=== PATIENT | male | born 1950 | race Caucasian/White ===

== ENCOUNTER → 2024-01-09 13:04 | Outpatient (REF) | payer MEDICARE, SELFPAY | LOC: RAD 13:04 | PROVIDERS: ATTENDING PHYSICIAN Surgery Vascular Surgery; FAMILY PHYSICIAN General Practice | DX: I77.9 Disorder of arteries and arterioles, unspecified (principal) | CPT/HCPCS: 93922; 93925 ==

== ENCOUNTER 2024-01-18 10:38 | Inpatient (IN) | payer MEDICARE, SELFPAY ==
[2024-01-18] VITALS (11 sets, daily range): BP systolic 125–170; BP diastolic 58–89; BMI 26.6
[2024-01-18 07:59] LABS: INR 1.05; PT 13.5 Sec (11.4-14.6)
[2024-01-18 08:00] LABS: Blood Urea Nitrogen 25 mg/dl (9-20); Calcium 8.9 mg/dl (8.4-10.2); Carbon Dioxide 26 mmol/L (22-30); Chloride 109 mmol/L (98-107); Glucose 91 mg/dl (70-99); Potassium 4.4 mmol/L (3.5-5.1); Sodium 140 mmol/L (135-145); eGFR > 60.00
[2024-01-18 08:04] LABS: Hematocrit 39.6 % (39.0-52.0); Mean Corp Hgb Conc. 32.8 g/dL (33.0-37.0); Mean Corpuscular Hgb 32.6 pg (27.0-31.0); Mean Corpuscular Volume 99.2 fL (80.0-94.0); Mean Platelet Volume 10.1 fL (7.4-10.4); Platelet Count 217 10^3/uL (130-400); Red Blood Cell Count 3.99 10^6/uL (4.70-6.10); Red Cell Dist. Width 12.8 % (11.5-14.5); White Blood Cell Count 6.3 10^3/uL (4.8-10.8)
--- NOTE | 2024-01-18 08:21 | W.SUR.PREOP ---
Pre-Operative Surgical Note
-
I have examined this patient prior to the performance of the scheduled procedure.
The patient's condition is unchanged from the time of the current History and
Physical and the patient is able to undergo the scheduled procedure.
--- NOTE | 2024-01-18 10:31 | W.IMMPOSTOP ---
Surgical Immed Post Op Note
-
Primary Surgeon: Asa Warner III, MD
Assisting Surgeon: Kuldip Osei MD
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
Post-op Diagnosis: BL peripheral artery occlusive disease w non-healing heel ulcers
Procedure Performed: Diagnostic bilateral LE angiogram
Anesthesia Type: General
Specimen / Cultures: NA
Estimated Blood Loss: 2 cc
Complications: NA
Operative Findings:
Access obtained via Left Common Femoral Artery. RLE demonstrated completely occluded L SFA with minimal reconstitution of below-knee popliteal artery. Completely occluded posterior tibial artery. Prior stent with complete restenosis. Similar
findings noted on agram of LLE. Will proceed to bypass if veins are harvestable and appropriate caliber.
[2024-01-18] MEDS: SUBLIMAZE 25 MCG IV ×2 (10:59→11:09)
--- NOTE | 2024-01-18 11:12 | W.PN.UPDATE ---
Update Note
Progress Note Update
Arteriogram shows extensive calcified SFA/pop occlusive disease bilaterally with distal reconstitution identified bilaterally
Bilateral SFA/pop stent occlusions bilaterally
Patient with critical limb ischemia bilaterally, left greater than right
Discussed with patient's son.
Will plan for bilateral lower extremity/upper extremity vein mapping
Plan for open revascularization of left lower extremity first, next week
Heparin drip
Cardiac risk stratification
Asa Warner III, MD
[facility]
[phone] (bmhh)
[2024-01-18] MEDS: NSS 1000 IV (11:29)
[2024-01-18 12:38] LABS: Hematocrit 35.4 % (39.0-52.0); Hemoglobin 11.5 g/dL (13.0-18.0); Mean Corp Hgb Conc. 32.5 g/dL (33.0-37.0); Mean Corpuscular Hgb 32.6 pg (27.0-31.0); Mean Corpuscular Volume 100.3 fL (80.0-94.0); Mean Platelet Volume 9.7 fL (7.4-10.4); Platelet Count 170 10^3/uL (130-400); Red Blood Cell Count 3.53 10^6/uL (4.70-6.10); Red Cell Dist. Width 12.7 % (11.5-14.5); White Blood Cell Count 6.3 10^3/uL (4.8-10.8)
[2024-01-18 13:19] LABS: APTT 32.8 Sec (23.4-35.0)
--- NOTE | 2024-01-18 13:20 | CON.CAR ---
Addendum entered and electronically signed by Newton Leyva MD 01/18/24 16:10:
I saw and examined the patient.
The GOLD BURNISHER's note was reviewed and I agree with the note.
Comment: 73 yo male with CAD s/p CABG x 3 09/2019, ICM 30-35%, PAD (multiple LE stents followed by Dr. Warner), [employer] ICD, PE on Eliquis, HTN, and HLD, who presents for LE arteriogram by Dr. Warner. Dr. Warner plans on open
revascularization of left lower extremity next week.� We are consulted for pre-op risk assessment.� He denies any cardiac complaints and reports being able to walk up a flight of stairs without chest pain or SOB.
- Preop CV risk assessment: He has no significant symptoms of ischemia, heart failure, or arrhythmia. According to the NSQIP risk calculator he is at approximately 1% risk of cardiac complication and approximately 10 to 15% risk of any
complication. He is able to do greater than 4 METS without any significant symptoms of ischemia. He is at elevated risk, however, given he has no significant symptoms he needs no further testing prior to surgery.
Original Note:
Consultation
Consultation Request
Date/Time Consultation Requested: 01/18/24 12:15p
Date/Time Consultation Performed: 01/18/24 12:30p
Requesting Provider: HERBERTH Pathak
Performing Provider: HERBERTH Braun for Dr. Leyva
Reason for Consultation: pre-op risk assessment
Medical History
-
Chief Complaint: pad
History of Present Illness:
Mr. Rossi is a 73 yo male with CAD s/p CABG x 3 09/2019, ICM 30-35%, PAD (multiple LE stents followed by Dr. Warner), [employer] ICD, PE on Eliquis, HTN, and HLD, who presents for LE arteriogram by Dr. Warner. Arteriogram with extensive
calcified SFA/popliteal occlusive disease bilaterally with distal reconstitution identified bilaterally, b/l SFA/popliteal stent occlusions bilaterally. He has critical limb ischemia bilaterally, left greater than right. Dr. Warner plans on open
revascularization of left lower extremity next week. We are consulted for pre-op risk assessment. He denies any cardiac complaints and reports being able to walk up a flight of stairs without chest pain or SOB. His last stress test was 01/24/2022
that showed EF 37%, negative for ischemia and large scar. Echo 07/20/23 with EF 30-35%, global hypokinesis of inferoseptal, inferolateral and inferior alvarez, mild-mod MR. Currently he is lying flat, post arteriogram, without any symptoms.
Past Medical History
Past Medical History: Other (as above)
Past Surgical History: Cardiac (CABG and ICD)
Social History
Tobacco: Former Smoker
Alcohol: None
Living: With Family
Family History
Family History: CAD (father CT 60s)
Allergies / Home Medications
Allergy/AdvReac Type Severity Reaction Status Date / Time
atorvastatin [From Lipitor] Allergy myalgia Verified 01/15/24 08:46
simvastatin [From Zocor] Allergy myalgia Verified 01/15/24 08:46
Medication Instructions Recorded Confirmed Type
aspirin 81 mg tablet,delayed 81 mg PO DAILY Blood Clot 01/21/19 01/18/24 History
release Prevention/Tx
acetaminophen 325 mg tablet 650 mg PO Q4HPRN PRN mild 09/28/19 01/18/24 Rx
pain,headache,temp >101F
rosuvastatin 5 mg tablet 5 mg PO DAILY High Cholesterol 10/19/19 01/18/24 History
carvedilol 12.5 mg tablet 12.5 mg PO BID Heart 03/18/21 01/18/24 History
Disease/Condition/blood pressure
docusate sodium 100 mg capsule 100 mg PO BID Constipation 09/28/23 01/18/24 History
levothyroxine 75 mcg tablet 75 mcg PO DAILY Thyroid 09/28/23 01/18/24 History
pantoprazole 40 mg tablet,delayed 40 mg PO DAILY Gastrointestinal 09/28/23 01/18/24 History
release Issue
sacubitril 49 mg-valsartan 51 mg 1 tab PO BID Heart failure 09/28/23 01/18/24 History
tablet (Entresto)
timolol maleate 0.5 % eye drops 1 drp BOTH EYES DAILY glaucoma 09/28/23 01/18/24 History
trazodone 50 mg tablet 50 mg PO HS PRN sleep 09/28/23 01/18/24 History
apixaban 5 mg tablet (Eliquis) 5 mg PO BID 01/15/24 01/15/24 History
Review of Systems
-
History Source: Patient
All other systems: Negative unless noted
Physical Exam
Vital Signs
Temp Pulse Resp BP Pulse Ox
97.8 F 68 19 141/75 97
01/18/24 13:19 01/18/24 13:19 01/18/24 13:19 01/18/24 13:19 01/18/24 13:19
Lab Results
01/18/24 12:31
01/18/24 07:41
Physical Exam
General: Well Developed, Well Nourished and No Apparent Distress
HEENT: Normocephalic, Anicteric and Moist Mucous Membranes
Respiratory: Clear and Non Labored Respirations
Cardiac: S1/S2, Regular Rhythm and Peripheral Edema (mild)
Breast: Deferred by me
GI: Soft, Non Tender and Normal Bowel Sounds
Rectal: Deferred by Provider
Musculoskeletal: No Clubbing
Skin: Warm, Dry and Other (right heel wound, vascular changes to b/l LE)
Neuro: AO x 3
Psych: Calm
Impression / Plan
-
Pre-op risk assessment - critical limb ischemia LLE, plan for open bypass of LLE next week.
- no active cardiac symptoms, states able to perform > 4 METS w/o symptoms.
- he is at moderate risk.
- continue his outpatient medical therapy and monitor on tele.
PAD - severe b/l LE.
- Arteriogram with extensive calcified SFA/popliteal occlusive disease bilaterally with distal reconstitution identified bilaterally, b/l SFA/popliteal stent occlusions bilaterally.
- He has critical limb ischemia bilaterally, left greater than right. Dr. Warner plans on open revascularization of left lower extremity next week.
- managed by Dr. Warner.
CAD - s/p CABG.
- stable w/o anginal symptoms.
- continue medical therapy.
ICM - EF 30-35%.
- well compensated on exam.
- denies any heart failure symptoms.
ICD - [employer] device.
- stable with normal function.
stress test was 01/24/2022 that showed EF 37%, negative for ischemia and large scar.
Echo 07/20/23 with EF 30-35%, global hypokinesis of inferoseptal, inferolateral and inferior alvarez, mild-mod MR.
Data Reviewed
-
EKG: Other (ordered)
Medical Tests (Nuc Med, Echo etc): Report Reviewed by me (Echo 07/20/23 with EF 30-35%, global hypokinesis of inferoseptal, inferolateral and inferior alvarez, mild-mod MR.) and Other (stress test 01/24/2022 showed EF 37%, negative for ischemia and large
scar.)
Labs: Labs Reviewed by me
Old Records: Reviewed
[2024-01-18] MEDS: DILAUDID 0.5 MG IV (13:53)
--- NOTE | 2024-01-18 15:17 | PTCARENOTE ---
pt arrived from PACU 1200, to lay flat another hour. Diagnostic bilateral LE angiogram could not place stent, bypass [place], Heparin to start 3/2, bilat foot ulcers, heel wound. 22g RW 80ml NSS until 1630. 22g in RFA placed for Heparin to start 3/2
0800. bed low and flat, pain is 0. call vanessa in reach.
[2024-01-18] MEDS: ROXICODONE 5 MG PO ×2 (16:34→20:34)
--- NOTE | 2024-01-18 17:27 | OR.RPT ---
Operative Report
Operative Report
Date of Operation: 01/18/2024
Pre Op Diagnosis: Critical limb threatening ischemia, bilateral lower extremities
Post Op Diagnosis: Critical limb threatening ischemia, bilateral lower extremities
Procedure:
1.) Selective catheterization of third order lower extremity artery
2.) Diagnostic aortobiiliac arteriogram
3.) Diagnostic BILATERAL lower extremity arteriogram
4.) Ultrasound-guided percutaneous access to the right common femoral artery
Surgeon: Asa Warner III, MD
Hot Blast Worker: Kuldip Osei MD PGY-1
Anesthesia: Sedation with local
Fluoroscopy:
15 min
183 mGy
53.1 Gy.cm2
Complications: None
Estimated Blood Loss: Less than 10 cc
History and Indications for Procedure: 73-year-old male with critical limb threatening ischemia involving both lower extremities. The left was worse than the right. He has a left nonhealing foot wound. He has rest pain bilaterally.
Procedure in Detail: Mundo Rossi was correctly identified and placed supine on the operating table. After adequate induction of anesthesia the bilateral groins were prepped and draped in the usual sterile fashion. A timeout was performed with the
nursing and anesthesia staff confirming the patient's identity as well as the nature and laterality of the procedure.
The right common femoral artery was identified under ultrasound guidance. The artery was patent. The superior and inferior aspects of the femoral head were identified with radiographic guidance and marked at the skin level. The proposed puncture
site was infiltrated with local anesthesia. We saved a copy of the ultrasound image to the medical record. Under ultrasound guidance we accessed the right common femoral artery with a micropuncture needle and upsized to a 5 Fr sheath over a VCVson
wire. The wire and a ShepherFlatStack hook flush catheter were advanced into the distal abdominal aorta and a diagnostic aorto-biiliac arteriogram was performed:
AORTO-ILIAC ARTERIOGRAM:
Aorta: Peripherally calcified diffusely. Patent. No significant stenosis identified.
Right common iliac artery: Peripherally calcified. Patent. No significant stenosis identified.
Right external iliac artery: Patent with no significant stenosis identified
Left common iliac artery: Peripherally calcified. Patent with no significant stenosis identified.
Left external iliac artery: Patent with no significant stenosis identified
Under roadmap guidance using a Glidewire and the SheSandataerFlatStack hook catheter we selected the left common iliac artery and then the external iliac artery. A catheter was tracked up and over the aortic bifurcation and placed in the distal external iliac
artery. A diagnostic left lower extremity arteriogram was then performed which demonstrated the following:
LEFT LOWER EXTREMITY:
Common femoral artery: Patent with no significant stenosis identified
Profunda femoral artery: Patent with no significant stenosis identified
Superficial femoral artery: Patent proximal and mid segment. Focal moderate calcified stenosis present in the proximal SFA. Diffuse peripheral calcification. Moderate stenoses seen distally just proximal to the stent. Distal SFA stent occluded
Popliteal artery: Above-knee popliteal artery occluded within the stent. Occluded stents behind the knee. Heavily calcified. Faint reconstitution of a small diameter heavily diseased below-knee popliteal artery.
Anterior tibial artery: Reconstituted through collaterals. Proximal anterior tibial artery stent identified. Appears to be patent. Distal anterior tibial artery is patent and continues across the ankle into the foot. Dorsalis pedis artery is
patent and flow to the midfoot and forefoot is identified in this distribution
Tibioperoneal trunk: Patent. Heavily calcified.
Peroneal artery: Patent. No stenosis identified.
Posterior tibial artery: Occluded. No distal reconstitution identified
ENDOVASCULAR INTERVENTION: Systemic heparin was administered. Exchanged out for a 6 Fr 45 cm sheath over a Watchwith wire. Selected the superficial femoral artery artery under roadmap guidance with Quickcross catheter and glidewire. Attempted to cross
the occluded SFA/pop stents but could not advance catheter or wire through the popliteal artery behind the knee. I therefore abandoned additional attempts to cross the occlusive disease.
The catheter was removed from the sheath. The sheath was pulled back into the right external iliac artery. The wire was removed. A runoff arteriogram of the right lower extremity was performed which demonstrated the following:
RIGHT LOWER EXTREMITY:
Common femoral artery: Patent with no significant stenosis identified.
Profunda femoral artery: Patent with no significant stenosis identified.
Superficial femoral artery: Patent proximal and mid segment. Bulky calcified plaque identified creating high-grade stenoses. Distal SFA stents are occluded.
Popliteal artery: Occluded [id number] stents. Occluded behind the knee. Small diameter popliteal artery reconstitutes below the knee. Appears to be calcified.
Anterior tibial artery: Patent. Continues across the ankle into the foot to form the dorsalis pedis artery. This artery supplies the forefoot.
Tibioperoneal trunk: Patent.
Peroneal artery: Patent.
Posterior tibial artery: Occluded. No distal reconstitution identified.
Satisfied with this result we concluded the procedure. The sheath was secured in place with the plan to pull it in the recovery room.
The patient tolerated the procedure well and was taken to the recovery area in stable condition.
Attestation: I was present and responsible for the entire procedure.
Signed:
Asa Warner III, MD
[facility]
[phone] (qlal)
[2024-01-18] MEDS: ENTRESTO 49 MG/51 MG 1 TAB PO (20:18)
[2024-01-18] MEDS: COREG 12.5 MG PO (20:18)
[2024-01-18] MEDS: COLACE 100 MG PO (20:18)
[2024-01-19] MEDS: ROXICODONE 5 MG PO ×4 (00:36→20:58)
--- NOTE | 2024-01-19 01:12 | PTCARENOTE ---
patient attempted to void by sitting on side of bed with urinal. no output. bladder scan reading = 550. This RN explained to patient that per MD order we would straight cath to remove urine that he is unable to void on his own. pt would prefer to
wait a little longer and attempt to void on his own one more time before being strait cathed, in hopes that his pain medicine helps him relax more. will cont to monitor.
[2024-01-19 03:48] VITALS: BP 160/83
[2024-01-19 06:00] VITALS: BMI 27.5
[2024-01-19] MEDS: SYNTHROID 75 MCG PO (06:01)
--- NOTE | 2024-01-19 07:14 | W.PN.VS ---
Today's Communication / Plan
-
as above
Assessment/Plan
-
-Discussed arteriogram results with patient
-appreciate cardiology input
-plan for bypass Sunday
Subjective Data
-
Date of Service: January 19, 2024
No acute events. Continues to have same pain in legs.
Objective Data
-
Vital Signs
Temp Pulse Resp BP Pulse Ox
97.3 F 82 18 160/83 95
01/19/24 03:48 01/19/24 03:48 01/19/24 03:48 01/19/24 03:48 01/19/24 03:48
Intake and Output
01/18/24 01/19/24 01/20/24
06:59 06:59 06:59
Intake Total 1080 / 1080
Output Total 350 / 350
Balance 730 / 730
Intake:
Oral fluids 740 / 740
IV fluids (Total) 340 / 340
NS 100 / 100
IV piggybacks 0 / 0
Output:
Urine, Voided 350 / 350
Other:
Number of approximated MODERATE 1
amounts of urine
Calcium 8.9 mg/dl (8.4-10.2) 01/18/24 07:41
Physical Exam
-
NAD
Feet hanging over side of bed
Groin access site c/d/i
[2024-01-19 07:40] VITALS: BP 163/87
[2024-01-19 07:41] LABS: PT 14.1 Sec (11.4-14.6)
[2024-01-19 07:42] LABS: APTT 28.8 Sec (23.4-35.0); Hematocrit 36.1 % (39.0-52.0); Hemoglobin 11.8 g/dL (13.0-18.0); Mean Corp Hgb Conc. 32.7 g/dL (33.0-37.0); Mean Corpuscular Hgb 32.5 pg (27.0-31.0); Mean Corpuscular Volume 99.4 fL (80.0-94.0); Platelet Count 201 10^3/uL (130-400); Red Blood Cell Count 3.63 10^6/uL (4.70-6.10); Red Cell Dist. Width 12.8 % (11.5-14.5); White Blood Cell Count 7.5 10^3/uL (4.8-10.8)
[2024-01-19 07:51] LABS: Blood Urea Nitrogen 24 mg/dl (9-20); Calcium 8.4 mg/dl (8.4-10.2); Carbon Dioxide 23 mmol/L (22-30); Chloride 107 mmol/L (98-107); Estimated Creatinine Clearance 64 ml/min; Glucose 93 mg/dl (70-99); Potassium 4.3 mmol/L (3.5-5.1); Sodium 136 mmol/L (135-145); eGFR > 60.00
[2024-01-19] MEDS: COREG 12.5 MG PO ×2 (09:31→21:00)
[2024-01-19] MEDS: COLACE 100 MG PO ×2 (09:32→20:59)
[2024-01-19] MEDS: PROTONIX 40 MG PO (09:32)
[2024-01-19] MEDS: ENTRESTO 49 MG/51 MG 1 TAB PO ×2 (09:33→20:59)
[2024-01-19] MEDS: CRESTOR 5 MG PO (09:33)
[2024-01-19] MEDS: ASPIR LOW (ENTERIC COATED) 81 MG PO (09:34)
[2024-01-19] MEDS: TIMOPTIC 0.5% OPHTHALMIC SOLUTION 1 DROP BOTH EYES (09:35)
[2024-01-19] MEDS: HEPARIN 25000 UNITS/250 ML IV (09:36)
[2024-01-19 11:30] VITALS: BP 113/93
--- NOTE | 2024-01-19 15:36 | CM ---
CM met with pt bedside
Pt resides alone in a rancher with ramp entrance
Pt notes independence with ambulation with use of WW
No longer drives and will only bath with family supervision
Pt has hx at [facility] for respite and [facility]
Pt is in financial assistance program for [email or web address]
PCP- Chinyere Beltran
Rx- [facility]
Pt planned for bypass on
Will benefit from post PT/OT orders
Pt notes he receives wound care at home
VM left with Arlin Beal in inquire which agency she works with ([phone])
Discharge Disposition- home watc [facility], watch for higher needs
[2024-01-19 15:45] VITALS: BP 122/69
--- NOTE | 2024-01-19 15:48 | PTCARENOTE ---
pt is very confused. he states it is baseline for him. he is writing everything down, repeating questions he asked earlier becoming anxious, overly concerned regarding wound care. Heparin 12u/kg/hr started 1000, PO oxycodone. Stood pt at bedside for
3mins. buttocks are blanchable red, applied cream.
[2024-01-19 16:26] LABS: APTT 102.9 Sec (23.4-35.0)
--- NOTE | 2024-01-19 18:30 | PTCARENOTE ---
reached out to vascular doctor regarding pt having difficulty urinating. He goes smaller amounts, then feels the urge to still go. He is more anxious and increasing his baseline confusion.
[2024-01-19 19:12] VITALS: BP 146/82
[2024-01-19] MEDS: MELATONIN 5 MG PO (20:59)
[2024-01-19 22:56] LABS: APTT 159.6 Sec (23.4-35.0)
[2024-01-19 22:58] LABS: Urine Albumin Negative (Neg - Trace); Urine Bilirubin Negative (Negative); Urine Character Clear (Clear); Urine Color Yellow; Urine Glucose Negative (Negative); Urine Ketone Negative (Negative); Urine Leukocyte Negative (Negative); Urine Nitrite Negative (Negative); Urine Occult Blood Negative (Negative); Urine Specific Gravity 1.015 (<1.030); Urine Urobilinogen Negative (Neg - 1+)
--- NOTE | 2024-01-19 23:00 | PTCARENOTE ---
contacted house [employer] concerning patient's frequent urination of 100-200 mls a time, while c/o still feeling full of urine. UA ordered and obtained. post void residual of 650 after 100 ml void. patient then straight cathed for 825 ml of dark yellow
urine, tolerated procedure well.
[2024-01-19 23:16] VITALS: BP 136/69
[2024-01-20] MEDS: TYLENOL 650 MG PO (00:38)
[2024-01-20 03:26] VITALS: BP 133/64
[2024-01-20 06:00] VITALS: BMI 27.4
[2024-01-20] MEDS: SYNTHROID 75 MCG PO (06:08)
[2024-01-20 07:13] LABS: Hematocrit 33.5 % (39.0-52.0); Mean Corp Hgb Conc. 32.8 g/dL (33.0-37.0); Mean Corpuscular Hgb 32.4 pg (27.0-31.0); Mean Corpuscular Volume 98.5 fL (80.0-94.0); Mean Platelet Volume 9.8 fL (7.4-10.4); Platelet Count 175 10^3/uL (130-400); White Blood Cell Count 6.2 10^3/uL (4.8-10.8)
[2024-01-20 07:26] LABS: APTT 105.5 Sec (23.4-35.0)
[2024-01-20 07:40] VITALS: BP 119/50
--- NOTE | 2024-01-20 07:48 | W.PN.VS ---
Today's Communication / Plan
-
as above
Assessment/Plan
-
-Discussed arteriogram results with patient
-appreciate cardiology input
-flomax started
Subjective Data
-
Date of Service: January 20, 2024
Patient with urinary retention overnight. Otherwise no complaints
Objective Data
-
Vital Signs
Temp Pulse Resp BP Pulse Ox
98.0 F 72 18 133/64 94
01/20/24 03:26 01/20/24 03:26 01/20/24 03:26 01/20/24 03:26 01/20/24 03:26
Intake and Output
01/19/24 01/20/24 01/21/24
06:59 06:59 06:59
Intake Total 1080 / 1080 1040 / 1040
Output Total 350 / 350 1650 / 1650
Balance 730 / 730 -610 / -610
Intake:
Oral fluids 740 / 740 1040 / 1040
IV fluids (Total) 340 / 340
NS 100 / 100
IV piggybacks 0 / 0
Output:
Urine, Voided 350 / 350 825 / 825
Straight cath output 825 / 825
Other:
Number of approximated MODERATE 1
amounts of urine
Lab Results
01/20/24 06:56
01/19/24 07:20
Calcium 8.4 mg/dl (8.4-10.2) 01/19/24 07:20
Physical Exam
-
NAD
feet hanging over the bed for symptomatic relief
groin access site c/d/i
[2024-01-20] MEDS: COREG 12.5 MG PO ×2 (09:15→21:05)
[2024-01-20] MEDS: FLOMAX 0.400000000000000022 MG PO (09:16)
[2024-01-20] MEDS: ENTRESTO 49 MG/51 MG 1 TAB PO ×2 (09:16→21:07)
[2024-01-20] MEDS: ASPIR LOW (ENTERIC COATED) 81 MG PO (09:17)
[2024-01-20] MEDS: CRESTOR 5 MG PO (09:17)
[2024-01-20] MEDS: ROXICODONE 5 MG PO ×4 (09:17→23:05)
[2024-01-20] MEDS: COLACE 100 MG PO ×2 (09:18→21:05)
[2024-01-20] MEDS: TIMOPTIC 0.5% OPHTHALMIC SOLUTION 1 DROP BOTH EYES (09:18)
[2024-01-20] MEDS: PROTONIX 40 MG PO (09:18)
[2024-01-20] MEDS: HEPARIN 25000 UNITS/250 ML IV (09:19)
[2024-01-20 13:27] LABS: APTT 121.5 Sec (23.4-35.0)
--- NOTE | 2024-01-20 15:04 | PTCARENOTE ---
pt required straight cath/bladder scanning d/t bladder retention. He is frustrated with his confusion and does not remember things. BPH is undiagnosed and needs to be addressed. Nurse placed in ingrid care b/c he is wiggly to end of bed to use urinal
and needs to get OOB. Skin on buttocks is becoming reddened/blanchable needs to stand and get OOB but pt states feet hurt too much. Heavy 2 pp assist with RW. pt fell asleep in gericare after oxycodone, but stated felt relief in chair.
[2024-01-20 15:43] VITALS: BP 109/53
[2024-01-20 19:26] LABS: APTT 102.1 Sec (23.4-35.0)
[2024-01-20 23:10] VITALS: BP 132/63
[2024-01-21] VITALS (13 sets, daily range): BP systolic 115–158; BP diastolic 63–87; BMI 27.4
--- NOTE | 2024-01-21 01:40 | W.PN.UPDATE ---
Update Note
Progress Note Update
Patient continuos to retain urine, voided 100ml, per nursing bladder scan 460ml, Straight Cath 600ml. patient uncomfortable at present with the straight cath as it is the third time, Flomax order in place, Will place Warner cath this time.
[2024-01-21] MEDS: DILAUDID 0.5 MG IV ×3 (02:00→12:08)
[2024-01-21 05:58] LABS: APTT 88.1 Sec (23.4-35.0)
[2024-01-21] MEDS: ROXICODONE 5 MG PO (06:46)
[2024-01-21] MEDS: SYNTHROID 75 MCG PO (06:51)
[2024-01-21] MEDS: COLACE 100 MG PO ×2 (08:13→20:20)
[2024-01-21] MEDS: PROTONIX 40 MG PO (08:13)
[2024-01-21] MEDS: CRESTOR 5 MG PO (08:13)
[2024-01-21] MEDS: FLOMAX 0.400000000000000022 MG PO (08:13)
[2024-01-21] MEDS: COREG 12.5 MG PO ×2 (08:13→20:20)
[2024-01-21] MEDS: TIMOPTIC 0.5% OPHTHALMIC SOLUTION 1 DROP BOTH EYES (08:13)
[2024-01-21] MEDS: ASPIR LOW (ENTERIC COATED) 81 MG PO (08:13)
[2024-01-21] MEDS: HEPARIN 25000 UNITS/250 ML IV (08:13)
[2024-01-21] MEDS: ENTRESTO 49 MG/51 MG 1 TAB PO ×2 (08:13→20:20)
--- NOTE | 2024-01-21 10:07 | CM ---
Reviewed the chart notes and spoke with the patient and his son at the bedside. Received call from patient's PCP office to confirm [facility] is seeing patient in his home for his wounds. Patient anticipating on having bypass to lower
extremity tomorrow. CM continues to be available to patient/family and is monitoring medical plan for needs at discharge.
Plan: Discharge plans will depend on the patient's progress.
--- NOTE | 2024-01-21 10:40 | WOUNDNOTE ---
L MEDIAL GREAT TOE
--- NOTE | 2024-01-21 10:42 | WOUNDNOTE ---
L LATERAL HEEL AND ACHILLES
--- NOTE | 2024-01-21 10:45 | WOUNDNOTE ---
WON RN note: Patient admitted with PAD to legs.
See H&P for complete history. Lives by self, sons assist as needed.
PMH: CAD, PAD, PVD with multiple stents to legs, CABG triple bypass 2018, defibrillator 2019, ex smoker, DJD-herniated discs,(epidural steroid injections) R foot drop, Hep C and arthritis.
Wound Location and type/assessment: Patient admitted with: R heel unstageable PI mixed with arterial insufficiency, small eschar with serosanguineous drainage. L medial great toe with arterial wound, benson slough at base, moderate ss drainage.
Patient and son's at bedside state it was a bunion that a foot DrShayne attempted to remove and then wound opened. Has a first apt. at [facility] for this , son will reschedule. L heel boggy red, stage 1 PI, scattered dry scab
abrasions to Achilles. Was using a surgical shoe when ambulating. Otherwise son's say he uses open back slippers when walking in house. R foot drop, patient does not recall why he got it, does not use any special brace. Plantar feet are intact. With
assist from nurse Miah, turned patient onto sides, buttocks are intact. Patient assists with turning, very sleepy at moment, previously medicated for pain. Non palpable pulses both feet, + audible pulses with Doppler, L dampened. skin warm, red tinge
to skin. Reviewed Dr. Warner's note, for leg bypass Sunday.
Appetite: Adequate.
Pressure redistribution devices in place: On Accumax, encouraged to turn, repositioned onto R semi side lying position.
Plan: To L great toe and R heel applied silver alginate, ABD pad and kerlix. L heel applied silicone foam and kerlix. Will order mineral oil for dry skin on both legs and feet. Called SPD for TruVue lite offloading heel boot and applied to both
feet. Teaching done regarding wound care and offloading. Sons and patient aware can take boots home upon discharge, to be used in bed only. Pillow placed under calves. Current with [facility] per CM at bedside. Wounds may eventually need topical
Santyl to help clean wound beds along with continued offloading to heels and offloading shoes. Confirmed the above orders with ARABELLA Correa. Updated nurse Sharmila, care plan and will follow as needed.
Note to case management of equipment requested for discharge:
Recommend follow up at wound care center upon discharge.
--- NOTE | 2024-01-21 12:12 | PN.CDI ---
CDI
- -
CDI:
Physician Documentation Request
Admit Date: 01/18/24 10:38
Dear Vascular,
Please review the following and provide your response in the progress notes.
Clinical Indicators:
- 01/09 Vascular note 'awake and alert, NAD'
- 01/17 Cardiology indicates pt AOx3
- 01/18 RN notes 'pt is very confused. he states it is baseline for him...repeating questions he asked earlier becoming anxious'
- 'He is more anxious and increasing his baseline confusion'
- 'He is frustrated with his confusion and does not remember things'
- 01/17-01/20 5mg Oxycodone x 11
Based on the above, please clarify in the Progress Notes which, if any of the following, is the most likely etiology of the confusion/altered mental status.
Encephalopathy - indicate type, such as metabolic, toxic, septic, alcoholic, anoxic, hypertensive etc. due to a specific condition such as UTI, CVA, hyponatremia etc. .
Acute Delirium - indicate known or suspected etiology such as postoperative, due to opioids or other drugs etc. Can also indicate unknown or mixed etiologies.
Baseline Dementia - indicate type, such as Alzheimer's, senile, vascular, Lewy body etc., and any associated behavioral disturbances (aggressive, combative or violent behavior) if present
Acute or subacute confusional state due to (specify known or suspected etiology)
Other
Use of terms such as suspected, likely, concern for, or probable (associated with a specific diagnosis that is being evaluated, monitored, or treated as if it exists) are acceptable and can be coded in the inpatient setting, when documented at the
time of discharge.
Thank you,
Levi Najera RN
CDI Specialist
Please use your independent medical judgment in providing your response.
[2024-01-21] MEDS: DULCOLAX 10 MG RECTAL (12:22)
[2024-01-21] MEDS: D5/0.45%NACL 1000 IV (13:20)
[2024-01-21] MEDS: DILAUDID PCA 30 IV (13:21)
--- NOTE | 2024-01-21 15:11 | W.PN.UPDATE ---
Update Note
Progress Note Update
Pt seen at bedside this afternoon with Dr Roblero. Pt had been having foot pain not well controlled with PO/intermittent IV pain medication. I switched him to BLEACHER PULP which he states is working better for him. Pt comfortable at this time. We briefly spoke
about plans for tomorrows procedure. Pt currently has no questions. Groin site stable.
Plan: NPO after midnight for OR tomorrow
[2024-01-22] VITALS (34 sets, daily range): BP systolic 0–185; BP diastolic 58–135; BMI 27.5
[2024-01-22 04:55] LABS: Hematocrit 31.9 % (39.0-52.0); Hemoglobin 10.7 g/dL (13.0-18.0); Mean Corp Hgb Conc. 33.5 g/dL (33.0-37.0); Mean Corpuscular Hgb 32.5 pg (27.0-31.0); Mean Platelet Volume 10.3 fL (7.4-10.4); Platelet Count 189 10^3/uL (130-400); Red Blood Cell Count 3.29 10^6/uL (4.70-6.10); Red Cell Dist. Width 12.6 % (11.5-14.5); White Blood Cell Count 6.8 10^3/uL (4.8-10.8)
[2024-01-22 05:02] LABS: APTT 85.6 Sec (23.4-35.0)
[2024-01-22 05:20] LABS: Blood Urea Nitrogen 18 mg/dl (9-20); Calcium 8.3 mg/dl (8.4-10.2); Carbon Dioxide 23 mmol/L (22-30); Chloride 106 mmol/L (98-107); Estimated Creatinine Clearance 58 ml/min; Glucose 97 mg/dl (70-99); Potassium 4.5 mmol/L (3.5-5.1); Sodium 132 mmol/L (135-145); eGFR > 60.00
[2024-01-22] MEDS: BACTROBAN 2% OINTMENT 1 APPLIC NASAL (07:19)
[2024-01-22] MEDS: PERIDEX 0.12% ORAL RINSE 15 ML PO (07:19)
--- NOTE | 2024-01-22 10:07 | PN.CDI ---
CDI
- -
CDI:
Physician Documentation Request
Admit Date: 01/18/24 10:38
Dear Vascular,
Please review the following and provide your response in the progress notes.
Clinical Indicators:
- 3/4 Wound note indicates:
- R heel unstageable pressure injury mixed with arterial insufficiency, POA
- Stage 1 left heel pressure injury, POA
Physician documentation of the type and location of wounds is required for compliant documentation. Based on the above clinical findings and your assessment, please provide the following in your progress note:
1. Location of the ulcer/wound, including laterality.
2. Type (etiology) of ulcer/wound:
- Diabetic ulcer
- Arterial (ischemic) ulcer
- Traumatic wound
- Venous stasis ulcer
- Pressure (decubitus) ulcer
- Non-healing surgical wound
- Other
- Unable to determine
Use of terms such as suspected, likely, concern for, or probable (associated with a specific diagnosis that is being evaluated, monitored, or treated as if it exists) are acceptable and can be coded in the inpatient setting, when documented at the
time of discharge.
Thank you,
Levi Najera RN
CDI Specialist
Please use your independent medical judgment in providing your response.
*Source: National Pressure Ulcer Advisory Panel (NPUAP)
[2024-01-22 10:10] LABS: ACT-LR - POC 290 Seconds (116-155)
[2024-01-22 10:16] LABS: Glucose - Point of Care 97 mg/dl (70-99)
[2024-01-22 11:10] LABS: ACT-LR - POC 258 Seconds (116-155)
[2024-01-22 11:53] LABS: ACT-LR - POC 252 Seconds (116-155)
[2024-01-22] MEDS: SUBLIMAZE 50 MCG IV ×3 (13:12→13:49)
[2024-01-22 13:38] LABS: Hematocrit 33.5 % (39.0-52.0); Hemoglobin 11.1 g/dL (13.0-18.0); Mean Corp Hgb Conc. 33.1 g/dL (33.0-37.0); Mean Corpuscular Hgb 32.3 pg (27.0-31.0); Mean Corpuscular Volume 97.4 fL (80.0-94.0); Mean Platelet Volume 10.1 fL (7.4-10.4); Platelet Count 179 10^3/uL (130-400); Red Blood Cell Count 3.44 10^6/uL (4.70-6.10); Red Cell Dist. Width 12.6 % (11.5-14.5); White Blood Cell Count 7.8 10^3/uL (4.8-10.8)
[2024-01-22 13:43] LABS: APTT 33.9 Sec (23.4-35.0); INR 1.09
[2024-01-22] MEDS: NSS 1000 IV (13:44)
--- NOTE | 2024-01-22 13:48 | W.IMMPOSTOP ---
Surgical Immed Post Op Note
-
Primary Surgeon: Asa Warner III, MD
Assisting Surgeon: Kuldip Sanchez MD
Pre-op Diagnosis: Critical Limb Ischemia
Post-op Diagnosis: Critical Limb Ischemia
Procedure Performed: (1) Left Femoral Endarterectomy with patch angioplasty (2) Left Superficial Femoral Artery to Distal Anterior Tibial Artery Bypass (Saphenous Vein)
Anesthesia Type: General
Specimen / Cultures: NA
Estimated Blood Loss: 50cc
Complications: None
Operative Findings:
The patient's vessels of interest (Femoral arteries, saphenous vein grafts, anterior tibial artery) were located on ultrasound and marked preoperatively. The patient's entire left lower extremity was prepped and draped. A 7cm vertical incision was
made in the groin to expose the femoral artery. A similar incision was made in the anterior sanchez to expose the anterior tibial artery. Electrocautery, sharp, and blunt dissection were carried down to the groin and the patient's femoral vessels were
exposed. Control was obtained of the common, superficial, and deep femoral arteries with vessel loops. The femoral-saphenous vein junction was also identified. The saphenous vein was tracked down to the lower leg and dissected via an open harvest.
Vessel branches were ligated and clipped. A tunnel along the lateral leg was made in subcutaneous tissue to connect the anterior tibial artery and open femoral region. The attention was then turned to the common femoral artery. 9000U of heparin was
administered. An arteriotomy was performed and atherosclerotic debris were removed from the vessel. A 1cm bovine pericardial patch was sewn to the arteriotomy. Attention was returned to the saphenous vein. A vessel clamp was placed on the proximal
greater saphenous vein and the distal end was ligated. A valvulotome device was inserted to remove valves from the vein graft. The proximal and distal ends of the vein graft were sewn to the superficial femoral artery and distal anterior tibial
artery in an end-to-side fashion using 7-0 prolene suture. Repair sutures were used to cover any remaining defects in the bypass anastamoses and patch angioplasty. The femoral incision site was closed with 2-0 vicryl, 3-0 vicryl, and alternating 2-0
nylon and elle. The remainder of the incision was closed with multiple running 3-0 vicryl sutures and elle. 2 CARLOS negative pressure wound therapy devices were placed along the closed incision site. The left dorsalis pedis pulse was palpable
following the procedure and marked accordingly. Patient transferred to PACU in stable condition. MAP goals 70-90.
[2024-01-22 13:51] LABS: Blood Urea Nitrogen 17 mg/dl (9-20); Calcium 7.9 mg/dl (8.4-10.2); Carbon Dioxide 21 mmol/L (22-30); Chloride 105 mmol/L (98-107); Estimated Creatinine Clearance 64 ml/min; Glucose 122 mg/dl (70-99); Potassium 4.6 mmol/L (3.5-5.1); Sodium 132 mmol/L (135-145); eGFR > 60.00
[2024-01-22] MEDS: SUBLIMAZE 25 MCG IV ×2 (14:12→14:18)
[2024-01-22] MEDS: DILAUDID PCA 30 IV (14:20)
--- NOTE | 2024-01-22 14:22 | CON.INTV ---
Consultation
Consultation Request
Date/Time Consultation Requested: 3:20pm
Date/Time Consultation Performed: 3:30pm
Medical History
-
History of Present Illness:
73 yr old male with history of PAD + stents, CAD s/p CABG x 3 09/2019, HTN, HLP, ICD, PE on Eliquis, who presents to the ICU following a planned left femoral endarterectomy and SFA to distal SHANIQUA bypass.
Past Medical History
Past Medical History: CAD, CHF, HTN, Hypercholesterolemia and Other (Peripheral Artery Disease)
Past Surgical History: Appendectomy, Cardiac (Coronary artery bypass graft (2018), ICD (2019), ), Tonsilectomy and Other (Vascular: Multiple stents)
Social History
Tobacco: Former Smoker (Quit smoking 1969)
Alcohol: Occasional
Drug: None
Personal:
Living: Alone
Employment: Retired
Family History
Family History: CAD and Cancer (stomach)
Allergies / Home Medications
Allergies
Allergy/AdvReac Type Severity Reaction Status Date / Time
atorvastatin [From Lipitor] Allergy myalgia Verified 01/15/24 08:46
simvastatin [From Zocor] Allergy myalgia Verified 01/15/24 08:46
Home Medications
Medication Instructions Recorded Confirmed Last Taken Type
aspirin 81 mg tablet,delayed 81 mg PO DAILY Blood Clot 01/21/19 01/18/24 01/18/24 02:00 History
release Prevention/Tx
acetaminophen 325 mg tablet 650 mg PO Q4HPRN PRN mild 09/28/19 01/18/24 01/17/24 19:00 Rx
pain,headache,temp >101F
rosuvastatin 5 mg tablet 5 mg PO DAILY High Cholesterol 10/19/19 01/18/24 01/17/24 22:00 History
carvedilol 12.5 mg tablet 12.5 mg PO BID Heart 03/18/21 01/18/24 01/18/24 02:00 History
Disease/Condition/blood pressure
docusate sodium 100 mg capsule 100 mg PO BID Constipation 09/28/23 01/18/24 01/17/24 History
levothyroxine 75 mcg tablet 75 mcg PO DAILY Thyroid 09/28/23 01/18/24 01/18/24 02:00 History
pantoprazole 40 mg tablet,delayed 40 mg PO DAILY Gastrointestinal 09/28/23 01/18/24 01/17/24 12:00 History
release Issue
sacubitril 49 mg-valsartan 51 mg 1 tab PO BID Heart failure 09/28/23 01/18/24 01/18/24 02:00 History
tablet (Entresto)
timolol maleate 0.5 % eye drops 1 drp BOTH EYES DAILY glaucoma 09/28/23 01/18/24 01/18/24 02:00 History
trazodone 50 mg tablet 50 mg PO HS PRN sleep 09/28/23 01/18/24 01/17/24 22:00 History
apixaban 5 mg tablet (Eliquis) 5 mg PO BID Blood Clot 01/15/24 01/15/24 Unknown History
Prevention/Tx
Review of Systems
-
History Source: Patient and Transfer Record
Constitutional: Fever (negative)
Respiratory: Cough (negative) and Trouble Breathing (negative)
Cardiac: Chest Pain (negative) and Palpitations (negative)
Abdomen/GI: Abdominal Pain (n), Nausea (n) and Vomiting (n)
Musculoskeletal: Other (LLE pain)
Neuro: Headache (N) and Other (Confusion)
Vitals / Labs / Diagnostic Testing
Vital Signs
Temp Pulse Resp BP Pulse Ox
98.3 F 72 11 162/79 99
01/22/24 14:15 01/22/24 14:15 01/22/24 14:15 01/22/24 14:00 01/22/24 14:15
Lab Data
01/22/24 13:18
01/22/24 13:18
Laboratory Results
01/22/24 01/22/24
04:38 13:18
PT 14.0
INR 1.09
APTT 85.6 H 33.9
Diagnostic Testing:
Physical Exam
-
HEENT: Normocephalic, Anicteric and Moist Mucous Membranes (dry)
Cardiovascular: S1/S2, Regular Rhythm and Murmur (n)
Respiratory: Clear (Clear to auscultation bilaterally)
GI: Soft, Non Distended and Non Tender
Neurology: Awake, Alert and Oriented (Oriented to person and situation)
Skin: Warm and Dry
General: Respiratory Distress (n), Comfortable and Fever (n)
Assessment
-
Assessment:
73 yr old male with history of PAD + stents, CAD s/p CABG x 3 09/2019, HTN, HLP, ICD, PE on Eliquis, who presents to the ICU following a left femoral endarterectomy and SFA to distal SHANIQUA bypass.
Critical Limb ischemia
Status Post left femoral endarterectomy and left SFA to distal SHANIQUA bypass
Hypertension
Hyponatremia
Conditions prior to arrival:
Peripheral artery disease
Hypertension
Hyperlipidemia
History of PE 09/2023 on Eliquis
PLAN:
Confusion. Likely secondary to procedure, medication.
Monitor for worsening of mental status
Q1hr neuro checks for acute change in neuro status
Critical Limb ischemia
Status Post left femoral endarterectomy and left SFA to distal SHANIQUA bypass
Blood pressure control, MAP goal per vascular surgery
Continue Aspirin 81mg,
Continue Carvedilol, Entresto at home dose for HTN
Rosuvastatin 5mg
94% on 5L NC
Wean as tolerated
Hx of PE 09/2023, on home Eliquis
Continue home Pantoprazole
Advance diet as tolerated: Cholesterol lowering
HandH stable post op
No symptoms suggestive of infection. WBC normal. Afebrile
Warner catheter present
On Tamsulosin for urinary retention
Monitor urine output
Continue Levothyroxine for hypothyroidism
Code Status: Full code
[2024-01-22 15:35] LABS: Magnesium 2.1 mg/dl (1.6-2.3)
[2024-01-22] MEDS: ASPIR LOW (ENTERIC COATED) PO (16:34)
[2024-01-22] MEDS: PROTONIX 40 MG PO (16:34)
[2024-01-22] MEDS: FLOMAX 0.400000000000000022 MG PO (16:34)
[2024-01-22] MEDS: COLACE PO (16:35)
[2024-01-22] MEDS: SYNTHROID 75 MCG PO (16:35)
[2024-01-22] MEDS: CRESTOR 5 MG PO (16:35)
[2024-01-22] MEDS: COREG 12.5 MG PO (16:35)
[2024-01-22] MEDS: TIMOPTIC 0.5% OPHTHALMIC SOLUTION 1 DROP BOTH EYES (16:37)
[2024-01-22] MEDS: ENTRESTO 49 MG/51 MG PO (16:37)
[2024-01-22] MEDS: TYLENOL 650 MG PO (16:39)
--- NOTE | 2024-01-22 16:58 | OR.RPT ---
Operative Report
Operative Report
Date of Operation: 01/22/2024
Pre Op Diagnosis: Critical limb threatening ischemia
Post Op Diagnosis: Critical limb threatening ischemia
Procedure:
1.) Left common femoral endarterectomy and proximal superficial femoral endarterectomy with patch angioplasty using bovine pericardium
2.) Left superficial femoral artery to anterior tibial artery bypass using ipsilateral nonreversed great saphenous vein
Surgeon: Asa Warner III, MD
Resident Medical Officer: Kuldip Osei MD PGY-1
Anesthesia: General
Complications: None
Estimated Blood Loss: 250 cc
History and Indications for Procedure: 73-year-old male with bilateral critical limb threatening ischemia. The left leg was worse than the right with nonhealing foot wounds. I made the recommendation that he undergo open revascularization based on
preoperative arteriogram.
Procedure in Detail: Mundo Rossi was correctly identified and placed supine on the operating table. After adequate induction of anesthesia the left greater saphenous vein was imaged with ultrasound and marked. The abdomen, pelvis, left groin, left
lower extremity and left foot were then positioned, prepped and draped in the usual sterile fashion. Preoperative antibiotics were administered. A timeout procedure was performed with the nursing and anesthesia staff confirming the patient�s
identity as well as the nature and laterality of the procedure.
An incision was made from the left groin to the mid calf over the left greater saphenous vein handy. The vein was harvested along this entire course. All branches were ligated and divided between silk ties and clips. The vein appeared to be of
adequate caliber and quality to be used as a bypass conduit. The left common femoral, superficial femoral and profunda femoral arteries were sharply exposed through the groin incision. Each of these was encircled with a vessel loop.
The anterior tibial artery was chosen as the distal target and was sharply exposed through mid osei incision. Proximal and distal control was obtained with vessel loops on a soft spot along the artery.
A tunnel was then created between the anterior tibial artery exposure and the femoral vessels. The tunneler was left in place while we performed the endarterectomy and proximal anastomosis.
The patient was systemically heparinized. The distal end of the vein in the mid calf was clipped and transected. The vein was distended with heparinized saline solution. The vein distended nicely and all branch points were inspected. The
saphenofemoral junction was clamped. The vein was marked along its entire length. The vein was transected at the saphenofemoral junction, placed in a heparinized saline bath and passed off to the back table.
The proximal and distal vessel loops on the femoral vessels were secured. A c-clamp was placed on the distal external iliac artery under the inguinal ligament. An arteriotomy was made in the common femoral artery and extended proximally and distally
with Beatty scissors. The arteriotomy was extended to the proximal common femoral artery. Distally the arteriotomy was extended onto the proximal superficial femoral artery. An endarterectomy was performed in the standard fashion with a [place]
elevator. The distal end of the plaque in the proximal superficial femoral artery feathered nicely with no distal intimal flap. The plaque feathered nicely at the origin of the profunda femoral artery. No intimal flap was identified at the
profunda femoral artery orifice. Proximally the plaque was pulled free from the clamp. Additional pieces of plaque and tissue were carefully removed with forceps. The endarterectomy plane was irrigated with heparinized saline solution and any loose
fronds of tissue were removed. A precut piece of bovine pericardium was brought onto the field and sewn in place as a patch angioplasty using a running 6-0 Prolene suture. Prior to the completion of the anastomosis the arteries were allowed to
forward bleed and backbleed. The anastomosis was completed and the proximal clamp as well as the distal vessel loops were released. The suture line was closely inspected for hemostasis which was achieved. There were strong pulses in the common
femoral, proximal superficial femoral and profunda femoral arteries.
Proximal and distal control was then obtained with vessel loops further distally on the superficial femoral artery. The artery was soft and free of plaque. This correlated with the preoperative arteriogram. The proximal and distal vessel loops on
the SFA were secured. An arteriotomy was made with an 11 blade and extended proximally and distally with Beatty scissors. The distal SFA was flushed with heparinized saline. The vein was brought back to the field and oriented in a non-reversed
fashion. The proximal end of the vein was spatulated and an end-to-side anastomosis was created to the proximal SFA with a running 6-0 Prolene suture. The anastomosis was completed and the vessel loops were released. The proximal suture line was
inspected for hemostasis and was achieved. The LeMaitre self-expanding valvulotome was carefully advanced through the distal end of the vein and positioned appropriately in the proximal vein just distal to the proximal anastomosis. The valvulotome
was deployed and carefully pulled back through the vein. Multiple passes were made. Following this there was excellent pulsatile bleeding from the distal end of the vein conduit. While the vein was pressurized it was carefully brought through the
tunnel with the tunneler taking great care to keep proper orientation. Once tunneled a vascular clamp was gently placed on the proximal end of the vein just off of the anastomosis.
The anterior tibial artery proximal and distal vessel loops were secured. The vein was temporarily pressurized and shortened appropriately. An arteriotomy was made in the anterior tibial artery with an ophthalmic blade and extended proximally and
distally with Beatty scissors. The proximal and distal artery were flushed with heparinized saline. The end of the vein conduit was spatulated and an end-to-side anastomosis created with a running 7-0 Prolene suture. Prior to the completion of the
anastomosis the proximal clamp was temporarily released and the vein flushed. The area under the anastomosis was irrigated with heparinized saline and the anastomosis completed. The proximal clamp and then the vessel loops on the anterior tibial
artery were released. Immediately there was a pulse in the vein conduit and the distal anterior tibial artery beyond the distal anastomsis. A robust Doppler signal in the distal anterior tibial artery and at the dorsalis pedis location in the foot
were confirmed. The suture lines were both inspected and hemostasis achieved.
Protamine was administered. Hemostasis was achieved in the wound beds. A SALIMA drain was left in the thigh saphenectomy site. The wounds were irrigated with warm saline solution. The wounds were closed in layers. Sterile dressings were applied.
The patient tolerated the procedure well and was taken to the PACU in stable condition. The patient had a palpable graft pulse in the distal thigh that was marked. The patient had a palpable DP pulse in the foot that was marked.
Attestation: I was present and responsible for the entire procedure
Signed:
Asa Warner III, MD
[facility] Vascular Surgery
[phone] (cell)
--- NOTE | 2024-01-22 17:09 | PTCARENOTE ---
received pt from PACU 1430 , pt alert to vocal commands , oriented, pt NSR on monitor , BP 168/65, pt co pain L leg , he was just started on a DETAIL SERGEANT pump , L radial line , R DP palpable , R leg graft site palpable , R PT weak but palpable , leg is
pink and warm , pt given Tylenol for mild breakthrough pain at 1700 , pt tolerating liquids , ordered diet
[2024-01-22] MEDS: ENTRESTO 49 MG/51 MG 1 TAB PO (19:49)
[2024-01-22] MEDS: COLACE 100 MG PO (19:49)
[2024-01-22] MEDS: COREG PO (19:51)
--- NOTE | 2024-01-22 20:00 | PTCARENOTE ---
Resumed care of pt laying in bed AAOx3, pt forgetful with needing frequent reminders ( how to use call vanessa, ALUM PLANT OPERATOR pain button, ect). HR in the 70's in NSR on the monitor. AICD in place. POX 95% on 4 LO2 NC. Lungs dec. Hypo bowel, round obese abd.
Warner cath in place for acute retention draining koko colored urine. Trace B/L LE edema. B/L red warm. Left leg dressings intact, with 2 ramez dressings, and SALIMA drain present. Left anterior thigh graft palpable. Q1 neurovascular checks as
documented. Left radial A line in place. Right AC int infusing NSS@80ml/hr, [employer]UM [employer] OPERATOR Dilaudid per MD order. No issues to report at this time. Bed alarm in place per pt safety. Will continue to monitor.
[2024-01-23] VITALS (25 sets, daily range): BP systolic 104–167; BP diastolic 59–106; BMI 27.9
[2024-01-23] MEDS: NSS 1000 IV (00:52)
--- NOTE | 2024-01-23 04:00 | PTCARENOTE ---
Pt awake all night long. Pt confused with frequent reminders. Pt singing at times. Complete bed bath provided this am. Pt POX 93% on RA. Pt reports pain at tolerable level. Neurovascular checks as documented. No issues to report. Will continue to
monitor.
[2024-01-23 04:40] LABS: INR 1.11; PT 14.1 Sec (11.4-14.6)
[2024-01-23 04:41] LABS: APTT 32.1 Sec (23.4-35.0)
[2024-01-23 04:42] LABS: Hematocrit 32.7 % (39.0-52.0); Hemoglobin 10.9 g/dL (13.0-18.0); Mean Corp Hgb Conc. 33.3 g/dL (33.0-37.0); Mean Corpuscular Hgb 32.7 pg (27.0-31.0); Mean Corpuscular Volume 98.2 fL (80.0-94.0); Mean Platelet Volume 10.4 fL (7.4-10.4); Platelet Count 187 10^3/uL (130-400); Red Blood Cell Count 3.33 10^6/uL (4.70-6.10); Red Cell Dist. Width 12.4 % (11.5-14.5); White Blood Cell Count 9.6 10^3/uL (4.8-10.8)
[2024-01-23 05:07] LABS: Blood Urea Nitrogen 22 mg/dl (9-20); Calcium 7.8 mg/dl (8.4-10.2); Carbon Dioxide 21 mmol/L (22-30); Chloride 108 mmol/L (98-107); Estimated Creatinine Clearance 64 ml/min; Glucose 134 mg/dl (70-99); Potassium 4.4 mmol/L (3.5-5.1); Sodium 134 mmol/L (135-145); eGFR > 60.00
[2024-01-23] MEDS: SYNTHROID 75 MCG PO (05:53)
--- NOTE | 2024-01-23 07:11 | W.PN.INTV ---
Today's Communication / Plan
Recommendations
Stable overnight, weaned to RA
Continue further postop care per team
Resume home meds
Increase ambulation as directed
Can transfer to tele per team, we will sign off upon transfer
Assessment
-
73 yr old male with history of PAD + stents, CAD s/p CABG x 3 09/2019, HTN, HLP, ICD, PE on Eliquis, who presents to the ICU following a left femoral endarterectomy and SFA to distal SHANIQUA bypass.
Critical Limb ischemia
Status Post left femoral endarterectomy and left SFA to distal SHANIQUA bypass 01/22/24
Hyponatremia, mild
Hypocalcemia
Conditions prior to arrival:
Peripheral artery disease s/p Fem A stent 05/2016, R iliac stent 2010
Hypertension
Hyperlipidemia
History of PE 09/2023 on Eliquis
Mitral/aortic insufficiency
Chronic CHF/systolic
Hep C
DJD
CAD s/p CABG x 2018
ICD placement 2019
PLAN:
Confusion. Likely secondary to procedure, medication.
There is baseline confusion history as well
Monitor for worsening of mental status
Q1hr neuro checks for acute change in neuro status
Critical Limb ischemia
Status Post left femoral endarterectomy and left SFA to distal SHANIQUA bypass
Blood pressure control, MAP goal per vascular surgery
Continue Aspirin 81mg,
Continue Carvedilol, Entresto at home dose for HTN
Rosuvastatin 5mg
ECHO reviewed with baseline reduced EF, resume home meds as tolerated
94% on 5L NC now improved and 96% on RA
Wean as tolerated
Hx of PE 09/2023, on home Eliquis
This was presumed provoked in the setting of decreased ambulation and sedentary lifestyle
Seen by heme with plan for 6 mos OAC and transition to DAPT after completion on last admission
PFT in past reviewed and normal
Continue home Pantoprazole
Advance diet as tolerated: Cholesterol lowering
HandH stable post op
Transfuse as needed for Hb <7, plt <10
No symptoms suggestive of infection. WBC normal. Afebrile
Warner catheter present
On Tamsulosin for urinary retention
Monitor urine output
Continue Levothyroxine for hypothyroidism
Code Status: Full code
Transfer to floors as medical indicated per team
Diagnostic Data
CXR 01/22/24- No acute cardiopulmonary process.
CT Chest 09/28/23- Examination is positive for pulmonary embolism involving the right lower lobe pulmonary artery. There is patchy parenchymal opacity within the posterior and inferior aspect of the right lower lobe, suspicious for a component of
pulmonary infarction. There could also be a component of atelectasis. Not mention above, there is parenchymal opacity to a lesser degree within the posterior and inferior left lower lobe, which is likely atelectasis. No evidence for significant
right heart strain. Not mentioned above, there is streak artifact from defibrillator electrodes within the right atrium and the right ventricle. Minimal right pleural effusion. Fatty infiltration of the liver.�
ECHO 07/20/23- Moderately reduced left ventricular systolic function. LVEF is 30-35% by Dominguez's method of discs.�Asymmetric septal hypetrophy.�Global hypokinesis with severe hypokinesis of the inferoseptal, inferolateral�and inferior alvarez.�Stage I
diastolic dysfunction suggestive of abnormal relaxation.�Mild/moderate mitral regurgitation.�Aortic sclerosis without stenosis.�Mildly dilated aortic root measures 4.1 cm at SOV.�Compared to 12/21/21: LVEF is similar (prior 35%). Aortic root remains
mildly�enlarged (prior SOV 4.2cm).
�
Spirometry 09/23/19- FVC is 3.78L or 90% of predicted; FEV1 is 3.01L or 98% of predicted; FEV1/FVC ratio is 80; [id number] is 3.13L or 135% of predicted--normal
-----
Critical Care time 32 mins -- The patient is admitted for acute critical illness for the treatment of vital organ failure and/or prevention of further life-threatening conditions. Total care includes time spent in review of history, physical exam,
medications, hemodynamic/ventilator parameters, laboratory data, imaging and discussion with house staff, pharmacy, respiratory therapy, chemical lab technician, and nursing.
Subjective Dataa
Subjective Data
Date of Service:
Date of Service: January 23, 2024
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
Subjective:
Doing well today, no events ON
Confusion is at baseline
Objective Data
Data Reviewed
Vital Signs / I&O / Oxygen:
Vital Signs
Temp Pulse Resp BP Pulse Ox
98.1 F 77 13 147/77 93
01/23/24 04:00 01/23/24 05:30 01/23/24 05:58 01/23/24 05:00 01/23/24 05:58
Intake and Output
01/22/24 01/23/24 01/24/24
06:59 06:59 06:59
Intake Total 1856 / 1856 1372.4 / 1372.4
Output Total 400 / 400 1840 / 1840
Balance 1456 / 1456 -467.6 / -467.6
SaO2 93
Nasal Cannula flow liters per 2
minute
Physical Exam
General: Comfortable and Other (NAD)
HEENT: Normocephalic, Anicteric and Moist Mucous Membranes
Cardiovascular: S1-S2 and Regular Rhythm
Respiratory: Clear and Non-Labored Respirations
GI: Soft, Non Distended and Non Tender
Neurology: Awake, Alert, Oriented, AO x 3 and No Motor Deficits
Skin: Warm and Dry
Labs/Micro/Reports
Lab Data
01/23/24 04:15
01/23/24 04:15
Laboratory Results
01/22/24 01/23/24
13:18 04:15
PT 14.0 14.1
INR 1.09 1.11
APTT 33.9 32.1
--- NOTE | 2024-01-23 07:42 | W.PN.VS ---
Addendum entered and electronically signed by Venkat Roblero MD 01/23/24 12:49:
Seen and examined with ARABELLA Correa. Agree with findings as noted below. Patient without significant new complaints this morning (slight soreness at incision sites, some continued pain in foot but appears improved, he does note some right sided foot
pain continued). On exam left lower extremity dressings are clean dry and intact, no hematoma in the thigh or calf, both are soft. Easily palpable graft pulse and 2+ palpable DP pulse on the foot. Plan/as discussed and noted below.
Original Note:
Today's Communication / Plan
-
Seen and assessed with Dr. Roblero
Assessment/Plan
-
POD 1 left lower extremity arterial bypass with vein graft
Plan:
-DC A-line
-DC IV fluids
-Out of bed to chair
-DC Warner, void trial
-Diet
-Prevalon boots to protect heels
-Local wound care
Subjective Data
-
Date of Service: January 23, 2024
Patient seen at bedside this a.m. with Dr. Roblero. No events overnight. Patient complains of mild discomfort to the left foot which is not new. BOARDING MOTHER infusing.
Objective Data
-
Vital Signs
Temp Pulse Resp BP Pulse Ox
98.5 F 77 13 147/77 93
01/23/24 07:31 01/23/24 05:30 01/23/24 05:58 01/23/24 05:00 01/23/24 05:58
Intake and Output
01/22/24 01/23/24 01/24/24
06:59 06:59 06:59
Intake Total 1856 / 1856 1372.4 / 1372.4
Output Total 400 / 400 1840 / 1840
Balance 1456 / 1456 -467.6 / -467.6
Intake:
Oral fluids 960 / 960 250 / 250
IV fluids (Total) 680 / 680 112 / 1120
Nss 1,000 ml @ 80 mls/hr IV . 1119
[id number] ZAIDA Rx#:[id number]
IV piggybacks 216 / 216 2.4 / 2.4
Output:
Drain Output (Total) /
Middle Leg Jose-Aguilar
Urine, Warner 400 / 400 1750 / 1750
Lab Results
01/23/24 04:15
01/23/24 04:15
Calcium 7.8 mg/dl (8.4-10.2) L 01/23/24 04:15
Magnesium 2.1 mg/dl (1.6-2.3) 01/22/24 13:18
Physical Exam
-
Awake and alert
No tachypnea, on room air
No tachycardia
Abdomen soft
Leg sites all dressed, clean dry and intact. No drainage noted.
All soft
SALIMA intact minimal output
Foot warm
Graft with palpable pulse, easily palpable DP
--- NOTE | 2024-01-23 07:42 | W.PN.VS ---
Today's Communication / Plan
-
- Monitor for continued signs of delirium, minimize narcotic meds and other possible contributors to delirium as able
- Continue CV medication regimen, MAP goals 70-90
- Advance diet as tolerated
- Frequent assessment of operative side pulses (as marked on patient).
Assessment/Plan
-
- Monitor for continued signs of delirium, decrease narcotic meds as able
- MAP goals 70-90
- Advance diet as tolerated
- Frequent assessment of operative side pulses (as marked on patient).
Subjective Data
-
Date of Service: January 23, 2024
Notes mild pain in legs on operative site.
Objective Data
-
Vital Signs
Temp Pulse Resp BP Pulse Ox
98.5 F 77 13 147/77 93
01/23/24 07:31 01/23/24 05:30 01/23/24 05:58 01/23/24 05:00 01/23/24 05:58
Intake and Output
01/22/24 01/23/24 01/24/24
06:59 06:59 06:59
Intake Total 1856 / 1856 1372.4 / 1372.4
Output Total 400 / 400 1840 / 1840
Balance 1456 / 1456 -467.6 / -467.6
Intake:
Oral fluids 960 / 960 250 / 250
IV fluids (Total) 680 / 680 1120 / 1120
Nss 1,000 ml @ 80 mls/hr IV . 112 / 1120
[id number] ZAIDA Rx#:[id number]
IV piggybacks 216 / 216 2.4 / 2.4
Output:
Drain Output (Total) 90 / 90
Middle Leg Jose-Aguilar 90 / 90
Urine, Warner 400 / 400 1750 / 1750
Lab Results
01/23/24 04:15
01/23/24 04:15
Calcium 7.8 mg/dl (8.4-10.2) L 01/23/24 04:15
Magnesium 2.1 mg/dl (1.6-2.3) 01/22/24 13:18
Physical Exam
-
Neuro: A&Ox3
CV: RRR
Pulm: CTAB
Abdomen: Soft,non-distended, non-tender
Incision Sites: clean, dry, intact.
Extremities: BL LE warm well-perfused. Left DP palpable. Bypass graft pulsatile and palpable.
Drains: SALIMA draining SS
[2024-01-23] MEDS: PROTONIX 40 MG PO (07:47)
[2024-01-23] MEDS: ASPIR LOW (ENTERIC COATED) 81 MG PO (07:47)
[2024-01-23] MEDS: ENTRESTO 49 MG/51 MG 1 TAB PO ×2 (07:47→20:19)
[2024-01-23] MEDS: CRESTOR 5 MG PO (07:47)
[2024-01-23] MEDS: COLACE 100 MG PO ×2 (07:48→20:19)
[2024-01-23] MEDS: TYLENOL 650 MG PO ×2 (07:48→17:14)
[2024-01-23] MEDS: COREG 12.5 MG PO ×2 (07:48→20:20)
[2024-01-23] MEDS: FLOMAX 0.400000000000000022 MG PO (07:48)
[2024-01-23] MEDS: TIMOPTIC 0.5% OPHTHALMIC SOLUTION 1 DROP BOTH EYES (07:51)
[2024-01-23] MEDS: HYDROPHOR 1 APPLIC TOPICAL (07:52)
--- NOTE | 2024-01-23 10:36 | WOUNDNOTE ---
ANUSHA RN NOTE: Reviewed vascular note, no change in wound care and patient already using offloading heel boots. Will follow towards end of week if able.
--- NOTE | 2024-01-23 11:27 | PTCARENOTE ---
pt awake and alert, confused conversation , confusion re his surgery and current events, not sure if its baseline for him , will ask family when they visit , pt had christopher DC at this am and Warner cath removed as ordered, pt is currently oob in chair
with max assist and walker , COILED TUBING OPERATOR continues for pain control , pt has confusion with using the COILED TUBING OPERATOR button and how to push it when he has pain , frequent instructions given , L leg with palpable pulses , SALIMA drain continues to drain serosanguineous ,
tolerating diet , NSR on monitor, BP adequate , on room air with sats of 94%
--- NOTE | 2024-01-23 13:20 | PTCARENOTE ---
continues with oob in chair , pulses continue to be palpable , no changes
--- NOTE | 2024-01-23 13:52 | W.PN.UPDATE ---
Update Note
Progress Note Update
CDI:
Physician Documentation Request
Admit Date: 01/18/24 10:38
Please review the following and�provide your response in the progress notes.
Clinical Indicators:�
�- 01/09 Vascular note 'awake and alert, NAD'
�- 01/17 Cardiology indicates pt AOx3
�- 01/18 RN notes 'pt is�very confused. he states it is baseline for him...repeating questions�he asked earlier becoming anxious'
�- 'He is more�anxious� and increasing his baseline�confusion'
�- 'He is frustrated with his�confusion�and does not remember things'
�- 01/17-01/20 5mg Oxycodone x 11
Based on the above, please clarify in the Progress Notes which, if any of the following, is the most likely etiology of the confusion/altered mental status.
Acute Delirium�- suspected due to opioids/PUBLIC ADDRESS ANNOUNCER use for acute pain
CDI:
Physician Documentation Request
Admit Date: 01/18/24 10:38
Clinical Indicators:
�- 01/20 Wound note indicates:
�- R heel unstageable pressure injury mixed with arterial insufficiency, POA
�- Stage 1 left heel pressure injury, POA
Physician documentation of the�type and location�of wounds is required for compliant documentation. Based on the above clinical findings and your assessment, please provide the following in your progress note:�
1.�Location of the ulcer/wound, including laterality.
2.�Type (etiology) of ulcer/wound:
- Unable to determine- Pt presented with injury, pt unaware of trauma to the area
[2024-01-23] MEDS: D5/0.45%NACL 1000 IV (15:15)
[2024-01-23] MEDS: HEPARIN 5000 UNITS SC ×2 (17:15→23:58)
--- NOTE | 2024-01-23 17:32 | PTCARENOTE ---
FUNNEL COATER DC , pt not using FUNNEL COATER often , pt oob in chair for 9 hours tolerating well , pt son Dandre is visiting and states patient is oriented at home but can be agitated at times , he also stated that his father has gotten confused on previous
hospitalizations , pt has not slept since yesterday , pt is now on q 4 hour neurovascular checks
--- NOTE | 2024-01-23 20:00 | PTCARENOTE ---
Pt received from previous shift in bed. AAOx3, forgetful, confused conversation at times. Telemetry = SR. Full physical assessment documented (refer to worklist). Neurovascular checks unchanged from previous. L graft site and L DP palpable, R
DP present w/doppler. CARLOS drains/dressing maintained, old drainage noted to both. L leg SALIMA drain with serous fluid. Fiber filled boots placed. Turned and positioned for comfort. PIVs #20 LFA, #20 RAC, #22 RFA patent. Pt due to void, PO intake
encouraged, urinal at bedside. Bed alarm active for safety. Call vanessa within reach, pt does call out at times. Monitoring continues.
[2024-01-23] MEDS: DILAUDID 0.25 MG IV (21:13)
[2024-01-23] MEDS: ROXICODONE 5 MG PO (22:21)
[2024-01-24] VITALS (19 sets, daily range): BP systolic 105–161; BP diastolic 50–120; PULSE 66; BMI 28.4
--- NOTE | 2024-01-24 00:08 | PTCARENOTE ---
Pt with no void since wilson d/c'd. Bladder scanned for 387 mL. Encouraged use of urinal, pt declines stating 'I don't feel as if I have to go'. Medicated for pain per MD orders. Neurovascular checks unchanged from previous. Repositioned. Call
vanessa within reach, bed alarm active for safety. Monitoring continues.
--- NOTE | 2024-01-24 01:28 | PTCARENOTE ---
Pt assisted to side of bed to try to void. Unable to stand 2/2 pain and unable to void. Straight cathed via sterile technique for 600 mL koko urine. Monitoring continues.
[2024-01-24] MEDS: DILAUDID 0.25 MG IV ×3 (01:32→22:40)
--- NOTE | 2024-01-24 02:28 | PTCARENOTE ---
SpO2 89% on room air. Pt finally appears to be dozing at intervals. 2L O2 applied via NC, SpO2 95%
[2024-01-24 04:15] LABS: Hemoglobin 11.2 g/dL (13.0-18.0); Mean Corp Hgb Conc. 33.9 g/dL (33.0-37.0); Mean Corpuscular Hgb 33.5 pg (27.0-31.0); Mean Corpuscular Volume 98.8 fL (80.0-94.0); Mean Platelet Volume 10.2 fL (7.4-10.4); Platelet Count 224 10^3/uL (130-400); Red Blood Cell Count 3.34 10^6/uL (4.70-6.10); Red Cell Dist. Width 12.5 % (11.5-14.5); White Blood Cell Count 8.6 10^3/uL (4.8-10.8)
--- NOTE | 2024-01-24 04:15 | PTCARENOTE ---
Pt observed sleeping very little this shift. Witnessed attempting to remove L groin dressing. Confused conversation, keeps asking about 'shipments made to [place] from this business'. Reoriented to situation. Neurovascular checks unchanged.
Morning labs drawn. Assisted with repositioning. Bed alarm remains active. Call vanessa within reach, pt does not utilize all the time (calls out). Monitoring continues.
[2024-01-24 04:42] LABS: Blood Urea Nitrogen 29 mg/dl (9-20); Carbon Dioxide 21 mmol/L (22-30); Chloride 106 mmol/L (98-107); Estimated Creatinine Clearance 71 ml/min; Glucose 89 mg/dl (70-99); Potassium 4.1 mmol/L (3.5-5.1); Sodium 137 mmol/L (135-145); eGFR > 60.00
[2024-01-24] MEDS: SYNTHROID 75 MCG PO (06:10)
--- NOTE | 2024-01-24 07:14 | W.PN.INTV ---
Today's Communication / Plan
Recommendations
Pain control
PT/OT, ambulate if cleared
Continue further postop care per team
Resume home meds
Can transfer to floors, we will sign off upon transfer
Assessment
-
73 yr old male with history of PAD + stents, CAD s/p CABG x 3 09/2019, HTN, HLP, ICD, PE on Eliquis, who presents to the ICU following a left femoral endarterectomy and SFA to distal SHANIQUA bypass.
Critical Limb ischemia
Status Post left femoral endarterectomy and left SFA to distal SHANIQUA bypass 01/22/24
Hyponatremia, mild
Hypocalcemia
Conditions prior to arrival:
Peripheral artery disease s/p Fem A stent 05/2016, R iliac stent 2010
Hypertension
Hyperlipidemia
History of PE 09/2023 on Eliquis
Mitral/aortic insufficiency
Chronic CHF/systolic
Hep C
DJD
CAD s/p CABG x 2018
ICD placement 2019
PLAN:
Confusion. Likely secondary to procedure, medication.
There is baseline confusion history as well
Monitor for worsening of mental status
Q1hr neuro checks for acute change in neuro status
Critical Limb ischemia
Status Post left femoral endarterectomy and left SFA to distal SHANIQUA bypass
Blood pressure control, MAP goal per vascular surgery
Continue Aspirin 81mg,
Continue Carvedilol, Entresto at home dose for HTN
Rosuvastatin 5mg
ECHO reviewed with baseline reduced EF, resume home meds as tolerated
94% on 5L NC now improved and 96% on RA
Wean as tolerated
Hx of PE 09/2023, on home Eliquis
This was presumed provoked in the setting of decreased ambulation and sedentary lifestyle
Seen by heme with plan for 6 mos OAC and transition to DAPT after completion on last admission
PFT in past reviewed and normal
Continue home Pantoprazole
Advance diet as tolerated: Cholesterol lowering
HandH stable post op
Transfuse as needed for Hb <7, plt <10
No symptoms suggestive of infection. WBC normal. Afebrile
Warner catheter present
On Tamsulosin for urinary retention
Monitor urine output
Continue Levothyroxine for hypothyroidism
Code Status: Full code
Transfer to floors as medical indicated per team
Diagnostic Data
CXR 01/22/24- No acute cardiopulmonary process.
CT Chest 09/28/23- Examination is positive for pulmonary embolism involving the right lower lobe pulmonary artery. There is patchy parenchymal opacity within the posterior and inferior aspect of the right lower lobe, suspicious for a component of
pulmonary infarction. There could also be a component of atelectasis. Not mention above, there is parenchymal opacity to a lesser degree within the posterior and inferior left lower lobe, which is likely atelectasis. No evidence for significant
right heart strain. Not mentioned above, there is streak artifact from defibrillator electrodes within the right atrium and the right ventricle. Minimal right pleural effusion. Fatty infiltration of the liver.�
ECHO 07/20/23- Moderately reduced left ventricular systolic function. LVEF is 30-35% by Dominguez's method of discs.�Asymmetric septal hypetrophy.�Global hypokinesis with severe hypokinesis of the inferoseptal, inferolateral�and inferior alvarez.�Stage I
diastolic dysfunction suggestive of abnormal relaxation.�Mild/moderate mitral regurgitation.�Aortic sclerosis without stenosis.�Mildly dilated aortic root measures 4.1 cm at SOV.�Compared to 12/21/21: LVEF is similar (prior 35%). Aortic root remains
mildly�enlarged (prior SOV 4.2cm).
�
Spirometry 09/23/19- FVC is 3.78L or 90% of predicted; FEV1 is 3.01L or 98% of predicted; FEV1/FVC ratio is 80; [id number] is 3.13L or 135% of predicted--normal
-----
Critical Care time 32 mins -- The patient is admitted for acute critical illness for the treatment of vital organ failure and/or prevention of further life-threatening conditions. Total care includes time spent in review of history, physical exam,
medications, hemodynamic/ventilator parameters, laboratory data, imaging and discussion with house staff, pharmacy, respiratory therapy, green chain marker, and nursing.
Subjective Dataa
Subjective Data
Date of Service:
Date of Service: January 24, 2024
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
Subjective:
Doing well, stable
Remains somewhat confused
LE pain ongoing
Objective Data
Data Reviewed
Vital Signs / I&O / Oxygen:
Vital Signs
Temp Pulse Resp BP Pulse Ox
97.6 F 79 22 147/64 94
01/24/24 00:14 01/24/24 06:30 01/24/24 06:30 01/24/24 04:00 01/24/24 06:30
Intake and Output
01/23/24 01/24/24 01/25/24
06:59 06:59 06:59
Intake Total 1372.4 / 1452.4 1310 / 1310
Output Total 1840 / 1840 980 / 980
Balance -467.6 / -387.6 330 / 330
SaO2 94
Nasal Cannula flow liters per 2
minute
Physical Exam
General: Comfortable and Other (NAD)
HEENT: Normocephalic, Anicteric and Moist Mucous Membranes
Cardiovascular: S1-S2 and Regular Rhythm
Respiratory: Clear and Non-Labored Respirations
GI: Soft, Non Distended and Non Tender
Neurology: Awake, Alert, Oriented, AO x 3 and No Motor Deficits
Skin: Warm and Dry
Labs/Micro/Reports
Lab Data
01/24/24 03:50
01/24/24 03:50
[2024-01-24] MEDS: TYLENOL 650 MG PO ×4 (07:28→21:25)
[2024-01-24] MEDS: ASPIR LOW (ENTERIC COATED) 81 MG PO (07:29)
[2024-01-24] MEDS: COLACE 100 MG PO ×2 (07:29→20:32)
[2024-01-24] MEDS: COREG 12.5 MG PO ×2 (07:29→20:31)
[2024-01-24] MEDS: CRESTOR 5 MG PO (07:29)
[2024-01-24] MEDS: HYDROPHOR 1 APPLIC TOPICAL (07:30)
[2024-01-24] MEDS: DULCOLAX 10 MG RECTAL (07:30)
[2024-01-24] MEDS: HEPARIN 5000 UNITS SC (07:30)
[2024-01-24] MEDS: ENTRESTO 49 MG/51 MG 1 TAB PO ×2 (07:30→20:31)
[2024-01-24] MEDS: FLOMAX 0.400000000000000022 MG PO (07:30)
[2024-01-24] MEDS: TIMOPTIC 0.5% OPHTHALMIC SOLUTION 1 DROP BOTH EYES (07:31)
[2024-01-24] MEDS: PROTONIX 40 MG PO (07:31)
--- NOTE | 2024-01-24 07:43 | W.PN.VS ---
Addendum entered and electronically signed by Venkat Roblero MD 01/24/24 13:19:
Seen and examined with ARABELLA Correa earlier this a.m. This is a late entry. Agree with findings as noted below. Left lower extremity medial dressings all clean dry and intact. Thigh and calf soft. No hematoma. Lateral dressing some slight blood
staining but dry. Easily palpable graft pulse. Easily palpable DP pulse. Plan/as discussed and noted below. Change left calf dressing.
Original Note:
Today's Communication / Plan
-
Seen and assessed with Dr Roblero
Assessment/Plan
-
POD 2 left lower extremity arterial bypass with vein graft
Plan:
-Out of bed, ambulate as tolerated
-PT/OT
-Prevalon boots to protect heels
-Local wound care
-Restart eliquis
-transfer to [address] [place] [address]
Subjective Data
-
Date of Service: January 24, 2024
Pt seen at bedside this am with Dr Roblero. Pt offers no complaints at this time. RN notes patient has not slept well.
Objective Data
-
Vital Signs
Temp Pulse Resp BP Pulse Ox
99.5 F 79 22 147/64 94
01/24/24 07:28 01/24/24 06:30 01/24/24 06:30 01/24/24 04:00 01/24/24 06:30
Intake and Output
01/23/24 01/24/24 01/25/24
06:59 06:59 06:59
Intake Total 1372.4 / 1452.4 1310 / 1310
Output Total 1840 / 1840 980 / 980
Balance -467.6 / -387.6 330 / 330
Intake:
Oral fluids 250 / 250 670 / 670
IV fluids (Total) 1120 / 1200 640 / 640
D5/0.45%NaCl 1,000 ml @ 40 mls/ 80 / 80
hr IV .Q24H PRN Rx#:[id number]
Nss 1,000 ml @ 80 mls/hr IV . 1120 / 1200 560 / 560
[id number] ZAIDA Rx#:[id number]
IV piggybacks 2.4 / 2.4
Output:
Drain Output (Total) / 130 / 130
Middle Leg Jose-Aguilar 130 / 130
Urine, Warner 1750 / 1750 250 / 250
Straight cath output 600 / 600
Lab Results
01/24/24 03:50
01/24/24 03:50
Calcium 8.0 mg/dl (8.4-10.2) L 01/24/24 03:50
Magnesium 2.1 mg/dl (1.6-2.3) 01/22/24 13:18
Physical Exam
-
Awake and alert
No tachypnea, on room air
No tachycardia
Abdomen soft
Leg sites all dressed, clean dry and intact. No drainage noted.
All soft
SALIMA intact 130 output
Foot warm
Graft with palpable pulse, easily palpable DP
[2024-01-24 08:36] LABS: Magnesium 2.1 mg/dl (1.6-2.3); Phosphorus 2.5 mg/dl (2.5-4.5)
[2024-01-24] MEDS: ROXICODONE 5 MG PO ×2 (08:39→20:34)
--- NOTE | 2024-01-24 09:15 | PTCARENOTE ---
Pt confused, but pleasant. Williamson, follows commands. medicated for pain as charted. Pt had short burst of vtach this am after morning meds, asymptomatic. Electrolytes wnl. Otherwise please refer to assessment.
--- NOTE | 2024-01-24 10:19 | PTCARENOTE ---
Pt required heavy assist of 2 with walker to get oob. C/o pain to legs, especially l groin with movement. Medicated with oxycodone prior to oob.
--- NOTE | 2024-01-24 11:48 | PTCARENOTE ---
Pt up in chair, without void this shift. Bladder scan for under 400, pt denies need to void at present. Remains confused, still c/o pain but looks comfortable at rest.
[2024-01-24] MEDS: ELIQUIS 5 MG PO ×2 (12:50→22:40)
--- NOTE | 2024-01-24 14:33 | CM ---
CM following re: discharge planning.
Discussed in Rounds, reviewed pt's chart, met with pt and spoke to pt's son Dandre to update on discharge plan progress.
Pt is not a great historian, expressed little effort to participate in conversation. Per son Dandre, pt has been living alone in a rancher style house, has 3 supportive sons. per Dandre, pt's another son temporarily from his and he has been
staying with the pt for couple of months. Per son Dandre, pt has not been interested to accept any services at home nor getting to live in an [place].
Pt's son is awre that SNF level of care is recommended, he expressed his agreement and following SNFs preferred:
- [facility]
- [facility]
- [facility]
- [facility]
- [facility]
- [facility]
A referral to above SNFs made. Awaiting for determinations
Per assistant director of admissions Christie at [facility] they will have a bed available as early as Sunday next week.
D/C plan: Preferred SNF.
CM will follow with discharge plan updates as hospitalization progresses
[2024-01-24] MEDS: NEURONTIN 100 MG PO ×2 (15:16→21:25)
--- NOTE | 2024-01-24 15:40 | WOUNDNOTE ---
[facility] RN NOTE: Visited patient to follow up on left medial toe and right heel wound. Reviewed plan of care with RN Darlene who had already completed wound care today. Left toe wound with adherent alginate and drainage. Continue current wound care to left
medial toe. Patient was reporting pain in right leg and was due for medication. Patient preferred not have bandages unwrapped for assessment of right heel. Fiber filled boots and air mattress maintained. Will continue to follow as needed.
--- NOTE | 2024-01-24 18:27 | PTCARENOTE ---
Addendum entered by Rosario Valero RN 01/24/24 18:56:
pt with no void since previous st cath. bladder scan for under 200ml as charted.
Original Note:
pt c/o discomfort and was assisted oob to genevieve. ate dinner in chair then reported feeling a bm. went on bedside commode and was unsuccessful. otherwise no changes.
--- NOTE | 2024-01-24 20:00 | PTCARENOTE ---
Received pt. at 1900. Pt. currently awake, alert, and oriented. Following commands. Heart rhythm currently sinus. Blood pressure normotensive. Neurovascular checks are normal. Pt. currently on room air. Lungs sound diminished. Low cholesterol diet
ordered. Poor intake. Pt. constipated. Bowel regimen started. Pt. due to void. Has required straight cath multiple times past 24 hours. Skin as documented. Discussed plan of care with patient. Vital signs stable at this time.
[2024-01-24] MEDS: SENOKOT 17.1999999999999993 MG PO (20:32)
[2024-01-24] MEDS: DESYREL 50 MG PO (21:27)
[2024-01-25] VITALS (10 sets, daily range): BP systolic 107–148; BP diastolic 48–67; BMI 28.9
[2024-01-25] MEDS: ROXICODONE 5 MG PO (04:41)
[2024-01-25 04:48] LABS: Hematocrit 33.9 % (39.0-52.0); Hemoglobin 11.3 g/dL (13.0-18.0); Mean Corp Hgb Conc. 33.3 g/dL (33.0-37.0); Mean Corpuscular Hgb 32.8 pg (27.0-31.0); Mean Corpuscular Volume 98.5 fL (80.0-94.0); Mean Platelet Volume 9.8 fL (7.4-10.4); Platelet Count 226 10^3/uL (130-400); Red Blood Cell Count 3.44 10^6/uL (4.70-6.10); Red Cell Dist. Width 12.5 % (11.5-14.5)
[2024-01-25 05:15] LABS: Blood Urea Nitrogen 27 mg/dl (9-20); Calcium 8.4 mg/dl (8.4-10.2); Carbon Dioxide 24 mmol/L (22-30); Chloride 106 mmol/L (98-107); Estimated Creatinine Clearance 64 ml/min; Glucose 94 mg/dl (70-99); Potassium 4.3 mmol/L (3.5-5.1); Sodium 137 mmol/L (135-145); eGFR > 60.00
[2024-01-25] MEDS: SYNTHROID 75 MCG PO (05:50)
[2024-01-25] MEDS: DILAUDID 0.25 MG IV (05:50)
--- NOTE | 2024-01-25 08:09 | W.PN.VS ---
Addendum entered and electronically signed by Asa Warner III, MD 01/25/24 10:51:
This patient was seen and examined with HERBERTH Amin. I agree with the history and physical exam as well as the assessment and plan.
Signed:
Asa Warner III, MD
[facility]
[phone] (aofo)
Original Note:
Today's Communication / Plan
-
Patient seen and examined at bedside with Dr. Asa Warner III, below plan reviewed with attending
Assessment/Plan
-
POD 3 left lower extremity arterial bypass with vein graft
Plan:
-Will obtain left foot x-ray to rule out osteomyelitis given chronicity of dorsal wound
-Podiatry consultation to aid in management of bilateral foot wounds
-20 mg of Lasix
-Out of bed, ambulate as tolerated
-PT/OT
-Prevalon boots to protect heels
-Local wound care
Subjective Data
-
Date of Service: January 25, 2024
Patient seen and examined at bedside, reports improved sleep and offers no complaints. Reports that her p.o.. Denies nausea, vomiting, fever, and chills.
Objective Data
-
Vital Signs
Temp Pulse Resp BP Pulse Ox
98.3 F 72 15 147/62 96
01/25/24 04:00 01/25/24 06:01 01/25/24 06:01 01/25/24 06:01 01/25/24 04:00
Intake and Output
01/24/24 01/25/24 01/26/24
06:59 06:59 06:59
Intake Total 1310 / 1310 820 / 820
Output Total 980 / 980 1400 / 1400
Balance 330 / 330 -580 / -580
Intake:
Oral fluids 670 / 670 820 / 820
IV fluids (Total) 640 / 640
D5/0.45%NaCl 1,000 ml @ 40 mls/ 80 / 80
hr IV .Q24H PRN Rx#:[id number]
Nss 1,000 ml @ 80 mls/hr IV . 560 / 560
[id number] ZAIDA Rx#:[id number]
Output:
Drain Output (Total) 130 / 130 100 / 100
Middle Leg Jose-Aguilar 130 / 130 100 / 100
Urine, Warner 250 / 250
Straight cath output 600 / 600 1300 / 1300
Lab Results
01/25/24 04:32
01/25/24 04:32
Calcium 8.4 mg/dl (8.4-10.2) 01/25/24 04:32
Phosphorus 2.5 mg/dl (2.5-4.5) 01/24/24 03:50
Magnesium 2.1 mg/dl (1.6-2.3) 01/24/24 03:50
Physical Exam
-
Awake and alert
No tachypnea, on room air
No tachycardia
Abdomen soft
Leg sites all dressed, clean dry and intact. No drainage noted. Left lateral calf dressing changed by vascular SANDWICH ARTIST.
All soft
SALIMA intact 100 output
Foot warm
Graft with palpable pulse, easily palpable DP
[2024-01-25] MEDS: ASPIR LOW (ENTERIC COATED) 81 MG PO (09:29)
[2024-01-25] MEDS: CRESTOR 5 MG PO (09:29)
[2024-01-25] MEDS: ENTRESTO 49 MG/51 MG 1 TAB PO ×2 (09:29→19:45)
[2024-01-25] MEDS: COREG 12.5 MG PO ×2 (09:29→19:45)
[2024-01-25] MEDS: FLOMAX 0.400000000000000022 MG PO (09:29)
[2024-01-25] MEDS: SENOKOT 17.1999999999999993 MG PO ×2 (09:30→19:44)
[2024-01-25] MEDS: COLACE 100 MG PO ×2 (09:30→19:44)
[2024-01-25] MEDS: PROTONIX 40 MG PO (09:30)
[2024-01-25] MEDS: TYLENOL 650 MG PO ×4 (09:30→21:36)
[2024-01-25] MEDS: NEURONTIN 100 MG PO ×2 (09:30→21:36)
[2024-01-25] MEDS: HYDROPHOR 1 APPLIC TOPICAL (09:31)
[2024-01-25] MEDS: ELIQUIS 5 MG PO ×2 (09:31→19:44)
[2024-01-25] MEDS: TIMOPTIC 0.5% OPHTHALMIC SOLUTION 1 DROP BOTH EYES (09:32)
--- NOTE | 2024-01-25 13:39 | CM ---
CM following re: discharge planning.
Reviewed pt's chart, met with pt and spoke to pt's son Ender [phone]. Pt's son Ender is requested to call him first to coordinate pt's discharge plan. pt's son stated that number one choice is [facility]
CM spoke to [facility] museum director Christie and she stated that they will have a bed available as early as Sunday.
D/C plan: [facility].
CM will follow to assist pt with discharge to [facility].
[2024-01-25] MEDS: LASIX 20 MG IV (13:41)
--- NOTE | 2024-01-25 17:11 | CON.MD ---
Consultation - Medical
-
Consultation
Consultation Request
Date/Time Consultation Requested: 01/25/24 9:19a
Date/Time Consultation Performed: 01/25/24 4:20p
Requesting Provider: HERBERTH Pathak
Performing Provider: Sunita Garza DPM
Reason for Consultation: Wounds left foot
Medical History
-
Chief Complaint: Pain both heels and left foot, PAD S/P LLE bypass
History of Present Illness:
Mr. Rossi is a 73 yo male with CAD s/p CABG x 3 09/2019, PAD (multiple LE stents followed by Dr. Warner), [employer] ICD, PE on Eliquis, HTN, and HLD, b/l SFA/popliteal stent occlusions bilaterally.� He has critical limb ischemia
bilaterally, left greater than right S/P revascularization of left lower extremity. I am consulted for wound care eval left foot wounds
Past Medical History
Past Medical History: Other (as above)
Past Surgical History: Cardiac (CABG and ICD)
Social History
Tobacco: Former Smoker
Alcohol: None
Living: With Family
Family History
Family History: CAD (father [place] 60s)
Allergies :Simvastatin and Lipitor
�Medication �Instructions �Recorded �Confirmed �Type
aspirin 81 mg tablet,delayed 81 mg PO DAILY Blood Clot 01/21/19 01/18/24 History
release Prevention/Tx � � �
acetaminophen 325 mg tablet 650 mg PO Q4HPRN PRN mild 09/28/19 01/18/24 Rx
� pain,headache,temp >101F � � �
rosuvastatin 5 mg tablet 5 mg PO DAILY High Cholesterol 10/19/19 01/18/24 History
carvedilol 12.5 mg tablet 12.5 mg PO BID Heart 03/18/21 01/18/24 History
� Disease/Condition/blood pressure � � �
docusate sodium 100 mg capsule 100 mg PO BID Constipation 09/28/23 01/18/24 History
levothyroxine 75 mcg tablet 75 mcg PO DAILY Thyroid 09/28/23 01/18/24 History
pantoprazole 40 mg tablet,delayed 40 mg PO DAILY Gastrointestinal 09/28/23 01/18/24 History
release Issue � � �
sacubitril 49 mg-valsartan 51 mg 1 tab PO BID Heart failure 09/28/23 01/18/24 History
tablet (Entresto) � � � �
timolol maleate 0.5 % eye drops 1 drp BOTH EYES DAILY glaucoma 09/28/23 01/18/24 History
trazodone 50 mg tablet 50 mg PO HS PRN sleep 09/28/23 01/18/24 History
apixaban 5 mg tablet (Eliquis) 5 mg PO BID 01/15/24 01/15/24 History
Review of Systems
-
History Source: Patient
All other systems: Negative unless noted
Physical Exam:
General Appearance: Alert and awake, NAD, convesant.
LE FOCUSED EXAM: Feeble DP Right, non palp AUTOMOTIVE PARTS COUNTERPERSON right, DPA and AUTOMOTIVE PARTS COUNTERPERSON palpable left foot. Left foot warm and dry. ++Green pseudomonas drainage to dressings left heel and forefoot w/malodor c/w pseudomonas (sweet/fruity). Left forefoot bunion wound is
necrotic and tender to touch. Left Posterior heel with several lacerations with one larger area that is necrotic and again with pseudomonas-like drainage and malodor. Right medial posterior heel with necrotic fissure that appears uninfected clean
and dry.
Assessment/Plan:
1-Critical limb ischemia LLE > RLE --> S/P Left SFA to SHANIQUA bypass w/vein graft
2-Necrotic heel and left forefoot wounds as result of PAD with pseudomonas colonization/infection
--->Xrays do not demonstrate osteo of the heel or of the medial left 1st met at this time, will follow clinically
-->Wound care aimed at reducing pseudomonas for now w/vashe compress and cleanse as well as SSD cream BID to the left heel/forefoot, will follow over the next 24-48hrs and debride sharply at bedside or in OR as needed.
3-Uninfected right heel necrotic wound--> Offload B/L heels at all times, cleanse w/vashe to prevent infection, protect w/ tegaderm. Will allow for autolysis of eschar and as peripheral flow improves will re evaluate treatment and need for sharp
debridement
-->offload heels at all times w/ pillows under calves/heels off of bed or Prevalon boots
Will follow with you
[2024-01-25] MEDS: DILAUDID 4 MG PO (18:39)
--- NOTE | 2024-01-25 19:15 | PTCARENOTE ---
Arrived to flow 1715, Alert pleasant. bed low call vanessa in reach. Periods of confusion with new room with paperwork, sons, etc. No c/o pain. Warner draining yellow urine. Dp weak on palpation, dressings intact 2 PICOS, 1 SALIMA ~60mls SS.
[2024-01-25] MEDS: NEURONTIN PO (19:44)
--- NOTE | 2024-01-25 20:00 | PTCARENOTE ---
resumed care of pt siting up in bed AAOx3. Pt conversant and pleasant, forgetful and confused at times. Pt verbalizes feeling upset that he has not heard from his 3 sons, emotional support provided. LLE with 2 picco dressings intact with old
drainage noted. Left leg SALIMA drain in place. Neurovascular checks as documented. Prevalon boots to B/L LE. Weak palpable pulses present. Pt reports pain at tolerable level at this time. Warner in place draining clear yellow urine. Pt positioned per
comfort. Will continue to monitor.
[2024-01-25] MEDS: DESYREL 50 MG PO (21:36)
[2024-01-26] VITALS (7 sets, daily range): BP systolic 113–149; BP diastolic 57–76; PULSE 69; O2SAT 96
[2024-01-26] MEDS: SYNTHROID 75 MCG PO (05:16)
[2024-01-26] MEDS: DILAUDID 4 MG PO ×2 (05:16→12:56)
[2024-01-26 07:11] LABS: Hematocrit 36.1 % (39.0-52.0); Hemoglobin 11.9 g/dL (13.0-18.0); Mean Corpuscular Hgb 32.4 pg (27.0-31.0); Mean Corpuscular Volume 98.4 fL (80.0-94.0); Mean Platelet Volume 10.3 fL (7.4-10.4); Platelet Count 212 10^3/uL (130-400); Red Blood Cell Count 3.67 10^6/uL (4.70-6.10); Red Cell Dist. Width 12.5 % (11.5-14.5); White Blood Cell Count 6.6 10^3/uL (4.8-10.8)
[2024-01-26 07:36] LABS: Blood Urea Nitrogen 25 mg/dl (9-20); Calcium 8.3 mg/dl (8.4-10.2); Carbon Dioxide 24 mmol/L (22-30); Chloride 106 mmol/L (98-107); Estimated Creatinine Clearance 71 ml/min; Glucose 85 mg/dl (70-99); Potassium 4.2 mmol/L (3.5-5.1); Sodium 137 mmol/L (135-145); eGFR > 60.00
--- NOTE | 2024-01-26 08:01 | W.PN.VS ---
Today's Communication / Plan
-
as above
Assessment/Plan
-
POD 4 left lower extremity arterial bypass with vein graft for CLTI
Plan:
-PT/OT
-Prevalon boots to protect heels
-Local wound care
-Nutrition
-Keep SALIMA for now
-Gentle diuresis as tolerated
Subjective Data
-
Date of Service: January 26, 2024
Warner catheter replaced
No complaints
Eating bengali toast
Pain controlled
Objective Data
-
Vital Signs
Temp Pulse Resp BP Pulse Ox
98.2 F 68 16 146/69 96
01/26/24 07:49 01/26/24 07:49 01/26/24 07:49 01/26/24 07:49 01/26/24 07:49
Intake and Output
01/25/24 01/26/24 01/27/24
06:59 06:59 07:59
Intake Total 820 / 820 480 / 480
Output Total 1400 / 1400 505 / 505
Balance -580 / -580 -25 / -25
Intake:
Oral fluids 820 / 820 480 / 480
Output:
Drain Output (Total) 100 / 100 55 / 55
Middle Leg Jose-Aguilar 100 / 100 55 / 55
Urine, Warner 450 / 450
Straight cath output 1300 / 1300
Lab Results
01/26/24 05:43
Calcium 8.3 mg/dl (8.4-10.2) L 01/26/24 05:43
Phosphorus 2.5 mg/dl (2.5-4.5) 01/24/24 03:50
Magnesium 2.1 mg/dl (1.6-2.3) 01/24/24 03:50
Physical Exam
-
NAD
Non labored breathing
Alert/oriented
Left graft pulse and DP palpable
Foot warm
AT exposure incision clean/dry
PICOs intact medial leg/groin
[2024-01-26] MEDS: COREG 12.5 MG PO ×2 (08:28→21:47)
[2024-01-26] MEDS: ELIQUIS 5 MG PO ×2 (08:28→21:47)
[2024-01-26] MEDS: NEURONTIN 100 MG PO ×3 (08:29→21:47)
[2024-01-26] MEDS: ENTRESTO 49 MG/51 MG 1 TAB PO ×2 (08:29→21:48)
[2024-01-26] MEDS: SENOKOT 17.1999999999999993 MG PO ×2 (08:30→21:48)
[2024-01-26] MEDS: FLOMAX 0.400000000000000022 MG PO (08:30)
[2024-01-26] MEDS: TYLENOL 650 MG PO ×4 (08:30→21:47)
[2024-01-26] MEDS: PROTONIX 40 MG PO (08:31)
[2024-01-26] MEDS: CRESTOR 5 MG PO (08:31)
[2024-01-26] MEDS: COLACE 100 MG PO ×2 (08:31→21:47)
[2024-01-26] MEDS: ASPIR LOW (ENTERIC COATED) 81 MG PO (08:31)
[2024-01-26] MEDS: HYDROPHOR 1 APPLIC TOPICAL (09:49)
[2024-01-26] MEDS: TIMOPTIC 0.5% OPHTHALMIC SOLUTION 1 DROP BOTH EYES (09:54)
--- NOTE | 2024-01-26 14:05 | W.PN.POD ---
Today's Communication
Today's Communication
Additionally, While evaluating patient IV team noted erythema and slough to IV site right antecubital- will begin wound care w/ mupirocin dressing, medicine and nursing to follow
Continue Vashe to wounds and SSD cream BID for now, once psuedomonas appears to no longer colonize wound will decrease to daily.
Continue offloading to heels
Assessment / Plan
-
1-PAD S/P LLE bypass graft
2-ischemic wounds to heels - stable
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
Subjective
Chief Complaint
PVD/foot wounds
Subjective
patient seen up in chair-less pain to the legs today
Objective
Temp Pulse Resp BP Pulse Ox
98.5 F 69 15 134/64 96
01/26/24 11:18 01/26/24 11:18 01/26/24 11:18 01/26/24 11:18 01/26/24 11:18
01/26/24 05:43
01/26/24 05:43
Vital Signs and Lab results were reviewed.
Review of Systems
Review of Systems
Review of Systems: No Fever, No Chills, No Headache and No Nausea
Physical Exam
Physical Exam
General: No Apparent Distress and Conversant
Musculoskeletal: Edema, Right Lower Extrem and Edema, Left Lower Extrem
Skin: Non Pressure Ulcer (left heel necrosis - stable, painful but with decreased odor and drainage), Ischemic Ulcer (left medial forefoot/1st met with creamy white chalky material c/w gouty tophi, +erythema and edema, necrosis lifted partially) and
Other (right heel necrosis stable. )
Neuro: AO x 3, Protective Sensation Diminished and Drop Foot, Left
Vascular: Capillary Refill Delayed, Pedal Hair Absent and Skin Temperature Warm to Warm
Dorsalis Pedis: Diminished
Posterior Tibialis: Diminished
[2024-01-26] MEDS: DULCOLAX RECTAL (17:50)
--- NOTE | 2024-01-26 18:21 | PTCARENOTE ---
scanned Bisacodyl then pt had xlg formed slight bloody bm after 4 days no BM. returned med
[2024-01-26] MEDS: DESYREL 50 MG PO (21:47)
[2024-01-27 03:00] VITALS: BP 134/87
[2024-01-27] MEDS: DILAUDID 2 MG PO ×2 (03:34→13:13)
[2024-01-27] MEDS: SYNTHROID 75 MCG PO (06:14)
[2024-01-27 06:31] LABS: Hematocrit 32.6 % (39.0-52.0); Hemoglobin 10.6 g/dL (13.0-18.0); Mean Corp Hgb Conc. 32.5 g/dL (33.0-37.0); Mean Corpuscular Hgb 32.5 pg (27.0-31.0); Mean Platelet Volume 10.1 fL (7.4-10.4); Platelet Count 227 10^3/uL (130-400); Red Blood Cell Count 3.26 10^6/uL (4.70-6.10); Red Cell Dist. Width 12.5 % (11.5-14.5); White Blood Cell Count 6.6 10^3/uL (4.8-10.8)
[2024-01-27] MEDS: DILAUDID 4 MG PO (06:39)
[2024-01-27 06:53] LABS: Blood Urea Nitrogen 24 mg/dl (9-20); Carbon Dioxide 25 mmol/L (22-30); Chloride 108 mmol/L (98-107); Estimated Creatinine Clearance 64 ml/min; Glucose 90 mg/dl (70-99); Potassium 4.5 mmol/L (3.5-5.1); Sodium 135 mmol/L (135-145); eGFR > 60.00
--- NOTE | 2024-01-27 07:36 | W.PN.VS ---
Today's Communication / Plan
-
as above
Assessment/Plan
-
POD 4 left lower extremity arterial bypass with vein graft for CLTI
Plan:
-Antiplatelet
-PT/OT
-Prevalon boots to protect heels while in bed
-Local wound care
-Nutrition
-Keep SALIMA
Subjective Data
-
Date of Service: January 27, 2024
Resting comfortably
No events overnight
No complaints this AM
Objective Data
-
Vital Signs
Temp Pulse Resp BP Pulse Ox
98.0 F 73 14 134/87 97
01/27/24 03:00 01/27/24 03:00 01/27/24 03:00 01/27/24 03:00 01/27/24 03:00
Intake and Output
01/26/24 01/27/24 01/28/24
05:59 06:59 06:59
Intake Total
Output Total
Balance
Intake:
Oral fluids
Output:
Drain Output (Total)
Middle Leg Jose-Aguilar
Urine, Warner
Urine, Voided
Lab Results
01/27/24 05:40
01/27/24 05:40
Calcium 8.0 mg/dl (8.4-10.2) L 01/27/24 05:40
Phosphorus 2.5 mg/dl (2.5-4.5) 01/24/24 03:50
Magnesium 2.1 mg/dl (1.6-2.3) 01/24/24 03:50
Physical Exam
-
NAD
Non labored breathing
Alert/oriented
Left leg PICOs removed. Incision clean/dry
SALIMA serous
Palp graft pulse. Palp DP
Left foot pink/warm
[2024-01-27 07:43] VITALS: BP 149/65
[2024-01-27] MEDS: SENOKOT 17.1999999999999993 MG PO ×2 (10:30→20:56)
[2024-01-27] MEDS: CRESTOR 5 MG PO (10:30)
[2024-01-27] MEDS: TYLENOL 650 MG PO ×4 (10:30→21:00)
[2024-01-27] MEDS: ENTRESTO 49 MG/51 MG 1 TAB PO ×2 (10:30→20:56)
[2024-01-27] MEDS: FLOMAX 0.400000000000000022 MG PO (10:31)
[2024-01-27] MEDS: PROTONIX 40 MG PO (10:31)
[2024-01-27] MEDS: ASPIR LOW (ENTERIC COATED) 81 MG PO (10:31)
[2024-01-27] MEDS: NEURONTIN 100 MG PO ×3 (10:32→21:00)
[2024-01-27] MEDS: ELIQUIS 5 MG PO ×2 (10:32→20:56)
[2024-01-27] MEDS: COREG 12.5 MG PO ×2 (10:32→20:57)
[2024-01-27] MEDS: TIMOPTIC 0.5% OPHTHALMIC SOLUTION 1 DROP BOTH EYES (10:33)
[2024-01-27] MEDS: HYDROPHOR 1 APPLIC TOPICAL (10:33)
[2024-01-27] MEDS: COLACE 100 MG PO ×2 (10:33→20:55)
[2024-01-27 11:35] VITALS: BP 132/64
--- NOTE | 2024-01-27 14:19 | W.PN.POD ---
Today's Communication
Today's Communication
Wounds cleansed with VASHE wound wash which appears to have treated the pseudomonas colonization,therefore will reduce wound care to daily.
Drainage from the wound now unclear if this is all tophi/gout or infectious.
Wound was cleansed, some necrotic tissue again sharply excisionally debrided from wound bed of subq tissue and fascia from the wound bed over the 1st MTP and deep culture swab obtained from compressing the joint and sent to micro. xray thus far was
negative for OM and an MRI may not help much since gout & osteo will cause bone enhancement. Will follow clinically for now and will need serial xrays and wound care upon DC.
Heel wounds stable B/L, continue present treatment and meticulous offloading
Assessment / Plan
-
1-PAD S/P LLE bypass graft
2-ischemic wounds to heels - stable
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
Subjective
Chief Complaint
PAD and ischemic wounds B/L heels and left forefoot, Tophaceous gout left 1st MTP
Subjective
Patient resting in mild discomfort at present
Objective
Temp Pulse Resp BP Pulse Ox
98.9 F 65 16 132/64 96
01/27/24 11:35 01/27/24 11:35 01/27/24 11:35 01/27/24 11:35 01/27/24 11:35
01/27/24 05:40
01/27/24 05:40
Vital Signs and Lab results were reviewed.
XRAYS -No OM demonstrated on plain film
Inspection: Cellulitis (improved left foot and leg) and Ulcer
Review of Systems
Review of Systems
Review of Systems: No Fever, No Chills, No Headache, No Nausea and No Diarrhea
Physical Exam
Physical Exam
General: No Apparent Distress, Pain (mild to moderate B/L LE's Left more than right) and Conversant
Musculoskeletal: No Clubbing, No Cyanosis and Edema, Left Lower Extrem (improved)
Skin: Warm, Dry, Necrotic (right heel fissure) and Ischemic Ulcer (left heel and forefoot. + tophi expressed from the 1st MTP wound + drainage- no malodor or green discoloration to dressings. Wound beds are fibronecrotic left medial 1st MTP and left
posterior heel)
Neuro: Awake, Alert, Protective Sensation Diminished and Drop Foot, Left
Vascular: Capillary Refill Intact, Pedal Hair Absent and Skin Temperature Warm to Warm
Dorsalis Pedis: Diminished
Posterior Tibialis: Diminished
[2024-01-27 15:44] VITALS: BP 119/66
[2024-01-27 20:14] VITALS: BP 112/76
[2024-01-27] MEDS: DESYREL 50 MG PO (21:00)
[2024-01-27 23:39] VITALS: BP 146/69
[2024-01-28] VITALS (7 sets, daily range): BP systolic 114–164; BP diastolic 58–79; PULSE 67; O2SAT 98; BMI 28.3
[2024-01-28] MEDS: SYNTHROID 75 MCG PO (04:20)
[2024-01-28] MEDS: DILAUDID 2 MG PO ×2 (04:20→19:26)
[2024-01-28 05:04] LABS: Hematocrit 31.7 % (39.0-52.0); Hemoglobin 10.5 g/dL (13.0-18.0); Mean Corp Hgb Conc. 33.1 g/dL (33.0-37.0); Mean Corpuscular Hgb 32.9 pg (27.0-31.0); Mean Corpuscular Volume 99.4 fL (80.0-94.0); Mean Platelet Volume 9.6 fL (7.4-10.4); Platelet Count 241 10^3/uL (130-400); Red Blood Cell Count 3.19 10^6/uL (4.70-6.10); Red Cell Dist. Width 12.4 % (11.5-14.5)
[2024-01-28 05:27] LABS: Blood Urea Nitrogen 26 mg/dl (9-20); Calcium 8.2 mg/dl (8.4-10.2); Carbon Dioxide 26 mmol/L (22-30); Chloride 107 mmol/L (98-107); Estimated Creatinine Clearance 64 ml/min; Glucose 92 mg/dl (70-99); Potassium 4.6 mmol/L (3.5-5.1); Sodium 134 mmol/L (135-145); eGFR > 60.00
--- NOTE | 2024-01-28 05:54 | PTCARENOTE ---
Pt awake intermittently t/o the night, singing on and off. No issues to report. PRN pain medication administered as ordered. Pt HR in the 60's in NSR with occasional A pacing. Pacemaker/ AICD in place. Will monitor.
--- NOTE | 2024-01-28 09:42 | W.PN.VS ---
Addendum entered and electronically signed by Asa Wilson III, MD 01/28/24 09:57:
This patient was seen and examined with HERBERTH Lim. I agree with the history and physical exam as well as the assessment and plan.
Signed:
Asa Wilson III, MD
[facility] Vascular Surgery
[phone] ([id number])
Original Note:
Today's Communication / Plan
-
Seen and assessed with Dr. Wilson
Assessment/Plan
-
POD 6 left lower extremity arterial bypass with vein graft for CLTI
Plan:
-DC wilson for void trial
-IV lasix 20 after wilson is removed
-PT/OT
-Prevalon boots to protect heels while in bed
-Local wound care
-Keep SALIMA for now
-Possible SNF bed tomorrow
Subjective Data
-
Date of Service: January 28, 2024
Pt seen at bedside this am with Dr Wilson. No events overnight.
Objective Data
-
Vital Signs
Temp Pulse Resp BP Pulse Ox
97.9 F 66 16 164/79 96
01/28/24 07:00 01/28/24 07:00 01/28/24 07:00 01/28/24 07:00 01/28/24 07:00
Intake and Output
01/27/24 01/28/24 01/29/24
06:59 06:59 06:59
Intake Total 960 / 960
Output Total 1215 / 1215
Balance -255 / -255
Intake:
Oral fluids 960 / 960
Output:
Drain Output (Total) 75 / 75
Middle Leg Jose-Aguilar 75 / 75
Urine, Wilson 900 / 900
Urine, Voided 240 / 240
Lab Results
01/28/24 04:48
01/28/24 04:48
Calcium 8.2 mg/dl (8.4-10.2) L 01/28/24 04:48
Phosphorus 2.5 mg/dl (2.5-4.5) 01/24/24 03:50
Magnesium 2.1 mg/dl (1.6-2.3) 01/24/24 03:50
Physical Exam
-
AAox3
Non labored breathing
Left leg incisions clean/dry/well approximated
SALIMA serous
Palp graft pulse. Palp DP
Left foot pink/warm
[2024-01-28] MEDS: PROTONIX 40 MG PO (10:23)
[2024-01-28] MEDS: SENOKOT 17.1999999999999993 MG PO ×2 (10:23→19:26)
[2024-01-28] MEDS: COREG 12.5 MG PO ×2 (10:24→19:27)
[2024-01-28] MEDS: ENTRESTO 49 MG/51 MG 1 TAB PO ×2 (10:24→19:26)
[2024-01-28] MEDS: COLACE 100 MG PO ×2 (10:24→19:27)
[2024-01-28] MEDS: TYLENOL 650 MG PO ×4 (10:24→21:39)
[2024-01-28] MEDS: ELIQUIS 5 MG PO ×2 (10:24→19:27)
[2024-01-28] MEDS: CRESTOR 5 MG PO (10:24)
[2024-01-28] MEDS: NEURONTIN 100 MG PO ×3 (10:24→21:39)
[2024-01-28] MEDS: TIMOPTIC 0.5% OPHTHALMIC SOLUTION 1 DROP BOTH EYES (10:25)
[2024-01-28] MEDS: ASPIR LOW (ENTERIC COATED) 81 MG PO (10:25)
[2024-01-28] MEDS: FLOMAX 0.400000000000000022 MG PO (10:25)
[2024-01-28] MEDS: LASIX 20 MG IV (10:38)
[2024-01-28] MEDS: HYDROPHOR 1 APPLIC TOPICAL (14:39)
--- NOTE | 2024-01-28 15:18 | PN.CDI ---
CDI
- -
CDI:
Physician Documentation Request
Admit Date: 01/18/24 10:38
Dear Vascular,
Please review the following and provide your response in the progress notes.
Clinical Indicators:
- 01/12 H&P indicates chronic systolic CHF
- Weight on 01/17 admission 180 lbs - 01/27 weight 191 lbs
- 01/24 Vascular note '20 mg of Lasix'
- 01/27 Vascular note 'IV lasix 20 after wilson is removed'
Please clarify the diagnosis with the above findings including the use of IV Lasix:
Acute on chronic HFrEF
Chronic HFrEF
Other
Use of terms such as suspected, likely, concern for, or probable (associated with a specific diagnosis that is being evaluated, monitored, or treated as if it exists) are acceptable and can be coded in the inpatient setting, when documented at the
time of discharge.
Thank you,
Levi Najera RN
CDI Specialist
Please use your independent medical judgment in providing your response.
--- NOTE | 2024-01-28 15:29 | W.PN.UPDATE ---
Update Note
Progress Note Update
CDI:
Physician Documentation Request
Admit Date: 01/18/24 10:38
Please review the following and�provide your response in the progress notes.
Clinical Indicators:
�- 01/12 H&P indicates�chronic systolic CHF
�- Weight on 01/17 admission 180 lbs - 01/27 weight 191 lbs
�- 01/24 Vascular note '20 mg of Lasix'
�- 01/27 Vascular note 'IV lasix 20 after wilson is removed'
Please clarify the diagnosis with the above findings including the use of IV Lasix:
Chronic HFrEF
--- NOTE | 2024-01-28 15:29 | PTCARENOTE ---
Pt's wilson cath removed @ 10:15 this morning. Pt voided 550mls w/o difficulty.
--- NOTE | 2024-01-28 20:49 | W.PN.POD ---
Today's Communication
Today's Communication
Wound cx prelim +GNR - Rec po abt x 2 weeks pending final cx
Wounds cleansed and redressed.
Continue offloading and daily wound care. WBAT
Assessment / Plan
-
1-PAD S/P LLE bypass graft
2-ischemic wounds to heels - stable
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
Subjective
Chief Complaint
PAD S/P LLE bypass, Wounds B/L heels and left foot
Subjective
Patient sitting up in chair- states he is unable to walk without pain to the heels right more than left
Objective
Temp Pulse Resp BP Pulse Ox
97.7 F 64 20 141/70 99
01/28/24 19:25 01/28/24 19:27 01/28/24 19:25 01/28/24 19:27 01/28/24 19:25
01/28/24 04:48
01/28/24 04:48
Vital Signs and Lab results were reviewed.
MICRO- +mod GNR
Inspection: Ulcer
Review of Systems
Review of Systems
Review of Systems: No Fever, No Chills, No Nausea and No Diarrhea
Physical Exam
Physical Exam
General: No Apparent Distress and Conversant
Musculoskeletal: No Clubbing and No Cyanosis
Skin: Warm, Dry and Ischemic Ulcer (b/l heels and left forefoot- necrosis to right heel fissure- stable, left heel now with granulation at periphery and central area of fibrosis, left medial 1st met with tophi to wound and surrounding skin,
increases granulation at periphery, no malodor )
Neuro: AO x 3, Protective Sensation Diminished and Drop Foot, Left
Vascular: Capillary Refill Intact, Pedal Hair Absent and Skin Temperature Warm to Warm
Dorsalis Pedis: Intact
Posterior Tibialis: Diminished
[2024-01-28] MEDS: DESYREL 50 MG PO (21:39)
[2024-01-29] VITALS (8 sets, daily range): BP systolic 107–144; BP diastolic 56–78; PULSE 67–68; O2SAT 97; BMI 28.1
[2024-01-29] MEDS: DILAUDID 4 MG PO ×2 (00:44→21:16)
[2024-01-29] MEDS: SYNTHROID 75 MCG PO (04:59)
--- NOTE | 2024-01-29 07:56 | W.PN.VS ---
Addendum entered and electronically signed by Asa Warner III, MD 01/29/24 11:01:
This patient was seen and examined with HERBERTH Lim. I agree with the history and physical exam as well as the assessment and plan. I have the following additions:
Signed:
Asa Warner III, MD
[facility] Vascular Surgery
[phone] (tckz)
Original Note:
Today's Communication / Plan
-
Seen and assessed with Dr. Warner
Assessment/Plan
-
POD 7 left lower extremity arterial bypass with vein graft for CLTI
Plan:
-PT/OT
-Prevalon boots to protect heels while in bed
-Local wound care
-Keep SALIMA for now
-Possible SNF bed today?
-Antibiotic plan
Subjective Data
-
Date of Service: January 29, 2024
Patient seen at bedside this a.m. with Dr. Warner. Offers no complaints at this time. No events overnight. SALIMA with SS output 75cc
Objective Data
-
Vital Signs
Temp Pulse Resp BP Pulse Ox
97.7 F 61 18 141/78 94
01/29/24 03:34 01/29/24 03:34 01/29/24 03:34 01/29/24 03:34 01/29/24 03:34
Intake and Output
01/28/24 01/29/24 01/30/24
06:59 06:59 06:59
Intake Total 960 / 960 480 / 480
Output Total 1215 / 1215 1625 / 1625
Balance -255 / -255 -1145 / -1145
Intake:
Oral fluids 960 / 960 480 / 480
Output:
Drain Output (Total) 75 / 75 75 / 75
Middle Leg Jose-Aguilar 75 / 75 75 / 75
Urine, Warner 900 / 900 350 / 350
Urine, Voided 240 / 240 1200 / 1200
Lab Results
01/28/24 04:48
01/28/24 04:48
Calcium 8.2 mg/dl (8.4-10.2) L 01/28/24 04:48
Phosphorus 2.5 mg/dl (2.5-4.5) 01/24/24 03:50
Magnesium 2.1 mg/dl (1.6-2.3) 01/24/24 03:50
Physical Exam
-
AAOx3
Non labored breathing
Left leg incisions clean/dry/well approximated
SALIMA SS 75cc
Palp graft pulse. Palp DP
Left foot pink/warm
[2024-01-29] MEDS: NEURONTIN 100 MG PO ×3 (10:31→21:16)
[2024-01-29] MEDS: CRESTOR 5 MG PO (10:31)
[2024-01-29] MEDS: ENTRESTO 49 MG/51 MG 1 TAB PO ×2 (10:31→21:16)
[2024-01-29] MEDS: ASPIR LOW (ENTERIC COATED) 81 MG PO (10:31)
[2024-01-29] MEDS: SENOKOT 17.1999999999999993 MG PO (10:31)
[2024-01-29] MEDS: PROTONIX 40 MG PO (10:31)
[2024-01-29] MEDS: ELIQUIS 5 MG PO ×2 (10:31→21:17)
[2024-01-29] MEDS: FLOMAX 0.400000000000000022 MG PO (10:32)
[2024-01-29] MEDS: COREG 12.5 MG PO ×2 (10:32→21:18)
[2024-01-29] MEDS: HYDROPHOR 1 APPLIC TOPICAL (10:32)
[2024-01-29] MEDS: TIMOPTIC 0.5% OPHTHALMIC SOLUTION 1 DROP BOTH EYES (10:32)
[2024-01-29] MEDS: COLACE 100 MG PO (10:32)
[2024-01-29] MEDS: TYLENOL 650 MG PO ×4 (10:33→21:17)
--- NOTE | 2024-01-29 11:13 | WOUNDNOTE ---
L MEDIAL GREAT TOE
[2024-01-29] MEDS: DILAUDID 2 MG PO ×2 (11:15→15:26)
--- NOTE | 2024-01-29 11:16 | WOUNDNOTE ---
L HEEL MEDIAL VIEW
--- NOTE | 2024-01-29 11:17 | WOUNDNOTE ---
WON RN NOTE: Followed up today regarding heel wounds and L medial great toe, + tophaceous gout. Dressings changed per podiatry order. R heel is stable and L heel and toe white work cleaner. Using offloading heel boots when in bed. Applied offloading shoes
provided by paid search marketing strategist, patient needing to stand to urinate. Sacral silicone foam in use, no reports of sacral ulcer. Spoke with Dr. Garza after dressing changed, to continue same wound care.
--- NOTE | 2024-01-29 11:24 | CM ---
Addendum entered by Vee Carroll RN 01/29/24 15:18:
Patient now started on IV abx.
Addendum entered by Vee Carroll RN 01/29/24 14:55:
Calls placed to [facility], [facility], [facility], [facility] - no beds. [facility] a bed. Spoke with the patient and left voice message for son Justin. Awaiting call back from son to discuss discharge plans.
Addendum entered by Vee Carroll RN 01/29/24 11:48:
CM spoke with Christie Phlebotomist Lab Assistant for [facility]. Per Christie, she informed prior CM that they would not have a bed for the patient. They are a [facility] and take from their own community. Call placed to [facility] and [facility] to see
if bed available. Awaiting call back.
Original Note:
IMM signed and placed on chart.
--- NOTE | 2024-01-29 11:26 | W.PN.UPDATE ---
Update Note
Progress Note Update
Patient in room with CUSTOMER ADVISOR and standing - he is in moderate discomfort to legs and feet.
Dressing changed 5 min earlier by RN, photos reveal ongoing gouty tophi to the left 1st MTP
wound cx +Pseudomonas.
Recommend Levaquin 500mg daily x 10 days, or consult with ID
Also consider usp tx of tophaceous gout w/Allopurinol and consider medrol dose pack for gouty pain.
Re evaluate xray in 2 weeks for signs of OM, continue wound care as presently ordered upon DC
Follow up as out patient in wound center or in my office for continued wound care
Will sign off, please consult if needed
[2024-01-29] MEDS: MAALOX 30 ML PO (12:06)
--- NOTE | 2024-01-29 12:44 | CON.ID ---
Consultation
-
Date/Time Consultation Requested: 01/29/2024, 1127
Date/Time Consultation Performed: 01/29/2024, 1245
Requesting Provider: Tonya KEVIN
Performing Provider: Dr. Sindy Yanes
Reason for Consultation: Pseudomonas from foot wound
Chief Complaint / Past History
Chief Complaint
Leg pains and wounds
History of Present Illness
73 year old male with CAD, HTN, ICM/ICD, PAD hx LE stents with LLE>RLE nonhealing wounds. On 01/18/2024 he underwent diagnostic angiogram which showed extensive disease without endovascular option. On 01/22/24 s/p left femoral endarterectomy with
patch angioplasty, left SFA to ant tibial artery bypass. Left heel wound and left first MTP wound noted to have green drainage on gauze. Podiatry is following. MTP wound debrided at bedside. There is suspicion for tophaceous gout. On 01/26 culture
obtained from MTP wound which is growing Pseudomonas. Pt reports no known h/o of gout in the past. The left toe wound developed 3 months ago and continued to progress. He continues to have BLE pain.
Past History
Additional Past Medical History:
HTN
dyslipidemia
CAD s/p CABG x 3
Ischemic cardiomyopathy s/p ICD
PE
PAD s/p BLE stents
Allergy History:
atorvastatin [From Lipitor] Allergy (Verified 01/15/24 08:46)
myalgia
simvastatin [From Zocor] Allergy (Verified 01/15/24 08:46)
myalgia
Medications Reviewed: Yes
Current Antibiotics:
none
Social History
Tobacco: Former Smoker
Alcohol: None
Drug: None
Living: Alone
Family History
Family History: Not Pertinent
Review of Systems
Review of Systems
General: Negative Fever, Chills or Change in Appetite
HEENT: Negative Headache
Respiratory: Negative Dyspnea or Cough
Gasteroenterology: Other (no diarrhea); Negative Nausea or Vomiting
Genital / Urological: Negative Dysuria or Flank Pain
Endocrine: Negative Weakness
Neurological: Negative Headache or Dizziness
Vital Signs
Temp Pulse Resp BP Pulse Ox
98.2 F 69 17 141/59 98
01/29/24 12:00 01/29/24 12:00 01/29/24 12:00 01/29/24 12:00 01/29/24 12:00
Physical Exam
Physical Exam
Constitutional: No Acute Distress and Comfortable
Cardiovascular: Regular Rate and S1/S2
Pulmonary: Clear
Gastrointestinal: Soft, Non Tender and Non Distended
Genito-Urinary: Negative CVA Tenderness
Extremities: Negative Edema
Wound: Other (LLE 2 long incisions intact without erythema, SALIMA drain with serosang fluid. Left first MTP 2.5 x 2 cm wound with subcutaneous tissue, white substance, 15% necrotic tissue, mild surrounding erythema)
Neurological: AO x 3
Lab / Diagnostic Study Results
01/28/24 04:48
01/28/24 04:48
PT 14.1 Sec (11.4-14.6) 01/23/24 04:15
INR 1.11 01/23/24 04:15
Microbiology Results
Micro:
01/27/24 14:16 Wound Culture - Preliminary
Foot - Left Pseudomonas aeruginosa
Gram Stain - Preliminary
01/25/24 Left Foot XRay: Mild first MTP joint osteoarthritis. Findings suggesting a healing fracture of the second metatarsal bone.
01/22/24 CXR: negative
Assessment / Plan
# Left first MTP wound with Pseudomonas
# PAD s/p LLE bypass
- Start IV cefepime pending final cx data.
-Continue with wound care.
# Additional Medical History
HTN
dyslipidemia
CAD s/p CABG x 3
Ischemic cardiomyopathy s/p ICD
PE
PAD s/p BLE stents
[2024-01-29] MEDS: MAXIPIME 2000 MG IV ×2 (15:22→21:17)
[2024-01-29] MEDS: STERILE WATER FOR INJECTION 10 ML IV ×2 (15:23→21:17)
[2024-01-29] MEDS: DULCOLAX 10 MG RECTAL (20:36)
[2024-01-29] MEDS: DESYREL 50 MG PO (21:16)
[2024-01-29] MEDS: COLACE PO (21:32)
[2024-01-29] MEDS: SENOKOT PO (21:33)
[2024-01-30 03:44] VITALS: BP 135/63
[2024-01-30] MEDS: DILAUDID 4 MG PO ×2 (05:17→18:40)
[2024-01-30] MEDS: MAXIPIME 2000 MG IV ×3 (05:43→22:17)
[2024-01-30] MEDS: STERILE WATER FOR INJECTION 10 ML IV ×3 (05:44→22:09)
[2024-01-30] MEDS: SYNTHROID 75 MCG PO (05:44)
[2024-01-30 07:56] VITALS: BP 157/78
--- NOTE | 2024-01-30 08:02 | W.PN.VS ---
Addendum entered and electronically signed by Venkat Roblero MD 01/30/24 13:39:
Seen and examined with ARABELLA Garrido. Agree with findings as noted below. Good bypass graft function. Incisions all clean dry and intact. SALIMA serous. Palpable graft pulse with easily palpable 2+ DP pulse on the foot. Plan/as discussed and noted below.
Original Note:
Today's Communication / Plan
-
Patient seen and examined with Dr. Venkat Roblero, below plan reviewed with attending
Assessment/Plan
-
POD 8 left lower extremity arterial bypass with vein graft for CLTI
Plan:
-PT/OT
-Prevalon boots to protect heels while in bed
-Local wound care
-Keep SALIMA
-Antibiotic plan pending finalized cultures, ID following appreciate recommendations
-MRI of left foot pending to rule out osteomyelitis
-Dispo planning
Subjective Data
-
Date of Service: January 30, 2024
Patient seen and examined at bedside, offers no complaints. Reports adequate postoperative pain management. Denies nausea, vomiting, fever, and chills.
Objective Data
-
Vital Signs
Temp Pulse Resp BP Pulse Ox
97.8 F 67 19 157/78 96
01/30/24 07:56 01/30/24 07:56 01/30/24 07:56 01/30/24 07:56 01/30/24 07:56
Intake and Output
01/29/24 01/30/24 01/31/24
06:59 06:59 06:59
Intake Total 480 / 480 900 / 900
Output Total 1625 / 1625 1445 / 1445
Balance -1145 / -1145 -545 / -545
Intake:
Oral fluids 480 / 480 900 / 900
IV fluids (Total) 0 / 0
IV piggybacks 0 / 0
Output:
Drain Output (Total) 75 / 75 70 / 70
Middle Leg Jose-Aguilar 70 / 70
Urine, Warner 350 / 350
Urine, Voided 1200 / 1200 1375 / 1375
Lab Results
01/28/24 04:48
01/28/24 04:48
Calcium 8.2 mg/dl (8.4-10.2) L 01/28/24 04:48
Phosphorus 2.5 mg/dl (2.5-4.5) 01/24/24 03:50
Magnesium 2.1 mg/dl (1.6-2.3) 01/24/24 03:50
Physical Exam
-
AAOx3
Non labored breathing
Left leg incisions clean/dry/well approximated
SALIMA SS 70cc
Palp graft pulse. Palp DP
Left foot pink/warm
[2024-01-30] MEDS: SENOKOT 17.1999999999999993 MG PO ×2 (09:15→22:08)
[2024-01-30] MEDS: ASPIR LOW (ENTERIC COATED) 81 MG PO (09:15)
[2024-01-30] MEDS: COLACE 100 MG PO ×2 (09:16→22:07)
[2024-01-30] MEDS: ENTRESTO 49 MG/51 MG 1 TAB PO ×2 (09:16→22:08)
[2024-01-30] MEDS: NEURONTIN 100 MG PO ×3 (09:16→22:17)
[2024-01-30] MEDS: TYLENOL 650 MG PO ×4 (09:16→22:09)
[2024-01-30] MEDS: FLOMAX 0.400000000000000022 MG PO (09:16)
[2024-01-30] MEDS: COREG 12.5 MG PO ×2 (09:16→22:08)
[2024-01-30] MEDS: ELIQUIS 5 MG PO ×2 (09:16→22:08)
[2024-01-30] MEDS: PROTONIX 40 MG PO (09:17)
[2024-01-30] MEDS: CRESTOR 5 MG PO (09:17)
[2024-01-30] MEDS: HYDROPHOR 1 APPLIC TOPICAL (09:17)
[2024-01-30] MEDS: TIMOPTIC 0.5% OPHTHALMIC SOLUTION 1 DROP BOTH EYES (09:18)
--- NOTE | 2024-01-30 09:58 | CM ---
Reviewed the chart notes and spoke with Ender the patient's son. It is listed in the system as Justin. The patient's son updated on the facilities that were unable to accept the patient. Patient's son and do not understand why [facility] is
unable to accept, due to they are thinking of placing the patient their someday. Explained that per director of critical care Christie, they are only taking from their community at this time and have no additional beds open. Patient's son and are
calling the facility to see if they can get him in. Additional facilities names were provided [facility], [facility] and [facility]. Last two are [facility]. Referral sent to [facility]. Patient is accepted at [facility], but the son claims the
patient had a 'bad' experience there. CM continues to be available to patient/family and is monitoring medical plan for needs at discharge.
Plan: Discharge to SNF/rehab once family agrees on a facility that has a bed.
[2024-01-30 11:25] VITALS: BP 159/58
[2024-01-30] MEDS: DILAUDID 0.25 MG IV (13:18)
--- NOTE | 2024-01-30 13:30 | W.PN.ID1 ---
Date of Service
Date of Service: January 30, 2024
Today's Communication
See below.
Assessment / Plan
# Left first MTP wound with Pseudomonas
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
# PAD s/p LLE bypass 01/22/24.
- Unable to complete MRI due to bilateral foot pain.
Low suspicion for osteo.
- Check serum uric acid
- Continue IV cefepime (d2).
At time of discharge, transition to cipro 750mg po bid to complete 2 weeks.
-Continue local wound care.
# Additional Medical History
HTN
dyslipidemia
CAD s/p CABG x 3
Ischemic cardiomyopathy s/p ICD
PE
PAD s/p BLE stents
Chief Complaint
-: Other (Foot wound)
Subjective / Review of Systems
Just came back from MRI. Unable to lay still for imaging due to bilateral foot pain.
Vital Signs / Physical Exam
Vital Signs
Vital Signs
Temp Pulse Resp BP Pulse Ox
97.9 F 69 19 159/58 97
01/30/24 11:25 01/30/24 11:25 01/30/24 11:25 01/30/24 11:25 01/30/24 11:25
Physical Exam
Constitutional: No Acute Distress and Comfortable
Eyes: Sclera Anicteric
Pulmonary: Clear
Gastrointestinal: Soft, Non Tender and Non Distended
Extremities: Other (Bilateral sanchez with mild petechia erythema); Negative Edema
Neurological: AO x 3
Objective Data
Lab Data
Lab Results
01/28/24 04:48
01/28/24 04:48
PT 14.1 Sec (11.4-14.6) 01/23/24 04:15
INR 1.11 01/23/24 04:15
APTT 32.1 Sec (23.4-35.0) 01/23/24 04:15
Estimated Creat Clear 64 ml/min 01/28/24 04:48
Most recent labs reviewed.
Micro Results:
01/27/24 14:16 Wound Culture - Final
Foot - Left Pseudomonas aeruginosa
Gram Stain - Final
01/25/24 Left Foot XRay: Mild first MTP joint osteoarthritis. Findings suggesting a healing fracture of the second metatarsal bone.
01/22/24 CXR: negative
[2024-01-30 15:14] VITALS: BP 150/60
[2024-01-30 15:21] LABS: Uric Acid 5.5 mg/dl (3.5-8.5)
[2024-01-30 19:35] VITALS: BP 157/62
[2024-01-30] MEDS: DESYREL 50 MG PO (22:08)
[2024-01-30 23:41] VITALS: BP 172/92
[2024-01-31] VITALS (7 sets, daily range): BP systolic 105–170; BP diastolic 57–75; PULSE 74; O2SAT 96
[2024-01-31] MEDS: DILAUDID 4 MG PO ×2 (02:48→15:42)
[2024-01-31] MEDS: STERILE WATER FOR INJECTION 10 ML IV ×3 (06:22→22:59)
[2024-01-31] MEDS: SYNTHROID 75 MCG PO (06:22)
[2024-01-31] MEDS: MAXIPIME 2000 MG IV ×3 (06:22→22:58)
--- NOTE | 2024-01-31 07:54 | W.PN.VS ---
Addendum entered and electronically signed by Venkat Roblero MD 01/31/24 12:34:
Seen and examined with ARABELLA Correa. Agree with findings as noted below. Left lower extremity dressings/incisions all clean dry and intact. Easily palpable graft pulse 2+. Easily palpable 2+ DP pulse on the foot. SALIMA serous. Plan/as discussed and
noted below.
Original Note:
Today's Communication / Plan
-
Seen and assessed with Dr. Roblero
Assessment/Plan
-
POD 9 left lower extremity arterial bypass with vein graft for CLTI
Plan:
-PT/OT
-Prevalon boots to protect heels while in bed
-Local wound care
-Keep SALIMA
-PO Antibiotic plan finalized, appreciate ID recommendations
-Dispo planning, awaiting family decision on SNF location
Subjective Data
-
Date of Service: January 31, 2024
Patient seen at bedside this a.m. with Dr. Roblero. Patient states he slept well. No events overnight
Objective Data
-
Vital Signs
Temp Pulse Resp BP Pulse Ox
98.8 F 72 18 152/69 93
01/31/24 07:45 01/31/24 07:45 01/31/24 07:45 01/31/24 07:45 01/31/24 07:45
Intake and Output
01/30/24 01/31/24 02/01/24
06:59 06:59 06:59
Intake Total 900 / 900 1080 / 1080
Output Total 1445 / 1445 1750 / 1750
Balance -545 / -545 -670 / -670
Intake:
Oral fluids 900 / 900 1080 / 1080
IV fluids (Total) 0 / 0
IV piggybacks 0 / 0
Output:
Drain Output (Total) 70 / 70 75 / 75
Middle Leg Jose-Aguilar 70 / 70 75 / 75
Urine, Voided 1375 / 1375 1675 / 1675
Lab Results
01/28/24 04:48
01/28/24 04:48
Calcium 8.2 mg/dl (8.4-10.2) L 01/28/24 04:48
Phosphorus 2.5 mg/dl (2.5-4.5) 01/24/24 03:50
Magnesium 2.1 mg/dl (1.6-2.3) 01/24/24 03:50
Physical Exam
-
AAOx3
Non labored breathing
Left leg incisions clean/dry/well approximated, new dressing to right groin applied
SALIMA SS 70cc
Palp graft pulse. Palp DP
Left foot pink/warm
--- NOTE | 2024-01-31 09:37 | CM ---
Addendum entered by Vee Carroll RN 01/31/24 16:09:
Per Tawny ([phone]), admissions at [facility] they can accept patient on day of discharge. No precert required. Patient's son Ender ([phone]) updated.
Addendum entered by Vee Carroll RN 01/31/24 15:37:
IMM signed and placed on the chart.
Original Note:
Reviewed the chart notes and left voice message with admissions department at [facility] regarding possible bed availability. CM continues to be available to patient/family and is monitoring medical plan for needs at discharge.
Plan: Discharge to SNF once bed found. No precert required.
[2024-01-31] MEDS: TYLENOL 650 MG PO ×4 (10:18→22:57)
[2024-01-31] MEDS: SENOKOT 17.1999999999999993 MG PO ×2 (10:18→20:09)
[2024-01-31] MEDS: COREG 12.5 MG PO ×2 (10:19→20:08)
[2024-01-31] MEDS: FLOMAX 0.400000000000000022 MG PO (10:19)
[2024-01-31] MEDS: ENTRESTO 49 MG/51 MG 1 TAB PO ×2 (10:19→20:07)
[2024-01-31] MEDS: CRESTOR 5 MG PO (10:19)
[2024-01-31] MEDS: ASPIR LOW (ENTERIC COATED) 81 MG PO (10:20)
[2024-01-31] MEDS: NEURONTIN 100 MG PO ×3 (10:20→22:58)
[2024-01-31] MEDS: ELIQUIS 5 MG PO ×2 (10:20→20:09)
[2024-01-31] MEDS: PROTONIX 40 MG PO (10:20)
[2024-01-31] MEDS: COLACE 100 MG PO ×2 (10:20→20:07)
[2024-01-31] MEDS: HYDROPHOR 1 APPLIC TOPICAL (10:22)
[2024-01-31] MEDS: TIMOPTIC 0.5% OPHTHALMIC SOLUTION 1 DROP BOTH EYES (10:22)
--- NOTE | 2024-01-31 11:15 | W.PN.ID1 ---
Date of Service
Date of Service: January 31, 2024
Today's Communication
- Continue IV cefepime (d3).
-At time of discharge, transition to cipro 750mg po bid through 02/11/24.
Assessment / Plan
# Left first MTP wound with Pseudomonas
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
# PAD s/p LLE bypass 01/22/24.
- Unable to complete MRI due to bilateral foot pain.
Low suspicion for osteo.
- Continue IV cefepime (d3).
At time of discharge, transition to cipro 750mg po bid through 02/11/24.
-Continue local wound care.
# Additional Medical History
HTN
dyslipidemia
CAD s/p CABG x 3
Ischemic cardiomyopathy s/p ICD
PE
PAD s/p BLE stents
Chief Complaint
-: Other (Foot wound)
Subjective / Review of Systems
Bilateral foot pain stable.
Vital Signs / Physical Exam
Vital Signs
Vital Signs
Temp Pulse Resp BP Pulse Ox
98.8 F 72 18 152/69 93
01/31/24 07:45 01/31/24 07:45 01/31/24 07:45 01/31/24 07:45 01/31/24 07:45
Physical Exam
Constitutional: No Acute Distress
Pulmonary: Clear
Gastrointestinal: Soft, Non Tender and Non Distended
Objective Data
Lab Data
Lab Results
01/28/24 04:48
01/28/24 04:48
PT 14.1 Sec (11.4-14.6) 01/23/24 04:15
INR 1.11 01/23/24 04:15
APTT 32.1 Sec (23.4-35.0) 01/23/24 04:15
Estimated Creat Clear 64 ml/min 01/28/24 04:48
Most recent labs reviewed.
Micro Results:
01/27/24 14:16 Wound Culture - Final
Foot - Left Pseudomonas aeruginosa
Gram Stain - Final
01/25/24 Left Foot XRay: Mild first MTP joint osteoarthritis. Findings suggesting a healing fracture of the second metatarsal bone.
01/22/24 CXR: negative
[2024-01-31] MEDS: DILAUDID 0.25 MG IV (20:35)
[2024-01-31] MEDS: DESYREL 50 MG PO (22:57)
[2024-02-01] MEDS: DILAUDID 4 MG PO ×2 (00:26→09:07)
[2024-02-01] MEDS: DILAUDID 0.25 MG IV (03:16)
[2024-02-01 03:45] VITALS: BP 141/60
[2024-02-01] MEDS: MAXIPIME 2000 MG IV (06:07)
[2024-02-01] MEDS: STERILE WATER FOR INJECTION 10 ML IV (06:08)
[2024-02-01] MEDS: SYNTHROID 75 MCG PO (06:26)
--- NOTE | 2024-02-01 06:33 | PTCARENOTE ---
Patient's pain poorly managed at start of shift, vascular MD contacted, IV dilaudid given x1, patient continued to moan and call out in pain as night progressed, vascular MD contacted, another IV dilaudid dose given x1 and order for dilaudid 4mg po
changed to q4hrs PRN. Patient comfortable but noted to be intermittently confused during conversation but remains Oriented x3. This was noted after both doses of IV dilaudid. Patient's pain well managed at this time
[2024-02-01 07:00] VITALS: BP 146/71
[2024-02-01] MEDS: COLACE 100 MG PO (08:34)
[2024-02-01] MEDS: PROTONIX 40 MG PO (08:34)
[2024-02-01] MEDS: ENTRESTO 49 MG/51 MG 1 TAB PO (08:34)
[2024-02-01] MEDS: CRESTOR 5 MG PO (08:34)
[2024-02-01] MEDS: ASPIR LOW (ENTERIC COATED) 81 MG PO (08:34)
[2024-02-01] MEDS: TYLENOL 650 MG PO (08:34)
[2024-02-01] MEDS: COREG 12.5 MG PO (08:35)
[2024-02-01] MEDS: FLOMAX 0.400000000000000022 MG PO (08:35)
[2024-02-01] MEDS: ELIQUIS 5 MG PO (08:35)
[2024-02-01] MEDS: NEURONTIN 100 MG PO (08:35)
[2024-02-01] MEDS: SENOKOT 17.1999999999999993 MG PO (08:35)
[2024-02-01] MEDS: HYDROPHOR 1 APPLIC TOPICAL (08:37)
[2024-02-01] MEDS: TIMOPTIC 0.5% OPHTHALMIC SOLUTION 1 DROP BOTH EYES (08:40)
--- NOTE | 2024-02-01 09:11 | W.PN.VS ---
Today's Communication / Plan
-
Patient seen and examined at bedside with Dr. Asa Warner III, below plan reviewed with attending.
Assessment/Plan
-
POD 10 left lower extremity arterial bypass with vein graft for CLTI
Plan:
-Increased frequency of p.o. Dilaudid to every 4 hours as needed and will also increase gabapentin to aid in management of pain; suspect pain is not from peripheral artery disease/lack of blood flow if continues following revascularization likely
etiology orthopedic/spine
-PT/OT
-Prevalon boots to protect heels while in bed
-Local wound care
-Keep SALIMA
-PO Antibiotic plan finalized, appreciate ID recommendations
-Discharge today to [facility]
Subjective Data
-
Date of Service: February 01, 2024
Patient seen and examined at bedside, reports difficulty managing bilateral foot pain overnight; patient endorses that bilateral foot pain particularly in the left leg/foot has not improved following revascularization procedure. Denies nausea,
vomiting, fever, and chills.
Objective Data
-
Vital Signs
Temp Pulse Resp BP Pulse Ox
98.3 F 69 16 146/71 95
02/01/24 07:00 02/01/24 08:34 02/01/24 07:00 02/01/24 08:34 02/01/24 07:00
Intake and Output
01/31/24 02/01/24 02/02/24
06:59 06:59 06:59
Intake Total 1080 / 1080 1800 / 1800
Output Total 1750 / 1750 1630 / 1630
Balance -670 / -670 170 / 170
Intake:
Oral fluids 1080 / 1080 1800 / 1800
Output:
Drain Output (Total) 75 / 75 60 / 60
Middle Leg Jose-Aguilar 75 / 75 60 / 60
Urine, Voided 1675 / 1675 1570 / 1570
Lab Results
01/28/24 04:48
01/28/24 04:48
Calcium 8.2 mg/dl (8.4-10.2) L 01/28/24 04:48
Phosphorus 2.5 mg/dl (2.5-4.5) 01/24/24 03:50
Magnesium 2.1 mg/dl (1.6-2.3) 01/24/24 03:50
Physical Exam
-
AAOx3
Non labored breathing
Left leg incisions clean/dry/well approximated, new dressing to right groin applied
SALIMA SS 60cc
Palp graft pulse. Palp DP
Left foot pink/warm
[2024-02-01 11:48] VITALS: BP 144/79
--- NOTE | 2024-02-01 13:34 | CM ---
Patient who is s/p left lower extremity arterial bypass. PT & OT recommend skilled rehab. Per nurse assessment; confused. LLE dressing. Prevalon boots while in bed.
Spoke with Tawny Barcenas, s [facility] (ph [phone]); they are able to accept the patient today. The ph for report [phone], fax [phone].
Spoke with patient's son Ender (ph [phone]); he agrees with the patient going to [facility] today by ambulance. IMM charted as completed yesterday.
Plan [facility] today by ambulance.
--- NOTE | 2024-02-05 14:54 | W.DCSUMMARY ---
Discharge Summary
Discharge Data
Date of Admission: 01/18/24
Date of Discharge: 02/05/24
-
Pending Results: No
Hospital Course
Attending: Timmy
Consultants: Pulmonary medicine, podiatry, infectious disease, cardiology
Allergies: Lipitor, simvastatin
Procedure with date: Selective catheterization of third order lower extremity artery, diagnostic aortobiiliac arteriogram, diagnostic BILATERAL lower extremity arteriogram, ultrasound-guided percutaneous access to the right common femoral artery on
01/18/[address] Asa Wilson III
Left common femoral endarterectomy and proximal superficial femoral endarterectomy with patch angioplasty using bovine pericardium. Left superficial femoral artery to anterior tibial artery bypass using ipsilateral nonreversed great saphenous vein
on 01/22/[address] Asa Wilson III
History of present illness: The patient is an 73 -year-old male with multiple medical conditions including: claudication, CAD, PAD, NV, heart failure, hyperlipidemia, hypertension, hepatitis C, and degenerative disc disease. Patient presented on
01/18/2024 for scheduled procedure with Dr. Asa Wilson III. Patient presented at baseline health with no reports of recent illness or trauma.
Hospital Course: Briefly, the patient underwent scheduled bilateral lower extremity arteriogram, post operatively determined patient would benefit from expedited left lower extremity bypass for left foot tissue loss and peripheral arterial disease.
Patient admitted for cardiology work up and initiation of heparin infusion prior to surgery. Patient cleared by cardiology to proceed with lower extremity bypass procedure without additional cardiac testing. Patient underwent left common femoral
endarterectomy and bypass on 01/22/2024 without complications, and recovered in PACU. Following recovery phase one and two patient was transferred to intensive care unit per protocol for continued hemodynamic monitoring. Subject Scientific Research consulted to aid
in medical management from a critical care perspective. POD#1 (01/23/2024) Patient with stable vital signs, arterial line, IV fluids, and wilson discontinued. Encouraged to get out of bed to chair. Local wound care continues and prevalon boots for heel
protection utilized. Nursing staff does note intermittent delirium following administration of intravenous narcotics, requires reorientation at times. Tolerating PO intake. POD#2 (01/24/2024) Patient deemed stable for transfer to medical/surgical
floor. Restarted on home by mouth anticoagulation. Continues to work with physical therapy. POD#3 (01/25/2024) Podiatry consultation placed to aid in management of left foot wound. Left foot x-ray negative for osteomyelitis. POD#4 (01/26/2024) Continues
to work with physical therapy, continuing with surgical SALIMA drain at left lower extremity. As needed pain medication provided. Required re insertion of wilson catheter for urinary retention. POD#6 (01/28/2024) Wilson removed. Case management following
for detention facility placement. Continues with surgical SALIMA drain and as needed pain medication. Intermittent delirium resolved. POD#7 (01/29/2024) Antibiotics initiated for positive left foot wound cultures, infectious disease consult placed.
Continue with disposition planning. Patient remains with stable vitals signs. POD #8 (01/30/2024) Patient continues with intravenous antibiotics until wound culture is finalized. Attempted left lower extremity MRI to rule out osteomyelitis
indefinitely. However, patient unable to tolerate MRI, due to inability to stay still, study canceled. POD# 9 (01/31/2024) Wound culture finalized as pseudomonas aeruginosa, by mouth antibiotic plan finalized, will remain with intravenous until
discharge per infectious disease recommendations. Patient stable for transfer once bed becomes available at detention home facility. POD#10 (02/01/2024) Patient discharged to long-term facility.
Prescriptions and follow up appointment are included in the DC summary stave and bolt equalizer note. All instructions were given to the patient in both written and verbal form and the patient expressed understanding.
Discharge Plan
-
Patient Disposition: Custodial/SNF
Discharge Diagnosis/Procedures: Left lower extremity arterial bypass with vein graft for chronic wound and peripheral arterial disease
Condition: Fair
Diet: As tolerated and Low Cholesterol
Activity: As tolerated and No strenuous activity
Driving Restrictions: Not until seen by your Dr
Bathing Restrictions: OK to Shower
Activity Restrictions/Additional Instructions:
Wound Care Instructions
Left leg: Gently wash daily with soap and water, do not aggressively rub areas of incision but pat gently dry, can leave calf and lower thigh surgical elle open to air, would cover groin incisions/upper thigh surgical elle with dry gauze and
secure with minimal paper tape; change daily or as needed if soiled
R heel: Clean with Vashe, skin prep periwound,adhesive foam change q 2-3 days and prn soilage
L medial great toe and heel: clean with Vashe, skin prep to periwound, Silvadene and dry dressing Change daily and prn drainage.
MINERAL OIL(Aquaphor) to legs and feet after bathing daily
TruVue lite offloading heel boots both heels when in bed only *Can take home upon discharge.
Follow up with [facility].
Stand Alone Forms: DC Instr - Vascular OR
Referrals:
Dayanna Oden PA-C [Specified Professional Personl] - 02/13/24 1:30 pm
NORY CARREON MD [Family Provider] -
Prescriptions:
New
bisacodyl 10 mg Suppository
10 mg MI DAILYPRN PRN (Reason: constipation) Qty: 5 0RF
tamsulosin 0.4 mg Capsule
0.4 mg PO DAILY Qty: 30 0RF
white petrolatum [Hydrophor] 42 % Ointment
1 applic topical DAILY Qty: 1 0RF
silver sulfadiazine 1 % Cream
1 applic topical BIDPRN PRN (Reason: if dressing soiled or removed) Qty: 1 0RF
ciprofloxacin HCl 750 mg tablet
750 mg PO BID 11 Days Qty: 22 0RF
hydromorphone 2 mg Tablet
2 mg PO Q4HPRN PRN (Reason: moderate pain) Qty: 10 0RF
hydromorphone 4 mg Tablet
4 mg PO Q4HPRN PRN (Reason: severe pain) Qty: 10 0RF
gabapentin 100 mg Capsule
200 mg PO TID Qty: 90 0RF
Continued
aspirin 81 MG tablet,delayed release (DR/EC)
81 mg PO DAILY
acetaminophen 325 MG tablet
650 mg PO Q4HPRN PRN (Reason: mild pain,headache,temp >101F ) 0RF
rosuvastatin 5 MG tablet
5 mg PO DAILY
carvedilol 12.5 MG tablet
12.5 mg PO BID
trazodone 50 mg tablet
50 mg PO HS PRN (Reason: sleep )
levothyroxine 75 mcg tablet
75 mcg PO DAILY
pantoprazole 40 mg tablet,delayed release (DR/EC)
40 mg PO DAILY
timolol maleate 0.5 % drops
1 drp BOTH EYES DAILY
docusate sodium 100 MG capsule
100 mg PO BID
Entresto 49-51 mg tablet
1 tab PO BID
Eliquis 5 mg tablet
5 mg PO BID
Discharge Orders:
Discharge Patient (As Directed); Ordered 02/01/24
Ordered By: Sindy Garrido
Discharge Date and Time
Discharge Date/Time: 02/01/24 12:10
--- NOTE | 2024-02-05 14:54 | W.DS.TRANS ---
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
-
Discharge Instructions:
Discharge Diagnosis/Procedures Left lower extremity arterial bypass with vein
graft for chronic wound and peripheral arterial
disease
Diet As tolerated,Low Cholesterol
Activity As tolerated,No strenuous activity
Driving Restrictions Not until seen by your Dr
Bathing Restrictions OK to Shower
Instructions:
Stand-Alone Forms: DC Instr - Vascular OR
Changes to Home Medications: Yes
Discharge Medications:
DC Medications w/original date entered in Certain
aspirin 81 mg tablet,delayed release 81 mg PO DAILY Blood Clot Prevention/Tx 01/21/19
acetaminophen 325 mg tablet 650 mg PO Q4HPRN PRN mild pain,headache,temp >101F 09/28/19
rosuvastatin 5 mg tablet 5 mg PO DAILY High Cholesterol 10/19/19
carvedilol 12.5 mg tablet 12.5 mg PO BID Heart Disease/Condition/blood pressure 03/18/21
docusate sodium 100 mg capsule 100 mg PO BID Constipation 09/28/23
levothyroxine 75 mcg tablet 75 mcg PO DAILY Thyroid 09/28/23
pantoprazole 40 mg tablet,delayed release 40 mg PO DAILY Gastrointestinal Issue 09/28/23
sacubitril 49 mg-valsartan 51 mg tablet (Entresto) 1 tab PO BID Heart failure 09/28/23
timolol maleate 0.5 % eye drops 1 drp BOTH EYES DAILY glaucoma 09/28/23
trazodone 50 mg tablet 50 mg PO HS PRN sleep 09/28/23
apixaban 5 mg tablet (Eliquis) 5 mg PO BID Blood Clot Prevention/Tx 01/15/24
bisacodyl 10 mg rectal suppository 10 mg LA DAILYPRN PRN constipation #5 ea 01/31/24
ciprofloxacin HCl 750 mg tablet 750 mg PO BID 11 days #22 tabs 01/31/24
silver sulfadiazine 1 % topical cream 1 applic topical BIDPRN PRN if dressing soiled or removed #1 tube 01/31/24
tamsulosin 0.4 mg capsule 0.4 mg PO DAILY #30 caps 01/31/24
white petrolatum 42 % topical ointment (Hydrophor) 1 applic topical DAILY #1 tube 01/31/24
gabapentin 100 mg capsule 200 mg PO TID #90 caps 02/01/24
hydromorphone 2 mg tablet 2 mg PO Q4HPRN PRN moderate pain #10 tabs 02/01/24
hydromorphone 4 mg tablet 4 mg PO Q4HPRN PRN severe pain #10 tabs 02/01/24
Home Medication Changes
Added:
apixaban 5 mg tablet (Eliquis) 5 mg PO BID Blood Clot Prevention/Tx 01/15/24
bisacodyl 10 mg rectal suppository 10 mg LA DAILYPRN PRN constipation #5 ea 01/31/24
ciprofloxacin HCl 750 mg tablet 750 mg PO BID 11 days #22 tabs 01/31/24
silver sulfadiazine 1 % topical cream 1 applic topical BIDPRN PRN if dressing soiled or removed #1 tube 01/31/24
tamsulosin 0.4 mg capsule 0.4 m
Pending Results: No
== END 2024-02-01 12:10 | DRG 253 ==
LOC: 2 SOUTH 10:38
PROVIDERS: Nurse Practitioner; Nurse Practitioner Acute Care; Nurse Practitioner Gerontology; ADMITTING PHYSICIAN Surgery Vascular Surgery; CONSULT PHYSICIAN Internal Medicine; CONSULT PHYSICIAN Internal Medicine Cardiovascular Disease; CONSULT PHYSICIAN Internal Medicine Infectious Disease; CONSULT PHYSICIAN Podiatrist Foot & Ankle Surgery; FAMILY PHYSICIAN General Practice
PROC: B41D1ZZ Fluoroscopy of Aorta and Bilateral Lower Extremity Arteries using Low Osmolar Contrast (ICD-10-PCS; 2024-01-18)
PROC: B41C1ZZ Fluoroscopy of Pelvic Arteries using Low Osmolar Contrast (ICD-10-PCS; 2024-01-18)
PROC: 041L09Q Bypass Left Femoral Artery to Lower Extremity Artery with Autologous Venous Tissue, Open Approach (ICD-10-PCS; 2024-01-22)
PROC: 04CL0ZZ Extirpation of Matter from Left Femoral Artery, Open Approach (ICD-10-PCS; 2024-01-22)
PROC: 06BQ0ZZ Excision of Left Saphenous Vein, Open Approach (ICD-10-PCS; 2024-01-22)
PROC: 041L0KQ Bypass Left Femoral Artery to Lower Extremity Artery with Nonautologous Tissue Substitute, Open Approach (ICD-10-PCS; 2024-01-22)
PROC: 0JBR0ZZ Excision of Left Foot Subcutaneous Tissue and Fascia, Open Approach (ICD-10-PCS; 2024-01-27)
DX: I70.262 Atherosclerosis of native arteries of extremities with gangrene, left leg (principal); E87.1 Hypo-osmolality and hyponatremia; T82.856A Stenosis of peripheral vascular stent, initial encounter; L97.429 Non-pressure chronic ulcer of left heel and midfoot with unspecified severity; I50.22 Chronic systolic (congestive) heart failure; I70.222 Atherosclerosis of native arteries of extremities with rest pain, left leg; I11.0 Hypertensive heart disease with heart failure; I25.10 Atherosclerotic heart disease of native coronary artery without angina pectoris; E78.00 Pure hypercholesterolemia, unspecified; R33.9 Retention of urine, unspecified; E03.9 Hypothyroidism, unspecified; Y92.9 Unspecified place or not applicable; Y83.8 Other surgical procedures as the cause of abnormal reaction of the patient, or of later complication, without mention of misadventure at the time of the procedure; R41.0 Disorientation, unspecified; T40.2X5A Adverse effect of other opioids, initial encounter; Y92.239 Unspecified place in hospital as the place of occurrence of the external cause; E83.51 Hypocalcemia; M1A.9XX1 Chronic gout, unspecified, with tophus (tophi); I25.5 Ischemic cardiomyopathy; I08.0 Rheumatic disorders of both mitral and aortic valves; B96.5 Pseudomonas (aeruginosa) (mallei) (pseudomallei) as the cause of diseases classified elsewhere; Z95.1 Presence of aortocoronary bypass graft; Z95.810 Presence of automatic (implantable) cardiac defibrillator; Z87.891 Personal history of nicotine dependence; Z82.49 Family history of ischemic heart disease and other diseases of the circulatory system; Z79.82 Long term (current) use of aspirin; Z79.890 Hormone replacement therapy; Z79.01 Long term (current) use of anticoagulants; Z86.711 Personal history of pulmonary embolism; Z88.8 Allergy status to other drugs, medicaments and biological substances
CPT/HCPCS: 88304; 88311; 35566; 36246; 71045; 73620; 75625; 75716; 80048; 81003; 82962; 83735; 84100; 84550; 85027; 85610; 85730; 86850; 86900; 86901; 87070; 87077; 87186; 87205; 93005; 93970; 97110; 97116; 97163; 97167; 97530; 97535; C1769; C1894; Q9967

== ENCOUNTER 2024-02-12 07:46 | Inpatient (IN) | payer MEDICARE, SELFPAY ==
[2024-02-12 08:05] VITALS: BP 98/50
[2024-02-12 08:18] VITALS: BMI 28.0
--- NOTE | 2024-02-12 10:14 | HPS.HSE ---
Family Physician
-
Family Physician: NOT KNOW UNKNOWN - PT DOES
Chief Complaint
-
pain and swelling
History of Present Illness
73-year-old male with past medical history of PE on Eliquis, mitral/aortic insufficiency, CHF, hep C, arthritis, CAD status post CABG, ICD placement, peripheral artery disease with recent bypass, hypertension, hyperlipidemia came to the hospital as
a transfer from [facility] with worsening left lower extremity swelling and pain along with acute kidney injury. Patient came without any labs or transfer paperwork. Attempted to call [facility] ER however no one available. Majority of
the history was taken from chart checking and son over the phone. Patient was send overnight from rehab to [facility] for worsening lower extremity pain and swelling. Patient at this time denies any fever/chills. Patient also had significant
creatinine elevation in the ER. Patient denies any abdominal pain. I discussed case with vascular surgery Dr. Warner who came and assessed the patient.
Medical History
Past Medical History
Past Medical History: Reports Other (Peripheral artery disease s/p Fem A stent 05/2016, R iliac stent 2010 Hypertension Hyperlipidemia History of PE 09/2023 on Eliquis Mitral/aortic insufficiency Chronic CHF/systolic Hep C DJD CAD s/p CABG x 2018
ICD placement 2019)
Past Surgical History: Reports Other
Additional Past Surgical History:
Coronary Artery Bypass Graft
Bilateral Lower Extremity Stents
ICD Placement
Tonsillectomy
Social History
Tobacco: Former Smoker
Alcohol: None
Family History
Family History: Not pertinent
Allergies / Home Medications
Allergies reflects when Allergies were last updated in [employer].
Home Medications with original date entered in [employer]
Allergy/Medication List:
Allergies
Allergy/AdvReac Type Severity Reaction Status Date / Time
atorvastatin [From Lipitor] Allergy myalgia Verified 01/15/24 08:46
simvastatin [From Zocor] Allergy myalgia Verified 01/15/24 08:46
Home Medications
aspirin 81 mg tablet,delayed release 81 mg PO DAILY Blood Clot Prevention/Tx 01/21/19
acetaminophen 325 mg tablet 650 mg PO Q4HPRN PRN mild pain,headache,temp >101F 09/28/19
rosuvastatin 5 mg tablet 5 mg PO DAILY High Cholesterol 10/19/19
carvedilol 12.5 mg tablet 12.5 mg PO BID Heart Disease/Condition/blood pressure 03/18/21
docusate sodium 100 mg capsule 100 mg PO BID Constipation 09/28/23
levothyroxine 75 mcg tablet 75 mcg PO DAILY Thyroid 09/28/23
pantoprazole 40 mg tablet,delayed release 40 mg PO DAILY Gastrointestinal Issue 09/28/23
sacubitril 49 mg-valsartan 51 mg tablet (Entresto) 1 tab PO BID Heart failure 09/28/23
timolol maleate 0.5 % eye drops 1 drp BOTH EYES DAILY glaucoma 09/28/23
trazodone 50 mg tablet 50 mg PO HS PRN sleep 09/28/23
apixaban 5 mg tablet (Eliquis) 5 mg PO BID Blood Clot Prevention/Tx 01/15/24
bisacodyl 10 mg rectal suppository 10 mg AK DAILYPRN PRN constipation #5 ea 01/31/24
silver sulfadiazine 1 % topical cream 1 applic topical BIDPRN PRN if dressing soiled or removed #1 tube 01/31/24
tamsulosin 0.4 mg capsule 0.4 mg PO DAILY #30 caps 01/31/24
white petrolatum 42 % topical ointment (Hydrophor) 1 applic topical DAILY #1 tube 01/31/24
gabapentin 100 mg capsule 200 mg PO TID #90 caps 02/01/24
hydromorphone 2 mg tablet 2 mg PO Q4HPRN PRN moderate pain #10 tabs 02/01/24
hydromorphone 4 mg tablet 4 mg PO Q4HPRN PRN severe pain #10 tabs 02/01/24
Review of Systems
-
History Source: Patient
A 12 point ROS was completed and negative except as noted: Yes
Musculoskeletal: Reports Joint Pain and Joint Swelling
Physical Exam
Vital Signs
Vital Signs
Temp Pulse Resp BP Pulse Ox
98.6 F 62 14 98/50 95
02/12/24 08:05 02/12/24 08:05 02/12/24 08:05 02/12/24 08:05 02/12/24 08:05
Physical Exam
General: No Apparent Distress and Comfortable
HEENT: Anicteric and Moist mucous membranes
Respiratory: Clear and Non Labored Respirations; No Wheezes
Cardiac: S1/S2 and Regular Rhythm
Breast: Deferred by me
GI: Soft, Non Tender, Non Distended and Normal Bowel Sounds
Genito-urinary: No Warner
Musculoskeletal: Edema, Left Lower Extremity
Neuro: Awake, Alert, Oriented and AO x 3
Psych: Calm and Intact Judgment/Insight
Laboratory Results
-
WBC 8.2
Hemoglobin 9.3
Hematocrit 29
Platelet 245
Sodium 130
Potassium 5.4
Chloride 105
Bicarb 18
BUN 66
Creatinine 3.5
Calcium 7.9
AST 67
ALT 36
Albumin 2.9
Data Reviewed
-
Diagnostic Radiology: Report Reviewed by me
Lab Data: Labs Reviewed by me and Discussed with Family
Impression/Plan
-
Left lower extremity swelling and pain suspect secondary to cellulitis
TME likely secondary to above
Start empiric antibiotics
ID consult
Wound care
Patient was seen by vascular surgery and does not appear this related to his bypass
Does have left first MTP wound which could likely be the source. Consult podiatry.
X-ray noted, cannot rule out osteo-
PAD status post left lower extremity bypass 01/22/2024
On last admission there was a concern of patient having gout.
Acute kidney injury
Check UA, urine lites and urine eos
Continue with fluids
Consult nephrology
Hold nephrotoxic agents
History of pulmonary embolism
Hold Eliquis for now, restart when okay with podiatry
CAD status post CABG
Continue aspirin
Ischemic cardiomyopathy
EF 30 to 35%
Follows up with Dr. Graves outpatient
Hold Entresto given EMERSON
History of DC
PAD status post stent earlier and now recent left lower extremity arterial bypass with vein graft for chronic wound and PAD
Follows up with Dr. Warner outpatient
Vascular following
Still has left lower extremity drain, monitor
Suspect cognitive impairment
This was discussed on previous admission and son was instructed to follow-up outpatient
CT 10/11 was consistent with diffuse cortical atrophy
Anemia, suspect anemia of chronic disease
Monitor
Hyponatremia
Monitor
Hyperkalemia
Monitor
History of hypertension
Hyperlipidemia
Hypothyroidism
History of hep C, treated
History of GERD
History of insomnia
Hold trazodone
DVTppx
eliquis when ok with podiatry
CODE STATUS
Full code
I spent a total of 83 minutes with the patient or on the floor. More than 50% of this time involved counseling and coordination of care.
Discussed in detail with patient's son over the phone
[2024-02-12 10:54] LABS: % Basophils 0.6 % (0-2); % Eosinophils 2.9 % (0-6); % Immature Granulocytes 0.6 % (0-0.5); % Lymphocytes 7.4 % (20.5-51.1); % Monocytes 12.2 % (1.7-9.3); % Neutrophils 76.3 % (42.2-75.2); Absolute Basophils 0.1 10^3/uL (0-0.2); Absolute Eosinophils 0.2 10^3/uL (0-0.7); Absolute Immature Granulocytes 0.1 10^3/uL (0-0.05); Absolute Lymphocytes 0.6 10^3/uL (1.2-3.4); Absolute Neutrophils 6.3 10^3/uL (1.4-6.5); Hemoglobin 9.3 g/dL (13.0-18.0); Mean Corp Hgb Conc. 32.1 g/dL (33.0-37.0); Mean Corpuscular Hgb 31.1 pg (27.0-31.0); Mean Platelet Volume 9.2 fL (7.4-10.4); Nucleated Red Blood Cells % 0 % (-); Platelet Count 245 10^3/uL (130-400); Red Blood Cell Count 2.99 10^6/uL (4.70-6.10); Red Cell Dist. Width 12.8 % (11.5-14.5); White Blood Cell Count 8.2 10^3/uL (4.8-10.8)
[2024-02-12 11:11] LABS: ALT (SGPT) 36 U/L (0-50); AST (SGOT) 67 U/L (17-59); Albumin 2.9 g/dl (3.5-5.0); Alkaline Phosphatase 78 U/L (38-126); Blood Urea Nitrogen 66 mg/dl (9-20); Calcium 7.9 mg/dl (8.4-10.2); Carbon Dioxide 18 mmol/L (22-30); Chloride 105 mmol/L (98-107); Estimated Creatinine Clearance 18 ml/min; Glucose 96 mg/dl (70-99); Potassium 5.4 mmol/L (3.5-5.1); Sodium 130 mmol/L (135-145); Total Bilirubin 0.8 mg/dl (0.2-1.3); Total Protein 5.7 g/dl (6.3-8.2); eGFR 17.46
[2024-02-12] MEDS: NSS 1000 IV (11:17)
[2024-02-12] MEDS: ZOSYN 100 IV (11:21)
[2024-02-12] MEDS: VANCOCIN 540 MG IV (11:22)
--- NOTE | 2024-02-12 11:24 | CON.VAS ---
Addendum entered and electronically signed by Asa Warner III, MD 02/12/24 14:44:
This patient was seen and examined with HERBERTH Lim. I agree with the history and physical exam as well as the assessment and plan. I have the following additions:
Well-known to me
Recent left lower extremity common femoral endarterectomy with femoral to anterior tibial artery bypass for critical limb threatening ischemia-nonhealing left foot wound with associated infection
Recently discharged to outside facility
Readmitted with mental status changes and acute kidney injury
Reports not drinking at the outside facility, perhaps dehydration
Left foot erythematous and edematous
SALIMA left thigh serous
Left lower extremity edema
Easily palpable graft pulse, easily palpable DP pulse left foot
Groin, thigh, sanchez incision all clean dry and intact. Floyd and sutures remain
Antibiotics for left foot wound
Podiatry consult
X-ray left foot
Attempted MRI during last admission but given AICD this was not possible.
Monitor SALIMA output over next 24 hrs - hope to remove
Will follow peripherally
Signed:
Asa Warner III, MD
[facility] Vascular Surgery
[phone] (lcrr)
Original Note:
Consultation
Consultation Request
Performing Provider: Timmy
Reason for Consultation: Cellulitis
Medical History
-
Chief Complaint: Cellulitis
History of Present Illness:
Transferred here from [facility] this am
73-year-old male with past medical history of PE on Eliquis, CHF, CAD status post CABG, ICD placement, hypertension, hyperlipidemia, peripheral artery disease with recent bypass came to the hospital as a transfer from [facility] with
worsening left lower extremity swelling and pain along with EMERSON.� Patient came without any labs or transfer paperwork. Majority of the history was taken from chart checking, our prior office notes. Patient was send overnight from rehab to [facility]
for worsening lower extremity pain and swelling.�Vascular consult for cellulitis on left foot around existing wound.
Vascular History:
Right iliac stent 2010�
Stent to left leg (2012)�
Right superficial femoral artery occlusion / DULCE stent May 2016
Stent to prox. L ant. tibial arterial stenosis 01/2019����
04/15/23- Shockwave left popliteal artery and left superficial femoral artery, Drug coated balloon angioplasty left behind the knee popliteal artery, Balloon angioplasty and stenting left above-knee popliteal artery, Balloon angioplasty and stenting
left superficial femoral artery
01/22/24-Left common femoral endarterectomy and proximal superficial femoral endarterectomy with patch angioplasty using bovine pericardium, left superficial femoral artery to anterior tibial artery bypass using ipsilateral nonreversed great saphenous
vein
Past Medical History
Past Medical History: Other (Claudication, CAD, PAD-right SFA stent, Mitral/aortic insufficiency, IA old, Heart Failure, chronic , systolic, Hyperlipidemia, Hypertension, Hepatitis C, DJD with herniated disk, Schamberg's disease)
Past Surgical History: Appendectomy, Cardiac (coronary artery bypass grafting x 3 using MCGEE to LAD and SV as sequential to OM2 then to PLB (JSA - 09/24/19) 09/2019, defibrillator 2019) and Tonsilectomy
Social History
Tobacco: Former Smoker (1970)
Alcohol: Occasional
Personal:
Living: Alone
Employment: Retired
Family History
Family History: CAD and Cancer
Allergies / Home Medications
Allergy/AdvReac Type Severity Reaction Status Date / Time
atorvastatin [From Lipitor] Allergy myalgia Verified 01/15/24 08:46
simvastatin [From Zocor] Allergy myalgia Verified 01/15/24 08:46
Medication Instructions Recorded Confirmed Type
aspirin 81 mg tablet,delayed 81 mg PO DAILY Blood Clot 01/21/19 01/18/24 History
release Prevention/Tx
acetaminophen 325 mg tablet 650 mg PO Q4HPRN PRN mild 09/28/19 01/18/24 Rx
pain,headache,temp >101F
rosuvastatin 5 mg tablet 5 mg PO DAILY High Cholesterol 10/19/19 01/18/24 History
carvedilol 12.5 mg tablet 12.5 mg PO BID Heart 03/18/21 01/18/24 History
Disease/Condition/blood pressure
docusate sodium 100 mg capsule 100 mg PO BID Constipation 09/28/23 01/18/24 History
levothyroxine 75 mcg tablet 75 mcg PO DAILY Thyroid 09/28/23 01/18/24 History
pantoprazole 40 mg tablet,delayed 40 mg PO DAILY Gastrointestinal 09/28/23 01/18/24 History
release Issue
sacubitril 49 mg-valsartan 51 mg 1 tab PO BID Heart failure 09/28/23 01/18/24 History
tablet (Entresto)
timolol maleate 0.5 % eye drops 1 drp BOTH EYES DAILY glaucoma 09/28/23 01/18/24 History
trazodone 50 mg tablet 50 mg PO HS PRN sleep 09/28/23 01/18/24 History
apixaban 5 mg tablet (Eliquis) 5 mg PO BID Blood Clot 01/15/24 01/15/24 History
Prevention/Tx
bisacodyl 10 mg rectal suppository 10 mg CO DAILYPRN PRN constipation 01/31/24 Rx
#5 ea
silver sulfadiazine 1 % topical 1 applic topical BIDPRN PRN if 01/31/24 Rx
cream dressing soiled or removed #1 tube
tamsulosin 0.4 mg capsule 0.4 mg PO DAILY #30 caps 01/31/24 Rx
white petrolatum 42 % topical 1 applic topical DAILY #1 tube 01/31/24 Rx
ointment (Hydrophor)
gabapentin 100 mg capsule 200 mg PO TID #90 caps 02/01/24 Rx
hydromorphone 2 mg tablet 2 mg PO Q4HPRN PRN moderate pain 02/01/24 Rx
#10 tabs
hydromorphone 4 mg tablet 4 mg PO Q4HPRN PRN severe pain #10 02/01/24 Rx
tabs
Review of Systems
-
History Source: Patient
All other systems: Negative unless noted
Constitutional: Reports No Symptoms
EENT: Reports No Symptoms
Respiratory: Reports No Symptoms
Cardiac: Reports No Symptoms
Vascular: Denies Leg Pain / Claudication
Abdomen/GI: Reports No Symptoms
: Reports No Symptoms
Musculoskeletal: Reports Edema
Skin: Reports Other (Redness to left foot)
Neurological: Reports No Symptoms
Endocrine: Reports No Symptoms
Physical Exam
Vital Signs
Temp Pulse Resp BP Pulse Ox
98.6 F 62 14 98/50 95
02/12/24 08:05 02/12/24 08:05 02/12/24 08:05 02/12/24 08:05 02/12/24 08:05
Lab Results
02/12/24 10:24
02/12/24 10:24
Physical Exam
General: No Apparent Distress
HEENT: Normocephalic and Atraumatic
Respiratory: Non Labored Respirations
Cardiac: Negative JVD
GI: Soft and Non Tender
Musculoskeletal: No Clubbing, No Cyanosis and Edema (left foot)
Skin: Warm and Other (Redness at left foot wound site, SALIMA drain putting out straw colored/clear)
Neuro: Awake, Alert and Oriented
Psych: Calm
Assessment / Plan
-
73-year-old male status post lower extremity bypass on 01/22/2024 now here with cellulitis
Palpable graft pulse
Plan:
-Antibiotics
-Podiatry consult
-Continue drain for now, may DC tomorrow if low output
Data Reviewed
-
Labs: Labs Reviewed by me
--- NOTE | 2024-02-12 12:34 | CM ---
Reviewed the chart notes and spoke with the patient's son Ender via telephone. The patient was recently discharged from on 02/01/24 to [facility] [place]. The patient prior to hospitalizations resided alone in a one story home with a
ramp to enter. The patient was using a rolling walker with ambulation. CM continues to be available to patient/family and is monitoring medical plan for needs at discharge.
Plan: Discharge plans will depend on the patient's progress. Might need to return to short term rehab prior to transitioning back to home.
[2024-02-12 12:38] VITALS: BP 124/53
[2024-02-12] MEDS: DILAUDID 0.5 MG IV (13:17)
[2024-02-12] MEDS: FLUSH (NSS) 2 FLUSH IV (13:18)
--- NOTE | 2024-02-12 13:31 | PTCARENOTE ---
pt direct admit form [facility] ER department this morning at around 0800, attempted report for the pt form ER at [facility] but pt was released from there in tentering machine off bearer and night custodian nurse had left the unit at that time, so unable to get report.
This nurse assessed pt, vitals taken and charted, oriented to his room, vascular, podiatry, wound nurse and ID consulted by hospitalist. pt very tired and sleepy, when awake screaming form leg pain unable to rate, IV Dilaudid given as ordered. care
ongoing.
--- NOTE | 2024-02-12 14:05 | WOUNDNOTE ---
L GREAT TOE MEDIAL
--- NOTE | 2024-02-12 14:07 | WOUNDNOTE ---
WON RN note: Patient admitted with foot wound infection.
See H&P for complete history. Lives by self, sons assist as needed.
PMH: CAD, PAD, PVD with multiple stents to legs, CABG triple bypass 2018, defibrillator 2019, ex smoker, DJD-herniated discs,(epidural steroid injections) R foot drop, Hep C,arthritis, L leg arterial bypass, L toe gout and PI to heels.
Wound Location and type/assessment: Patient known to service from recent admission. Patient has same R heel unstageable PI mixed with arterial insufficiency, brown eschar under open blister. L heel with healing wounds from arterial insufficiency
last admission and L medial great toe with tophaceous gout. Last admission patient had L leg bypass by vascular. Dr. Garza debrided heel and L great toe last admission. Heel with dry eschar and 2x2 area of suspected evolving stage 2 distal to
eschar. + audible pulses with Doppler. Redness pain and swelling to L foot, milder to R foot. Patient medicated for pain by nurse prior to my assessment. Student nurses at bedside and assisting. Turned patient to sides, mild MASD to buttocks/sacrum
otherwise intact. R arm with tiny skin tear, silicone foam applied earlier by nurse. L leg bypass graft sites intact, vascular on consult.
Appetite: Adequate.
Pressure redistribution devices in place: On Versa care air, air cushion on pillow under calves. Offload heels.
Plan: To L great toe applied adaptic and foam, silicone foams to heels for easy access pending Podiatry consult. Will call [facility] for offloading(Prevalon) heel boots and asked nurse Anjelica to apply when received. Will confirm orders from hospitalist
and await further orders from Podiatry.
Note to case management of equipment requested for discharge:
Recommend follow up with Podiatry and vascular.
[2024-02-12 14:19] LABS: Urine Albumin Negative (Neg - Trace); Urine Bilirubin Negative (Negative); Urine Character Clear (Clear); Urine Color Yellow; Urine Glucose Negative (Negative); Urine Ketone Negative (Negative); Urine Leukocyte Negative (Negative); Urine Nitrite Negative (Negative); Urine Occult Blood Negative (Negative); Urine Specific Gravity 1.015 (<1.030); Urine Urobilinogen Negative (Neg - 1+)
--- NOTE | 2024-02-12 14:34 | PHA.VAN.IN ---
Assessment
- Assessment
Renal Function: Appears elevated from baseline (SCR 3.5 vs ~1)
Concomitant Antimicrobials: piperacillin/tazobactam
Plan
- Plan
Initial / Loading Dose: 2000mg - 02/11 11:22
Maintenance Regimen: dosing by level
Monitoring: random 02/12 0600
Pharmacokinetics Vancomycin I
- -
Patient Age: 73
Patient Sex: Male
Vancomycin Day #: 1
Indication: Skin And Soft Tissue
Requesting Provider: Dr. Monterroso
Pertinent Antimicrobial Allergies:
no pertinent antibiotic allergies
Height / Weight:
Height 5 ft 9 in
Actual Weight 85.956 kg
- Vital Signs / Lab Results
Temp Pulse Resp BP Pulse Ox
98.0 F 65 16 124/53 97
02/12/24 12:38 02/12/24 12:38 02/12/24 12:38 02/12/24 12:38 02/12/24 12:38
Lab Results - Hematology
02/12/24
10:24
WBC 8.2
Lab Results - Chemistry
02/12/24
10:24
BUN 66 H
Creatinine 3.5 H
Estimated Creat Clear 18
Albumin 2.9 L
Lab Results - Urine
02/12/24
14:06
Urine Nitrite (Reflex) Negative
Leukocyte Esterase Rfl Negative
[2024-02-12 14:43] LABS: Urine Sodium 18 mmol/L (30-90)
[2024-02-12 14:55] LABS: Body Fluid for Eosinophils No Eosinophils seen
[2024-02-12] MEDS: HYDROPHOR 1 APPLIC TOPICAL (15:06)
[2024-02-12 15:07] VITALS: BP 98/51
--- NOTE | 2024-02-12 15:16 | CON.ID ---
Consultation
-
Date/Time Consultation Requested: 02/12/24, 1018
Date/Time Consultation Performed: 02/12/24, 1515
Requesting Provider: Dr. Alex Monterroso
Performing Provider: Dr. Sindy Yanes
Reason for Consultation: Left foot swelling and redness
Chief Complaint / Past History
Chief Complaint
Painful feet
History of Present Illness
73 year old male with CAD, HTN, ICM/ICD, PAD hx LE stents with LLE>RLE nonhealing wounds recently hospitalized with 01/17 to 02/04 and underwent LLE vascular bypass. Pt noted to have bilateral heel wounds and left MTP wound +Pseudomonas. Podiatry
suspected tophaceous gout also. Pt unable to tolerate MRI due to bilateral heel pain. He was on IV cefepime than transitioned to cipro which he completed 02/10. He was sent to [facility]'s ER for LLE edema and edema, then transferred here. Pt also
noted to have EMERSON. Pt denies fevers/chills. Continues to have chronic bilateral foot pain.
Past History
Additional Past Medical History:
HTN
dyslipidemia
CAD s/p CABG x 3
Ischemic cardiomyopathy s/p ICD (2019)
PE
PAD s/p hx BLE stents; s/p left femoral endarterectomy with patch angioplasty, left SFA to ant tibial artery bypass (01/22/24)
Allergy History:
atorvastatin [From Lipitor] Allergy (Verified 01/15/24 08:46)
myalgia
simvastatin [From Zocor] Allergy (Verified 01/15/24 08:46)
myalgia
Medications Reviewed: Yes
Current Antibiotics:
Vancomycin
Zosyn
Social History
Tobacco: Non-Smoker
Alcohol: None
Drug: None
Family History
Family History: Not Pertinent
Review of Systems
Review of Systems
General: Negative Fever or Chills
HEENT: Negative Sinus Problems, Headache or Pharyngitis
Cardiovascular: Negative Chest Pain
Respiratory: Negative Dyspnea or Cough
Gasteroenterology: Negative Nausea or Vomiting
Genital / Urological: Negative Dysuria
Neurological: Negative Headache or Dizziness
All systems: All other systems were reviewed and were negative
Vital Signs
Temp Pulse Resp BP Pulse Ox
97.9 F 61 16 98/51 96
02/12/24 15:07 02/12/24 15:07 02/12/24 15:07 02/12/24 15:07 02/12/24 15:07
Physical Exam
Physical Exam
Constitutional: Non-toxic
Eyes: No Conjunctival Hemorrhage and Sclera Anicteric
Cardiovascular: Regular Rate and S1/S2
Pulmonary: Clear
Gastrointestinal: Soft, Non Tender and Non Distended
Extremities: Edema (LLE 2+) and Erythema (left foot up to sanchez)
Wound: Other (left first MTP wound no deep probe, + white substance laterally)
Neurological: Other (lethargic)
Lab / Diagnostic Study Results
02/12/24 10:24
02/12/24 10:24
Abs Immat Gran (auto) 0.1 10^3/uL (0-0.05) H 02/12/24 10:24
Absolute Neuts (auto) 6.3 10^3/uL (1.4-6.5) 02/12/24 10:24
Absolute Lymphs (auto) 0.6 10^3/uL (1.2-3.4) L 02/12/24 10:24
Absolute Monos (auto) 1.0 10^3/uL (0.1-0.6) H 02/12/24 10:24
Absolute Basos (auto) 0.1 10^3/uL (0-0.2) 02/12/24 10:24
Immature Gran % 0.6 % (0-0.5) H 02/12/24 10:24
Neutrophils % 76.3 % (42.2-75.2) H 02/12/24 10:24
Lymphocytes % 7.4 % (20.5-51.1) L 02/12/24 10:24
Monocytes % 12.2 % (1.7-9.3) H 02/12/24 10:24
Eosinophils % 2.9 % (0-6) 02/12/24 10:24
Basophils % 0.6 % (0-2) 02/12/24 10:24
Microbiology Results
Micro:
02/12/24 12:40 MRSA Screen - Pending
Nose
02/12/24 11:20 Blood Culture - Pending
Blood/Venous
02/12/24 10:24 Blood Culture - Pending
Blood/Venous
02/12/24 Foot XRAY: Healing versus old healed fracture of the left second metatarsal again seen, stable in comparison to recent prior study. Cannot exclude some mild lucency of the medial aspect of the head of the left first metatarsal as noted on
single view, cannot exclude infectious process such as osteomyelitis.
Assessment / Plan
# Acute left foot swelling/edema: cellulitis vs gout
- Recent Left first MTP wound with Pseudomonas s/p 14 d abx completed 02/10
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
Plan: treat gout with prednisone and monitor for improvement.
DC vancomycin
Replace Zosyn with cefepime.
# EMERSON
- Renally dose abx.
--- NOTE | 2024-02-12 15:25 | W.CON.NEPH ---
Consultation
-
Date/Time Consultation Requested: February 12, 2024 12 noon
Date/Time Consultation Performed: February 12, 2024 3:26 PM
Requesting Provider: Dr. Monterroso
Performing Provider: Dr. Rivas
Reason for Consultation: Acute kidney injury
Medical History
-
Chief Complaint: Acute kidney injury
History of Present Illness:
This is a 73-year-old gentleman who was recently at outside hospital earlier this month and was discharged to [facility] rehab [facility]. This was on January 31. He returns overnight from rehab with mental status change, lower extremity edema
erythema and swelling on the left leg. In his last hospitalization he had undergone left common femoral endarterectomy with femoral to anterior tibial artery bypass. That hospitalization was also complicated by urinary retention requiring Warner
catheter though this was discontinued at discharge. At the time of admission he was lethargic. He was also noted to have acute kidney injury with a creatinine of 3.5 up from his baseline of 1.0. There was associated hyperkalemia, metabolic
acidosis, hypokalemia. He was also hypotensive. We are asked to assist with management of his multiple renal issues.
Past Medical History
Chronic heart failure on Entresto therapy, compensated
Left common femoral endarterectomy with [place] anterior tibial bypass
Coronary artery bypass graft
Bilateral lower extremity stents
ICD
Tonsillectomy
Hepatitis C
Osteoarthritis
Pulmonary embolism on Eliquis
Aortic insufficiency, mitral insufficiency
Hypertension
Social History
Tobacco: Former Smoker
Alcohol: None
Family History
No noted CKD
Allergies / Home Medications
Allergy/AdvReac Type Severity Reaction Status Date / Time
atorvastatin [From Lipitor] Allergy myalgia Verified 01/15/24 08:46
simvastatin [From Zocor] Allergy myalgia Verified 01/15/24 08:46
Medication Instructions Recorded Confirmed Type
aspirin 81 mg tablet,delayed 81 mg PO DAILY Blood Clot 01/21/19 02/12/24 History
release Prevention/Tx
acetaminophen 325 mg tablet 650 mg PO Q4HPRN PRN mild 09/28/19 02/12/24 Rx
pain,headache,temp >101F
rosuvastatin 5 mg tablet 5 mg PO DAILY High Cholesterol 10/19/19 02/12/24 History
carvedilol 12.5 mg tablet 12.5 mg PO BID Heart 03/18/21 02/12/24 History
Disease/Condition/blood pressure
docusate sodium 100 mg capsule 100 mg PO BID Constipation 09/28/23 02/12/24 History
levothyroxine 75 mcg tablet 75 mcg PO DAILY Thyroid 09/28/23 02/12/24 History
pantoprazole 40 mg tablet,delayed 40 mg PO DAILY Gastrointestinal 09/28/23 02/12/24 History
release Issue
sacubitril 49 mg-valsartan 51 mg 1 tab PO BID Heart failure 09/28/23 02/12/24 History
tablet (Entresto)
timolol maleate 0.5 % eye drops 1 drp BOTH EYES DAILY glaucoma 09/28/23 02/12/24 History
trazodone 50 mg tablet 50 mg PO HS PRN sleep 09/28/23 02/12/24 History
apixaban 5 mg tablet (Eliquis) 5 mg PO BID Blood Clot 01/15/24 02/12/24 History
Prevention/Tx
bisacodyl 10 mg rectal suppository 10 mg [place] DAILYPRN PRN constipation 01/31/24 02/12/24 Rx
#5 ea
silver sulfadiazine 1 % topical 1 applic topical BIDPRN PRN if 01/31/24 02/12/24 Rx
cream dressing soiled or removed #1 tube
tamsulosin 0.4 mg capsule 0.4 mg PO DAILY #30 caps 01/31/24 02/12/24 Rx
white petrolatum 42 % topical 1 applic topical DAILY #1 tube 01/31/24 02/12/24 Rx
ointment (Hydrophor)
gabapentin 100 mg capsule 200 mg PO TID #90 caps 02/01/24 02/12/24 Rx
hydromorphone 2 mg tablet 2 mg PO Q4HPRN PRN moderate pain 02/01/24 02/12/24 Rx
#10 tabs
hydromorphone 4 mg tablet 4 mg PO Q4HPRN PRN severe pain #10 02/01/24 02/12/24 Rx
tabs
Review of Systems
-
Patient was unable to carry a full conversation. He denied chest pain or shortness of breath. He cannot recall whether or not he had issues with urination. The remainder of the complete review of systems was negative
Physical Exam
Vital Signs
Vital Signs
Temp Pulse Resp BP Pulse Ox
97.9 F 61 16 98/51 96
02/12/24 15:07 02/12/24 15:07 02/12/24 15:07 02/12/24 15:07 02/12/24 15:07
Lab Results
WBC 8.2 10^3/uL (4.8-10.8) 02/12/24 10:24
RBC 2.99 10^6/uL (4.70-6.10) L 02/12/24 10:24
Hgb 9.3 g/dL (13.0-18.0) L 02/12/24 10:24
Hct 29.0 % (39.0-52.0) L 02/12/24 10:24
Plt Count 245 10^3/uL (130-400) 02/12/24 10:24
Sodium 130 mmol/L (135-145) L 02/12/24 10:24
Potassium 5.4 mmol/L (3.5-5.1) H 02/12/24 10:24
Chloride 105 mmol/L (98-107) 02/12/24 10:24
Carbon Dioxide 18 mmol/L (22-30) L 02/12/24 10:24
BUN 66 mg/dl (9-20) H 02/12/24 10:24
Creatinine 3.5 mg/dL (0.7-1.3) H 02/12/24 10:24
eGFR 17.46 02/12/24 10:24
Glucose 96 mg/dl (70-99) 02/12/24 10:24
Calcium 7.9 mg/dl (8.4-10.2) L 02/12/24 10:24
Albumin 2.9 g/dl (3.5-5.0) L 02/12/24 10:24
Physical Exam
General: Awake and Alert
HEENT: PERRL, EOMI, Ear/Nose Intact, Oropharynx Clear/Moist (Dry not moist), Neck Supple, Trachea Midline and No Thyromegaly
Respiratory: Clear and Normal Excursion
Cardiac: Regular Rate/Rhythm and Edema
Abdomen: Soft, Nontender, Nondistended, Normal Bowel Sounds and No Hepatosplenomegaly
Skin: Other (Erythema of the left lower leg)
Psych: Mood/afflect pleasant and Insight/judgement good
Assessment/Plan
-
Assessment:
Left lower extremity swelling and pain secondary to cellulitis
Mental status change
acute kidney injury
Hyponatremia
Metabolic acidosis
Hypotension
Coronary artery disease with bypass
Heart failure reduced ejection fraction
Left lower extremity bypass and endarterectomy
History of hep C, treated
History of PE
Plan:
IV fluids with saline
Follow postvoid residual, he may require Warner catheter once more given recent postvoid was over 600 cc
Follow BMP. Treat potassium medically if needed.
I suspect most of the acute kidney injury is related to both retention and relative hypotension/prerenal.
Data Reviewed
-
Medical Tests (Nuc Med, Echo etc): Image Personally Visualized and interpreted (X-ray of the foot on 02/12/2024 by my reading shows left second metatarsal fracture old, EKG on 01/18/2020 for memory shows normal sinus rhythm anterior inferior Q waves,
lateral T wave abnormalities)
Labs: Labs Reviewed by me
Old Records: Reviewed (January 28, 2024 creatinine 1, potassium 4.6, bicarb 28, sodium 134)
[2024-02-12] MEDS: DELTASONE 40 MG PO (17:04)
[2024-02-12] MEDS: NEURONTIN 300 MG PO (17:04)
--- NOTE | 2024-02-12 17:58 | W.PN.POD ---
Today's Communication
Today's Communication
ulceration left foot 1st met head---stable, probes to bone, rec 1st met head resection or bone bx and iv abx
D/w patient and his son. They want to think about everything and think about tx
will follow
full consult dictated
Subjective
Chief Complaint
ulceration,possible osteo left foot 1stmet head
full consult dictated
Objective
Temp Pulse Resp BP Pulse Ox
97.9 F 61 16 98/51 96
02/12/24 15:07 02/12/24 15:07 02/12/24 15:07 02/12/24 15:07 02/12/24 15:07
02/12/24 10:24
02/12/24 10:24
Vital Signs and Lab results were reviewed.
[2024-02-12 19:33] VITALS: BP 127/61
[2024-02-12] MEDS: COREG 12.5 MG PO (21:21)
[2024-02-12] MEDS: COLACE 100 MG PO (21:21)
[2024-02-12] MEDS: MAXIPIME 1000 MG IV (21:22)
[2024-02-12] MEDS: STERILE WATER FOR INJECTION 10 ML IV (21:22)
[2024-02-12 23:14] VITALS: BP 133/59
[2024-02-13 03:31] VITALS: BP 120/59
[2024-02-13] MEDS: NSS 1000 IV ×2 (03:43→15:46)
--- NOTE | 2024-02-13 03:48 | DOWNTIME ---
There was a [facility] [employer] Operator Downtime on 02/13/2024 from 0100 to 02/13/2024 at 0322. Downtime documentation of patient's care, including medication administrations, has been reconciled in the electronic record per guidelines. Refer to the
patient's paper chart under the miscellaneous tab to see printed paper medication records and downtime forms.
[2024-02-13 04:54] LABS: % Basophils 0.1 % (0-2); % Immature Granulocytes 0.4 % (0-0.5); % Lymphocytes 5.3 % (20.5-51.1); % Monocytes 2.1 % (1.7-9.3); % Neutrophils 92.1 % (42.2-75.2); Absolute Lymphocytes 0.4 10^3/uL (1.2-3.4); Absolute Monocytes 0.2 10^3/uL (0.1-0.6); Absolute Neutrophils 6.5 10^3/uL (1.4-6.5); Hematocrit 30.3 % (39.0-52.0); Hemoglobin 9.6 g/dL (13.0-18.0); Mean Corp Hgb Conc. 31.7 g/dL (33.0-37.0); Mean Corpuscular Hgb 30.8 pg (27.0-31.0); Mean Corpuscular Volume 97.1 fL (80.0-94.0); Mean Platelet Volume 9.4 fL (7.4-10.4); Nucleated Red Blood Cells % 0 % (-); Platelet Count 255 10^3/uL (130-400); Red Blood Cell Count 3.12 10^6/uL (4.70-6.10); Red Cell Dist. Width 12.8 % (11.5-14.5)
[2024-02-13 05:29] VITALS: BMI 27.8
[2024-02-13 05:33] LABS: ALT (SGPT) 33 U/L (0-50); AST (SGOT) 51 U/L (17-59); Albumin 2.8 g/dl (3.5-5.0); Alkaline Phosphatase 73 U/L (38-126); Blood Urea Nitrogen 71 mg/dl (9-20); Carbon Dioxide 18 mmol/L (22-30); Chloride 101 mmol/L (98-107); Estimated Creatinine Clearance 16 ml/min; Glucose 133 mg/dl (70-99); Potassium 5.8 mmol/L (3.5-5.1); Sodium 130 mmol/L (135-145); Total Bilirubin 0.9 mg/dl (0.2-1.3); Total Protein 5.8 g/dl (6.3-8.2); eGFR 14.44
[2024-02-13] MEDS: DUONEB 3 ML INH ×2 (05:51→10:18)
[2024-02-13 06:00] VITALS: BMI 27.8
[2024-02-13] MEDS: SYNTHROID 75 MCG PO (06:06)
[2024-02-13 08:27] VITALS: BP 116/68
[2024-02-13 08:30] VITALS: BMI 27.8
--- NOTE | 2024-02-13 08:33 | W.PN.UPDATE ---
Update Note
Progress Note Update
SALIMA drain DC'd at bedside. Pt tolerated well.
[2024-02-13] MEDS: DELTASONE 40 MG PO (08:46)
[2024-02-13] MEDS: COREG 12.5 MG PO ×2 (08:46→20:33)
[2024-02-13] MEDS: MAXIPIME 1000 MG IV ×2 (08:46→20:36)
[2024-02-13] MEDS: CRESTOR 5 MG PO (08:46)
[2024-02-13] MEDS: STERILE WATER FOR INJECTION 10 ML IV ×2 (08:46→20:36)
[2024-02-13] MEDS: PROTONIX 40 MG PO (08:46)
[2024-02-13] MEDS: TIMOPTIC 0.5% OPHTHALMIC SOLUTION 1 DROP BOTH EYES (08:46)
[2024-02-13] MEDS: ASPIR LOW (ENTERIC COATED) 81 MG PO (08:47)
[2024-02-13] MEDS: HYDROPHOR 1 APPLIC TOPICAL (08:47)
[2024-02-13] MEDS: FLOMAX 0.400000000000000022 MG PO (08:47)
[2024-02-13] MEDS: COLACE 100 MG PO ×2 (08:47→20:34)
[2024-02-13] MEDS: DILAUDID 0.5 MG IV ×2 (09:22→20:34)
--- NOTE | 2024-02-13 10:45 | W.PN.NEPH.PH ---
Today's Communication / Plan
-
Lokelma provided
Normal saline provided
Warner placed
Assessment/Plan
-
Assessment:
Left lower extremity swelling and pain secondary to cellulitis
Mental status change
acute kidney injury
Hyponatremia
Metabolic acidosis
Hypotension
Coronary artery disease with bypass
Heart failure reduced ejection fraction
Left lower extremity bypass and endarterectomy
History of hep C, treated
History of PE
Plan:
IV fluids with saline to continue for bp support
Placed Warner this morning given recurrent urinary retention and acute kidney injury
Lokelma provided for hyperkalemia
We suspect most of the acute kidney injury is related to both retention and relative hypotension/prerenal.
Patient remains nonoliguric
No indication for dialysis today
On steroid therapy for presumed gout attack
Patient at high clinical risk with evolving hyperkalemia and worsening renal failure requiring medical treatment for hyperkalemia and IV fluid support
-
-
Date of Service: February 13, 2024
CC / HPI / ROS
-
Chief Complaint:
Acute kidney injury
History of Present Illness:
Acute kidney injury worsening
Hyperkalemia exacerbate
Metabolic acidosis persist
Hemodynamically more stable off antihypertensives and Entresto
Review of Systems:
Nonoliguric
Warner placed a.m. 02/13/2024
No reported chest pain or shortness of breath
No fevers
Labs
-
Labs:
WBC 7.0 10^3/uL (4.8-10.8) 02/13/24 04:24
RBC 3.12 10^6/uL (4.70-6.10) L 02/13/24 04:24
Hgb 9.6 g/dL (13.0-18.0) L 02/13/24 04:24
Hct 30.3 % (39.0-52.0) L 02/13/24 04:24
Plt Count 255 10^3/uL (130-400) 02/13/24 04:24
Sodium 130 mmol/L (135-145) L 02/13/24 04:24
Potassium 5.8 mmol/L (3.5-5.1) H 02/13/24 04:24
Chloride 101 mmol/L (98-107) 02/13/24 04:24
Carbon Dioxide 18 mmol/L (22-30) L 02/13/24 04:24
BUN 71 mg/dl (9-20) H 02/13/24 04:24
Creatinine 4.1 mg/dL (0.7-1.3) H* 02/13/24 04:24
eGFR 14.44 02/13/24 04:24
Glucose 133 mg/dl (70-99) H 02/13/24 04:24
Calcium 8.0 mg/dl (8.4-10.2) L 02/13/24 04:24
Albumin 2.8 g/dl (3.5-5.0) L 02/13/24 04:24
Physical Exam
-
Vital Signs:
Vital Signs
Temp Pulse Resp BP Pulse Ox
97.2 F 82 18 116/68 95
02/13/24 08:27 02/13/24 10:20 02/13/24 10:20 02/13/24 08:46 02/13/24 10:20
Cardiovascular:: Regular rate and rhythm
Respiratory:: Bilateral: CTA
Lung Excursion:: Normal
Abdomen:: Nontender and Soft
Bowel Sounds:: Normal
Extremity Edema:: None: Bilateral:
Warner Catheter: Yes
--- NOTE | 2024-02-13 10:56 | W.PN.HOSP.TC ---
Today's Communication/Plan
-
Monitor vital signs and see plan
Continue Lokelma
Gentle hydration
Monitor renal function
Warner catheter
Nephrology following
Continue with antibiotics
CXR
Assessment / Plan
Assessment / Plan
General: No Apparent Distress and Comfortable
HEENT: Anicteric and Moist mucous membranes
Respiratory: Clear and Non Labored Respirations; No Wheezes
Cardiac: S1/S2 and Regular Rhythm
Breast: Deferred by me
GI: Soft, Non Tender, Non Distended and Normal Bowel Sounds
Genito-urinary: No Warner
Musculoskeletal: Edema, Left Lower Extremity, erythema
Neuro: Awake, Alert, Oriented and AO x 3
Psych: Calm and Intact Judgment/Insight
Left lower extremity swelling and pain suspect secondary to cellulitis
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
TME likely secondary to above
cw abx
ID following
Wound care
Patient was seen by vascular surgery and does not appear this related to his bypass; SALIMA drain dc'ed 02/12
Does have left first MTP wound which could likely be the source. podiatry following, ulceration left foot first monitor tarsal head, podiatry discussed with patient and son regarding possible resection or bone biopsy. patient and son yet to decide
X-ray noted, cannot rule out osteo-
PAD status post left lower extremity bypass 01/22/2024
Acute kidney injury with hyperkalemia
Creatinine now 4.1
Check UA neg, urine eos neg
suspect 2/2 retention and hypotension/hypovolemia
Now with Warner catheter, Warner management per nephrology
Continue with fluids
Nephrology following
Hold nephrotoxic agents
Hyponatremia
monitor
History of pulmonary embolism
Hold Eliquis for now, restart when okay with podiatry
CAD status post CABG
Continue aspirin
Ischemic cardiomyopathy
EF 30 to 35%
Follows up with Dr. Graves outpatient
Hold Entresto given EMERSON
History of [place]
mild wheezing
check CXR
start duonebs
PAD status post stent earlier and now recent left lower extremity arterial bypass with vein graft for chronic wound and PAD
Follows up with Dr. Warner outpatient
Vascular following
SALIMA drain dc'ed 02/12
Suspect cognitive impairment
This was discussed on previous admission and son was instructed to follow-up outpatient
CT 10/11 was consistent with diffuse cortical atrophy
Anemia, suspect anemia of chronic disease
Monitor
Hyponatremia
Monitor
Hyperkalemia
Monitor
History of hypertension
Hyperlipidemia
Hypothyroidism
History of hep C, treated
History of GERD
History of insomnia
Hold trazodone
DVTppx
eliquis when ok with podiatry
CODE STATUS
Full code
I spent a total of 54 minutes with the patient or on the floor. More than 50% of this time involved counseling and coordination of care.
Anticipated Discharge: > 48 hours
Subjective/Interval History
-
Date of Service: February 13, 2024
pain is little better today
Objective Data
-
Labs:
Laboratory Results
02/13/24
04:24
WBC 7.0
Hgb 9.6 L
Hct 30.3 L
Plt Count 255
Sodium 130 L
Potassium 5.8 H
Chloride 101
Carbon Dioxide 18 L
BUN 71 H
Creatinine 4.1 H*
Glucose 133 H
Calcium 8.0 L
Total Bilirubin 0.9
AST 51
ALT 33
Alkaline Phosphatase 73
Vital Signs:
Vital Signs
Temp Pulse Resp BP Pulse Ox
97.2 F 82 18 116/68 95
02/13/24 08:27 02/13/24 10:20 02/13/24 10:20 02/13/24 08:46 02/13/24 10:20
I&O
02/12/24 02/13/24 02/14/24
06:59 06:59 06:59
Intake Total 520 / 520
Output Total 1275 / 1275
Balance -755 / -755
--- NOTE | 2024-02-13 11:22 | W.PN.ID1 ---
Date of Service
Date of Service: February 13, 2024
Today's Communication
See below.
Assessment / Plan
# Acute left foot cellulitis
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
- Recent cx Pseudomonas s/p 14 d abx completed 02/10
- Podiatry offered resection vs bx.
-Continue day 2 cefepime 1g IV q12 (renally dosed) (day 16 abx)
-Continue empiric prednisone 40mg po qd x 5d for gout
# EMERSON worse today.
- Renally dose abx.
# PAD s/p left femoral endarterectomy with patch angioplasty, left SFA to ant tibial artery bypass (01/22/24)
#Additional Past Medical History:
HTN
dyslipidemia
CAD s/p CABG x 3
Ischemic cardiomyopathy s/p ICD (2019)
PE
PAD s/p hx BLE stents; s/p left femoral endarterectomy with patch angioplasty, left SFA to ant tibial artery bypass (01/22/24)
Chief Complaint
-: Cellulitis
Subjective / Review of Systems
More alert today.
Wounds pain stable.
Vital Signs / Physical Exam
Vital Signs
Vital Signs
Temp Pulse Resp BP Pulse Ox
97.2 F 82 18 116/68 95
02/13/24 08:27 02/13/24 10:20 02/13/24 10:20 02/13/24 08:46 02/13/24 10:20
Physical Exam
Constitutional: No Acute Distress
Cardiovascular: Regular Rate and S1/S2
Pulmonary: Clear
Gastrointestinal: Soft, Non Tender and Non Distended
Extremities: Edema (LLE 2+ edema ) and Erythema (foot to posterior leg)
Neurological: AO x 3
Objective Data
Lab Data
Lab Results
02/13/24 04:24
02/13/24 04:24
Estimated Creat Clear 16 ml/min 02/13/24 04:24
Total Bilirubin 0.9 mg/dl (0.2-1.3) 02/13/24 04:24
AST 51 U/L (17-59) 02/13/24 04:24
ALT 33 U/L (0-50) 02/13/24 04:24
Alkaline Phosphatase 73 U/L (38-126) 02/13/24 04:24
Most recent labs reviewed.
Micro Results:
02/12/24 10:24 Blood Culture - Preliminary
Blood/Venous No Growth in 24 hours- Final report to follow
02/12/24 12:40 MRSA Screen - Pending
Nose
02/12/24 11:20 Blood Culture - Pending
Blood/Venous
02/12/24 Foot XRAY: Healing versus old healed fracture of the left second metatarsal again seen, stable in comparison to recent prior study. Cannot exclude some mild lucency of the medial aspect of the head of the left first metatarsal as noted on
single view, cannot exclude infectious process such as osteomyelitis.
[2024-02-13 12:07] VITALS: BP 127/59
--- NOTE | 2024-02-13 12:48 | W.PN.POD ---
Today's Communication
Today's Communication
ulceration left/probable osteo 1st met head---will try for mri, but has pacemaker, d/w familyh about bone bx /abx vs met head resection.. Explained 1st met head resection would more aggressive then bx, but would rid more osteo if present. No
gaurantees given as to outcome. Pt withn increased BF, palpable DP. Dr Warner agrees.
Will plan for mri if he can get and will plan for met resction tomorrow.
consent signed
Personally d/w son Dandre
Subjective
Chief Complaint
pt seen for wound left foot 1st mpj
It is chronic and non healing
Subjective
ulceration medial 1st met head, probes to bone, non healing, granular with tophus/gout some fibrosis
Objective
Temp Pulse Resp BP Pulse Ox
97.0 F 60 16 127/59 94
02/13/24 12:07 02/13/24 12:07 02/13/24 12:07 02/13/24 12:07 02/13/24 12:07
02/13/24 04:24
02/13/24 04:24
Vital Signs and Lab results were reviewed.
[2024-02-13] MEDS: LOKELMA 10 GRAM PO ×2 (14:33→18:20)
[2024-02-13 15:32] VITALS: BP 119/60
[2024-02-13] MEDS: NEURONTIN 300 MG PO (17:16)
[2024-02-13 19:21] VITALS: BP 142/67
[2024-02-13 22:51] VITALS: BP 98/60
[2024-02-14] VITALS (11 sets, daily range): BP systolic 9–151; BP diastolic 51–97; BMI 29.2
[2024-02-14] MEDS: SYNTHROID 75 MCG PO (05:21)
[2024-02-14] MEDS: NSS 1000 IV (05:24)
[2024-02-14] MEDS: LOKELMA 10 GRAM PO ×3 (05:24→18:06)
[2024-02-14 06:11] LABS: % Immature Granulocytes 0.6 % (0-0.5); % Lymphocytes 4.3 % (20.5-51.1); % Neutrophils 88.1 % (42.2-75.2); Absolute Immature Granulocytes 0.1 10^3/uL (0-0.05); Absolute Lymphocytes 0.4 10^3/uL (1.2-3.4); Absolute Monocytes 0.7 10^3/uL (0.1-0.6); Absolute Neutrophils 8.5 10^3/uL (1.4-6.5); Hematocrit 26.9 % (39.0-52.0); Hemoglobin 9.1 g/dL (13.0-18.0); Mean Corp Hgb Conc. 33.8 g/dL (33.0-37.0); Mean Corpuscular Hgb 31.9 pg (27.0-31.0); Mean Corpuscular Volume 94.4 fL (80.0-94.0); Mean Platelet Volume 9.6 fL (7.4-10.4); Nucleated Red Blood Cells % 0 % (-); Platelet Count 255 10^3/uL (130-400); Red Blood Cell Count 2.85 10^6/uL (4.70-6.10); Red Cell Dist. Width 12.8 % (11.5-14.5); White Blood Cell Count 9.6 10^3/uL (4.8-10.8)
[2024-02-14 06:51] LABS: ALT (SGPT) 31 U/L (0-50); AST (SGOT) 44 U/L (17-59); Albumin 2.6 g/dl (3.5-5.0); Alkaline Phosphatase 64 U/L (38-126); Blood Urea Nitrogen 82 mg/dl (9-20); Calcium 7.6 mg/dl (8.4-10.2); Carbon Dioxide 14 mmol/L (22-30); Chloride 106 mmol/L (98-107); Estimated Creatinine Clearance 15 ml/min; Glucose 106 mg/dl (70-99); Potassium 5.3 mmol/L (3.5-5.1); Sodium 128 mmol/L (135-145); Total Bilirubin 0.7 mg/dl (0.2-1.3); Total Protein 5.5 g/dl (6.3-8.2); eGFR 13.63
[2024-02-14] MEDS: ASPIR LOW (ENTERIC COATED) 81 MG PO (07:53)
[2024-02-14] MEDS: MAXIPIME 1000 MG IV ×2 (07:53→20:34)
[2024-02-14] MEDS: DILAUDID 0.5 MG IV ×2 (07:53→21:45)
[2024-02-14] MEDS: CRESTOR 5 MG PO (07:53)
[2024-02-14] MEDS: DELTASONE 40 MG PO (07:53)
[2024-02-14] MEDS: STERILE WATER FOR INJECTION 10 ML IV ×2 (07:53→20:34)
[2024-02-14] MEDS: TIMOPTIC 0.5% OPHTHALMIC SOLUTION 1 DROP BOTH EYES (07:54)
[2024-02-14] MEDS: PROTONIX 40 MG PO (07:54)
[2024-02-14] MEDS: COLACE 100 MG PO ×2 (07:54→20:31)
[2024-02-14] MEDS: FLOMAX 0.400000000000000022 MG PO (07:54)
[2024-02-14] MEDS: COREG 12.5 MG PO ×2 (07:54→20:30)
[2024-02-14] MEDS: HYDROPHOR 1 APPLIC TOPICAL (07:55)
--- NOTE | 2024-02-14 08:00 | PTCARENOTE ---
MD made aware of critical values in AM labs; Cr 4.3 and carbon dioxide 14. K 5.3. IVF switched to D5W with sodium bicarbonate per MD, nephro made aware.
[2024-02-14] MEDS: DUONEB 3 ML INH (08:22)
--- NOTE | 2024-02-14 08:35 | W.PN.UPDATE ---
Update Note
Progress Note Update
pt seen at bedside. npo for sx today
consent in chart
mri this am
d/w family yesterday
[2024-02-14] MEDS: SODIUM BICARBONATE 1150 MEQ IV (09:03)
--- NOTE | 2024-02-14 09:21 | PTOTSP ---
Received order for PT from hospitalist and reviewed chart. Noted pt for MRI and then OR today with podiatry for left great toe amputation. Will hold PT today and follow up tomorrow. If pt has general anesthesia, he will need new orders for PT and OT
when stable to begin activity, and will need weightbearing orders.
--- NOTE | 2024-02-14 10:51 | W.PN.HOSP.TC ---
Today's Communication/Plan
-
monitor vitals
see plan
bicarb
monitor renal function
MRI pending
OR by podiatry
Assessment / Plan
Assessment / Plan
General: No Apparent Distress and Comfortable
HEENT: Anicteric and Moist mucous membranes
Respiratory: Clear and Non Labored Respirations; No Wheezes
Cardiac: S1/S2 and Regular Rhythm
GI: Soft, Non Tender, Non Distended and Normal Bowel Sounds
Genito-urinary: + Warner
Musculoskeletal: Edema, Left Lower Extremity, erythema
Neuro: Awake, Alert, Oriented and AO x 3
Psych: Calm and Intact Judgment/Insight
Left lower extremity swelling and pain suspect secondary to cellulitis
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
TME likely secondary to above; improving
cw abx
ID following
Wound care
Patient was seen by vascular surgery and does not appear this related to his bypass; SALIMA drain dc'ed 02/12
Does have left first MTP wound which could likely be the source. podiatry following, ulceration left foot first monitor tarsal head, podiatry discussed with patient and son regarding possible resection or bone biopsy. plan for OR by podiatry 02/13;
awaiting MRI Left foot
X-ray noted, cannot rule out osteo-
PAD status post left lower extremity bypass 01/22/2024
Acute kidney injury with hyperkalemia and metabolic acidosis
Creatinine now 4.3
Check UA neg, urine eos neg
suspect 2/2 retention and hypotension/hypovolemia
Now with Warner catheter, Warner management per nephrology
Continue with fluids
Nephrology following
Hold nephrotoxic agents
switch fluids to bicarb gtt
Hyponatremia
monitor
History of pulmonary embolism
Hold Eliquis for now, restart when okay with podiatry
CAD status post CABG
Continue aspirin
Ischemic cardiomyopathy
EF 30 to 35%
Follows up with Dr. Graves outpatient
Hold Entresto given EMERSON
History of [place]
mild wheezing
CXR with atelectasis
cw duonebs
improving
PAD status post stent earlier and now recent left lower extremity arterial bypass with vein graft for chronic wound and PAD
Follows up with Dr. Warner outpatient
Vascular following
SALIMA drain dc'ed 02/12
Suspect cognitive impairment
This was discussed on previous admission and son was instructed to follow-up outpatient
CT 10/11 was consistent with diffuse cortical atrophy
Anemia, suspect anemia of chronic disease
Monitor
Hyponatremia
Monitor
Hyperkalemia
Monitor
History of hypertension
Hyperlipidemia
Hypothyroidism
History of hep C, treated
History of GERD
History of insomnia
Hold trazodone
DVTppx
eliquis when ok with podiatry
CODE STATUS
Full code
I spent a total of 53 minutes with the patient or on the floor. More than 50% of this time involved counseling and coordination of care.
Anticipated Discharge: > 48 hours
Subjective/Interval History
-
Date of Service: February 14, 2024
denies pain
Objective Data
-
Labs:
Laboratory Results
02/14/24
05:13
WBC 9.6
Hgb 9.1 L
Hct 26.9 L
Plt Count 255
Sodium 128 L
Potassium 5.3 H
Chloride 106
Carbon Dioxide 14 L*
BUN 82 H
Creatinine 4.3 H*
Glucose 106 H
Calcium 7.6 L
Total Bilirubin 0.7
AST 44
ALT 31
Alkaline Phosphatase 64
Vital Signs:
Vital Signs
Temp Pulse Resp BP Pulse Ox
97.5 F 84 16 145/63 96
02/14/24 07:25 02/14/24 08:25 02/14/24 08:25 02/14/24 07:54 02/14/24 10:15
I&O
02/13/24 02/14/24 02/15/24
06:59 06:59 06:59
Intake Total 520 / 520 2160 / 2160
Output Total 1275 / 1275 975 / 975
Balance -755 / -755 1185 / 1185
--- NOTE | 2024-02-14 10:59 | PN.CDI ---
CDI
- -
CDI:
Physician Documentation Request
Admit Date: 02/12/24 07:46
Dear Doctor Loc,
Patient admitted for cellulitis.
02/11 Wound Care: 'Dr. Garza debrided heel and L great toe last admission. Heel with dry eschar and 2x2 area of suspected evolving stage 2 distal to eschar.'
Physician documentation of the type and location of wounds is required for compliant documentation. Based on the above clinical findings and your assessment, please provide the following in your progress note:
1. Location of the ulcer/wound, including laterality.
2. Type (etiology) of ulcer/wound:
- Diabetic ulcer
- Arterial (ischemic) ulcer
- Traumatic wound
- Venous stasis ulcer
- Pressure (decubitus) ulcer
- Non-healing surgical wound
- Other
- Unable to determine
3. For a non-pressure ulcer, please indicate the depth/severity:
- Limited to the breakdown of skin
- With fat layer exposed
- With necrosis of muscle
- With necrosis of bone
- Other
- Unable to determine
4. If a pressure ulcer, please also include the stage* of the ulcer:
- Stage 1 - Skin intact, non-blanchable redness
- Stage 2 - Partial thickness loss of dermis, includes intact or open blister
- Stage 3 - Full thickness tissue not including bone, tendon or muscle
- Stage 4 - Full thickness tissue loss, including exposed bone, tendon or muscle
- Unstageable - Full thickness loss in which the base of the ulcer is covered by slough (yellow, vivar, dinh, green or brown) and/or eschar (vivar, brown or black) in the wound bed.
- Unable to determine
Use of terms such as suspected, likely, concern for, or probable (associated with a specific diagnosis that is being evaluated, monitored, or treated as if it exists) are acceptable and can be coded in the inpatient setting, when documented at the
time of discharge.
Thank you,
Christy Penaloza RN, BSN
CDI Specialist
Available via [place] text
Please use your independent medical judgment in providing your response.
*Source: National Pressure Ulcer Advisory Panel (NPUAP)
--- NOTE | 2024-02-14 11:04 | CM ---
Reviewed the chart notes and spoke with the patient and the son at the bedside. Patient is scheduled for 1st met head resection today. Patient will need to be evaluated by PT for discharge planning purposes. CM continues to be available to
patient/family and is monitoring medical plan for needs at discharge.
Plan: Discharge plans will depend on the patient's progress. Patient was at [facility] prior to this hospitalization for rehab. Family and patient agreeable if SNF/rehab recommended that the patient would consider returning.
--- NOTE | 2024-02-14 11:21 | W.PN.NEPH.PH ---
Today's Communication / Plan
-
Maintain alkaline IV fluids
Maintain Warner
Check lactic acid
Check kidney and bladder ultrasound
Maintain Lokelma in setting of hyperkalemia
Assessment/Plan
-
Assessment:
Left lower extremity swelling and pain secondary to cellulitis
Mental status change
acute kidney injury
Hyponatremia
Metabolic acidosis
Hypotension
Coronary artery disease with bypass
Heart failure reduced ejection fraction
Left lower extremity bypass and endarterectomy
History of hep C, treated
History of PE
Plan:
EMERSON continues to worsen with creatinine now up to 4.3, nonoliguric 975 cc
Placed Warner given recurrent urinary retention and acute kidney injury
Lokelma provided for hyperkalemia without much success
We suspect most of the acute kidney injury is related to both retention and relative hypotension/prerenal however creatinine continues to worsen with Warner catheter placement and hemodynamic support with IV fluid
Patient remains nonoliguric
No indication for dialysis today
On steroid therapy for presumed gout attack
Maintain alkaline IV fluids in setting of worsening acidosis check lactic acid
Will check kidney ultrasound and may have to follow-up with renal artery vascular study to assess blood flow
No CHF on chest x-ray personally reviewed this morning
Patient at high clinical risk with evolving hyperkalemia and worsening renal failure requiring medical treatment for hyperkalemia and IV fluid support
Total Time Spent with Patient (in minutes): 35-minute
-
-
Date of Service: February 14, 2024
CC / HPI / ROS
-
Chief Complaint:
Acute kidney injury
History of Present Illness:
Acute kidney injury worsening
Hyperkalemia persist on Lokelma
Metabolic acidosis persist
Hemodynamically more stable off antihypertensives and Entresto
Review of Systems:
Nonoliguric
Warner placed a.m. 02/13/2024
No reported chest pain or shortness of breath
No fevers
Labs
-
Labs:
WBC 9.6 10^3/uL (4.8-10.8) 02/14/24 05:13
RBC 2.85 10^6/uL (4.70-6.10) L 02/14/24 05:13
Hgb 9.1 g/dL (13.0-18.0) L 02/14/24 05:13
Hct 26.9 % (39.0-52.0) L 02/14/24 05:13
Plt Count 255 10^3/uL (130-400) 02/14/24 05:13
Sodium 128 mmol/L (135-145) L 02/14/24 05:13
Potassium 5.3 mmol/L (3.5-5.1) H 02/14/24 05:13
Chloride 106 mmol/L (98-107) 02/14/24 05:13
Carbon Dioxide 14 mmol/L (22-30) L* 02/14/24 05:13
BUN 82 mg/dl (9-20) H 02/14/24 05:13
Creatinine 4.3 mg/dL (0.7-1.3) H* 02/14/24 05:13
eGFR 13.63 02/14/24 05:13
Glucose 106 mg/dl (70-99) H 02/14/24 05:13
Calcium 7.6 mg/dl (8.4-10.2) L 02/14/24 05:13
Albumin 2.6 g/dl (3.5-5.0) L 02/14/24 05:13
Physical Exam
-
Vital Signs:
Vital Signs
Temp Pulse Resp BP Pulse Ox
97.5 F 84 16 145/63 96
02/14/24 07:25 02/14/24 08:25 02/14/24 08:25 02/14/24 07:54 03/28/24 10:15
Cardiovascular:: Regular rate and rhythm
Respiratory:: Bilateral: Coarse
Lung Excursion:: Normal
Abdomen:: Nontender and Soft
Bowel Sounds:: Normal
Extremity Edema:: None: Bilateral:
Warner Catheter: No
--- NOTE | 2024-02-14 15:45 | PTCARENOTE ---
Patient to OR for L foot first metatarsal head resection, transported in bed with chart and D5W w/ sodium bicarbonate infusing at 70 ml/hr through R FA IV. Report given to OR nurse. Vitals taken prior to transport stable.
--- NOTE | 2024-02-14 15:59 | W.PN.ID1 ---
Date of Service
Date of Service: February 14, 2024
Today's Communication
Continue cefepime.
Assessment / Plan
# Acute left foot cellulitis
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
- Recent cx Pseudomonas s/p 14 d abx completed 02/10
- Podiatry planning resection pending MRI result.
-Continue day 3 cefepime 1g IV q12 (renally dosed) (day 17 abx)
-Continue empiric prednisone 40mg po qd (d3 of 5d) for gout
# EMERSON worse today.
- Renally dose abx.
# PAD s/p left femoral endarterectomy with patch angioplasty, left SFA to ant tibial artery bypass (01/22/24)
#Additional Past Medical History:
HTN
dyslipidemia
CAD s/p CABG x 3
Ischemic cardiomyopathy s/p ICD (2019)
PE
PAD s/p hx BLE stents; s/p left femoral endarterectomy with patch angioplasty, left SFA to ant tibial artery bypass (01/22/24)
Chief Complaint
-: Cellulitis
Vital Signs / Physical Exam
Vital Signs
Vital Signs
Temp Pulse Resp BP Pulse Ox
97.8 F 61 12 150/72 95
02/14/24 15:34 02/14/24 15:34 02/14/24 15:34 02/14/24 15:34 02/14/24 15:34
Physical Exam
Constitutional: No Acute Distress
Gastrointestinal: Soft, Non Tender and Non Distended
Extremities: Edema (LLE 2+) and Erythema
Objective Data
Lab Data
Lab Results
02/14/24 05:13
02/14/24 05:13
Estimated Creat Clear 15 ml/min 02/14/24 05:13
Total Bilirubin 0.7 mg/dl (0.2-1.3) 02/14/24 05:13
AST 44 U/L (17-59) 02/14/24 05:13
ALT 31 U/L (0-50) 02/14/24 05:13
Alkaline Phosphatase 64 U/L (38-126) 02/14/24 05:13
Most recent labs reviewed.
Micro Results:
02/12/24 11:20 Blood Culture - Preliminary
Blood/Venous No Growth in 48 hours- Final report to follow
02/12/24 10:24 Blood Culture - Preliminary
Blood/Venous No Growth in 48 hours- Final report to follow
02/12/24 12:40 MRSA Screen - Final
Nose No Methicillin Resistant Staphylococcus aureus isolated.
02/12/24 Foot XRAY: Healing versus old healed fracture of the left second metatarsal again seen, stable in comparison to recent prior study. Cannot exclude some mild lucency of the medial aspect of the head of the left first metatarsal as noted on
single view, cannot exclude infectious process such as osteomyelitis.
--- NOTE | 2024-02-14 17:51 | W.PN.UPDATE ---
Update Note
Progress Note Update
pt seen in RR
dressing cdi
cft intact
afvss
a/p s/p excisional debridement ulcer/1st met resection/debridement prox phal---stable
wound packed
bone sent to path
will change bandages tomorrow
await cx and bone path
--- NOTE | 2024-02-14 18:39 | PTCARENOTE ---
Received patient from PACU s/p L toe resection. Vitals stable, A paced on tele monitor, L foot dressing clean, dry, and intact. Diet resumed per podiatry, patient to US for ordered renal US per nephro.
[2024-02-14] MEDS: NEURONTIN 300 MG PO (20:31)
[2024-02-14] MEDS: DILAUDID 1 MG IV (23:24)
[2024-02-15] VITALS (8 sets, daily range): BP systolic 104–145; BP diastolic 57–80; PULSE 64–65; O2SAT 94–95; BMI 29.3
[2024-02-15] MEDS: SODIUM BICARBONATE 1150 MEQ IV (02:07)
[2024-02-15 04:24] LABS: % Eosinophils 0.1 % (0-6); % Immature Granulocytes 0.6 % (0-0.5); % Lymphocytes 5.4 % (20.5-51.1); % Neutrophils 84.9 % (42.2-75.2); Absolute Immature Granulocytes 0.1 10^3/uL (0-0.05); Absolute Lymphocytes 0.5 10^3/uL (1.2-3.4); Absolute Monocytes 0.8 10^3/uL (0.1-0.6); Absolute Neutrophils 7.3 10^3/uL (1.4-6.5); Hematocrit 26.9 % (39.0-52.0); Hemoglobin 9.2 g/dL (13.0-18.0); Mean Corp Hgb Conc. 34.2 g/dL (33.0-37.0); Mean Corpuscular Hgb 31.5 pg (27.0-31.0); Mean Corpuscular Volume 92.1 fL (80.0-94.0); Mean Platelet Volume 9.2 fL (7.4-10.4); Nucleated Red Blood Cells % 0 % (-); Platelet Count 260 10^3/uL (130-400); Red Blood Cell Count 2.92 10^6/uL (4.70-6.10); Red Cell Dist. Width 12.9 % (11.5-14.5); White Blood Cell Count 8.6 10^3/uL (4.8-10.8)
[2024-02-15 04:41] LABS: Lactic Acid 0.9 mmol/L (0.7-2.0)
[2024-02-15 05:25] LABS: ALT (SGPT) 29 U/L (0-50); AST (SGOT) 38 U/L (17-59); Albumin 2.6 g/dl (3.5-5.0); Alkaline Phosphatase 62 U/L (38-126); Blood Urea Nitrogen 89 mg/dl (9-20); Calcium 7.6 mg/dl (8.4-10.2); Carbon Dioxide 19 mmol/L (22-30); Chloride 102 mmol/L (98-107); Estimated Creatinine Clearance 15 ml/min; Glucose 102 mg/dl (70-99); Potassium 5.2 mmol/L (3.5-5.1); Sodium 130 mmol/L (135-145); Total Bilirubin 0.5 mg/dl (0.2-1.3); Total Protein 5.5 g/dl (6.3-8.2); eGFR 13.63
[2024-02-15] MEDS: LOKELMA 10 GRAM PO ×2 (06:05→12:07)
[2024-02-15] MEDS: SYNTHROID 75 MCG PO (06:05)
[2024-02-15] MEDS: DILAUDID 0.5 MG IV ×3 (06:12→23:21)
--- NOTE | 2024-02-15 08:11 | W.PN.POD ---
Today's Communication
Today's Communication
s/p 1st met resection/debridement left foot---stable, packing advanced, rec wound care consult for heel decubs, also vac left foot, black foam, pt will need betadine solution.gauze on sutures prior to vac placement
cont abx
Subjective
Chief Complaint
pt seen pod 1
no pain
no f/routing equipment tender
dressing cdi
Subjective
vasc intact, cft intact
derm sutures intact, no cellulitis, no SOi
wound clean, granular, packing in place
bone cx rare wbc, no organisms, wound no wbc, no organisms..path pending
Objective
Temp Pulse Resp BP Pulse Ox
97.9 F 62 18 137/80 98
02/15/24 03:19 02/15/24 03:19 02/15/24 03:19 02/15/24 03:19 02/15/24 03:19
02/15/24 04:19
02/15/24 04:19
Vital Signs and Lab results were reviewed.
[2024-02-15] MEDS: COLACE 100 MG PO ×2 (08:39→19:57)
[2024-02-15] MEDS: CRESTOR 5 MG PO (08:39)
[2024-02-15] MEDS: COREG 12.5 MG PO ×2 (08:39→19:56)
[2024-02-15] MEDS: ASPIR LOW (ENTERIC COATED) 81 MG PO (08:39)
[2024-02-15] MEDS: PROTONIX 40 MG PO (08:48)
[2024-02-15] MEDS: FLOMAX 0.400000000000000022 MG PO (08:48)
[2024-02-15] MEDS: DELTASONE 40 MG PO (08:48)
[2024-02-15] MEDS: STERILE WATER FOR INJECTION 10 ML IV ×2 (08:49→19:56)
[2024-02-15] MEDS: MAXIPIME 1000 MG IV ×2 (08:49→19:56)
[2024-02-15] MEDS: HYDROPHOR 1 APPLIC TOPICAL (08:49)
[2024-02-15] MEDS: TIMOPTIC 0.5% OPHTHALMIC SOLUTION 1 DROP BOTH EYES (08:50)
--- NOTE | 2024-02-15 10:51 | W.PN.HOSP.TC ---
Today's Communication/Plan
-
monitor vitals
see plan
restart eliquis when ok with podiatry
PT/OT recs per podiatry
cw abx
pain control
monitor renal function
Assessment / Plan
Assessment / Plan
General: No Apparent Distress and Comfortable
HEENT: Anicteric and Moist mucous membranes
Respiratory: Clear and Non Labored Respirations; No Wheezes
Cardiac: S1/S2 and Regular Rhythm
GI: Soft, Non Tender, Non Distended and Normal Bowel Sounds
Genito-urinary: + Warner
Musculoskeletal: Edema, Left Lower Extremity, erythema; LLE bandage
Neuro: Awake, Alert, Oriented and AO x 3
Psych: Calm and Intact Judgment/Insight
Left lower extremity swelling and pain suspect secondary to cellulitis
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
TME likely secondary to above; improving
cw abx
ID following
Wound care
Patient was seen by vascular surgery and does not appear this related to his bypass; SALIMA drain dc'ed 02/12
Does have left first MTP wound which could likely be the source. podiatry following, ulceration left foot first monitor tarsal head, podiatry discussed with patient and son regarding possible resection or bone biopsy. MRI noted; possible osteo byut
gour shows similar presentation; s/p 1st met resection/debridement left foot on 02/14
X-ray noted, cannot rule out osteo-
PAD status post left lower extremity bypass 01/22/2024
Acute kidney injury with hyperkalemia and metabolic acidosis
Creatinine persistent at 4.3
Check UA neg, urine eos neg
suspect 2/2 retention and hypotension/hypovolemia
Now with Warner catheter, Warner management per nephrology
Continue with fluids
Nephrology following
Hold nephrotoxic agents
switch fluids to bicarb gtt
renal ultrasound 02/13 showed small bilateral renal cyst, otherwise normal
Hyponatremia
monitor
History of pulmonary embolism
Hold Eliquis for now, restart when okay with podiatry
CAD status post CABG
Continue aspirin
Ischemic cardiomyopathy
EF 30 to 35%
Follows up with Dr. Graves outpatient
Hold Entresto given EMERSON
History of [place]
mild wheezing
CXR with atelectasis
cw duonebs
improving
stage 2 distal to eschar
PAD status post stent earlier and now recent left lower extremity arterial bypass with vein graft for chronic wound and PAD
Follows up with Dr. Warner outpatient
Vascular following
SALIMA drain dc'ed 02/12
Suspect cognitive impairment
This was discussed on previous admission and son was instructed to follow-up outpatient
CT 10/11 was consistent with diffuse cortical atrophy
Anemia, suspect anemia of chronic disease
Monitor
Hyponatremia
Monitor
Hyperkalemia
Monitor
History of hypertension
Hyperlipidemia
Hypothyroidism
History of hep C, treated
History of GERD
History of insomnia
Hold trazodone
DVTppx
eliquis when ok with podiatry
CODE STATUS
Full code
I spent a total of 52 minutes with the patient or on the floor. More than 50% of this time involved counseling and coordination of care.
Anticipated Discharge: > 48 hours
Subjective/Interval History
-
Date of Service: February 15, 2024
has some pain
Objective Data
-
Labs:
Laboratory Results
02/15/24
04:19
WBC 8.6
Hgb 9.2 L
Hct 26.9 L
Plt Count 260
Sodium 130 L
Potassium 5.2 H
Chloride 102
Carbon Dioxide 19 L
BUN 89 H
Creatinine 4.3 H*
Glucose 102 H
Calcium 7.6 L
Total Bilirubin 0.5
AST 38
ALT 29
Alkaline Phosphatase 62
Vital Signs:
Vital Signs
Temp Pulse Resp BP Pulse Ox
97.6 F 63 16 119/69 96
02/15/24 07:11 02/15/24 08:39 02/15/24 07:11 02/15/24 08:39 02/15/24 07:11
I&O
02/14/24 02/15/24 02/16/24
06:59 06:59 06:59
Intake Total 2160 / 2160 1560 / 1560
Output Total 975 / 975 1525 / 1525
Balance 1185 / 1185 35 / 35
--- NOTE | 2024-02-15 11:22 | W.PN.NEPH.PH ---
Today's Communication / Plan
-
follow BMP
Assessment/Plan
-
Assessment:
Left lower extremity swelling and pain secondary to cellulitis
Mental status change
acute kidney injury
Hyponatremia
Metabolic acidosis
Hypotension
Coronary artery disease with bypass
Heart failure reduced ejection fraction
Left lower extremity bypass and endarterectomy
History of hep C, treated
History of PE
Plan:
follow BMP
maintain wilson
lokelma today
add bicarb
hopefully EMERSON is only from retention and cellulitis, otherwise and check AARTI
-
-
Date of Service: February 15, 2024
CC / HPI / ROS
-
Chief Complaint:
Acute kidney injury
History of Present Illness:
EMERSON/Cr unchanged at 4.3
Hyperkalemia persists despite Lokelma
Metabolic acidosis persists
Hemodynamically more stable off antihypertensives and Entresto
excellent UOP with wilson
Review of Systems:
Nonoliguric
Wilson placed a.m. 02/13/2024, blood tinged
No reported chest pain or shortness of breath
No fevers
Labs
-
Labs:
WBC 8.6 10^3/uL (4.8-10.8) 02/15/24 04:19
RBC 2.92 10^6/uL (4.70-6.10) L 02/15/24 04:19
Hgb 9.2 g/dL (13.0-18.0) L 02/15/24 04:19
Hct 26.9 % (39.0-52.0) L 02/15/24 04:19
Plt Count 260 10^3/uL (130-400) 02/15/24 04:19
Sodium 130 mmol/L (135-145) L 02/15/24 04:19
Potassium 5.2 mmol/L (3.5-5.1) H 02/15/24 04:19
Chloride 102 mmol/L (98-107) 02/15/24 04:19
Carbon Dioxide 19 mmol/L (22-30) L 02/15/24 04:19
BUN 89 mg/dl (9-20) H 02/15/24 04:19
Creatinine 4.3 mg/dL (0.7-1.3) H* 02/15/24 04:19
eGFR 13.63 02/15/24 04:19
Glucose 102 mg/dl (70-99) H 02/15/24 04:19
Calcium 7.6 mg/dl (8.4-10.2) L 02/15/24 04:19
Albumin 2.6 g/dl (3.5-5.0) L 02/15/24 04:19
Physical Exam
-
Vital Signs:
Vital Signs
Temp Pulse Resp BP Pulse Ox
97.6 F 63 16 119/69 96
02/15/24 07:11 02/15/24 08:39 02/15/24 07:11 02/15/24 08:39 02/15/24 07:11
Cardiovascular:: Regular rate and rhythm
Respiratory:: Bilateral: Coarse
Lung Excursion:: Normal
Abdomen:: Nontender and Soft
Bowel Sounds:: Normal
Extremity Edema:: None: Bilateral:
--- NOTE | 2024-02-15 12:08 | WOUNDNOTE ---
WOC RN NOTE: Patient s/p 1st met resection/debridement left foot on 02/13. Spoke to Dr. Head who f/u with patient this AM and ordered wound vac to be started on 02/17 if still in-patient. Per Dr. Head and patient, plan is to return to SNF. Spoke to
CM Malka who is awaiting PT assessment for further discharge planning. If patient is discharged over the weekend to SNF, then SNF may start wound vac on 02/17. Met patient briefly to discuss plan and answer questions. Prevalon boots intact, patient on
air-surface. Discharge orders updated for wound vac and wound care of heels. Will follow as needed.
--- NOTE | 2024-02-15 12:39 | W.PN.ID1 ---
Date of Service
Date of Service: February 15, 2024
Today's Communication
Continue cefepime for now.
Assessment / Plan
# Acute left foot cellulitis
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
- Recent wound cx Pseudomonas
- 02/14/24 s/p excisional debridement ulcer/1st met resection/debridement prox phalange
Tissue cultures no growth to date
Bone biopsies pending
-Continue day 4 cefepime 1g IV q12 (renally dosed) (day 18 abx)
-Continue empiric prednisone 40mg po qd (d4 of 5d) for gout
# EMERSON stable today
- Renally dose abx.
# PAD s/p left femoral endarterectomy with patch angioplasty, left SFA to ant tibial artery bypass (01/22/24)
#Additional Past Medical History:
HTN
dyslipidemia
CAD s/p CABG x 3
Ischemic cardiomyopathy s/p ICD (2019)
PE
PAD s/p hx BLE stents; s/p left femoral endarterectomy with patch angioplasty, left SFA to ant tibial artery bypass (01/22/24)
Chief Complaint
-: Cellulitis
Subjective / Review of Systems
Feels well today.
Vital Signs / Physical Exam
Vital Signs
Vital Signs
Temp Pulse Resp BP Pulse Ox
97.2 F 66 16 105/70 95
02/15/24 11:10 02/15/24 11:10 02/15/24 11:10 02/15/24 11:10 02/15/24 11:10
Physical Exam
Constitutional: No Acute Distress
Cardiovascular: Regular Rate and S1/S2
Gastrointestinal: Soft and Non Tender
Extremities: Edema (LLE resolved) and Erythema (LLE resolved)
Objective Data
Lab Data
Lab Results
02/15/24 04:19
02/15/24 04:19
Estimated Creat Clear 15 ml/min 02/15/24 04:19
Lactic Acid 0.9 mmol/L (0.7-2.0) 02/15/24 04:19
Total Bilirubin 0.5 mg/dl (0.2-1.3) 02/15/24 04:19
AST 38 U/L (17-59) 02/15/24 04:19
ALT 29 U/L (0-50) 02/15/24 04:19
Alkaline Phosphatase 62 U/L (38-126) 02/15/24 04:19
Most recent labs reviewed.
Micro Results:
02/14/24 16:50 Tissue Culture - Preliminary
Foot - Left NO GROWTH
Gram Stain - Pending
02/14/24 16:50 Tissue Culture - Preliminary
Toe NO GROWTH
Gram Stain - Preliminary
02/14/24 16:50 Wound Culture - Preliminary
Foot - Left No growth
Gram Stain - Preliminary
02/14/24 16:50 Anaerobic Culture - Preliminary
Foot - Left Culture pending. Anaerobic cultures are examined after 3
days incubation. Additional information to follow.
02/12/24 11:20 Blood Culture - Preliminary
Blood/Venous No Growth in 72 hours- Final report to follow
02/12/24 10:24 Blood Culture - Preliminary
Blood/Venous No Growth in 72 hours- Final report to follow
02/12/24 12:40 MRSA Screen - Final
Nose No Methicillin Resistant Staphylococcus aureus isolated.
02/12/24 Foot XRAY: Healing versus old healed fracture of the left second metatarsal again seen, stable in comparison to recent prior study. Cannot exclude some mild lucency of the medial aspect of the head of the left first metatarsal as noted on
single view, cannot exclude infectious process such as osteomyelitis.
02/14/24 MRI LLE w w/o: There is enhancing intermediate T1-weighted signal involving the distal medial aspect of the first metatarsal head, and the proximal aspect of the proximal phalanx of the left great toe. There is also enhancing intermediate
T1-weighted signal involving the medial sesamoid, inferior to the first metatarsal head, and this is also considered suspicious for osteomyelitis. These findings are highly suggestive of osteomyelitis. Of note, inflammatory arthropathy/gout can
result in similar MR findings.
--- NOTE | 2024-02-15 13:43 | W.PN.VS ---
Documented by User: Kuldip Osei MD, Resident 02/15/24 13:48
Today's Communication / Plan
-
73-year-old male status post lower extremity bypass on 01/22/2024 now admitted with cellulitis.
-Appreciate ID/Podiatry recommendations and excellent hospitalist care
-Agree continue with cefepime (renally dosed) & empiric prednisone
-Daily bypass graft checks
Assessment/Plan
-
73-year-old male status post lower extremity bypass on 01/22/2024 now admitted with cellulitis.
-Appreciate ID/Podiatry recommendations and excellent hospitalist care
-Agree continue with cefepime (renally dosed) & empiric prednisone
-Daily bypass graft checks
Subjective Data
-
Date of Service: February 15, 2024
Feels well, no complaints
Objective Data
-
Vital Signs
Temp Pulse Resp BP Pulse Ox
97.2 F 66 16 105/70 95
02/15/24 11:10 02/15/24 11:10 02/15/24 11:10 02/15/24 11:10 02/15/24 11:10
Intake and Output
02/14/24 02/15/24 02/16/24
06:59 06:59 06:59
Intake Total 2160 / 2160 1560 / 1560
Output Total 975 / 975 1525 / 1525
Balance 1185 / 1185 35 / 35
Intake:
Oral fluids 480 / 480 720 / 720
IV fluids (Total) 1680 / 1680 840 / 840
Output:
Urine, Warner 975 / 975 1525 / 1525
Lab Results
02/15/24 04:19
02/15/24 04:19
Calcium 7.6 mg/dl (8.4-10.2) L 02/15/24 04:19
Total Bilirubin 0.5 mg/dl (0.2-1.3) 02/15/24 04:19
AST 38 U/L (17-59) 02/15/24 04:19
ALT 29 U/L (0-50) 02/15/24 04:19
Alkaline Phosphatase 62 U/L (38-126) 02/15/24 04:19
Total Protein 5.5 g/dl (6.3-8.2) L 02/15/24 04:19
Albumin 2.6 g/dl (3.5-5.0) L 02/15/24 04:19
Physical Exam
-
Cardiovascular: Regular rate and rhythm
Respiratory: Bilateral: Coarse
Abdomen: Soft, non-tender, non-distended
Extremities: improving edema and erythema
Vasc: graft with strong palpable pulse

Documented by User: Asa Warner III, MD 02/15/24 14:20
Today's Communication / Plan
-
73-year-old male status post lower extremity bypass on 01/22/2024 now admitted with cellulitis.
-Appreciate ID/Podiatry recommendations and excellent hospitalist care
-Agree continue with cefepime (renally dosed) & empiric prednisone
-Daily bypass graft checks
This patient was seen and examined with kuldip Osei MD PGY-1. I agree with the history and physical exam as well as the assessment and plan.
We will plan for suture and staple removal prior to his discharge.
Signed:
Asa Warner III, MD
[facility]
[phone] (cell)
--- NOTE | 2024-02-15 13:49 | CM ---
Reviewed the chart notes. Will need PT evaluation for referral to be sent to [facility]. Referral started with [facility]. CM continues to be available to patient/family and is monitoring medical plan for needs at discharge.
Plan: Discharge to SNF once medically stable and accepted at the facility. Patient was recently at [facility].
[2024-02-15] MEDS: SODIUM BICARBONATE 650 MG PO ×2 (16:13→21:10)
[2024-02-15] MEDS: NEURONTIN 300 MG PO (17:17)
[2024-02-15] MEDS: DUONEB 3 ML INH (17:51)
[2024-02-16 03:32] VITALS: BP 155/75; BMI 30.2
[2024-02-16] MEDS: SYNTHROID 75 MCG PO (05:53)
[2024-02-16 06:00] VITALS: BMI 30.2
--- NOTE | 2024-02-16 06:00 | PTCARENOTE ---
Warner catheter removed at 0600 per order. Patient tolerated well, resting comfortably.
[2024-02-16 07:10] VITALS: BP 147/71
[2024-02-16 09:06] LABS: % Eosinophils 1.6 % (0-6); % Immature Granulocytes 0.7 % (0-0.5); % Lymphocytes 2.8 % (20.5-51.1); % Monocytes 6.8 % (1.7-9.3); % Neutrophils 88.1 % (42.2-75.2); Absolute Eosinophils 0.1 10^3/uL (0-0.7); Absolute Immature Granulocytes 0.1 10^3/uL (0-0.05); Absolute Lymphocytes 0.2 10^3/uL (1.2-3.4); Absolute Monocytes 0.5 10^3/uL (0.1-0.6); Absolute Neutrophils 6.7 10^3/uL (1.4-6.5); Hematocrit 30.7 % (39.0-52.0); Hemoglobin 10.1 g/dL (13.0-18.0); Mean Corp Hgb Conc. 32.9 g/dL (33.0-37.0); Mean Corpuscular Hgb 30.8 pg (27.0-31.0); Mean Corpuscular Volume 93.6 fL (80.0-94.0); Mean Platelet Volume 9.6 fL (7.4-10.4); Nucleated Red Blood Cells % 0 % (-); Platelet Count 279 10^3/uL (130-400); Red Blood Cell Count 3.28 10^6/uL (4.70-6.10); Red Cell Dist. Width 12.7 % (11.5-14.5); White Blood Cell Count 7.5 10^3/uL (4.8-10.8)
[2024-02-16 09:28] LABS: ALT (SGPT) 33 U/L (0-50); AST (SGOT) 43 U/L (17-59); Albumin 2.9 g/dl (3.5-5.0); Alkaline Phosphatase 84 U/L (38-126); Blood Urea Nitrogen 89 mg/dl (9-20); Calcium 7.8 mg/dl (8.4-10.2); Carbon Dioxide 17 mmol/L (22-30); Chloride 104 mmol/L (98-107); Estimated Creatinine Clearance 16 ml/min; Glucose 84 mg/dl (70-99); Potassium 4.8 mmol/L (3.5-5.1); Sodium 130 mmol/L (135-145); Total Bilirubin 0.6 mg/dl (0.2-1.3); eGFR 12.91
[2024-02-16] MEDS: DILAUDID 0.5 MG IV ×3 (09:50→20:25)
[2024-02-16] MEDS: STERILE WATER FOR INJECTION 10 ML IV ×2 (09:50→20:24)
[2024-02-16] MEDS: TIMOPTIC 0.5% OPHTHALMIC SOLUTION 1 DROP BOTH EYES (09:50)
[2024-02-16] MEDS: MAXIPIME 1000 MG IV ×2 (09:50→20:24)
--- NOTE | 2024-02-16 09:50 | W.PN.POD ---
Today's Communication
Today's Communication
s.o 1st mpj resection left---stable
awaiting vac, wound loosely packed
cont abx, path pending
stable for dc per podiatry, wound vac
heels decubs---wound care changing bandages
Subjective
Chief Complaint
pt at bedside
no pain in foot
dressing cdi
cft intact
Subjective
derm wound clean, no active bleeding, tissue healthy, no pus no cellulitis
no SOi
sutures intact
path pending
bone cx rare wbc, no organisms
Objective
Temp Pulse Resp BP Pulse Ox
98.2 F 75 20 147/71 95
02/16/24 07:10 02/16/24 07:10 02/16/24 07:10 02/16/24 07:10 02/16/24 07:10
02/16/24 07:54
Vital Signs and Lab results were reviewed.
[2024-02-16] MEDS: ZOFRAN 4 MG IV (09:59)
[2024-02-16] MEDS: ASPIR LOW (ENTERIC COATED) 81 MG PO (10:04)
[2024-02-16] MEDS: COREG 12.5 MG PO ×2 (10:04→20:24)
[2024-02-16] MEDS: PROTONIX 40 MG PO (10:05)
[2024-02-16] MEDS: COLACE PO ×2 (10:16→20:20)
[2024-02-16] MEDS: CRESTOR PO (10:17)
[2024-02-16] MEDS: DELTASONE PO (10:17)
[2024-02-16] MEDS: FLOMAX PO (10:18)
[2024-02-16] MEDS: DUONEB 3 ML INH (10:18)
[2024-02-16] MEDS: HYDROPHOR TOPICAL (10:21)
[2024-02-16] MEDS: SODIUM BICARBONATE PO ×2 (10:22→17:39)
--- NOTE | 2024-02-16 11:07 | W.PN.HOSP.TC ---
Today's Communication/Plan
-
Monitor vital signs and see plan
Zofran
Monitor renal function
Wilson apparently DC'd by overnight nursing, monitor urine output
cw abx
wound vac per podiatry
path pending
Assessment / Plan
Assessment / Plan
General: No Apparent Distress and Comfortable
HEENT: Anicteric and Moist mucous membranes
Respiratory: Clear and Non Labored Respirations; No Wheezes
Cardiac: S1/S2 and Regular Rhythm
GI: Soft, Non Tender, Non Distended and Normal Bowel Sounds
Genito-urinary: + Wilson
Musculoskeletal: Edema, Left Lower Extremity, erythema; LLE bandage
Neuro: Awake, Alert, Oriented and AO x 3
Psych: Calm and Intact Judgment/Insight
Left lower extremity swelling and pain suspect secondary to cellulitis
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
TME likely secondary to above; improving
cw abx
ID following
Wound care
Patient was seen by vascular surgery and does not appear this related to his bypass; SALIMA drain dc'ed 02/12
Does have left first MTP wound which could likely be the source. podiatry following, ulceration left foot first monitor tarsal head, podiatry discussed with patient and son regarding possible resection or bone biopsy. MRI noted; possible osteo byut
gour shows similar presentation; s/p 1st met resection/debridement left foot on 02/14; bone biopsy pending
X-ray noted, cannot rule out osteo-
PAD status post left lower extremity bypass 01/22/2024
Acute kidney injury with hyperkalemia and metabolic acidosis
Creatinine 4.5
Check UA neg, urine eos neg
suspect 2/2 retention and hypotension/hypovolemia
Now with Wilson catheter, Wilson management per nephrology; wilson apparently was dc'ed by overnight nursing
Nephrology following
Hold nephrotoxic agents
on PO bicarb
renal ultrasound 02/13 showed small bilateral renal cyst, otherwise normal
Hyponatremia
monitor
History of pulmonary embolism
restart when okay with podiatry; per dr hardwick can restart eliquis
CAD status post CABG
Continue aspirin
Ischemic cardiomyopathy
EF 30 to 35%
Follows up with Dr. Graves outpatient
Hold Entresto given EMERSON
History of [place]
N/V/Diarrhea
been on abx and in hospital
check stool studies
zofran
mild wheezing
CXR with atelectasis
cw duonebs
improving
stage 2 distal to eschar
PAD status post stent earlier and now recent left lower extremity arterial bypass with vein graft for chronic wound and PAD
Follows up with Dr. Wilson outpatient
Vascular following
SALIMA drain dc'ed 02/12
Suspect cognitive impairment
This was discussed on previous admission and son was instructed to follow-up outpatient
CT 10/11 was consistent with diffuse cortical atrophy
Anemia, suspect anemia of chronic disease
Monitor
Hyponatremia
Monitor
Hyperkalemia
Monitor
History of hypertension
Hyperlipidemia
Hypothyroidism
History of hep C, treated
History of GERD
History of insomnia
Hold trazodone
DVTppx
eliquis when ok with podiatry
CODE STATUS
Full code
I spent a total of 53 minutes with the patient or on the floor. More than 50% of this time involved counseling and coordination of care.
Anticipated Discharge: > 48 hours
Subjective/Interval History
-
Date of Service: February 16, 2024
denies abdominal pain
Objective Data
-
Labs:
Laboratory Results
02/16/24
07:54
WBC 7.5
Hgb 10.1 L
Hct 30.7 L
Plt Count 279
Sodium 130 L
Potassium 4.8
Chloride 104
Carbon Dioxide 17 L
BUN 89 H
Creatinine 4.5 H*
Glucose 84
Calcium 7.8 L
Total Bilirubin 0.6
AST 43
ALT 33
Alkaline Phosphatase 84
Vital Signs:
Vital Signs
Temp Pulse Resp BP Pulse Ox
98.2 F 69 18 147/71 92
02/16/24 07:10 02/16/24 10:20 02/16/24 10:20 02/16/24 10:04 02/16/24 10:20
I&O
02/15/24 02/16/24 02/17/24
06:59 06:59 06:59
Intake Total 1560 / 1560 1200 / 1200
Output Total 1525 / 1525 1450 / 1450
Balance 35 / 35 -250 / -250
--- NOTE | 2024-02-16 13:29 | W.PN.NEPH.PH ---
Today's Communication / Plan
-
serologies
Assessment/Plan
-
Assessment:
Left lower extremity swelling and pain secondary to cellulitis
Mental status change
acute kidney injury
Hyponatremia
Metabolic acidosis
Hypotension
Coronary artery disease with bypass
Heart failure reduced ejection fraction
Left lower extremity bypass and endarterectomy
History of hep C, treated
History of PE
Plan:
follow BMP
check PVR, i suspect wilson will need to be replaced
increase bicarb
check serologies
check renal duplex
-
-
Date of Service: February 16, 2024
CC / HPI / ROS
-
Chief Complaint:
Acute kidney injury
History of Present Illness:
EMERSON/Cr up to 4.5
K down to 4.8
Metabolic acidosis persists
Hemodynamically more stable off antihypertensives and Entresto
Wilson removed overnight?
Review of Systems:
Nonoliguric
wilson out
No reported chest pain or shortness of breath
No fevers
confused
Labs
-
Labs:
WBC 7.5 10^3/uL (4.8-10.8) 02/16/24 07:54
RBC 3.28 10^6/uL (4.70-6.10) L 02/16/24 07:54
Hgb 10.1 g/dL (13.0-18.0) L 02/16/24 07:54
Hct 30.7 % (39.0-52.0) L 02/16/24 07:54
Plt Count 279 10^3/uL (130-400) 02/16/24 07:54
Sodium 130 mmol/L (135-145) L 02/16/24 07:54
Potassium 4.8 mmol/L (3.5-5.1) 02/16/24 07:54
Chloride 104 mmol/L (98-107) 02/16/24 07:54
Carbon Dioxide 17 mmol/L (22-30) L 02/16/24 07:54
BUN 89 mg/dl (9-20) H 02/16/24 07:54
Creatinine 4.5 mg/dL (0.7-1.3) H* 02/16/24 07:54
eGFR 12.91 02/16/24 07:54
Glucose 84 mg/dl (70-99) 02/16/24 07:54
Calcium 7.8 mg/dl (8.4-10.2) L 02/16/24 07:54
Albumin 2.9 g/dl (3.5-5.0) L 02/16/24 07:54
Physical Exam
-
Vital Signs:
Vital Signs
Temp Pulse Resp BP Pulse Ox
98.2 F 69 18 147/71 92
02/16/24 07:10 02/16/24 10:20 02/16/24 10:20 02/16/24 10:04 02/16/24 10:20
Cardiovascular:: Regular rate and rhythm
Respiratory:: Bilateral: Coarse
Lung Excursion:: Normal
Abdomen:: Nontender and Soft
Bowel Sounds:: Normal
Extremity Edema:: +2: Bilateral:
Other Findings::
scattered petechiae
[2024-02-16 15:13] VITALS: BP 106/74
[2024-02-16] MEDS: NEURONTIN PO (17:40)
[2024-02-16 19:14] VITALS: BP 125/60
[2024-02-16] MEDS: SODIUM BICARBONATE 1300 MG PO (22:56)
[2024-02-16] MEDS: TYLENOL 650 MG PO (22:56)
[2024-02-16 23:55] VITALS: BP 117/66
[2024-02-17] MEDS: DILAUDID 0.25 MG IV ×3 (01:03→18:16)
--- NOTE | 2024-02-17 02:32 | PTCARENOTE ---
Patient had fever of 101.4. Gave PRN Tylenol that brought him down to 100.4. Patient is having episodes of confusion which has been baseline for him. He is having occasional jerk like motions at rest and they get exacerbated when raising arms.
Notified [employer]. Procalcitonin ordered for AM.
Earlier in night, this RN gave him PRN 0.5mg IV Dilaudid for a rating of 9. Patient fell asleep shortly after and awoke with more confusion. Seemed to be having difficulty expressing pain, nonverbal actions indicated pain. Notified [employer]. 0.25mg IV
Dilaudid PRN ordered for moderate pain and given.
Patient is now resting, safe environment maintained.
[2024-02-17 03:21] VITALS: BP 122/50
[2024-02-17 05:34] VITALS: BMI 29.3
[2024-02-17] MEDS: SYNTHROID 75 MCG PO (06:47)
[2024-02-17 07:00] VITALS: BP 133/67
[2024-02-17 08:23] LABS: % Basophils 0.3 % (0-2); % Eosinophils 3.7 % (0-6); % Immature Granulocytes 0.7 % (0-0.5); % Lymphocytes 5.4 % (20.5-51.1); % Monocytes 6.6 % (1.7-9.3); % Neutrophils 83.3 % (42.2-75.2); Absolute Eosinophils 0.3 10^3/uL (0-0.7); Absolute Immature Granulocytes 0.1 10^3/uL (0-0.05); Absolute Lymphocytes 0.4 10^3/uL (1.2-3.4); Absolute Monocytes 0.4 10^3/uL (0.1-0.6); Absolute Neutrophils 5.6 10^3/uL (1.4-6.5); Hematocrit 27.6 % (39.0-52.0); Hemoglobin 9.1 g/dL (13.0-18.0); Mean Corpuscular Hgb 30.8 pg (27.0-31.0); Mean Corpuscular Volume 93.6 fL (80.0-94.0); Mean Platelet Volume 9.7 fL (7.4-10.4); Nucleated Red Blood Cells % 0 % (-); Platelet Count 232 10^3/uL (130-400); Red Blood Cell Count 2.95 10^6/uL (4.70-6.10); Red Cell Dist. Width 13.1 % (11.5-14.5); White Blood Cell Count 6.7 10^3/uL (4.8-10.8)
[2024-02-17 08:48] LABS: ALT (SGPT) 28 U/L (0-50); AST (SGOT) 37 U/L (17-59); Albumin 2.5 g/dl (3.5-5.0); Alkaline Phosphatase 63 U/L (38-126); Blood Urea Nitrogen 94 mg/dl (9-20); Carbon Dioxide 21 mmol/L (22-30); Chloride 104 mmol/L (98-107); Estimated Creatinine Clearance 14 ml/min; Glucose 82 mg/dl (70-99); Sodium 134 mmol/L (135-145); Total Bilirubin 0.5 mg/dl (0.2-1.3); Total Protein 5.3 g/dl (6.3-8.2); eGFR 12.91
[2024-02-17 08:57] LABS: Procalcitonin 0.78 ng/ml (0.0-0.25)
[2024-02-17] MEDS: FLOMAX 0.400000000000000022 MG PO (09:13)
[2024-02-17] MEDS: COLACE PO ×2 (09:13→20:29)
[2024-02-17] MEDS: CRESTOR 5 MG PO (09:13)
[2024-02-17] MEDS: SODIUM BICARBONATE 1300 MG PO ×3 (09:13→21:44)
[2024-02-17] MEDS: COREG 12.5 MG PO ×2 (09:13→20:30)
[2024-02-17] MEDS: PROTONIX PO ×2 (09:13→09:33)
[2024-02-17] MEDS: ELIQUIS 5 MG PO ×2 (09:13→20:30)
[2024-02-17] MEDS: ASPIR LOW (ENTERIC COATED) 81 MG PO (09:13)
[2024-02-17] MEDS: STERILE WATER FOR INJECTION 10 ML IV ×2 (09:14→20:30)
[2024-02-17] MEDS: TIMOPTIC 0.5% OPHTHALMIC SOLUTION 1 DROP BOTH EYES (09:14)
[2024-02-17] MEDS: MAXIPIME 1000 MG IV ×2 (09:14→20:30)
[2024-02-17] MEDS: SILVADENE 1 APPLIC TOPICAL (09:15)
[2024-02-17] MEDS: HYDROPHOR 1 APPLIC TOPICAL (09:21)
--- NOTE | 2024-02-17 09:48 | W.PN.UPDATE ---
Update Note
Progress Note Update
pt seen for fu sx left foot
cft intact
foot warm
derm wound clean, no edema or erythema
no cellulitis
no SOI
sutures intact,
a/p s/p I&D/mpj resection left foot---stable
no SOI
path pending, no growth on cultures
rev vac placement tomorrow, will sign off
call if needed
apply vac tomorrow please
fu as outpt
[phone]
--- NOTE | 2024-02-17 09:59 | W.PN.NEPH.PH ---
Today's Communication / Plan
-
follow BMP
Assessment/Plan
-
Assessment:
Left lower extremity swelling and pain secondary to cellulitis
Mental status change
acute kidney injury
Hyponatremia
Metabolic acidosis
Hypotension
Coronary artery disease with bypass
Heart failure reduced ejection fraction
Left lower extremity bypass and endarterectomy
History of hep C, treated
History of PE
Plan:
follow BMP
follow PVR, no sign of retention
continue bicarb
await serologies
d/w Son Ender (there are two other sons) regarding renal function. We could consider biopsy, but he is on eliquis, which would have to be held.
we also discussed dialysis. they will need to discuss whether or not it is something they wish to pursue. He has no living will
-
-
Date of Service: February 17, 2024
CC / HPI / ROS
-
Chief Complaint:
Acute kidney injury
History of Present Illness:
EMERSON/Cr up to 4.5 stable
K stable at 5
Metabolic acidosis persists, slightly better
Hemodynamically more stable off antihypertensives and Entresto
Wilson removed overnight?
Review of Systems:
oliguric
wilson out
No reported chest pain or shortness of breath
No fevers
confused
Labs
-
Labs:
WBC 6.7 10^3/uL (4.8-10.8) 02/17/24 08:04
RBC 2.95 10^6/uL (4.70-6.10) L 02/17/24 08:04
Hgb 9.1 g/dL (13.0-18.0) L 02/17/24 08:04
Hct 27.6 % (39.0-52.0) L 02/17/24 08:04
Plt Count 232 10^3/uL (130-400) 02/17/24 08:04
Sodium 134 mmol/L (135-145) L 02/17/24 08:04
Potassium 5.0 mmol/L (3.5-5.1) 02/17/24 08:04
Chloride 104 mmol/L (98-107) 02/17/24 08:04
Carbon Dioxide 21 mmol/L (22-30) L 02/17/24 08:04
BUN 94 mg/dl (9-20) H 02/17/24 08:04
Creatinine 4.5 mg/dL (0.7-1.3) H* 02/17/24 08:04
eGFR 12.91 02/17/24 08:04
Glucose 82 mg/dl (70-99) 02/17/24 08:04
Calcium 8.0 mg/dl (8.4-10.2) L 02/17/24 08:04
Albumin 2.5 g/dl (3.5-5.0) L 02/17/24 08:04
Physical Exam
-
Vital Signs:
Vital Signs
Temp Pulse Resp BP Pulse Ox
98.8 F 74 18 133/67 91
02/17/24 03:21 02/17/24 07:00 02/17/24 07:00 02/17/24 09:13 02/17/24 07:00
Cardiovascular:: Regular rate and rhythm
Respiratory:: Bilateral: Coarse
Lung Excursion:: Normal
Abdomen:: Nontender and Soft
Bowel Sounds:: Normal
Extremity Edema:: +1: Bilateral:
--- NOTE | 2024-02-17 10:08 | PTCARENOTE ---
per nephrology discontinuing protonix and starting on famotidine. pt in and out of orientation, when initially going into room pt was not answering questions but once he was more awake answered all assessment questions appropriately. when nephrology
was at the bedside mentation was drowsy and confused. pt received IV abx through his R wrist Iv site this AM and the patient was set up to eat breakfast. b/l fiber filled boots in place nad pt is on enhanced contact for norovirus.
[2024-02-17 10:40] LABS: Anti Streptolysin Positive (Negative)
[2024-02-17 10:45] LABS: ASO Quantitative 400 IU/ml (<200)
--- NOTE | 2024-02-17 11:02 | W.PN.HOSP.TC ---
Today's Communication/Plan
-
Monitor vital signs and see plan
Monitor renal function
Continue with antibiotics
Blood labs pending
Wound VAC per podiatry
Assessment / Plan
Assessment / Plan
General: No Apparent Distress and Comfortable
HEENT: Anicteric and Moist mucous membranes
Respiratory: Clear and Non Labored Respirations; No Wheezes
Cardiac: S1/S2 and Regular Rhythm
GI: Soft, Non Tender, Non Distended and Normal Bowel Sounds
Genito-urinary: + Wilson
Musculoskeletal: Edema, Left Lower Extremity, erythema; LLE bandage
Neuro: Awake, Alert, Oriented and AO x 3
Psych: Calm and Intact Judgment/Insight
Left lower extremity swelling and pain suspect secondary to cellulitis
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
TME likely secondary to above; improving
cw abx
ID following
Wound care
Patient was seen by vascular surgery and does not appear this related to his bypass; SALIMA drain dc'ed 02/12
Does have left first MTP wound which could likely be the source. podiatry following, ulceration left foot first monitor tarsal head, podiatry discussed with patient and son regarding possible resection or bone biopsy. MRI noted; possible osteo byut
gour shows similar presentation; s/p 1st met resection/debridement left foot on 02/14; bone biopsy pending
X-ray noted, cannot rule out osteo-
PAD status post left lower extremity bypass 01/22/2024
Acute kidney injury with hyperkalemia and metabolic acidosis
Creatinine 4.5
Check UA neg, urine eos neg
suspect 2/2 retention and hypotension/hypovolemia
had Wilson catheter, Wilson management per nephrology; wilson apparently was dc'ed by overnight nursing
Nephrology following
Hold nephrotoxic agents
on PO bicarb
renal ultrasound 02/13 showed small bilateral renal cyst, otherwise normal
Fever likely 2/2 norovirus
monitor
check bcx
procal mildly elevated however not relevant with EMERSON
Hyponatremia
monitor
History of pulmonary embolism
restart when okay with podiatry; per dr hardwick can restart eliquis
CAD status post CABG
Continue aspirin
Ischemic cardiomyopathy
EF 30 to 35%
Follows up with Dr. Graves outpatient
Hold Entresto given EMERSON
History of LA
mild wheezing
CXR with atelectasis
cw duonebs
improving
stage 2 distal to eschar
PAD status post stent earlier and now recent left lower extremity arterial bypass with vein graft for chronic wound and PAD
Follows up with Dr. Wilson outpatient
Vascular following
SALIMA drain dc'ed 02/12
Suspect cognitive impairment
This was discussed on previous admission and son was instructed to follow-up outpatient
CT 10/11 was consistent with diffuse cortical atrophy
Anemia, suspect anemia of chronic disease
Monitor
Hyponatremia
Monitor
Hyperkalemia
Monitor
History of hypertension
Hyperlipidemia
Hypothyroidism
History of hep C, treated
History of GERD
History of insomnia
Hold trazodone
DVTppx
eliquis
CODE STATUS
Full code
I spent a total of 52 minutes with the patient or on the floor. More than 50% of this time involved counseling and coordination of care.
Anticipated Discharge: > 48 hours
Subjective/Interval History
-
Date of Service: February 17, 2024
denies pain
Objective Data
-
Labs:
Laboratory Results
02/17/24
08:04
WBC 6.7
Hgb 9.1 L
Hct 27.6 L
Plt Count 232
Sodium 134 L
Potassium 5.0
Chloride 104
Carbon Dioxide 21 L
BUN 94 H
Creatinine 4.5 H*
Glucose 82
Calcium 8.0 L
Total Bilirubin 0.5
AST 37
ALT 28
Alkaline Phosphatase 63
Vital Signs:
Vital Signs
Temp Pulse Resp BP Pulse Ox
98.8 F 74 18 133/67 91
02/17/24 03:21 02/17/24 07:00 02/17/24 07:00 02/17/24 09:13 02/17/24 10:14
I&O
02/16/24 02/17/24 02/18/24
06:59 06:59 06:59
Intake Total 1200 / 1200 120 / 120 320 / 320
Output Total 1450 / 1450 300 / 300
Balance -250 / -250 120 / 120 20 / 20
[2024-02-17 11:05] VITALS: BP 142/66
[2024-02-17] MEDS: PEPCID 20 MG PO (11:58)
[2024-02-17 15:00] VITALS: BP 110/70
[2024-02-17] MEDS: NEURONTIN 300 MG PO (17:18)
[2024-02-17 19:07] VITALS: BP 146/86
[2024-02-17 23:20] VITALS: BP 111/77
[2024-02-17 23:53] LABS: Complement C3 74 mg/dl (88-165)
[2024-02-18] VITALS (7 sets, daily range): BP systolic 140–172; BP diastolic 61–87; PULSE 64; BMI 29.2
[2024-02-18 05:11] LABS: % Basophils 0.3 % (0-2); % Eosinophils 5.4 % (0-6); % Immature Granulocytes 0.7 % (0-0.5); % Lymphocytes 6.3 % (20.5-51.1); % Neutrophils 78.3 % (42.2-75.2); Absolute Eosinophils 0.4 10^3/uL (0-0.7); Absolute Immature Granulocytes 0.1 10^3/uL (0-0.05); Absolute Lymphocytes 0.5 10^3/uL (1.2-3.4); Absolute Monocytes 0.7 10^3/uL (0.1-0.6); Absolute Neutrophils 5.8 10^3/uL (1.4-6.5); Hematocrit 28.4 % (39.0-52.0); Hemoglobin 9.4 g/dL (13.0-18.0); Mean Corp Hgb Conc. 33.1 g/dL (33.0-37.0); Mean Corpuscular Hgb 31.3 pg (27.0-31.0); Mean Corpuscular Volume 94.7 fL (80.0-94.0); Mean Platelet Volume 9.7 fL (7.4-10.4); Nucleated Red Blood Cells % 0 % (-); Platelet Count 218 10^3/uL (130-400); Red Cell Dist. Width 13.2 % (11.5-14.5); White Blood Cell Count 7.4 10^3/uL (4.8-10.8)
[2024-02-18 05:42] LABS: ALT (SGPT) 31 U/L (0-50); AST (SGOT) 48 U/L (17-59); Albumin 2.7 g/dl (3.5-5.0); Alkaline Phosphatase 71 U/L (38-126); Blood Urea Nitrogen 86 mg/dl (9-20); Calcium 7.9 mg/dl (8.4-10.2); Carbon Dioxide 19 mmol/L (22-30); Chloride 107 mmol/L (98-107); Estimated Creatinine Clearance 14 ml/min; Glucose 97 mg/dl (70-99); Potassium 4.8 mmol/L (3.5-5.1); Sodium 133 mmol/L (135-145); Total Bilirubin 0.6 mg/dl (0.2-1.3); Total Protein 5.4 g/dl (6.3-8.2); eGFR 12.91
[2024-02-18] MEDS: SYNTHROID 75 MCG PO (05:53)
[2024-02-18] MEDS: COLACE PO (08:59)
[2024-02-18] MEDS: COREG 12.5 MG PO ×2 (09:00→20:48)
[2024-02-18] MEDS: STERILE WATER FOR INJECTION 10 ML IV ×2 (09:01→20:48)
[2024-02-18] MEDS: ELIQUIS 5 MG PO ×2 (09:01→20:48)
[2024-02-18] MEDS: MAXIPIME 1000 MG IV ×2 (09:01→20:48)
[2024-02-18] MEDS: CRESTOR 5 MG PO (09:01)
[2024-02-18] MEDS: FLOMAX 0.400000000000000022 MG PO (09:01)
[2024-02-18] MEDS: SODIUM BICARBONATE 1300 MG PO ×3 (09:01→21:23)
[2024-02-18] MEDS: ASPIR LOW (ENTERIC COATED) 81 MG PO (09:01)
[2024-02-18] MEDS: TIMOPTIC 0.5% OPHTHALMIC SOLUTION 1 DROP BOTH EYES (09:02)
[2024-02-18] MEDS: HYDROPHOR 1 APPLIC TOPICAL (09:11)
--- NOTE | 2024-02-18 10:19 | W.PN.NEPH.PH ---
Today's Communication / Plan
-
follow labs
Assessment/Plan
-
Assessment:
Left lower extremity swelling and pain secondary to cellulitis
Mental status change
acute kidney injury
Hyponatremia
Metabolic acidosis
Hypotension
Coronary artery disease with bypass
Heart failure reduced ejection fraction
Left lower extremity bypass and endarterectomy
History of hep C, treated
History of PE
Plan:
Seem cr reached peak , pending serologies
follow PVR, no sign of retention
stable met acidosis-continue bicarb
UOP not measured due to incontinence
BP stable
abx per ID
no emergent need of HD
d/w nursing
previously Dr Rivas d/w Son Ender (there are two other sons) regarding renal function. We could consider biopsy, but he is on eliquis, which would have to be held.
we also discussed dialysis. they will need to discuss whether or not it is something they wish to pursue. He has no living will
-
-
Date of Service: February 18, 2024
CC / HPI / ROS
-
Chief Complaint:
Acute kidney injury
History of Present Illness:
EMERSON/Cr up to 4.5 stable
K stable 4.8
Metabolic acidosis persists
Hemodynamically more stable off antihypertensives and Entresto
urine incontinence, concern of pulling things, wilson was out
Review of Systems:
No reported chest pain or shortness of breath
No fevers
confused
Labs
-
Labs:
WBC 7.4 10^3/uL (4.8-10.8) 02/18/24 03:55
RBC 3.00 10^6/uL (4.70-6.10) L 02/18/24 03:55
Hgb 9.4 g/dL (13.0-18.0) L 02/18/24 03:55
Hct 28.4 % (39.0-52.0) L 02/18/24 03:55
Plt Count 218 10^3/uL (130-400) 02/18/24 03:55
Sodium 133 mmol/L (135-145) L 02/18/24 03:55
Potassium 4.8 mmol/L (3.5-5.1) 02/18/24 03:55
Chloride 107 mmol/L (98-107) 02/18/24 03:55
Carbon Dioxide 19 mmol/L (22-30) L 02/18/24 03:55
BUN 86 mg/dl (9-20) H 02/18/24 03:55
Creatinine 4.5 mg/dL (0.7-1.3) H* 02/18/24 03:55
eGFR 12.91 02/18/24 03:55
Glucose 97 mg/dl (70-99) 02/18/24 03:55
Calcium 7.9 mg/dl (8.4-10.2) L 02/18/24 03:55
Albumin 2.7 g/dl (3.5-5.0) L 02/18/24 03:55
Physical Exam
-
Vital Signs:
Vital Signs
Temp Pulse Resp BP Pulse Ox
97.7 F 73 16 152/75 96
02/18/24 07:26 02/18/24 09:00 02/18/24 07:26 02/18/24 09:00 02/18/24 10:07
Cardiovascular:: Regular rate and rhythm
Respiratory:: Bilateral: CTA (anteriorly)
Lung Excursion:: Normal
Abdomen:: Nontender and Soft
Extremity Edema:: +1: Bilateral: (trace)
Wilson Catheter: No
Other Findings::
bilat foot dressing intact
[2024-02-18] MEDS: DILAUDID 0.5 MG IV ×2 (10:21→21:25)
--- NOTE | 2024-02-18 11:25 | W.PN.HOSP.TC ---
Today's Communication/Plan
-
Monitor vital signs and see plan
Monitor creatinine
Bone biopsy pending
Continue antibiotics
Assessment / Plan
Assessment / Plan
General: No Apparent Distress and Comfortable
HEENT: Anicteric and Moist mucous membranes
Respiratory: Clear and Non Labored Respirations; No Wheezes
Cardiac: S1/S2 and Regular Rhythm
GI: Soft, Non Tender, Non Distended and Normal Bowel Sounds
Genito-urinary: + Wilson
Musculoskeletal: Edema, Left Lower Extremity, erythema; LLE bandage
Neuro: Awake, Alert, Oriented and AO x 3
Psych: Calm and Intact Judgment/Insight
Left lower extremity swelling and pain suspect secondary to possible osteomyelitis
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
TME likely secondary to above; improving
cw abx
ID following
Wound care
Patient was seen by vascular surgery and does not appear this related to his bypass; SALIMA drain dc'ed 02/12
Does have left first MTP wound which could likely be the source. podiatry following, ulceration left foot first monitor tarsal head, podiatry discussed with patient and son regarding possible resection or bone biopsy. MRI noted; possible osteo but
gour shows similar presentation; s/p 1st met resection/debridement left foot on 02/14; bone biopsy pending
X-ray noted, cannot rule out osteo-
PAD status post left lower extremity bypass 01/22/2024
Acute kidney injury with hyperkalemia and metabolic acidosis
Creatinine 4.5, nephrology discussing with family for potential biopsy. Serologies pending
Check UA neg, urine eos neg
suspect 2/2 retention and hypotension/hypovolemia
had Wilson catheter, Wilson management per nephrology; wilson apparently was vt'ed by overnight nursing
Nephrology following
Hold nephrotoxic agents
on PO bicarb
renal ultrasound 02/13 showed small bilateral renal cyst, otherwise normal
Fever likely 2/2 norovirus
monitor
bcx pending
procal mildly elevated however not relevant with EMERSON
Hyponatremia
monitor
History of pulmonary embolism
Restarted Eliquis per podiatry
CAD status post CABG
Continue aspirin
Ischemic cardiomyopathy
EF 30 to 35%
Follows up with Dr. Graves outpatient
Hold Entresto given EMERSON
History of HI
mild wheezing
CXR with atelectasis
cw duonebs
improving
stage 2 distal to eschar
PAD status post stent earlier and now recent left lower extremity arterial bypass with vein graft for chronic wound and PAD
Follows up with Dr. Wilson outpatient
Vascular following
SALIMA drain dc'ed 02/12
Suspect cognitive impairment
This was discussed on previous admission and son was instructed to follow-up outpatient
CT 10/11 was consistent with diffuse cortical atrophy
Anemia, suspect anemia of chronic disease
Monitor
Hyponatremia
Monitor
Hyperkalemia
Monitor
History of hypertension
Hyperlipidemia
Hypothyroidism
History of hep C, treated
History of GERD
History of insomnia
Hold trazodone
DVTppx
eliquis
CODE STATUS
Full code
Anticipated Discharge: > 48 hours
Subjective/Interval History
-
Date of Service: February 18, 2024
denies nausea
Objective Data
-
Labs:
Laboratory Results
02/18/24
03:55
WBC 7.4
Hgb 9.4 L
Hct 28.4 L
Plt Count 218
Sodium 133 L
Potassium 4.8
Chloride 107
Carbon Dioxide 19 L
BUN 86 H
Creatinine 4.5 H*
Glucose 97
Calcium 7.9 L
Total Bilirubin 0.6
AST 48
ALT 31
Alkaline Phosphatase 71
Vital Signs:
Vital Signs
Temp Pulse Resp BP Pulse Ox
98.1 F 64 16 140/61 94
02/18/24 11:19 02/18/24 11:19 02/18/24 11:19 02/18/24 11:19 02/18/24 11:19
I&O
02/17/24 02/18/24 02/19/24
06:59 06:59 06:59
Intake Total 120 / 120 1760 / 1760
Output Total 575 / 575
Balance 120 / 120 1185 / 1185
--- NOTE | 2024-02-18 12:27 | WOUNDNOTE ---
L 1ST MET HEAD SURGICAL SITE
--- NOTE | 2024-02-18 12:28 | WOUNDNOTE ---
L 1ST MET HEAD CLOSER VIEW
--- NOTE | 2024-02-18 12:31 | WOUNDNOTE ---
WON RN NOTE: With assist from nurse Mota turned patient onto sides and did wound care. R arm skin tear healed, can be open to air. Buttocks blanchable red. Heels much improved, L heel peeling skin with healed skin underneath,some bleeding, defined
dry eschar proximal heel. R heel with defined black eschar then healing pink skin surrounding, blister gone. Dry dressings applied to heels and Prevalon boots re applied. L 1st met head surgical site with intact sutures and small open area medial to
sutures. Reviewed Dr. Head's note, applied betadine to sutures, adaptic to protect, thin line of mj seal to wound on other side of sutures then NPWT black foam to 125mmhg. Vac assigned in [employer]. Next vac change Sunday unless discharged
to SNF. Nurse Mota aware that when patient discharged to remove vac dressing and apply saline wtd.
--- NOTE | 2024-02-18 14:11 | W.PN.ID1 ---
Date of Service
Date of Service: February 18, 2024
Today's Communication
See below.
Assessment / Plan
# Norovirus infection
- Diarrhea resolving
- Continue enhanced contact precaution.
# Acute left foot cellulitis resolved
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
- Prior wound cx Pseudomonas
- 02/14/24 s/p excisional debridement ulcer/1st met resection/debridement prox phalange, tophi noted
OR Tissue cultures no growth to date
Bone biopsies pending
-Continue day 7 cefepime 1g IV q12 (renally dosed) (day 21 abx) pending bone biopsy result.
# Tophaceous gout
-s/p prednisone 40mg po qd x 5 days
-start gout prophylaxis allopurinol 50mg qT, Sun (renally dosed)
# EMERSON stable today
# PAD s/p left femoral endarterectomy with patch angioplasty, left SFA to ant tibial artery bypass (01/22/24)
#Additional Past Medical History:
HTN
dyslipidemia
CAD s/p CABG x 3
Ischemic cardiomyopathy s/p ICD (2019)
PE
PAD s/p hx BLE stents; s/p left femoral endarterectomy with patch angioplasty, left SFA to ant tibial artery bypass (01/22/24)
Chief Complaint
-: Cellulitis
Subjective / Review of Systems
No diarrhea today.
Foot pain much improved
Vital Signs / Physical Exam
Vital Signs
Vital Signs
Temp Pulse Resp BP Pulse Ox
98.1 F 64 16 140/61 94
02/18/24 11:19 02/18/24 11:19 02/18/24 11:19 02/18/24 11:19 02/18/24 11:19
Physical Exam
Constitutional: No Acute Distress and Comfortable
Gastrointestinal: Soft, Non Tender and Non Distended
Extremities: Negative Edema or Erythema
Wound: Other (Reviewed wound photo: Left foot incision closed with sutures, wound granulation tissue with white/yellow substance)
Objective Data
Lab Data
Lab Results
02/18/24 03:55
02/18/24 03:55
Estimated Creat Clear 14 ml/min 02/18/24 03:55
Lactic Acid 0.9 mmol/L (0.7-2.0) 02/15/24 04:19
Total Bilirubin 0.6 mg/dl (0.2-1.3) 02/18/24 03:55
AST 48 U/L (17-59) 02/18/24 03:55
ALT 31 U/L (0-50) 02/18/24 03:55
Alkaline Phosphatase 71 U/L (38-126) 02/18/24 03:55
Most recent labs reviewed.
Micro Results:
02/17/24 11:40 Blood Culture - Preliminary
Blood/Venous No Growth in 24 hours- Final report to follow
02/17/24 11:34 Blood Culture - Preliminary
Blood/Venous No Growth in 24 hours- Final report to follow
02/16/24 11:43 Salmonella/Shigella Culture - Final
Feces/Stool No Salmonella, Shigella, Aeromonas or Plesiomonas species
isolated.
Campylobacter Culture - Final
No Campylobacter species isolated.
Shiga Toxin Test - Final
No E. coli Shiga Toxin 1 or 2 detected.
02/14/24 16:50 Anaerobic Culture - Preliminary
Foot - Left NO ANAEROBES ISOLATED
02/14/24 16:50 Tissue Culture - Final
Toe No Growth After 72 Hours
Gram Stain - Final
02/14/24 16:50 Tissue Culture - Final
Foot - Left No Growth After 72 Hours
Gram Stain - Final
02/14/24 16:50 Wound Culture - Preliminary
Foot - Left No growth
Gram Stain - Preliminary
02/12/24 11:20 Blood Culture - Final
Blood/Venous No Growth - Final Report
02/12/24 10:24 Blood Culture - Final
Blood/Venous No Growth - Final Report
02/16/24 11:43 C. difficile GDH Antigen & Toxins - Final
Feces/Stool Negative for toxigenic C.difficile
- Final
Positive for Norovirus GII
02/16/24 11:43 Stool Leukocytes - Final
Feces/Stool
02/12/24 12:40 MRSA Screen - Final
Nose No Methicillin Resistant Staphylococcus aureus isolated.
02/12/24 Foot XRAY: Healing versus old healed fracture of the left second metatarsal again seen, stable in comparison to recent prior study. Cannot exclude some mild lucency of the medial aspect of the head of the left first metatarsal as noted on
single view, cannot exclude infectious process such as osteomyelitis.
02/14/24 MRI LLE w w/o: There is enhancing intermediate T1-weighted signal involving the distal medial aspect of the first metatarsal head, and the proximal aspect of the proximal phalanx of the left great toe. There is also enhancing intermediate
T1-weighted signal involving the medial sesamoid, inferior to the first metatarsal head, and this is also considered suspicious for osteomyelitis. These findings are highly suggestive of osteomyelitis. Of note, inflammatory arthropathy/gout can
result in similar MR findings.
--- NOTE | 2024-02-18 14:55 | CM ---
Reviewed the chart notes. CM sent wound vac order to [facility] via [facility]. Per [facility], family is paying to hold the bed. CM continues to be available to patient/family and is monitoring medical plan for needs at discharge.
Plan: Discharge to SNF once medically stable.
[2024-02-18] MEDS: NEURONTIN 300 MG PO (17:14)
--- NOTE | 2024-02-18 19:58 | PTCARENOTE ---
this nurse spoke to son paris. son has questions for case management per getting power of assistant prosecuting attorney and living will notarized. this nurse did not have proper answers and told him she would take down his name and number. doctors have been in
communication with him and his two brothers about dads progress and potential need for dialysis. sons phone number is [phone].
[2024-02-18] MEDS: COLACE 100 MG PO (20:48)
[2024-02-18] MEDS: DESENEX/MITRAZOL/ZEASORB 1 APPLIC TOPICAL (21:23)
[2024-02-19 00:35] LABS: ANA, IgG Reflex to HEp-2 None Detected (None Detected)
[2024-02-19 01:05] LABS: Myeloperoxidase Antibody 0 AU/mL (0-19); Serine Protease-3, IgG 0 AU/mL (0-19)
[2024-02-19 03:16] VITALS: BP 146/72
[2024-02-19] MEDS: DILAUDID 0.5 MG IV ×2 (03:37→18:14)
[2024-02-19] MEDS: SYNTHROID 75 MCG PO (05:52)
[2024-02-19 06:00] VITALS: BMI 28.8
[2024-02-19 06:44] LABS: % Basophils 0.4 % (0-2); % Immature Granulocytes 0.5 % (0-0.5); % Lymphocytes 8.2 % (20.5-51.1); % Monocytes 9.7 % (1.7-9.3); % Neutrophils 75.2 % (42.2-75.2); Absolute Eosinophils 0.5 10^3/uL (0-0.7); Absolute Lymphocytes 0.6 10^3/uL (1.2-3.4); Absolute Monocytes 0.7 10^3/uL (0.1-0.6); Absolute Neutrophils 5.8 10^3/uL (1.4-6.5); Hematocrit 27.8 % (39.0-52.0); Hemoglobin 9.2 g/dL (13.0-18.0); Mean Corp Hgb Conc. 33.1 g/dL (33.0-37.0); Mean Corpuscular Volume 93.6 fL (80.0-94.0); Mean Platelet Volume 9.8 fL (7.4-10.4); Nucleated Red Blood Cells % 0 % (-); Platelet Count 232 10^3/uL (130-400); Red Blood Cell Count 2.97 10^6/uL (4.70-6.10); Red Cell Dist. Width 13.1 % (11.5-14.5); White Blood Cell Count 7.7 10^3/uL (4.8-10.8)
[2024-02-19 07:15] LABS: ALT (SGPT) 30 U/L (0-50); AST (SGOT) 44 U/L (17-59); Albumin 2.7 g/dl (3.5-5.0); Alkaline Phosphatase 75 U/L (38-126); Blood Urea Nitrogen 84 mg/dl (9-20); Calcium 7.9 mg/dl (8.4-10.2); Carbon Dioxide 20 mmol/L (22-30); Chloride 108 mmol/L (98-107); Estimated Creatinine Clearance 16 ml/min; Glucose 83 mg/dl (70-99); Potassium 5.1 mmol/L (3.5-5.1); Sodium 134 mmol/L (135-145); Total Bilirubin 0.7 mg/dl (0.2-1.3); Total Protein 5.6 g/dl (6.3-8.2); eGFR 14.44
[2024-02-19 07:20] VITALS: BP 143/71
[2024-02-19] MEDS: ELIQUIS 5 MG PO ×2 (08:05→20:48)
[2024-02-19] MEDS: SODIUM BICARBONATE 1300 MG PO ×3 (08:05→21:56)
[2024-02-19] MEDS: COREG 12.5 MG PO ×2 (08:05→20:48)
[2024-02-19] MEDS: ASPIR LOW (ENTERIC COATED) 81 MG PO (08:05)
[2024-02-19] MEDS: ZYLOPRIM 50 MG PO (08:06)
[2024-02-19] MEDS: CRESTOR 5 MG PO (08:06)
[2024-02-19] MEDS: TIMOPTIC 0.5% OPHTHALMIC SOLUTION 1 DROP BOTH EYES (08:06)
[2024-02-19] MEDS: FLOMAX 0.400000000000000022 MG PO (08:06)
[2024-02-19] MEDS: COLACE 100 MG PO ×2 (08:06→20:48)
--- NOTE | 2024-02-19 09:52 | CM ---
Received TT from the patient's RN from last night that the patient's son Enedr had some questions with regards to POA paperwork and notarizing the paperwork. Spoke with Ender and explained that the facility does not notarize any legal documents
while a patient is in an acute setting and that staff are not permitted to be witness to any legal documentation. Explained to Ender that if patient and his brothers are all in agreement with the patient's status (full code, DNR, DNI) the
healthcare POA is not critical at this moment. Did encourage to have paperwork completed once patient is transferred to a SNF/rehab or once home. CM continues to be available to patient/family and is monitoring medical plan for needs at discharge.
Plan: Discharge to SNF/rehab. Family are now no longer holding bed at [facility]. Family would still like patient to return if bed available at time of discharge.
--- NOTE | 2024-02-19 10:40 | W.PN.HOSP.TC ---
Today's Communication/Plan
-
Monitor vital signs and see plan
Creatinine today 4.1 which is better than before
Monitor urine output
Continue antibiotics
Bone biopsy pending
Eventual SNF
Assessment / Plan
Assessment / Plan
General: No Apparent Distress and Comfortable
HEENT: Anicteric and Moist mucous membranes
Respiratory: Clear and Non Labored Respirations; No Wheezes
Cardiac: S1/S2 and Regular Rhythm
GI: Soft, Non Tender, Non Distended and Normal Bowel Sounds
Genito-urinary: + Wilson
Musculoskeletal: Edema, Left Lower Extremity, erythema; LLE bandage
Neuro: Awake, Alert, Oriented and AO x 3
Psych: Calm and Intact Judgment/Insight
Left lower extremity swelling and pain suspect secondary to possible osteomyelitis
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
TME likely secondary to above; improving
cw abx
ID following
Wound care
Patient was seen by vascular surgery and does not appear this related to his bypass; SALIMA drain dc'ed 02/12
Does have left first MTP wound which could likely be the source. podiatry following, ulceration left foot first monitor tarsal head, podiatry discussed with patient and son regarding possible resection or bone biopsy. MRI noted; possible osteo but
gout shows similar presentation; s/p 1st met resection/debridement left foot on 02/14; bone biopsy pending
PAD status post left lower extremity bypass 01/22/2024
Acute kidney injury with hyperkalemia and metabolic acidosis
Creatinine 4.1, now coming down; nephrology discussing with family for potential biopsy. Serologies pending
Check UA neg, urine eos neg
suspect 2/2 retention and hypotension/hypovolemia
had Wilson catheter, Wilson management per nephrology; wilson apparently was dc'ed by overnight nursing
Nephrology following
Hold nephrotoxic agents
on PO bicarb
renal ultrasound 02/13 showed small bilateral renal cyst, otherwise normal
Fever likely 2/2 norovirus
monitor
bcx NGTD
procal mildly elevated however not relevant with EMERSON
Hyponatremia
monitor
History of pulmonary embolism
Restarted Eliquis per podiatry
CAD status post CABG
Continue aspirin
Ischemic cardiomyopathy
EF 30 to 35%
Follows up with Dr. Graves outpatient
Hold Entresto given EMERSON
History of [place]
mild wheezing
CXR with atelectasis
cw duonebs
improving
stage 2 distal to eschar
PAD status post stent earlier and now recent left lower extremity arterial bypass with vein graft for chronic wound and PAD
Follows up with Dr. Wilson outpatient
Vascular following
SALIMA drain dc'ed 02/12
Suspect cognitive impairment
This was discussed on previous admission and son was instructed to follow-up outpatient
CT 10/11 was consistent with diffuse cortical atrophy
Anemia, suspect anemia of chronic disease
Monitor
Hyponatremia
Monitor
Hyperkalemia
Monitor
History of hypertension
Hyperlipidemia
Hypothyroidism
History of hep C, treated
History of GERD
History of insomnia
Hold trazodone
DVTppx
eliquis
CODE STATUS
Full code
pt/ot rec SNF
Anticipated Discharge: > 48 hours
Subjective/Interval History
-
Date of Service: February 19, 2024
does have pain at times
Objective Data
-
Labs:
Laboratory Results
02/19/24
05:28
WBC 7.7
Hgb 9.2 L
Hct 27.8 L
Plt Count 232
Sodium 134 L
Potassium 5.1
Chloride 108 H
Carbon Dioxide 20 L
BUN 84 H
Creatinine 4.1 H*
Glucose 83
Calcium 7.9 L
Total Bilirubin 0.7
AST 44
ALT 30
Alkaline Phosphatase 75
Vital Signs:
Vital Signs
Temp Pulse Resp BP Pulse Ox
97.9 F 70 16 143/71 93
02/19/24 07:20 02/19/24 08:05 02/19/24 07:20 02/19/24 08:05 02/19/24 07:20
I&O
02/18/24 02/19/24 02/20/24
06:59 06:59 06:59
Intake Total 1760 / 1760 1180 / 1180
Output Total 575 / 575 1700 / 1700
Balance 1185 / 1185 -520 / -520
[2024-02-19 11:44] VITALS: BP 130/69
[2024-02-19] MEDS: PEPCID 20 MG PO (13:43)
[2024-02-19] MEDS: MAXIPIME 1000 MG IV ×2 (13:43→20:49)
[2024-02-19] MEDS: STERILE WATER FOR INJECTION 10 ML IV ×2 (13:43→20:49)
[2024-02-19] MEDS: HYDROPHOR 1 APPLIC TOPICAL (13:45)
[2024-02-19 15:11] VITALS: BP 138/75
--- NOTE | 2024-02-19 16:31 | W.PN.NEPH.PH ---
Today's Communication / Plan
-
follow labs
gentle IVF if po intake poor
Assessment/Plan
-
Assessment:
Left lower extremity swelling and pain secondary to cellulitis
Mental status change
acute kidney injury
Hyponatremia
Metabolic acidosis
Hypotension
Coronary artery disease with bypass
Heart failure reduced ejection fraction
Left lower extremity bypass and endarterectomy
History of hep C, treated
History of PE
Plan:
EMERSON-cr seem to improve slowly, non oliguric
monitor bladder scan
DESIRE, ANCA neg but c3 is mildly low-clinical sig unknown, U eosinophils neg , UA bland
stable met acidosis-continue bicarb
BP stable
abx per ID
no emergent need of HD
d/w nursing
today d/w Son Ender (there are two other sons) regarding renal function. We could consider biopsy, but he is on eliquis, which would have to be held risks outweighs benefit.
Dr Rivas d/w family about dialysis on 02/16. they will need to discuss whether or not it is something they wish to pursue. He has no living will
-
-
Date of Service: February 19, 2024
CC / HPI / ROS
-
Chief Complaint:
Acute kidney injury
History of Present Illness:
EMERSON/Cr down to 4.1
K up at 5.1
Metabolic acidosis persists, stable
Hemodynamically more stable off antihypertensives and Entresto
urine incontinence, concern of pulling things, wilson was out
Review of Systems:
No reported chest pain or shortness of breath
No fevers
confused
c/o pain at the surgical site-elle were removed per staff
Labs
-
Labs:
WBC 7.7 10^3/uL (4.8-10.8) 02/19/24 05:28
RBC 2.97 10^6/uL (4.70-6.10) L 02/19/24 05:28
Hgb 9.2 g/dL (13.0-18.0) L 02/19/24 05:28
Hct 27.8 % (39.0-52.0) L 02/19/24 05:28
Plt Count 232 10^3/uL (130-400) 02/19/24 05:28
Sodium 134 mmol/L (135-145) L 02/19/24 05:28
Potassium 5.1 mmol/L (3.5-5.1) 02/19/24 05:28
Chloride 108 mmol/L (98-107) H 02/19/24 05:28
Carbon Dioxide 20 mmol/L (22-30) L 02/19/24 05:28
BUN 84 mg/dl (9-20) H 02/19/24 05:28
Creatinine 4.1 mg/dL (0.7-1.3) H* 02/19/24 05:28
eGFR 14.44 02/19/24 05:28
Glucose 83 mg/dl (70-99) 02/19/24 05:28
Calcium 7.9 mg/dl (8.4-10.2) L 02/19/24 05:28
Albumin 2.7 g/dl (3.5-5.0) L 02/19/24 05:28
Physical Exam
-
Vital Signs:
Vital Signs
Temp Pulse Resp BP Pulse Ox
97.9 F 68 18 138/75 94
02/19/24 15:11 02/19/24 15:11 02/19/24 15:11 02/19/24 15:11 02/19/24 15:11
Cardiovascular:: Regular rate and rhythm
Respiratory:: Bilateral: CTA
Lung Excursion:: Normal
Abdomen:: Nontender and Soft
Extremity Edema:: None: Bilateral:
Wilson Catheter: No
Other Findings::
left leg long incision looks clean
--- NOTE | 2024-02-19 16:47 | W.PN.UPDATE ---
Update Note
Progress Note Update
Removed elle from medial and lateral aspects of calf, did not remove medial upper thigh and groin elle/sutures due to erythema and skin sensitive from irritation. Patient tolerated staple removal, skin edges well-approximated and area CDI.
[2024-02-19] MEDS: NEURONTIN 300 MG PO (18:13)
[2024-02-19] MEDS: FLUSH (NSS) 1 FLUSH IV (18:15)
[2024-02-19 19:08] VITALS: BP 170/74
[2024-02-19] MEDS: TYLENOL 650 MG PO (21:56)
[2024-02-19 23:54] VITALS: BP 164/74
[2024-02-20] VITALS (8 sets, daily range): BP systolic 154–163; BP diastolic 68–91; PULSE 64; O2SAT 92–94; BMI 28.3
[2024-02-20 04:55] LABS: % Basophils 0.5 % (0-2); % Immature Granulocytes 0.5 % (0-0.5); % Lymphocytes 11.4 % (20.5-51.1); % Neutrophils 70.6 % (42.2-75.2); Absolute Eosinophils 0.4 10^3/uL (0-0.7); Absolute Lymphocytes 0.8 10^3/uL (1.2-3.4); Absolute Monocytes 0.7 10^3/uL (0.1-0.6); Absolute Neutrophils 4.7 10^3/uL (1.4-6.5); Hematocrit 27.3 % (39.0-52.0); Hemoglobin 8.8 g/dL (13.0-18.0); Mean Corp Hgb Conc. 32.2 g/dL (33.0-37.0); Mean Corpuscular Hgb 30.4 pg (27.0-31.0); Mean Corpuscular Volume 94.5 fL (80.0-94.0); Mean Platelet Volume 9.7 fL (7.4-10.4); Nucleated Red Blood Cells % 0 % (-); Platelet Count 200 10^3/uL (130-400); Red Blood Cell Count 2.89 10^6/uL (4.70-6.10); Red Cell Dist. Width 13.2 % (11.5-14.5); White Blood Cell Count 6.7 10^3/uL (4.8-10.8)
[2024-02-20 05:41] LABS: ALT (SGPT) 29 U/L (0-50); AST (SGOT) 40 U/L (17-59); Albumin 2.6 g/dl (3.5-5.0); Alkaline Phosphatase 85 U/L (38-126); Blood Urea Nitrogen 76 mg/dl (9-20); Calcium 8.1 mg/dl (8.4-10.2); Carbon Dioxide 24 mmol/L (22-30); Chloride 106 mmol/L (98-107); Estimated Creatinine Clearance 16 ml/min; Glucose 82 mg/dl (70-99); Potassium 5.1 mmol/L (3.5-5.1); Sodium 139 mmol/L (135-145); Total Bilirubin 0.7 mg/dl (0.2-1.3); Total Protein 5.3 g/dl (6.3-8.2); eGFR 14.44
[2024-02-20] MEDS: SYNTHROID 75 MCG PO (06:36)
[2024-02-20] MEDS: CRESTOR 5 MG PO (08:06)
[2024-02-20] MEDS: TIMOPTIC 0.5% OPHTHALMIC SOLUTION 1 DROP BOTH EYES (08:06)
[2024-02-20] MEDS: COREG 12.5 MG PO ×2 (08:06→21:00)
[2024-02-20] MEDS: TYLENOL 650 MG PO (08:06)
[2024-02-20] MEDS: SODIUM BICARBONATE 1300 MG PO ×3 (08:06→21:41)
[2024-02-20] MEDS: ELIQUIS 5 MG PO ×2 (08:06→21:00)
[2024-02-20] MEDS: FLOMAX 0.400000000000000022 MG PO (08:06)
[2024-02-20] MEDS: ASPIR LOW (ENTERIC COATED) 81 MG PO (08:07)
[2024-02-20] MEDS: COLACE 100 MG PO ×2 (08:07→21:00)
[2024-02-20] MEDS: HYDROPHOR 1 APPLIC TOPICAL (08:08)
[2024-02-20] MEDS: STERILE WATER FOR INJECTION 10 ML IV ×2 (08:08→21:00)
[2024-02-20] MEDS: MAXIPIME 1000 MG IV ×2 (08:08→21:00)
[2024-02-20] MEDS: DILAUDID 0.25 MG IV (09:30)
--- NOTE | 2024-02-20 10:40 | WOUNDNOTE ---
WON RN NOTE: Followed up today for wound vac change on L 1st met head. Sutures intact, Betadine and folded 2x2 gauze applied. Open surgical site is clean, approximately 1cm deep, residual toughy white gout on edges visible. Periwound intact, applied
thin layer of mj seal around opposite edge of sutures then drape. Track pad placed on dorsal foot, 1 black foam used, to 125mmgh no leaks. Covered and padded foot with ABD pads. L heel much improved, dry eschar flaked off revealing healed skin
underneath. B/L sides of heel with small stage 2 not new. Adaptic, abd pad and kerlix applied, entire foot to ankle secured with breanna wrap. TruVue lite offloading heel boots applied. R heel also checked with assist from nurse Tonya who helped turn
patient. R heel eschar now benson and stringy, remainder of ulcer pink with maceration to proximal edges, large drainage no odor. Ordered Santyl for eschar and dry dressing. Notified Dr. Grande of R heel and recommended an x ray to rule out osteo.
Sacrum remains blanchable red. Will update wound care orders and care plan, nurse aware.
--- NOTE | 2024-02-20 10:40 | WOUNDNOTE ---
L HEEL, ESCHAR SLOUGHED OFF, HEALED SKIN UNDERNEATH
--- NOTE | 2024-02-20 10:41 | WOUNDNOTE ---
L HEEL BEFORE ESCHAR CAME OFF
--- NOTE | 2024-02-20 10:42 | WOUNDNOTE ---
l 5TH MET HEAD SURGICAL SITE
--- NOTE | 2024-02-20 10:43 | WOUNDNOTE ---
L DORSAL GREAT TOE
--- NOTE | 2024-02-20 12:11 | W.PN.HOSP.TC ---
Today's Communication/Plan
-
Path wtih acute OM
IV abx-plan per ID
Cr elevated
Monitor mentation with cefepime
Assessment / Plan
Assessment / Plan
General: No Apparent Distress and Comfortable
HEENT: Anicteric and Moist mucous membranes
Respiratory: Clear and Non Labored Respirations; No Wheezes
Cardiac: S1/S2 and Regular Rhythm
GI: Soft, Non Tender, Non Distended and Normal Bowel Sounds
Genito-urinary: + Wilson
Musculoskeletal: Edema, Left Lower Extremity, erythema; LLE bandage
Neuro: Awake, Alert, confused. moving all 4 extremity
Psych: Calm and Intact Judgment/Insight
Left lower extremity swelling and pain suspect secondary to osteomyelitis
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
TME likely secondary to above; improving
cw abx
ID following
Wound care
Patient was seen by vascular surgery and does not appear this related to his bypass; SALIMA drain dc'ed 02/12
Does have left first MTP wound which could likely be the source. podiatry following, ulceration left foot first monitor tarsal head, podiatry discussed with patient and son regarding possible resection or bone biopsy. MRI noted; possible osteo but
gout shows similar presentation; s/p 1st met resection/debridement left foot on 02/14; bone biopsy RESULTS WITH ACUTE OM
PAD status post left lower extremity bypass 01/22/2024
Path resulted with Osteomyelitis -will require [employer] abx
Wound care evaluated patient-concern for R foot wound-check xrays
Monitor mentation closely as on Cefepime
Acute kidney injury with hyperkalemia and metabolic acidosis
Creatinine 4.1, BUN mildly improving; nephrology discussing with family for potential biopsy. Serologies pending
Check UA neg, urine eos neg
suspect 2/2 retention and hypotension/hypovolemia
had Wilson catheter, Wilson management per nephrology; wilson apparently was dc'ed by overnight nursing
Nephrology following
Hold nephrotoxic agents
on PO bicarb
renal ultrasound 02/13 showed small bilateral renal cyst, otherwise normal
Acidosis resolved
Fever likely 2/2 norovirus
monitor
bcx NGTD
procal mildly elevated however not relevant with EMERSON
no diarrhea x 24h
Hyponatremia
monitor
History of pulmonary embolism
Restarted Eliquis per podiatry
CAD status post CABG
Continue aspirin
Ischemic cardiomyopathy
EF 30 to 35%
Follows up with Dr. Graves outpatient
Hold Entresto given EMERSON
History of [place]
mild wheezing
CXR with atelectasis
cw duonebs
improving
stage 2 distal to eschar
PAD status post stent earlier and now recent left lower extremity arterial bypass with vein graft for chronic wound and PAD
Follows up with Dr. Wilson outpatient
Vascular following
SALIMA drain dc'ed 02/12
Suspect cognitive impairment
This was discussed on previous admission and son was instructed to follow-up outpatient
CT 10/11 was consistent with diffuse cortical atrophy
monitor mentation closely. If any changes check repeat imaging
Anemia, suspect anemia of chronic disease
Monitor
Hyponatremia
Monitor
Hyperkalemia
Monitor
History of hypertension
Hyperlipidemia
Hypothyroidism
History of hep C, treated
History of GERD
History of insomnia
Hold trazodone
DVTppx
eliquis
CODE STATUS
Full code
pt/ot rec SNF
Anticipated Discharge: > 48 hours
Subjective/Interval History
-
Date of Service: February 20, 2024
mildly confused this am
states of leg pain
Objective Data
-
Labs:
Laboratory Results
02/20/24
04:10
WBC 6.7
Hgb 8.8 L
Hct 27.3 L
Plt Count 200
Sodium 139
Potassium 5.1
Chloride 106
Carbon Dioxide 24
BUN 76 H
Creatinine 4.1 H*
Glucose 82
Calcium 8.1 L
Total Bilirubin 0.7
AST 40
ALT 29
Alkaline Phosphatase 85
Vital Signs:
Vital Signs
Temp Pulse Resp BP Pulse Ox
98.4 F 66 18 163/73 94
02/20/24 07:30 02/20/24 07:30 02/20/24 07:30 02/20/24 07:30 02/20/24 07:30
I&O
02/19/24 02/20/24 02/21/24
06:59 06:59 06:59
Intake Total 1180 / 1180 960 / 960
Output Total 1700 / 1700 1000 / 1000
Balance -520 / -520 -40 / -40
Data Reviewed
-
Total Time Spent with Patient (in minutes): 56
--- NOTE | 2024-02-20 12:29 | W.PN.NEPH.PH ---
Today's Communication / Plan
-
Observe
Follow BMP
Assessment/Plan
-
Assessment:
Left lower extremity swelling and pain secondary to cellulitis
Mental status change
acute kidney injury
Hyponatremia
Metabolic acidosis
Hypotension
Coronary artery disease with bypass
Heart failure reduced ejection fraction
Left lower extremity bypass and endarterectomy
History of hep C, treated
History of PE
Plan:
EMERSON-cr seem to improve slowly, non oliguric
monitor bladder scan
DESIRE, ANCA neg but c3 is mildly low-clinical sig unknown, U eosinophils neg , UA bland
stable met acidosis-continue bicarb
BP stable
abx per ID
no emergent need of HD, unfortunately no clear-cut etiology identified other than possible postoperative vascular surgical complication d/w nursing
previously d/w Son Ender (there are two other sons) regarding renal function. We could consider biopsy, but he is on eliquis, which would have to be held risks outweighs benefit.
Dr Rivas d/w family about dialysis on 02/16. they will need to discuss whether or not it is something they wish to pursue. He has no living will
-
-
Date of Service: February 20, 2024
CC / HPI / ROS
-
Chief Complaint:
Acute kidney injury
History of Present Illness:
EMERSON/Cr unchanged 4.1
K up at 5.1
Metabolic acidosis persists, stable
Hemodynamically more stable off antihypertensives and Entresto
urine incontinence, concern of pulling things, wilson was out
Review of Systems:
No reported chest pain or shortness of breath
No fevers
confused
c/o pain at the surgical site-elle were removed per staff
Labs
-
Labs:
WBC 6.7 10^3/uL (4.8-10.8) 02/20/24 04:10
RBC 2.89 10^6/uL (4.70-6.10) L 02/20/24 04:10
Hgb 8.8 g/dL (13.0-18.0) L 02/20/24 04:10
Hct 27.3 % (39.0-52.0) L 02/20/24 04:10
Plt Count 200 10^3/uL (130-400) 02/20/24 04:10
Sodium 139 mmol/L (135-145) 02/20/24 04:10
Potassium 5.1 mmol/L (3.5-5.1) 02/20/24 04:10
Chloride 106 mmol/L (98-107) 02/20/24 04:10
Carbon Dioxide 24 mmol/L (22-30) 02/20/24 04:10
BUN 76 mg/dl (9-20) H 02/20/24 04:10
Creatinine 4.1 mg/dL (0.7-1.3) H* 02/20/24 04:10
eGFR 14.44 02/20/24 04:10
Glucose 82 mg/dl (70-99) 02/20/24 04:10
Calcium 8.1 mg/dl (8.4-10.2) L 02/20/24 04:10
Albumin 2.6 g/dl (3.5-5.0) L 02/20/24 04:10
Physical Exam
-
Vital Signs:
Vital Signs
Temp Pulse Resp BP Pulse Ox
98.1 F 64 16 156/71 93
02/20/24 11:30 02/20/24 11:30 02/20/24 11:30 02/20/24 11:30 02/20/24 11:30
Cardiovascular:: Regular rate and rhythm
Respiratory:: Bilateral: Coarse
Lung Excursion:: Normal
Abdomen:: Nontender and Soft
Bowel Sounds:: Normal
Extremity Edema:: None: Bilateral:
Wilson Catheter: No
--- NOTE | 2024-02-20 14:32 | W.PN.ID1 ---
Date of Service
Date of Service: February 20, 2024
Today's Communication
Continue cefepime 1g IV q12 (renally dosed) (day 23 abx) x 6 weeks through 03/10/24.
Assessment / Plan
# Acute left foot cellulitis resolved
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
- Prior wound cx Pseudomonas
- 02/14/24 s/p excisional debridement ulcer/1st met resection/debridement prox phalange, tophi noted
OR Tissue cultures no growth to date (on abx at the time)
Bone biopsies: + osteo of prox phalanx and metatarsal bone; unable to define margin
-Continue cefepime 1g IV q12 (renally dosed) (day 23 abx) x 6 weeks through 03/10/24.
# Tophaceous gout
-s/p prednisone 40mg po qd x 5 days
- continue gout prophylaxis allopurinol 50mg qT, Sun (renally dosed)
# EMERSON stable today
- May need HD per nephrology
# PAD s/p left femoral endarterectomy with patch angioplasty, left SFA to ant tibial artery bypass (01/22/24)
# Norovirus infection
- Diarrhea resolved
- Continue enhanced contact precaution.
#Additional Past Medical History:
HTN
dyslipidemia
CAD s/p CABG x 3
Ischemic cardiomyopathy s/p ICD (2019)
PE
PAD s/p hx BLE stents; s/p left femoral endarterectomy with patch angioplasty, left SFA to ant tibial artery bypass (01/22/24)
Chief Complaint
-: Cellulitis
Subjective / Review of Systems
Feels ok.
Vital Signs / Physical Exam
Vital Signs
Vital Signs
Temp Pulse Resp BP Pulse Ox
98.1 F 64 16 156/71 93
02/20/24 11:30 02/20/24 11:30 04/03/24 11:30 02/20/24 11:30 02/20/24 11:30
Physical Exam
Constitutional: No Acute Distress
Eyes: Sclera Anicteric
Cardiovascular: Regular Rate and S1/S2
Pulmonary: Clear
Gastrointestinal: Soft, Non Tender, Non Distended and Normal Bowel Sounds
Extremities: Negative Edema
Wound: Other (Reviewed wound photos: left first met head with granulating tissue, residual white tophi, incision intact)
Objective Data
Lab Data
Lab Results
02/20/24 04:10
02/20/24 04:10
Estimated Creat Clear 16 ml/min 02/20/24 04:10
Lactic Acid 0.9 mmol/L (0.7-2.0) 02/15/24 04:19
Total Bilirubin 0.7 mg/dl (0.2-1.3) 02/20/24 04:10
AST 40 U/L (17-59) 02/20/24 04:10
ALT 29 U/L (0-50) 02/20/24 04:10
Alkaline Phosphatase 85 U/L (38-126) 02/20/24 04:10
Most recent labs reviewed.
Micro Results:
02/17/24 11:40 Blood Culture - Preliminary
Blood/Venous No Growth in 72 hours- Final report to follow
02/17/24 11:34 Blood Culture - Preliminary
Blood/Venous No Growth in 72 hours- Final report to follow
02/14/24 16:50 Wound Culture - Final
Foot - Left No growth
Gram Stain - Final
02/14/24 16:50 Anaerobic Culture - Final
Foot - Left NO ANAEROBES ISOLATED
02/16/24 11:43 Salmonella/Shigella Culture - Final
Feces/Stool No Salmonella, Shigella, Aeromonas or Plesiomonas species
isolated.
Campylobacter Culture - Final
No Campylobacter species isolated.
Shiga Toxin Test - Final
No E. coli Shiga Toxin 1 or 2 detected.
02/14/24 16:50 Tissue Culture - Final
Toe No Growth After 72 Hours
Gram Stain - Final
02/14/24 16:50 Tissue Culture - Final
Foot - Left No Growth After 72 Hours
Gram Stain - Final
02/12/24 11:20 Blood Culture - Final
Blood/Venous No Growth - Final Report
02/12/24 10:24 Blood Culture - Final
Blood/Venous No Growth - Final Report
02/16/24 11:43 C. difficile GDH Antigen & Toxins - Final
Feces/Stool Negative for toxigenic C.difficile
- Final
Positive for Norovirus GII
02/16/24 11:43 Stool Leukocytes - Final
Feces/Stool
02/12/24 12:40 MRSA Screen - Final
Nose No Methicillin Resistant Staphylococcus aureus isolated.
02/12/24 Foot XRAY: Healing versus old healed fracture of the left second metatarsal again seen, stable in comparison to recent prior study. Cannot exclude some mild lucency of the medial aspect of the head of the left first metatarsal as noted on
single view, cannot exclude infectious process such as osteomyelitis.
02/14/24 MRI LLE w w/o: There is enhancing intermediate T1-weighted signal involving the distal medial aspect of the first metatarsal head, and the proximal aspect of the proximal phalanx of the left great toe. There is also enhancing intermediate
T1-weighted signal involving the medial sesamoid, inferior to the first metatarsal head, and this is also considered suspicious for osteomyelitis. These findings are highly suggestive of osteomyelitis. Of note, inflammatory arthropathy/gout can
result in similar MR findings.
--- NOTE | 2024-02-20 16:06 | CM ---
Reviewed the chart notes. Patient to remain on IV abx through 03/10/2024 for a total of 6 weeks. Patient will require SNF placement. Per notes, discussion with family regarding HD was held on 02/17/24. Family to decide if they chose to pursue. CM
continues to be available to patient/family and is monitoring medical plan for needs at discharge.
Plan: Discharge to SNF/rehab when medically stable. No precert will be required. If plan is for HD, will have limited facilities willing to accept patient.
[2024-02-20] MEDS: NEURONTIN 300 MG PO (17:11)
[2024-02-20 22:05] LABS: Glucose - Point of Care 103 mg/dl (70-99)
[2024-02-20] MEDS: DUONEB 3 ML INH (23:35)
[2024-02-21] VITALS (11 sets, daily range): BP systolic 122–180; BP diastolic 62–110; BMI 28.1
[2024-02-21] MEDS: DILAUDID 0.5 MG IV (01:17)
--- NOTE | 2024-02-21 03:35 | PTCARENOTE ---
Pt noted with increased confusion and restlessness, placed on 2L O2 at 2300 for sating 84% on RA, RR 28, Pox 94% with O2. At 0300 pt had removed O2 and appeared in resp distress with audible wheezing, Pox low 70%, tachypneic, Bp 180/92, 86 manual.
Pt pain assessed and medicated accordingly. scallop raker [employer]ING [employer]MENT SUPERVISOR made aware, stat CXR ordered, ABG drawn, and O2 increased to 4L/min with Pox 96%. Hydralazine stat ordered, however not administered d/t BP dropping to 139/89, 78.
[2024-02-21 04:48] LABS: COVID-19 Antigen Negative (Negative)
[2024-02-21 05:18] LABS: Blood Urea Nitrogen 74 mg/dl (9-20); Calcium 8.3 mg/dl (8.4-10.2); Carbon Dioxide 23 mmol/L (22-30); Chloride 108 mmol/L (98-107); Estimated Creatinine Clearance 16 ml/min; Glucose 98 mg/dl (70-99); Potassium 5.4 mmol/L (3.5-5.1); Sodium 140 mmol/L (135-145); eGFR 14.87
--- NOTE | 2024-02-21 05:25 | W.PN.UPDATE ---
Addendum entered and electronically signed by HERBERTH Berg 02/21/24 06:54:
lungs coarse with mild wheezing, RRR. Denies any pain with dep breathing.
Original Note:
Update Note
Progress Note Update
RN notified CRIMPER ASSEMBLER patient was desating to 68% on RA, Placed on 4L and increaed to 95% advised RN to wean off O2, now at 92% 2l RR 22,139/ 89 , 78, will order Covid, ABG, and stat chest Xray. Patient is AA, confused, resting in bed, states he is pain
in Right side back, mildly shortness of breath, but denies any chest pain.
[2024-02-21 06:26] LABS: B.E. -0.1 mmol/L; HCO3 23.3 mmol/L (21-28); O2 Saturation % 97.9 % (94-98); PCO2 32 mmHg (35-48); PO2 78 mmHg (83-108); pH 7.47 (7.35-7.45)
[2024-02-21] MEDS: SYNTHROID 75 MCG PO (06:38)
[2024-02-21 07:56] LABS: Hematocrit 26.8 % (39.0-52.0); Hemoglobin 8.9 g/dL (13.0-18.0); Mean Corp Hgb Conc. 33.2 g/dL (33.0-37.0); Mean Corpuscular Hgb 30.8 pg (27.0-31.0); Mean Corpuscular Volume 92.7 fL (80.0-94.0); Mean Platelet Volume 9.8 fL (7.4-10.4); Platelet Count 218 10^3/uL (130-400); Red Blood Cell Count 2.89 10^6/uL (4.70-6.10); Red Cell Dist. Width 13.2 % (11.5-14.5); White Blood Cell Count 8.9 10^3/uL (4.8-10.8)
[2024-02-21] MEDS: DUONEB 3 ML INH ×4 (08:15→19:57)
[2024-02-21] MEDS: CRESTOR 5 MG PO (08:34)
[2024-02-21] MEDS: ELIQUIS 5 MG PO ×2 (08:34→19:46)
[2024-02-21] MEDS: SODIUM BICARBONATE 1300 MG PO ×3 (08:34→21:35)
[2024-02-21] MEDS: LOKELMA 10 GRAM PO (08:34)
[2024-02-21] MEDS: STERILE WATER FOR INJECTION 10 ML IV ×2 (08:34→19:48)
[2024-02-21] MEDS: MAXIPIME 1000 MG IV ×2 (08:34→19:48)
[2024-02-21] MEDS: COLACE 100 MG PO ×2 (08:34→19:47)
[2024-02-21] MEDS: SANTYL OINTMENT 1 APPLIC TOPICAL (08:35)
[2024-02-21] MEDS: FLOMAX 0.400000000000000022 MG PO (08:35)
[2024-02-21] MEDS: COREG 12.5 MG PO ×2 (08:35→19:47)
[2024-02-21] MEDS: ASPIR LOW (ENTERIC COATED) 81 MG PO (08:35)
[2024-02-21] MEDS: DILAUDID 0.25 MG IV (08:36)
[2024-02-21] MEDS: HYDROPHOR 1 APPLIC TOPICAL (09:05)
[2024-02-21] MEDS: TIMOPTIC 0.5% OPHTHALMIC SOLUTION 1 DROP BOTH EYES (09:05)
--- NOTE | 2024-02-21 09:54 | W.PN.HOSP.TC ---
Today's Communication/Plan
-
As needed BP meds
Pain control
Monitor mentation
IV antibiotics
Trend creatinine
Lokelma x 1
Continue bicarb
Assessment / Plan
Assessment / Plan
General: No Apparent Distress and Comfortable
HEENT: Anicteric and Moist mucous membranes
Respiratory: Clear and Non Labored Respirations; No Wheezes
Cardiac: S1/S2 and Regular Rhythm
GI: Soft, Non Tender, Non Distended and Normal Bowel Sounds
Genito-urinary: + Wilson
Musculoskeletal: Edema, Left Lower Extremity, erythema; LLE bandage with wound vac, left groin elle without erythema or drainage.
Neuro: Awake, confused. moving all 4 extremity
Psych: anxious
Left lower extremity swelling and pain suspect secondary to osteomyelitis
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
TME likely secondary to above; improving
cw abx
ID following
Wound care
Patient was seen by vascular surgery and does not appear this related to his bypass; SALIMA drain tn'ed 02/12
Does have left first MTP wound which could likely be the source. podiatry following, ulceration left foot first monitor tarsal head, podiatry discussed with patient and son regarding possible resection or bone biopsy. MRI noted; possible osteo but
gout shows similar presentation; s/p 1st met resection/debridement left foot on 02/14; bone biopsy RESULTS WITH ACUTE OM
PAD status post left lower extremity bypass 01/22/2024
Path resulted with Osteomyelitis -will require joint terminal attack controller abx
Monitor mentation closely as on Cefepime
Acute kidney injury with hyperkalemia and metabolic acidosis
Creatinine 4 BUN mildly improving; nephrology discussing with family for potential biopsy. Serologies pending
Check UA neg, urine eos neg, ANCA negative. C3 complement low. C4 normal. DESIRE negative. Antistreptolysin antibody positive. Antistreptolysin titer elevated blood cultures negative x 3 days.
suspect 2/2 retention and hypotension/hypovolemia
had Wilson catheter, Wilson management per nephrology; wilson apparently was dc'ed by overnight nursing
Nephrology following
Hold nephrotoxic agents
on PO bicarb
renal ultrasound 02/13 showed small bilateral renal cyst, otherwise normal
Acidosis resolved
lokelma
Primary hypertension elevated to some extent due to pain
And continue carvedilol
As needed hydralazine added
Fever likely 2/2 norovirus
monitor
bcx NGTD
procal mildly elevated however not relevant with EMERSON
no diarrhea x 24h
Hyponatremia
monitor
History of pulmonary embolism
Restarted Eliquis per podiatry
CAD status post CABG
Continue aspirin
Ischemic cardiomyopathy
EF 30 to 35%
Follows up with Dr. Graves outpatient
Hold Entresto given EMERSON
History of [place]
Acute hypoxic respiratory insufficiency secondary to atelectasis
CXR with atelectasis
cw duonebs
improving
stage 2 distal to eschar
PAD status post stent earlier and now recent left lower extremity arterial bypass with vein graft for chronic wound and PAD
Follows up with Dr. Wilson outpatient
Vascular following
SALIMA drain dc'ed 02/12
Suspect cognitive impairment
This was discussed on previous admission and son was instructed to follow-up outpatient
CT 10/11 was consistent with diffuse cortical atrophy
monitor mentation closely. If any changes check repeat imaging
Anemia, suspect anemia of chronic disease
Monitor
Hyponatremia
Monitor
Hyperkalemia
Monitor
History of hypertension
Hyperlipidemia
Hypothyroidism
History of hep C, treated
History of GERD
History of insomnia
Hold trazodone
DVTppx
eliquis
CODE STATUS
Full code
pt/ot rec SNF
Anticipated Discharge: > 48 hours
Subjective/Interval History
-
Date of Service: February 21, 2024
states of pain Right leg
anxious and emotional this am
remains confused
Objective Data
-
Labs:
Laboratory Results
02/21/24 02/21/24 02/21/24
04:14 04:30 06:22
WBC
Hgb
Hct
Plt Count
HCO3 Cancelled 23.3
Sodium 140
Potassium 5.4 H
Chloride 108 H
Carbon Dioxide 23
BUN 74 H
Creatinine 4.0 H
Glucose 98
Calcium 8.3 L
02/21/24
07:34
WBC 8.9
Hgb 8.9 L
Hct 26.8 L
Plt Count 218
HCO3
Sodium
Potassium
Chloride
Carbon Dioxide
BUN
Creatinine
Glucose
Calcium
Vital Signs:
Vital Signs
Temp Pulse Resp BP Pulse Ox
98.6 F 77 18 171/82 94
02/21/24 03:00 02/21/24 08:16 02/21/24 08:16 02/21/24 08:35 02/21/24 08:16
I&O
02/20/24 02/21/24 02/22/24
06:59 06:59 06:59
Intake Total 960 / 960 960 / 960
Output Total 1000 / 1000 1300 / 1300
Balance -40 / -40 -340 / -340
Data Reviewed
-
Total Time Spent with Patient (in minutes): 55
--- NOTE | 2024-02-21 11:01 | W.PN.ID1 ---
Date of Service
Date of Service: February 21, 2024
Today's Communication
Continue cefepime till 03/10/24.
Assessment / Plan
# Acute left foot cellulitis resolved
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
- Prior wound cx Pseudomonas
- 02/14/24 s/p excisional debridement ulcer/1st met resection/debridement prox phalange, tophi noted
OR Tissue cultures no growth to date (on abx at the time)
Bone biopsies: + osteo of prox phalanx and metatarsal bone; unable to define margin
-Continue cefepime 1g IV q12 (renally dosed) (day 24 abx) x 6 weeks through 03/10/24.
# Tophaceous gout
-s/p prednisone 40mg po qd x 5 days
- continue gout prophylaxis allopurinol 50mg qT, Sun (renally dosed)
# EMERSON slightly improved
- May need HD per nephrology
# PAD s/p left femoral endarterectomy with patch angioplasty, left SFA to ant tibial artery bypass (01/22/24)
# Norovirus infection
- Diarrhea resolved
#Additional Past Medical History:
HTN
dyslipidemia
CAD s/p CABG x 3
Ischemic cardiomyopathy s/p ICD (2019)
PE
PAD s/p hx BLE stents; s/p left femoral endarterectomy with patch angioplasty, left SFA to ant tibial artery bypass (01/22/24)
Chief Complaint
-: Cellulitis and Other (osteo)
Subjective / Review of Systems
Sitting up in chair.
Vital Signs / Physical Exam
Vital Signs
Vital Signs
Temp Pulse Resp BP Pulse Ox
98.2 F 64 16 138/62 95
02/21/24 10:43 02/21/24 10:43 02/21/24 10:43 02/21/24 10:43 02/21/24 10:43
Physical Exam
Constitutional: No Acute Distress and Comfortable
Gastrointestinal: Soft, Non Tender and Non Distended
Extremities: Negative Edema
Wound: Other (left foot wound vac in place)
Objective Data
Lab Data
Lab Results
02/21/24 07:34
02/21/24 04:30
Estimated Creat Clear 16 ml/min 02/21/24 04:30
Lactic Acid 0.9 mmol/L (0.7-2.0) 02/15/24 04:19
Total Bilirubin 0.7 mg/dl (0.2-1.3) 02/20/24 04:10
AST 40 U/L (17-59) 02/20/24 04:10
ALT 29 U/L (0-50) 02/20/24 04:10
Alkaline Phosphatase 85 U/L (38-126) 02/20/24 04:10
Most recent labs reviewed.
Micro Results:
02/17/24 11:40 Blood Culture - Preliminary
Blood/Venous No Growth in 72 hours- Final report to follow
02/17/24 11:34 Blood Culture - Preliminary
Blood/Venous No Growth in 72 hours- Final report to follow
02/14/24 16:50 Wound Culture - Final
Foot - Left No growth
Gram Stain - Final
02/14/24 16:50 Anaerobic Culture - Final
Foot - Left NO ANAEROBES ISOLATED
02/16/24 11:43 Salmonella/Shigella Culture - Final
Feces/Stool No Salmonella, Shigella, Aeromonas or Plesiomonas species
isolated.
Campylobacter Culture - Final
No Campylobacter species isolated.
Shiga Toxin Test - Final
No E. coli Shiga Toxin 1 or 2 detected.
02/14/24 16:50 Tissue Culture - Final
Toe No Growth After 72 Hours
Gram Stain - Final
02/14/24 16:50 Tissue Culture - Final
Foot - Left No Growth After 72 Hours
Gram Stain - Final
02/12/24 11:20 Blood Culture - Final
Blood/Venous No Growth - Final Report
02/12/24 10:24 Blood Culture - Final
Blood/Venous No Growth - Final Report
02/16/24 11:43 C. difficile GDH Antigen & Toxins - Final
Feces/Stool Negative for toxigenic C.difficile
- Final
Positive for Norovirus GII
02/16/24 11:43 Stool Leukocytes - Final
Feces/Stool
02/12/24 12:40 MRSA Screen - Final
Nose No Methicillin Resistant Staphylococcus aureus isolated.
02/12/24 Foot XRAY: Healing versus old healed fracture of the left second metatarsal again seen, stable in comparison to recent prior study. Cannot exclude some mild lucency of the medial aspect of the head of the left first metatarsal as noted on
single view, cannot exclude infectious process such as osteomyelitis.
02/14/24 MRI LLE w w/o: There is enhancing intermediate T1-weighted signal involving the distal medial aspect of the first metatarsal head, and the proximal aspect of the proximal phalanx of the left great toe. There is also enhancing intermediate
T1-weighted signal involving the medial sesamoid, inferior to the first metatarsal head, and this is also considered suspicious for osteomyelitis. These findings are highly suggestive of osteomyelitis. Of note, inflammatory arthropathy/gout can
result in similar MR findings.
--- NOTE | 2024-02-21 11:03 | PTCARENOTE ---
this nurse and two students got patient to chair with wound vac in place on left foot. pt bp this am was elevated but after receiving his AM medications is currently 138/62 for his 1100 vitals. per infection control pt no longer on enhanced
precautions. pt was aaox2 for this nurse this AM and verbalized severe pain in the LLE and foot. pt given prn 0.25 dilaudid. see MAR for proper charting. pt currently sleeping in chair at this time with son at the bedside. this nurse went over
current labs and plan with pt son. pt placed on continuous pulse ox overnight and 2L of O2. pt currently sitting at 94%.
--- NOTE | 2024-02-21 11:59 | W.PN.NEPH.PH ---
Today's Communication / Plan
-
Lokelma for hyperkalemia
Monitor basic metabolic pane
Maintain sodium bicarbonate for metabolic acidosis l
Assessment/Plan
-
Assessment:
Left lower extremity swelling and pain secondary to cellulitis
Mental status change
acute kidney injury
Hyponatremia
Metabolic acidosis
Hypotension
Coronary artery disease with bypass
Heart failure reduced ejection fraction
Left lower extremity bypass and endarterectomy
History of hep C, treated
History of [place]
Plan:
EMERSON-cr seem to improve slowly, non oliguric , creatinine started 4
Hyperkalemia evolving Lokelma provided today
monitor bladder scan , patient with Wilson issues when placed
DESIRE, ANCA neg but c3 is mildly low-clinical sig unknown, U eosinophils neg , UA bland
stable met acidosis-continue bicarb
BP stable
abx per ID
no emergent need of HD, unfortunately no clear-cut etiology identified other than possible postoperative vascular surgical complication d/w nursing
Unfortunately this may be patient's new baseline kidney function
previously d/w Son Ender (there are two other sons) regarding renal function. We could consider biopsy, but he is on eliquis, which would have to be held risks outweighs benefit.
Dr Rivas d/w family about dialysis on 02/16. they will need to discuss whether or not it is something they wish to pursue. He has no living will
-
-
Date of Service: February 21, 2024
CC / HPI / ROS
-
Chief Complaint:
Acute kidney injury
History of Present Illness:
EMERSON/Cr unchanged 4
K up at 5.4
Metabolic acidosis persists, stable on sodium bicarb
Hemodynamically more stable off antihypertensives and Entresto
urine incontinence, concern of pulling things, wilson was out
Review of Systems:
No reported chest pain or shortness of breath, currently on nebulizer treat
No fevers
confused
c/o pain at the surgical site-elle were removed per staff
Labs
-
Labs:
WBC 8.9 10^3/uL (4.8-10.8) 02/21/24 07:34
RBC 2.89 10^6/uL (4.70-6.10) L 02/21/24 07:34
Hgb 8.9 g/dL (13.0-18.0) L 02/21/24 07:34
Hct 26.8 % (39.0-52.0) L 02/21/24 07:34
Plt Count 218 10^3/uL (130-400) 02/21/24 07:34
Sodium 140 mmol/L (135-145) 02/21/24 04:30
Potassium 5.4 mmol/L (3.5-5.1) H 02/21/24 04:30
Chloride 108 mmol/L (98-107) H 02/21/24 04:30
Carbon Dioxide 23 mmol/L (22-30) 02/21/24 04:30
BUN 74 mg/dl (9-20) H 02/21/24 04:30
Creatinine 4.0 mg/dL (0.7-1.3) H 02/21/24 04:30
eGFR 14.87 02/21/24 04:30
Glucose 98 mg/dl (70-99) 02/21/24 04:30
Calcium 8.3 mg/dl (8.4-10.2) L 02/21/24 04:30
Albumin 2.6 g/dl (3.5-5.0) L 02/20/24 04:10
Physical Exam
-
Vital Signs:
Vital Signs
Temp Pulse Resp BP Pulse Ox
98.2 F 61 18 138/62 96
02/21/24 10:43 02/21/24 11:36 02/21/24 11:36 02/21/24 10:43 02/21/24 11:58
Cardiovascular:: Regular rate and rhythm
Respiratory:: Bilateral: Coarse
Lung Excursion:: Normal
Abdomen:: Nontender and Soft
Bowel Sounds:: Normal
Extremity Edema:: +1: Bilateral:
Wilson Catheter: No
[2024-02-21] MEDS: PEPCID 20 MG PO (12:02)
--- NOTE | 2024-02-21 15:45 | CM ---
Reviewed chart notes and spoke with Hannah with [facility]. Requested additional photos of wound and information of wound vac. Sent via [facility]. Bed available on Sunday. No precert required. CM continues to be available to patient/family and
is monitoring medical plan for needs at discharge.
Plan: Discharge to [facility] when bed available and patient medically stable for discharge. No precert required.
--- NOTE | 2024-02-21 15:46 | W.PN.UPDATE ---
Update Note
Progress Note Update
Patient reevaluated at medial upper thigh staple site erythema now vastly improved from previous assessment. All remaining elle and sutures removed without incident. All remaining skin edges well-approximated and area CDI.
[2024-02-21] MEDS: NEURONTIN 300 MG PO (17:17)
[2024-02-21] MEDS: ROXICODONE 5 MG PO (19:47)
[2024-02-21] MEDS: APRESOLINE 5 MG IV (23:05)
[2024-02-22] VITALS (11 sets, daily range): BP systolic 144–179; BP diastolic 69–89; PULSE 74; O2SAT 88; BMI 27.9
[2024-02-22] MEDS: DILAUDID 0.25 MG IV ×3 (01:15→20:45)
[2024-02-22] MEDS: APRESOLINE 5 MG IV ×2 (03:10→23:25)
--- NOTE | 2024-02-22 03:15 | PTCARENOTE ---
BP high from 2300 until this time, prn iv hydralazine 5mg given for manual bp 170/82,66 @2305. VS checked frequently, stayed in the 160/80�s, medicated for pain twice and offers no c/o pain at this time, however bp still 170/82, 72 , IV hydralazine
5mg adm, will continue to monitor. TOWEL STRETCHER made aware, no new orders at this time.
[2024-02-22] MEDS: ROXICODONE 5 MG PO ×3 (04:21→17:03)
[2024-02-22] MEDS: SYNTHROID 75 MCG PO (06:16)
[2024-02-22 06:44] LABS: Blood Urea Nitrogen 69 mg/dl (9-20); Calcium 8.3 mg/dl (8.4-10.2); Carbon Dioxide 22 mmol/L (22-30); Chloride 107 mmol/L (98-107); Estimated Creatinine Clearance 17 ml/min; Glucose 86 mg/dl (70-99); Potassium 4.9 mmol/L (3.5-5.1); Sodium 139 mmol/L (135-145); eGFR 16.33
[2024-02-22] MEDS: SANTYL OINTMENT 1 APPLIC TOPICAL (08:01)
[2024-02-22] MEDS: CRESTOR 5 MG PO (08:06)
[2024-02-22] MEDS: FLOMAX 0.400000000000000022 MG PO (08:06)
[2024-02-22] MEDS: ZYLOPRIM 50 MG PO (08:06)
[2024-02-22] MEDS: MAXIPIME 1000 MG IV ×2 (08:06→20:44)
[2024-02-22] MEDS: STERILE WATER FOR INJECTION 10 ML IV ×2 (08:06→20:43)
[2024-02-22] MEDS: DUONEB 3 ML INH ×4 (08:07→20:33)
[2024-02-22] MEDS: COREG 12.5 MG PO ×2 (08:10→20:41)
[2024-02-22] MEDS: ELIQUIS 5 MG PO ×2 (08:10→20:42)
[2024-02-22] MEDS: ASPIR LOW (ENTERIC COATED) 81 MG PO (08:10)
[2024-02-22] MEDS: COLACE 100 MG PO ×2 (08:10→20:40)
[2024-02-22] MEDS: SODIUM BICARBONATE 1300 MG PO ×3 (08:10→22:29)
[2024-02-22] MEDS: TIMOPTIC 0.5% OPHTHALMIC SOLUTION 1 DROP BOTH EYES (08:11)
[2024-02-22] MEDS: DESENEX/MITRAZOL/ZEASORB 1 APPLIC TOPICAL (08:12)
--- NOTE | 2024-02-22 09:07 | WOUNDNOTE ---
L FOOT (MEDIAL DORSAL)
--- NOTE | 2024-02-22 09:08 | WOUNDNOTE ---
L FOREFOOT (MEDIAL DORSAL) (about 1cm deep)
--- NOTE | 2024-02-22 09:09 | WOUNDNOTE ---
L FOREFOOT (MEDIAL DORSAL)
--- NOTE | 2024-02-22 09:10 | WOUNDNOTE ---
R 1ST MTH (MEDIAL)
--- NOTE | 2024-02-22 09:11 | WOUNDNOTE ---
R HEEL (PLANTAR POSTERIOR)
--- NOTE | 2024-02-22 09:15 | WOUNDNOTE ---
[facility] RN note: Patient's L foot wound vac dressing changed after BILLY Mac premedicated patient for pain. Less white tissue in wound, deepest part about 1cm deep. Foot incision with sutures dry and intact, no erythema. L heel and R heel improved from
Wed's picture. R heel eschar dry, rest of heel ulcer pink. Sacrum blanchable mild red and intact. Heel dressings changed as ordered. [employer] heel relief boots reapplied. Patient turned with help from BILLY Mac. Miconazole powder applied to
patient's R groin rash. L groin gauze dressing intact.
--- NOTE | 2024-02-22 10:08 | W.PN.HOSP.TC ---
Today's Communication/Plan
-
Trend BMP
IV antibiotic
Wound VAC changed today
Assessment / Plan
Assessment / Plan
General: No Apparent Distress and Comfortable
HEENT: Anicteric and Moist mucous membranes
Respiratory: Clear and Non Labored Respirations; No Wheezes
Cardiac: S1/S2 and Regular Rhythm
GI: Soft, Non Tender, Non Distended and Normal Bowel Sounds
Genito-urinary: + Wilson
Musculoskeletal: Edema, Left Lower Extremity, erythema; LLE foot with open wound noted during wound vac change
Neuro: Awake, confused. moving all 4 extremity
Psych: anxious
Left lower extremity swelling and pain suspect secondary to osteomyelitis
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
TME likely secondary to above; improving
cw abx
ID following
Wound care
Patient was seen by vascular surgery and does not appear this related to his bypass; SALIMA drain dc'ed 02/12
Does have left first MTP wound which could likely be the source. podiatry following, ulceration left foot first monitor tarsal head, podiatry discussed with patient and son regarding possible resection or bone biopsy. MRI noted; possible osteo but
gout shows similar presentation; s/p 1st met resection/debridement left foot on 02/14; bone biopsy RESULTS WITH ACUTE OM
PAD status post left lower extremity bypass 01/22/2024
Path resulted with Osteomyelitis -will require half-way abx
Monitor mentation closely as on Cefepime
Acute kidney injury with hyperkalemia and metabolic acidosis
Creatinine 3.7 slow improvement. BUN mildly improving; nephrology discussing with family for potential biopsy. Serologies pending
Check UA neg, urine eos neg, ANCA negative. C3 complement low. C4 normal. DESIRE negative. Antistreptolysin antibody positive. Antistreptolysin titer elevated blood cultures negative x 3 days.
suspect 2/2 retention and hypotension/hypovolemia
had Wilson catheter, Wilson management per nephrology; wilson apparently was dc'ed by overnight nursing
Nephrology following
Hold nephrotoxic agents
on PO bicarb
renal ultrasound 02/13 showed small bilateral renal cyst, otherwise normal
Acidosis resolved
lokelma
Primary hypertension elevated to some extent due to pain
And continue carvedilol
As needed hydralazine added
Fever likely 2/2 norovirus
monitor
bcx NGTD
procal mildly elevated however not relevant with EMERSON
no diarrhea x 24h
Hyponatremia
monitor
History of pulmonary embolism
Restarted Eliquis per podiatry
CAD status post CABG
Continue aspirin
Ischemic cardiomyopathy
EF 30 to 35%
Follows up with Dr. Graves outpatient
Hold Entresto given EMERSON
History of [place]
Acute hypoxic respiratory insufficiency secondary to atelectasis
CXR with atelectasis
cw duonebs
improving
stage 2 distal to eschar
PAD status post stent earlier and now recent left lower extremity arterial bypass with vein graft for chronic wound and PAD
Follows up with Dr. Wilson outpatient
Vascular following
SALIMA drain dc'ed 02/12
Suspect cognitive impairment
This was discussed on previous admission and son was instructed to follow-up outpatient
CT 10/11 was consistent with diffuse cortical atrophy
monitor mentation closely. If any changes check repeat imaging
Anemia, suspect anemia of chronic disease
Monitor
Hyponatremia
Monitor
Hyperkalemia
Monitor
History of hypertension
Hyperlipidemia
Hypothyroidism
History of hep C, treated
History of GERD
History of insomnia
Hold trazodone
DVTppx
eliquis
CODE STATUS
Full code
pt/ot rec SNF
Anticipated Discharge: > 48 hours
Subjective/Interval History
-
Date of Service: February 22, 2024
undergoing wound vac/dressing change
comfortable as received pain meds earlier
Objective Data
-
Labs:
Laboratory Results
02/22/24
05:42
Sodium 139
Potassium 4.9
Chloride 107
Carbon Dioxide 22
BUN 69 H
Creatinine 3.7 H
Glucose 86
Calcium 8.3 L
Vital Signs:
Vital Signs
Temp Pulse Resp BP Pulse Ox
97.9 F 76 20 144/77 92
02/22/24 07:59 02/22/24 08:10 02/22/24 08:10 02/22/24 07:59 02/22/24 08:10
I&O
02/21/24 02/22/24 02/23/24
06:59 06:59 06:59
Intake Total 960 / 960 720 / 720
Output Total 1300 / 1300 1840 / 1840
Balance -340 / -340 -1120 / -1120
--- NOTE | 2024-02-22 10:12 | W.PN.NEPH.PH ---
Today's Communication / Plan
-
monitor lab s
Assessment/Plan
-
Assessment:
Left lower extremity swelling and pain secondary to cellulitis
Mental status change
acute kidney injury
Hyponatremia
Metabolic acidosis
Hypotension
Coronary artery disease with bypass
Heart failure reduced ejection fraction
Left lower extremity bypass and endarterectomy
History of hep C, treated
History of [place]
Plan:
EMERSON-cr seem to improve slowly, non oliguric , creatinine 3.7
Hyperkalemia-k normal
monitor bladder scan , patient with Wilson issues when placed
DESIRE, ANCA neg but c3 is mildly low-clinical sig unknown, U eosinophils neg , UA bland
stable met acidosis-continue bicarb
BP stable
abx per ID
no HD needs, likely will escape this time
previously d/w Son Ender (there are two other sons) regarding renal function. We could consider biopsy, but he is on eliquis, which would have to be held risks outweighs benefit.
Dr Rivas d/w family about dialysis on 02/16. they will need to discuss whether or not it is something they wish to pursue. He has no living will
-
-
Date of Service: February 22, 2024
CC / HPI / ROS
-
Chief Complaint:
Acute kidney injury
History of Present Illness:
EMERSON/Cr better at 3.7
K normal
Metabolic acidosis better on sodium bicarb
Hemodynamically more stable off antihypertensives and Entresto
urine incontinence, concern of pulling things, wilson was out
Review of Systems:
No reported chest pain or shortness of breath
No fevers
confused sometimes
Labs
-
Labs:
WBC 8.9 10^3/uL (4.8-10.8) 02/21/24 07:34
RBC 2.89 10^6/uL (4.70-6.10) L 02/21/24 07:34
Hgb 8.9 g/dL (13.0-18.0) L 02/21/24 07:34
Hct 26.8 % (39.0-52.0) L 02/21/24 07:34
Plt Count 218 10^3/uL (130-400) 02/21/24 07:34
Sodium 139 mmol/L (135-145) 02/22/24 05:42
Potassium 4.9 mmol/L (3.5-5.1) 02/22/24 05:42
Chloride 107 mmol/L (98-107) 02/22/24 05:42
Carbon Dioxide 22 mmol/L (22-30) 02/22/24 05:42
BUN 69 mg/dl (9-20) H 02/22/24 05:42
Creatinine 3.7 mg/dL (0.7-1.3) H 02/22/24 05:42
eGFR 16.33 02/22/24 05:42
Glucose 86 mg/dl (70-99) 02/22/24 05:42
Calcium 8.3 mg/dl (8.4-10.2) L 02/22/24 05:42
Albumin 2.6 g/dl (3.5-5.0) L 02/20/24 04:10
Physical Exam
-
Vital Signs:
Vital Signs
Temp Pulse Resp BP Pulse Ox
97.9 F 76 20 144/77 92
02/22/24 07:59 02/22/24 08:10 02/22/24 08:10 02/22/24 07:59 02/22/24 10:05
Cardiovascular:: Regular rate and rhythm
Respiratory:: Bilateral: CTA (decreased anteriorly)
Lung Excursion:: Normal
Abdomen:: Nontender and Soft
Extremity Edema:: None: Bilateral: (trace)
Wilson Catheter: No
--- NOTE | 2024-02-22 10:49 | W.PN.ID1 ---
Date of Service
Date of Service: February 22, 2024
Today's Communication
Continue cefepime till 03/10/24.
Assessment / Plan
# Acute left foot cellulitis resolved
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
- Prior wound cx Pseudomonas
- 02/14/24 s/p excisional debridement ulcer/1st met resection/debridement prox phalange, tophi noted
OR Tissue cultures no growth to date (on abx at the time)
Bone biopsies: + osteo of prox phalanx and metatarsal bone; unable to define margin
-Continue cefepime 1g IV q12 (renally dosed) (day 25 abx) x 6 weeks through 03/10/24.
# Tophaceous gout
-s/p prednisone 40mg po qd x 5 days
- continue gout prophylaxis allopurinol 50mg qT, Sun (renally dosed)
# EMERSON improving
# PAD s/p left femoral endarterectomy with patch angioplasty, left SFA to ant tibial artery bypass (01/22/24)
# Norovirus infection
- Diarrhea resolved
#Additional Past Medical History:
HTN
dyslipidemia
CAD s/p CABG x 3
Ischemic cardiomyopathy s/p ICD (2019)
PE
PAD s/p hx BLE stents; s/p left femoral endarterectomy with patch angioplasty, left SFA to ant tibial artery bypass (01/22/24)
Chief Complaint
-: Cellulitis and Other (osteo)
Subjective / Review of Systems
No new complaints.
Vital Signs / Physical Exam
Vital Signs
Vital Signs
Temp Pulse Resp BP Pulse Ox
97.9 F 76 20 144/77 92
02/22/24 07:59 02/22/24 08:10 02/22/24 08:10 02/22/24 07:59 02/22/24 10:12
Physical Exam
Constitutional: No Acute Distress
Pulmonary: Other (Decreased BS at bases)
Gastrointestinal: Soft and Non Tender
Extremities: Negative Edema
Objective Data
Lab Data
Lab Results
02/21/24 07:34
02/22/24 05:42
Estimated Creat Clear 17 ml/min 02/22/24 05:42
Lactic Acid 0.9 mmol/L (0.7-2.0) 02/15/24 04:19
Total Bilirubin 0.7 mg/dl (0.2-1.3) 02/20/24 04:10
AST 40 U/L (17-59) 02/20/24 04:10
ALT 29 U/L (0-50) 02/20/24 04:10
Alkaline Phosphatase 85 U/L (38-126) 02/20/24 04:10
Most recent labs reviewed.
Micro Results:
02/17/24 11:40 Blood Culture - Preliminary
Blood/Venous No Growth in 4 days- Final report to follow
02/17/24 11:34 Blood Culture - Preliminary
Blood/Venous No Growth in 4 days- Final report to follow
02/14/24 16:50 Wound Culture - Final
Foot - Left No growth
Gram Stain - Final
02/14/24 16:50 Anaerobic Culture - Final
Foot - Left NO ANAEROBES ISOLATED
02/16/24 11:43 Salmonella/Shigella Culture - Final
Feces/Stool No Salmonella, Shigella, Aeromonas or Plesiomonas species
isolated.
Campylobacter Culture - Final
No Campylobacter species isolated.
Shiga Toxin Test - Final
No E. coli Shiga Toxin 1 or 2 detected.
02/14/24 16:50 Tissue Culture - Final
Toe No Growth After 72 Hours
Gram Stain - Final
02/14/24 16:50 Tissue Culture - Final
Foot - Left No Growth After 72 Hours
Gram Stain - Final
02/12/24 11:20 Blood Culture - Final
Blood/Venous No Growth - Final Report
02/12/24 10:24 Blood Culture - Final
Blood/Venous No Growth - Final Report
02/16/24 11:43 C. difficile GDH Antigen & Toxins - Final
Feces/Stool Negative for toxigenic C.difficile
- Final
Positive for Norovirus GII
02/16/24 11:43 Stool Leukocytes - Final
Feces/Stool
02/12/24 12:40 MRSA Screen - Final
Nose No Methicillin Resistant Staphylococcus aureus isolated.
02/12/24 Foot XRAY: Healing versus old healed fracture of the left second metatarsal again seen, stable in comparison to recent prior study. Cannot exclude some mild lucency of the medial aspect of the head of the left first metatarsal as noted on
single view, cannot exclude infectious process such as osteomyelitis.
02/14/24 MRI LLE w w/o: There is enhancing intermediate T1-weighted signal involving the distal medial aspect of the first metatarsal head, and the proximal aspect of the proximal phalanx of the left great toe. There is also enhancing intermediate
T1-weighted signal involving the medial sesamoid, inferior to the first metatarsal head, and this is also considered suspicious for osteomyelitis. These findings are highly suggestive of osteomyelitis. Of note, inflammatory arthropathy/gout can
result in similar MR findings.
[2024-02-22] MEDS: HYDROPHOR 1 APPLIC TOPICAL (10:56)
[2024-02-22] MEDS: NEURONTIN 300 MG PO (17:03)
[2024-02-22] MEDS: FLUSH (NSS) 3 FLUSH IV (20:50)
[2024-02-22] MEDS: FLUSH (NSS) 2 FLUSH IV (23:26)
[2024-02-23] VITALS (8 sets, daily range): BP systolic 114–174; BP diastolic 72–82; BMI 27.5
[2024-02-23] MEDS: DILAUDID 0.25 MG IV ×2 (00:45→06:05)
[2024-02-23] MEDS: FLUSH (NSS) 2 FLUSH IV ×2 (00:46→06:06)
[2024-02-23] MEDS: SYNTHROID 75 MCG PO (06:05)
[2024-02-23] MEDS: DUONEB 3 ML INH ×4 (07:39→18:06)
[2024-02-23] MEDS: SODIUM BICARBONATE 1300 MG PO ×3 (08:50→20:27)
[2024-02-23] MEDS: ASPIR LOW (ENTERIC COATED) 81 MG PO (08:50)
[2024-02-23] MEDS: ROXICODONE 5 MG PO (08:51)
[2024-02-23] MEDS: FLOMAX 0.400000000000000022 MG PO (08:51)
[2024-02-23] MEDS: ELIQUIS 5 MG PO ×2 (08:51→20:27)
[2024-02-23] MEDS: COREG 12.5 MG PO ×2 (08:51→20:27)
[2024-02-23] MEDS: COLACE 100 MG PO ×2 (08:51→20:27)
[2024-02-23] MEDS: MAXIPIME 1000 MG IV ×2 (08:52→20:28)
[2024-02-23] MEDS: CRESTOR 5 MG PO (08:52)
[2024-02-23] MEDS: STERILE WATER FOR INJECTION 10 ML IV ×2 (08:52→20:28)
[2024-02-23] MEDS: SANTYL OINTMENT 1 APPLIC TOPICAL (08:52)
[2024-02-23] MEDS: DESENEX/MITRAZOL/ZEASORB 1 APPLIC TOPICAL (08:53)
[2024-02-23] MEDS: HYDROPHOR 1 APPLIC TOPICAL (08:54)
[2024-02-23] MEDS: TIMOPTIC 0.5% OPHTHALMIC SOLUTION 1 DROP BOTH EYES (08:54)
--- NOTE | 2024-02-23 09:20 | W.PN.HOSP.TC ---
Today's Communication/Plan
-
.
Assessment / Plan
Assessment / Plan
Physical exam:
General: No Apparent Distress and Comfortable
HEENT: Anicteric and Moist mucous membranes
Respiratory: wheezes heard R>L side
Cardiac: S1/S2
GI: Soft, Non Tender, Non Distended and Normal Bowel Sounds
Genito-urinary: + Warner
Musculoskeletal: Edema, Left Lower Extremity, erythema; LLE foot with open wound noted during wound vac change
Neuro: Awake, confused. moving all 4 extremity
Psych: anxious
# Left lower extremity swelling and pain suspect secondary to osteomyelitis
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
TME likely secondary to above; improving
cw abx
ID following
Wound care
Patient was seen by vascular surgery and does not appear this related to his bypass; SALIMA drain dc'ed 02/12
Does have left first MTP wound which could likely be the source. podiatry following, ulceration left foot first monitor tarsal head, podiatry discussed with patient and son regarding possible resection or bone biopsy. MRI noted; possible osteo but
gout shows similar presentation; s/p 1st met resection/debridement left foot on 02/14; bone biopsy RESULTS WITH ACUTE OM
PAD status post left lower extremity bypass 01/22/2024
Path resulted with Osteomyelitis -will require skilled nursing abx
Monitor mentation closely as on Cefepime
Acute kidney injury with hyperkalemia and metabolic acidosis
Creatinine 3.7 , today is pending. nephrology discussing with family for potential biopsy. Serologies pending
Check UA neg, urine eos neg, ANCA negative. C3 complement low. C4 normal. DESIRE negative. Antistreptolysin antibody positive. Antistreptolysin titer elevated blood cultures negative x 3 days.
suspect 2/2 retention and hypotension/hypovolemia
had Warner catheter,
Hold nephrotoxic agents
on PO bicarb
renal ultrasound 02/13 showed small bilateral renal cyst, otherwise normal
Acidosis resolved
Lokelma
Primary hypertension elevated to some extent due to pain
And continue carvedilol
As needed hydralazine added
Fever likely 2/2 norovirus
monitor
bcx NGTD
procal mildly elevated however not relevant with EMERSON
no diarrhea x 24h
Hyponatremia
resolved.
History of pulmonary embolism
Restarted Eliquis per podiatry
CAD status post CABG
Continue aspirin
Ischemic cardiomyopathy
EF 30 to 35%
Follows up with Dr. Graves outpatient
Hold Entresto given EMERSON
History of NC
Acute hypoxic respiratory insufficiency secondary to atelectasis
CXR with atelectasis
cw duo nebs
improving
stage 2 distal to eschar
PAD status post stent earlier and now recent left lower extremity arterial bypass with vein graft for chronic wound and PAD
Follows up with Dr. Warner outpatient
Vascular following
SALIMA drain dc'ed 02/12
Suspect cognitive impairment
This was discussed on previous admission and son was instructed to follow-up outpatient
CT 10/11 was consistent with diffuse cortical atrophy
Anemia, suspect anemia of chronic disease
Monitor
History of hypertension
Hyperlipidemia
Hypothyroidism
History of hep C, treated
History of GERD
History of insomnia
Hold trazodone
DVTppx
eliquis
CODE STATUS
Full code
Total time spent to see the patient, examine the patient on the floor, review data and lab results, discuss treatment plan with patient, nursing staff around 55 minutes.
Anticipated Discharge: 24 - 48 hours
Subjective/Interval History
-
Date of Service: February 23, 2024
Still pain in both lower extremities
Objective Data
-
Labs:
Laboratory Results
02/23/24
08:26
Sodium Pending
Potassium Pending
Chloride Pending
Carbon Dioxide Pending
BUN Pending
Creatinine Pending
Glucose Pending
Calcium Pending
Vital Signs:
Vital Signs
Temp Pulse Resp BP Pulse Ox
98.2 F 73 16 140/81 93
02/23/24 07:07 02/23/24 08:51 02/23/24 07:07 02/23/24 08:51 02/23/24 07:07
I&O
02/22/24 02/23/24 02/24/24
06:59 06:59 06:59
Intake Total 720 / 720 1300 / 1300
Output Total 1840 / 1840 1425 / 1425
Balance -1120 / -1120 -125 / -125
[2024-02-23 09:40] LABS: Blood Urea Nitrogen 64 mg/dl (9-20); Calcium 8.5 mg/dl (8.4-10.2); Carbon Dioxide 21 mmol/L (22-30); Chloride 111 mmol/L (98-107); Estimated Creatinine Clearance 19 ml/min; Glucose 73 mg/dl (70-99); Potassium 4.8 mmol/L (3.5-5.1); Sodium 138 mmol/L (135-145); eGFR 18.73
--- NOTE | 2024-02-23 12:57 | W.PN.ID1 ---
Date of Service
Date of Service: February 23, 2024
Today's Communication
Continue cefepime 1g IV q12 (renally dosed) x 6 weeks through 03/10/[address] mid[address]
Assessment / Plan
# Acute left foot cellulitis resolved
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
- Prior wound cx Pseudomonas
- 02/14/24 s/p excisional debridement ulcer/1st met resection/debridement prox phalange, tophi noted
OR Tissue cultures no growth to date (on abx at the time)
Bone biopsies: + osteo of prox phalanx and metatarsal bone; unable to define margin
-Continue cefepime 1g IV q12 (renally dosed) x 6 weeks through 03/10/24.
- Place midline
# Tophaceous gout
-s/p prednisone 40mg po qd x 5 days
- continue gout prophylaxis allopurinol 50mg qT, Sun (renally dosed)
# EMERSON improving
# PAD s/p left femoral endarterectomy with patch angioplasty, left SFA to ant tibial artery bypass (01/22/24)
# Norovirus infection
- Diarrhea resolved
#Additional Past Medical History:
HTN
dyslipidemia
CAD s/p CABG x 3
Ischemic cardiomyopathy s/p ICD (2019)
PE
PAD s/p hx BLE stents; s/p left femoral endarterectomy with patch angioplasty, left SFA to ant tibial artery bypass (01/22/24)
Chief Complaint
-: Other (osteo)
Subjective / Review of Systems
No complaints
Vital Signs / Physical Exam
Vital Signs
Vital Signs
Temp Pulse Resp BP Pulse Ox
98.6 F 65 16 156/76 96
02/23/24 11:10 02/23/24 11:10 02/23/24 11:10 02/23/24 11:10 02/23/24 11:10
Physical Exam
Constitutional: No Acute Distress
Gastrointestinal: Soft, Non Tender and Non Distended
Extremities: Negative Edema
Wound: Other (left foot wound vac in place)
Objective Data
Lab Data
Lab Results
02/21/24 07:34
02/23/24 08:26
Estimated Creat Clear 19 ml/min 02/23/24 08:26
Lactic Acid 0.9 mmol/L (0.7-2.0) 02/15/24 04:19
Total Bilirubin 0.7 mg/dl (0.2-1.3) 02/20/24 04:10
AST 40 U/L (17-59) 02/20/24 04:10
ALT 29 U/L (0-50) 02/20/24 04:10
Alkaline Phosphatase 85 U/L (38-126) 02/20/24 04:10
Most recent labs reviewed.
Micro Results:
02/17/24 11:40 Blood Culture - Final
Blood/Venous No Growth - Final Report
02/17/24 11:34 Blood Culture - Final
Blood/Venous No Growth - Final Report
02/14/24 16:50 Wound Culture - Final
Foot - Left No growth
Gram Stain - Final
02/14/24 16:50 Anaerobic Culture - Final
Foot - Left NO ANAEROBES ISOLATED
02/16/24 11:43 Salmonella/Shigella Culture - Final
Feces/Stool No Salmonella, Shigella, Aeromonas or Plesiomonas species
isolated.
Campylobacter Culture - Final
No Campylobacter species isolated.
Shiga Toxin Test - Final
No E. coli Shiga Toxin 1 or 2 detected.
02/14/24 16:50 Tissue Culture - Final
Toe No Growth After 72 Hours
Gram Stain - Final
02/14/24 16:50 Tissue Culture - Final
Foot - Left No Growth After 72 Hours
Gram Stain - Final
02/12/24 11:20 Blood Culture - Final
Blood/Venous No Growth - Final Report
02/12/24 10:24 Blood Culture - Final
Blood/Venous No Growth - Final Report
02/16/24 11:43 C. difficile GDH Antigen & Toxins - Final
Feces/Stool Negative for toxigenic C.difficile
- Final
Positive for Norovirus GII
02/16/24 11:43 Stool Leukocytes - Final
Feces/Stool
02/12/24 12:40 MRSA Screen - Final
Nose No Methicillin Resistant Staphylococcus aureus isolated.
02/12/24 Foot XRAY: Healing versus old healed fracture of the left second metatarsal again seen, stable in comparison to recent prior study. Cannot exclude some mild lucency of the medial aspect of the head of the left first metatarsal as noted on
single view, cannot exclude infectious process such as osteomyelitis.
02/14/24 MRI LLE w w/o: There is enhancing intermediate T1-weighted signal involving the distal medial aspect of the first metatarsal head, and the proximal aspect of the proximal phalanx of the left great toe. There is also enhancing intermediate
T1-weighted signal involving the medial sesamoid, inferior to the first metatarsal head, and this is also considered suspicious for osteomyelitis. These findings are highly suggestive of osteomyelitis. Of note, inflammatory arthropathy/gout can
result in similar MR findings.
[2024-02-23] MEDS: PEPCID 20 MG PO (13:18)
--- NOTE | 2024-02-23 15:10 | VATNOTE ---
Per PCN, OK per Dr. Reyes for midline instead of PICC. Facility OK for midline per PCN.
[2024-02-23] MEDS: APRESOLINE 5 MG IV ×2 (17:08→23:15)
[2024-02-23] MEDS: NEURONTIN 300 MG PO (17:08)
--- NOTE | 2024-02-23 17:11 | W.PN.NEPH.PH ---
Today's Communication / Plan
-
follow labs
Assessment/Plan
-
Assessment:
Left lower extremity swelling and pain secondary to cellulitis
Mental status change
acute kidney injury
Hyponatremia
Metabolic acidosis
Hypotension
Coronary artery disease with bypass
Heart failure reduced ejection fraction
Left lower extremity bypass and endarterectomy
History of hep C, treated
History of PE
Plan:
EMERSON-cr seem to improve slowly, non oliguric , creatinine 3.3
monitor bladder scan , patient with Wilson issues when placed
DESIRE, ANCA neg but c3 is mildly low-clinical sig unknown, U eosinophils neg , UA bland
stable met acidosis-continue bicarb
BP increasing however labile, holding Entresto
abx per ID
no HD needs
previously d/w Иван Handley (there are two other sons) regarding renal function. We could consider biopsy, but he is on eliquis, which would have to be held risks outweighs benefit.
-
-
Date of Service: February 23, 2024
CC / HPI / ROS
-
Chief Complaint:
Acute kidney injury
History of Present Illness:
EMERSON/Cr better at 3.3
K normal
Metabolic acidosis better on sodium bicarb
BP increasing trend but labile
urine incontinence, concern of pulling things, wilson was out
Review of Systems:
No reported chest pain or shortness of breath
No fevers
confused sometimes
Labs
-
Labs:
WBC 8.9 10^3/uL (4.8-10.8) 02/21/24 07:34
RBC 2.89 10^6/uL (4.70-6.10) L 02/21/24 07:34
Hgb 8.9 g/dL (13.0-18.0) L 02/21/24 07:34
Hct 26.8 % (39.0-52.0) L 02/21/24 07:34
Plt Count 218 10^3/uL (130-400) 02/21/24 07:34
Sodium 138 mmol/L (135-145) 02/23/24 08:26
Potassium 4.8 mmol/L (3.5-5.1) 02/23/24 08:26
Chloride 111 mmol/L (98-107) H 02/23/24 08:26
Carbon Dioxide 21 mmol/L (22-30) L 02/23/24 08:26
BUN 64 mg/dl (9-20) H 02/23/24 08:26
Creatinine 3.3 mg/dL (0.7-1.3) H 02/23/24 08:26
eGFR 18.73 02/23/24 08:26
Glucose 73 mg/dl (70-99) 02/23/24 08:26
Calcium 8.5 mg/dl (8.4-10.2) 02/23/24 08:26
Albumin 2.6 g/dl (3.5-5.0) L 02/20/24 04:10
Physical Exam
-
Vital Signs:
Vital Signs
Temp Pulse Resp BP Pulse Ox
97.6 F 68 16 165/79 94
02/23/24 15:05 02/23/24 15:05 02/23/24 15:05 02/23/24 15:05 02/23/24 15:05
Cardiovascular:: Regular rate and rhythm
Respiratory:: Bilateral: CTA
Lung Excursion:: Normal
Abdomen:: Nontender and Soft
Extremity Edema:: None: Bilateral: (trace)
Wilson Catheter: No
[2024-02-24] MEDS: DUONEB 3 ML INH ×5 (00:04→17:41)
[2024-02-24] MEDS: ROXICODONE 5 MG PO (02:59)
[2024-02-24 03:01] VITALS: BP 169/79
[2024-02-24] MEDS: APRESOLINE 5 MG IV ×2 (03:43→11:54)
--- NOTE | 2024-02-24 04:41 | PTCARENOTE ---
Pt transfer from [address] [place] [address], AAOx1-[address] forgetful but pleasant and cooperative. Pt given Prn hydralazine for SBP >160 x2. RT provided PRN neb tx for dyspnea and wheezing. Pt straight cath x1 but able to void independently x2.
[2024-02-24] MEDS: DILAUDID 0.25 MG IV ×2 (05:57→14:48)
[2024-02-24] MEDS: SYNTHROID 75 MCG PO (05:57)
[2024-02-24 06:12] LABS: Blood Urea Nitrogen 60 mg/dl (9-20); Calcium 8.5 mg/dl (8.4-10.2); Carbon Dioxide 19 mmol/L (22-30); Chloride 109 mmol/L (98-107); Estimated Creatinine Clearance 21 ml/min; Glucose 91 mg/dl (70-99); Sodium 137 mmol/L (135-145); eGFR 20.19
[2024-02-24 06:23] LABS: Potassium 4.6 mmol/L (3.5-5.1)
[2024-02-24 07:05] VITALS: BP 158/78
[2024-02-24] MEDS: ELIQUIS 5 MG PO ×2 (08:51→20:09)
[2024-02-24] MEDS: COLACE 100 MG PO ×2 (08:51→20:09)
[2024-02-24] MEDS: SODIUM BICARBONATE 1300 MG PO ×3 (08:51→21:16)
[2024-02-24] MEDS: ASPIR LOW (ENTERIC COATED) 81 MG PO (08:52)
[2024-02-24] MEDS: COREG 12.5 MG PO ×2 (08:52→20:09)
[2024-02-24] MEDS: MAXIPIME 1000 MG IV ×2 (08:52→20:10)
[2024-02-24] MEDS: CRESTOR 5 MG PO (08:52)
[2024-02-24] MEDS: STERILE WATER FOR INJECTION 10 ML IV ×2 (08:52→20:09)
[2024-02-24] MEDS: FLOMAX 0.400000000000000022 MG PO (08:52)
[2024-02-24] MEDS: TIMOPTIC 0.5% OPHTHALMIC SOLUTION 1 DROP BOTH EYES (08:53)
[2024-02-24] MEDS: HYDROPHOR 1 APPLIC TOPICAL (10:25)
[2024-02-24] MEDS: SANTYL OINTMENT 1 APPLIC TOPICAL (10:25)
[2024-02-24 11:21] VITALS: BP 172/77
[2024-02-24] MEDS: TYLENOL 650 MG PO (11:54)
[2024-02-24] MEDS: FLUSH (NSS) 2 FLUSH IV ×2 (11:55→14:49)
--- NOTE | 2024-02-24 12:02 | W.PN.HOSP.TC ---
Today's Communication/Plan
-
.
Assessment / Plan
Assessment / Plan
Physical exam:
General: No Apparent Distress and Comfortable
HEENT: Anicteric and Moist mucous membranes
Respiratory: + wheezes and poor air entry
Cardiac: S1/S2
GI: Soft, Non Tender, Non Distended and Normal Bowel Sounds
Genito-urinary: + Warner
Musculoskeletal: Edema, Left Lower Extremity, erythema; LLE foot with open wound noted during wound vac change
Neuro: Awake, confused at times. moving all 4 extremity
Psych: anxious
# Left lower extremity swelling and pain suspect secondary to osteomyelitis and ongoing PAD
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
TME likely secondary to above; improving
cw abx
ID following
Wound care
Patient was seen by vascular surgery and does not appear this related to his bypass; SALIMA drain dc'ed 02/12
Does have left first MTP wound which could likely be the source. podiatry following, ulceration left foot first monitor tarsal head, podiatry discussed with patient and son regarding possible resection or bone biopsy. MRI noted; possible osteo but
gout shows similar presentation; s/p 1st met resection/debridement left foot on 02/14; bone biopsy RESULTS WITH ACUTE OM
PAD status post left lower extremity bypass 01/22/2024
Path resulted with Osteomyelitis -will require [facility] abx
Monitor mentation closely as on Cefepime
# Pain in both legs per pt
He seems to have bilateral lower extremity pain but unable to specify which side is more painful
Patient reports that pain has been significant since vascular surgery and did not subside
Will change Tylenol to 3 times daily to minimize need for narcotic which seems to be causing confusion
Will ask Dr. Warner to reevaluate
# Toxic metabolic encephalopathy, likely induced by opioid use
Discussed with nursing, changed to scheduled dose of Tylenol
Decrease dose of oxycodone to 2.5 as needed only. Avoid Dilaudid if possible
Acute kidney injury with hyperkalemia and metabolic acidosis
Creatinine 3.1
nephrology discussing with family for potential biopsy. Serologies pending
Check UA neg, urine eos neg, ANCA negative. C3 complement low. C4 normal. DESIRE negative. Antistreptolysin antibody positive. Antistreptolysin titer elevated blood cultures negative x 3 days.
suspect 2/2 retention and hypotension/hypovolemia
had Warner catheter,
Hold nephrotoxic agents
on PO bicarb
renal ultrasound 02/13 showed small bilateral renal cyst, otherwise normal
Acidosis resolved
Lokelma
Primary hypertension elevated to some extent due to pain
And continue carvedilol
As needed hydralazine added
Hyponatremia
resolved.
History of pulmonary embolism
Restarted Eliquis per podiatry
CAD status post CABG
Continue aspirin
Ischemic cardiomyopathy
EF 30 to 35%
Follows up with Dr. Graves outpatient
Hold Entresto given EMERSON
History of UT
Acute hypoxic respiratory insufficiency secondary to atelectasis
He continues to have wheezes and limited air entry
CXR with atelectasis
Continue with nebulizer therapy
Discussed with respiratory nurse. Minimize use of narcotic
stage 2 distal to eschar
PAD status post stent earlier and now recent left lower extremity arterial bypass with vein graft for chronic wound and PAD
Follows up with Dr. Warner outpatient
Vascular following
SALIMA drain dc'ed 02/12
Suspect cognitive impairment
This was discussed on previous admission and son was instructed to follow-up outpatient
CT 10/11 was consistent with diffuse cortical atrophy
Anemia, suspect anemia of chronic disease
Monitor
History of hypertension
Hyperlipidemia
Hypothyroidism
History of hep C, treated
History of GERD
History of insomnia
Hold trazodone
DVTppx
eliquis
CODE STATUS
Full code
Total time spent to see the patient, examine the patient on the floor, review data and lab results, discuss treatment plan with patient, nursing staff around 55 minutes.
Anticipated Discharge: > 48 hours
Subjective/Interval History
-
Date of Service: February 24, 2024
He seems confused after receiving Dilaudid and oxycodone
He complains of pain in both legs and could not specify which side.
Objective Data
-
Labs:
Laboratory Results
02/24/24
05:31
Sodium 137
Potassium 4.6
Chloride 109 H
Carbon Dioxide 19 L
BUN 60 H
Creatinine 3.1 H
Glucose 91
Calcium 8.5
Vital Signs:
Vital Signs
Temp Pulse Resp BP Pulse Ox
98.4 F 71 18 172/77 96
02/24/24 07:05 02/24/24 11:54 02/24/24 11:04 02/24/24 11:54 02/24/24 08:50
I&O
02/23/24 02/24/24 02/25/24
06:59 06:59 06:59
Intake Total 1300 / 1300 960 / 960 720 / 720
Output Total 1425 / 1425 550 / 550 550 / 550
Balance -125 / -125 410 / 410 170 / 170
--- NOTE | 2024-02-24 13:39 | W.PN.NEPH.PH ---
Today's Communication / Plan
-
follow lab s
add hydralazine for hTN
Assessment/Plan
-
Assessment:
Left lower extremity swelling and pain secondary to cellulitis
Mental status change
acute kidney injury
Hyponatremia
Metabolic acidosis
Hypotension
Coronary artery disease with bypass
Heart failure reduced ejection fraction
Left lower extremity bypass and endarterectomy
History of hep C, treated
History of PE
Plan:
EMERSON-cr seem to improve slowly, non oliguric , creatinine 3.1
monitor bladder scan , patient with Wilson issues when placed
DESIRE, ANCA neg but c3 is mildly low-clinical sig unknown, U eosinophils neg , UA bland
stable met acidosis-continue PO bicarb
BP increasing, add hydralazine and cont BB, holding Entresto
abx per ID
no HD needs, d.w son at bedside
previously d/w Son Ender (there are two other sons) regarding renal function. We could consider biopsy, but he is on eliquis, which would have to be held risks outweighs benefit.
-
-
Date of Service: February 24, 2024
CC / HPI / ROS
-
Chief Complaint:
Acute kidney injury
History of Present Illness:
EMERSON/Cr better at 3.1
K normal
Metabolic acidosis better on sodium bicarb
BP increasing trend , pain related?
urine incontinence, concern of pulling things, wilson was out
Review of Systems:
No reported chest pain or shortness of breath
No fevers
confused sometimes-improving every day
Labs
-
Labs:
WBC 8.9 10^3/uL (4.8-10.8) 02/21/24 07:34
RBC 2.89 10^6/uL (4.70-6.10) L 02/21/24 07:34
Hgb 8.9 g/dL (13.0-18.0) L 02/21/24 07:34
Hct 26.8 % (39.0-52.0) L 02/21/24 07:34
Plt Count 218 10^3/uL (130-400) 02/21/24 07:34
Sodium 137 mmol/L (135-145) 02/24/24 05:31
Potassium 4.6 mmol/L (3.5-5.1) 02/24/24 05:31
Chloride 109 mmol/L (98-107) H 02/24/24 05:31
Carbon Dioxide 19 mmol/L (22-30) L 02/24/24 05:31
BUN 60 mg/dl (9-20) H 02/24/24 05:31
Creatinine 3.1 mg/dL (0.7-1.3) H 02/24/24 05:31
eGFR 20.19 02/24/24 05:31
Glucose 91 mg/dl (70-99) 02/24/24 05:31
Calcium 8.5 mg/dl (8.4-10.2) 02/24/24 05:31
Albumin 2.6 g/dl (3.5-5.0) L 02/20/24 04:10
Physical Exam
-
Vital Signs:
Vital Signs
Temp Pulse Resp BP Pulse Ox
98.4 F 71 18 172/77 94
02/24/24 07:05 02/24/24 11:54 02/24/24 11:04 02/24/24 11:54 02/24/24 12:30
Cardiovascular:: Regular rate and rhythm
Respiratory:: Bilateral: CTA
Lung Excursion:: Normal
Abdomen:: Nontender and Soft
Extremity Edema:: None: Bilateral:
Wilson Catheter: No
[2024-02-24] MEDS: APRESOLINE 10 MG PO ×2 (16:20→21:17)
[2024-02-24] MEDS: TYLENOL 1000 MG PO ×2 (16:20→21:16)
[2024-02-24 16:32] VITALS: BP 133/68
[2024-02-24] MEDS: NEURONTIN 300 MG PO (17:17)
--- NOTE | 2024-02-24 18:00 | PTCARENOTE ---
Patient removed R arm midline. Pt states: 'I don't know what happened'. IV team notified. Dr. Reyes notifed via TT. Plan of care ongoing.
[2024-02-24] MEDS: ROXICODONE 2.5 MG PO (21:16)
[2024-02-24 22:38] VITALS: BP 137/61
[2024-02-25] MEDS: DILAUDID 0.25 MG IV ×2 (00:08→11:28)
[2024-02-25] MEDS: DUONEB 3 ML INH ×5 (03:05→19:18)
[2024-02-25 04:02] VITALS: BP 127/94
[2024-02-25] MEDS: SYNTHROID 75 MCG PO (05:35)
[2024-02-25 07:41] LABS: Hematocrit 23.6 % (39.0-52.0); Hemoglobin 7.5 g/dL (13.0-18.0); Mean Corp Hgb Conc. 31.8 g/dL (33.0-37.0); Mean Corpuscular Volume 97.5 fL (80.0-94.0); Mean Platelet Volume 9.7 fL (7.4-10.4); Platelet Count 172 10^3/uL (130-400); Red Blood Cell Count 2.42 10^6/uL (4.70-6.10); Red Cell Dist. Width 13.8 % (11.5-14.5); White Blood Cell Count 6.6 10^3/uL (4.8-10.8)
[2024-02-25 07:50] VITALS: BP 188/95
[2024-02-25 08:09] LABS: Blood Urea Nitrogen 54 mg/dl (9-20); Calcium 8.2 mg/dl (8.4-10.2); Carbon Dioxide 20 mmol/L (22-30); Chloride 112 mmol/L (98-107); Estimated Creatinine Clearance 22 ml/min; Glucose 91 mg/dl (70-99); Potassium 4.5 mmol/L (3.5-5.1); Sodium 137 mmol/L (135-145); eGFR 21.87
[2024-02-25] MEDS: ROXICODONE 2.5 MG PO (09:07)
[2024-02-25] MEDS: MAXIPIME 1000 MG IV ×2 (09:09→20:48)
[2024-02-25] MEDS: STERILE WATER FOR INJECTION 10 ML IV ×2 (09:09→20:48)
[2024-02-25] MEDS: CRESTOR 5 MG PO (09:10)
[2024-02-25] MEDS: FLOMAX 0.400000000000000022 MG PO (09:10)
[2024-02-25] MEDS: APRESOLINE 10 MG PO ×3 (09:11→23:11)
[2024-02-25] MEDS: TYLENOL 1000 MG PO ×3 (09:11→23:11)
[2024-02-25] MEDS: ELIQUIS 5 MG PO ×2 (09:11→20:48)
[2024-02-25] MEDS: SODIUM BICARBONATE 1300 MG PO ×3 (09:11→23:11)
[2024-02-25] MEDS: ASPIR LOW (ENTERIC COATED) 81 MG PO (09:12)
[2024-02-25] MEDS: COLACE 100 MG PO ×2 (09:12→20:48)
[2024-02-25] MEDS: COREG 12.5 MG PO ×2 (09:12→20:46)
[2024-02-25] MEDS: SANTYL OINTMENT 1 APPLIC TOPICAL (09:12)
[2024-02-25] MEDS: HYDROPHOR 1 APPLIC TOPICAL (09:13)
[2024-02-25 09:39] LABS: Iron 59 ug/dl (49-181)
[2024-02-25 09:47] LABS: Percent Saturation 21 % (20-50); Total Iron Binding Capacity 277 ug/dl (261-462)
[2024-02-25] MEDS: TIMOPTIC 0.5% OPHTHALMIC SOLUTION 1 DROP BOTH EYES (10:21)
[2024-02-25 10:47] LABS: Folate 7.5 ng/ml (2.76-20); Vitamin B12 772 pg/ml (239-931)
[2024-02-25] MEDS: PEPCID 20 MG PO (11:40)
--- NOTE | 2024-02-25 12:00 | W.PN.ID1 ---
Date of Service
Date of Service: February 25, 2024
Today's Communication
Continue cefepime 1g IV q12 (renally dosed) x 6 weeks through 03/10/24.
Increase allopurinol dose.
Assessment / Plan
# Acute left foot cellulitis resolved
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
- Prior wound cx Pseudomonas
- 02/14/24 s/p excisional debridement ulcer/1st met resection/debridement prox phalange, tophi noted
OR Tissue cultures no growth (on abx at the time)
Bone biopsies: + osteo of prox phalanx and metatarsal bone; unable to define margin
-Continue cefepime 1g IV q12 (renally dosed) x 6 weeks through 03/10/24.
Monitor for mental status change while on cefepime.
- Placed midline
# Tophaceous gout
-s/p prednisone 40mg po qd x 5 days
- Increase gout prophylaxis allopurinol 50mg qMo,Tues, Fri as renal function improving.
# EMERSON improving
# PAD s/p left femoral endarterectomy with patch angioplasty, left SFA to ant tibial artery bypass (01/22/24)
# Norovirus infection
- Diarrhea resolved
#Additional Past Medical History:
HTN
dyslipidemia
CAD s/p CABG x 3
Ischemic cardiomyopathy s/p ICD (2019)
PE
PAD s/p hx BLE stents; s/p left femoral endarterectomy with patch angioplasty, left SFA to ant tibial artery bypass (01/22/24)
Chief Complaint
-: Other (osteo)
Subjective / Review of Systems
No complaints. Is comfortable.
Vital Signs / Physical Exam
Vital Signs
Vital Signs
Temp Pulse Resp BP Pulse Ox
97.8 F 60 18 188/95 93
02/25/24 07:50 02/25/24 11:18 02/25/24 11:18 02/25/24 07:50 02/25/24 11:18
Physical Exam
Constitutional: No Acute Distress
Gastrointestinal: Soft, Non Tender and Non Distended
Extremities: Negative Edema or Erythema
Wound: Other (left foot incision closed/intact, 1st MPJ wound deep without probe to bone, + granulating tissue, tophi now minimal)
Objective Data
Lab Data
Lab Results
02/25/24 07:23
02/25/24 07:23
Estimated Creat Clear 22 ml/min 02/25/24 07:23
Lactic Acid 0.9 mmol/L (0.7-2.0) 02/15/24 04:19
Total Bilirubin 0.7 mg/dl (0.2-1.3) 02/20/24 04:10
AST 40 U/L (17-59) 02/20/24 04:10
ALT 29 U/L (0-50) 02/20/24 04:10
Alkaline Phosphatase 85 U/L (38-126) 02/20/24 04:10
Most recent labs reviewed.
Micro Results:
02/17/24 11:40 Blood Culture - Final
Blood/Venous No Growth - Final Report
02/17/24 11:34 Blood Culture - Final
Blood/Venous No Growth - Final Report
02/14/24 16:50 Wound Culture - Final
Foot - Left No growth
Gram Stain - Final
02/14/24 16:50 Anaerobic Culture - Final
Foot - Left NO ANAEROBES ISOLATED
02/16/24 11:43 Salmonella/Shigella Culture - Final
Feces/Stool No Salmonella, Shigella, Aeromonas or Plesiomonas species
isolated.
Campylobacter Culture - Final
No Campylobacter species isolated.
Shiga Toxin Test - Final
No E. coli Shiga Toxin 1 or 2 detected.
02/14/24 16:50 Tissue Culture - Final
Toe No Growth After 72 Hours
Gram Stain - Final
02/14/24 16:50 Tissue Culture - Final
Foot - Left No Growth After 72 Hours
Gram Stain - Final
02/12/24 11:20 Blood Culture - Final
Blood/Venous No Growth - Final Report
02/12/24 10:24 Blood Culture - Final
Blood/Venous No Growth - Final Report
02/16/24 11:43 C. difficile GDH Antigen & Toxins - Final
Feces/Stool Negative for toxigenic C.difficile
- Final
Positive for Norovirus GII
02/16/24 11:43 Stool Leukocytes - Final
Feces/Stool
02/12/24 12:40 MRSA Screen - Final
Nose No Methicillin Resistant Staphylococcus aureus isolated.
02/12/24 Foot XRAY: Healing versus old healed fracture of the left second metatarsal again seen, stable in comparison to recent prior study. Cannot exclude some mild lucency of the medial aspect of the head of the left first metatarsal as noted on
single view, cannot exclude infectious process such as osteomyelitis.
02/14/24 MRI LLE w w/o: There is enhancing intermediate T1-weighted signal involving the distal medial aspect of the first metatarsal head, and the proximal aspect of the proximal phalanx of the left great toe. There is also enhancing intermediate
T1-weighted signal involving the medial sesamoid, inferior to the first metatarsal head, and this is also considered suspicious for osteomyelitis. These findings are highly suggestive of osteomyelitis. Of note, inflammatory arthropathy/gout can
result in similar MR findings.
--- NOTE | 2024-02-25 12:21 | W.PN.HOSP.TC ---
Today's Communication/Plan
-
monitor vitals
see plan
restart PO dilaudid
monitor for sedation
monitor hgb
cw abx
Assessment / Plan
Assessment / Plan
Physical exam:
General: No Apparent Distress and Comfortable
HEENT: Anicteric and Moist mucous membranes
Respiratory: + wheezes and poor air entry
Cardiac: S1/S2
GI: Soft, Non Tender, Non Distended and Normal Bowel Sounds
Genito-urinary: + Warner
Musculoskeletal: Edema, Left Lower Extremity, erythema; LLE foot wound with wound vac
Neuro: Awake, confused at times. moving all 4 extremity
Psych: anxious
# Left lower extremity swelling and pain suspect secondary to osteomyelitis and ongoing PAD
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
TME likely secondary to above; improving
cw abx
ID following
Wound care
Patient was seen by vascular surgery and does not appear this related to his bypass; SALIMA drain dc'ed 02/12
Does have left first MTP wound which could likely be the source. podiatry following, ulceration left foot first monitor tarsal head, podiatry discussed with patient and son regarding possible resection or bone biopsy. MRI noted; possible osteo but
gout shows similar presentation; s/p 1st met resection/debridement left foot on 02/14; bone biopsy RESULTS WITH ACUTE OM
PAD status post left lower extremity bypass 01/22/2024
Path resulted with Osteomyelitis -will require prison abx
Monitor mentation closely as on Cefepime ; cefepime 1g IV q12 (renally dosed) x 6 weeks through 03/10/24.
# Pain in both legs per pt
He seems to have bilateral lower extremity pain but unable to specify which side is more painful
Patient reports that pain has been significant since vascular surgery and did not subside
cw standing tyleonol; add PO dilaudid with hold if sedated
#suspect mild acute delirium, possible hospital-acquired
Continue to monitor
Monitor with opioids
Patient also have progressing cognitive impairment, instructed on lasr admission to follow-up outpatient
Acute kidney injury with hyperkalemia and metabolic acidosis
Creatinine 2.9
nephrology discussing with family for potential biopsy. Serologies pending
Check UA neg, urine eos neg, ANCA negative. C3 complement low. C4 normal. DESIRE negative. Antistreptolysin antibody positive. Antistreptolysin titer elevated blood cultures negative x 3 days.
suspect 2/2 retention and hypotension/hypovolemia
had Warner catheter,
Hold nephrotoxic agents
on PO bicarb
renal ultrasound 02/13 showed small bilateral renal cyst, otherwise normal
Acidosis resolved
Lokelma
Primary hypertension elevated to some extent due to pain
And continue carvedilol
As needed hydralazine added
Hyponatremia
resolved.
History of pulmonary embolism
Restarted Eliquis per podiatry
CAD status post CABG
Continue aspirin
Ischemic cardiomyopathy
EF 30 to 35%
Follows up with Dr. Graves outpatient
Hold Entresto given EMERSON
History of DE
Acute hypoxic respiratory insufficiency secondary to atelectasis
He continues to have wheezes and limited air entry
CXR with atelectasis
Continue with nebulizer therapy
Discussed with respiratory nurse. Minimize use of narcotic
stage 2 distal to eschar
PAD status post stent earlier and now recent left lower extremity arterial bypass with vein graft for chronic wound and PAD
Follows up with Dr. Warner outpatient
Vascular following
SALIMA drain dc'ed 02/12
Suspect cognitive impairment
This was discussed on previous admission and son was instructed to follow-up outpatient
CT 10/11 was consistent with diffuse cortical atrophy
Anemia, suspect anemia of chronic disease
Monitor
check irone panel
History of hypertension
Hyperlipidemia
Hypothyroidism
History of hep C, treated
History of GERD
History of insomnia
Hold trazodone
DVTppx
eliquis
CODE STATUS
Full code
Total time spent to see the patient, examine the patient on the floor, review data and lab results, discuss treatment plan with patient, nursing staff around 53 minutes.
Anticipated Discharge: > 48 hours
Subjective/Interval History
-
Date of Service: February 25, 2024
has pain
Objective Data
-
Labs:
Laboratory Results
02/25/24
07:23
WBC 6.6
Hgb 7.5 L
Hct 23.6 L
Plt Count 172 D
Sodium 137
Potassium 4.5
Chloride 112 H
Carbon Dioxide 20 L
BUN 54 H
Creatinine 2.9 H
Glucose 91
Calcium 8.2 L
Vital Signs:
Vital Signs
Temp Pulse Resp BP Pulse Ox
97.8 F 60 18 188/95 93
02/25/24 07:50 02/25/24 11:18 02/25/24 11:18 02/25/24 07:50 02/25/24 11:18
I&O
02/24/24 02/25/24 02/26/24
06:59 06:59 06:59
Intake Total 960 / 960 1920 / 1920
Output Total 550 / 550 1540 / 1540
Balance 410 / 410 380 / 380
--- NOTE | 2024-02-25 12:27 | WOUNDNOTE ---
[facility] RN note: BILLY Beckham premedicated patient for pain for wound vac dressing change. L foot wound mostly clean pink with scant gouty material, small ss drainage, no surrounding erythema. Dorsal L foot incision with sutures approximated. +Palpable L
pedal pulse. R pedal pulse faintly palpable. Toes warm. Scant ss drainage from distal incision. Betadine and gauze applied to L dorsal foot incision. Dr. Yanes was in during visit who evaluated L foot wound. Heel dressings changed. L heel dry with a
couple linear dry scabs. R heel ulcer with small black eschar on lateral side of wound and a linear brown scab vs necrotic area noted along distal edge of entire wound. Moderate ss drainage R heel ulcer. TruVue lite boots applied. Air chair cushion
placed under boots. Patient tends to bend his knees. Sacral/buttocks blanchable mild red and intact. Patient turns with minimal assistance. Patient turned to R semi side lying position, folded bath blanket between knees. Next L foot vac dressing
change due Sunday. Nursing to remove vac dressing on day of transfer to SNF and place saline moistened gauze dressing and SNF will use their own vac equipment.
[2024-02-25 12:29] VITALS: BP 156/82
--- NOTE | 2024-02-25 12:30 | WOUNDNOTE ---
L HEEL (MEDIAL POSTERIOR)
--- NOTE | 2024-02-25 12:30 | WOUNDNOTE ---
R HEEL (with photo flash)
--- NOTE | 2024-02-25 12:30 | WOUNDNOTE ---
L FOOT (DORSAL)(about 1.8cm deep)
[2024-02-25] MEDS: ZYLOPRIM 50 MG PO (12:51)
--- NOTE | 2024-02-25 13:10 | W.PN.NEPH.PH ---
Today's Communication / Plan
-
- Cr continues to downtrend
Assessment/Plan
-
Assessment:
Left lower extremity swelling and pain secondary to cellulitis
Mental status change
acute kidney injury
Hyponatremia
Metabolic acidosis
Hypotension
Coronary artery disease with bypass
Heart failure reduced ejection fraction
Left lower extremity bypass and endarterectomy
History of hep C, treated
History of PE
Plan:
EMERSON-cr seem to improve slowly, non oliguric , creatinine 2.9
monitor bladder scan , patient with Wilson issues when placed
DESIRE, ANCA neg but c3 is mildly low-clinical sig unknown, U eosinophils neg , UA bland
antistreptolysin ab +, titer elevated
stable met acidosis-continue PO bicarb
BP increasing, add hydralazine and cont BB, holding Entresto
abx per ID
no HD needs, d.w son at bedside
previously d/w Son Ender (there are two other sons) regarding renal function. We could consider biopsy, but he is on eliquis, which would have to be held risks outweighs benefit, especially with a falling Cr
-
-
Date of Service: February 25, 2024
CC / HPI / ROS
-
Chief Complaint:
Acute kidney injury
History of Present Illness:
EMERSON/Cr better at .9
K normal
Metabolic acidosis better on sodium bicarb
BP increasing trend , pain related?
urine incontinence, concern of pulling things, wilson was out
Review of Systems:
No reported chest pain or shortness of breath
No fevers
confused sometimes-improving every day
Labs
-
Labs:
WBC 6.6 10^3/uL (4.8-10.8) 02/25/24 07:23
RBC 2.42 10^6/uL (4.70-6.10) L 02/25/24 07:23
Hgb 7.5 g/dL (13.0-18.0) L 02/25/24 07:23
Hct 23.6 % (39.0-52.0) L 02/25/24 07:23
Plt Count 172 10^3/uL (130-400) D 02/25/24 07:23
Sodium 137 mmol/L (135-145) 02/25/24 07:23
Potassium 4.5 mmol/L (3.5-5.1) 02/25/24 07:23
Chloride 112 mmol/L (98-107) H 02/25/24 07:23
Carbon Dioxide 20 mmol/L (22-30) L 02/25/24 07:23
BUN 54 mg/dl (9-20) H 02/25/24 07:23
Creatinine 2.9 mg/dL (0.7-1.3) H 02/25/24 07:23
eGFR 21.87 02/25/24 07:23
Glucose 91 mg/dl (70-99) 02/25/24 07:23
Calcium 8.2 mg/dl (8.4-10.2) L 02/25/24 07:23
Albumin 2.6 g/dl (3.5-5.0) L 02/20/24 04:10
Physical Exam
-
Vital Signs:
Vital Signs
Temp Pulse Resp BP Pulse Ox
98.1 F 63 19 156/82 93
02/25/24 12:29 02/25/24 12:29 02/25/24 12:29 02/25/24 12:29 02/25/24 12:29
Cardiovascular:: Regular rate and rhythm
Respiratory:: Bilateral: Coarse
Lung Excursion:: Normal
Abdomen:: Nontender and Soft
Bowel Sounds:: Normal
Extremity Edema:: +1: Right: and +2: Left:
Wilson Catheter: No
--- NOTE | 2024-02-25 13:11 | WOUNDNOTE ---
L FOOT (DORSAL)(about 1.8CM DEEP)
[2024-02-25 15:40] VITALS: BP 179/84
--- NOTE | 2024-02-25 16:33 | CM ---
Reviewed the chart notes. Will need updated PT notes for SNF/rehab referral. CM continues to be available to patient/family and is monitoring medical plan for needs at discharge.
Plan: Discharge to SNF/rehab. Wound vac will be needed.
[2024-02-25] MEDS: DILAUDID 2 MG PO (17:33)
[2024-02-25] MEDS: NEURONTIN 300 MG PO (17:33)
[2024-02-25 20:30] VITALS: BP 171/80
[2024-02-26] VITALS (8 sets, daily range): BP systolic 99–169; BP diastolic 49–78; PULSE 74; BMI 27.5
[2024-02-26] MEDS: DILAUDID 0.25 MG IV ×2 (02:08→20:07)
[2024-02-26] MEDS: DUONEB 3 ML INH ×4 (04:56→16:19)
[2024-02-26] MEDS: APRESOLINE 5 MG IV (05:19)
[2024-02-26] MEDS: DILAUDID 2 MG PO ×2 (05:19→09:22)
[2024-02-26 05:34] LABS: % Basophils 1.2 % (0-2); % Eosinophils 6.3 % (0-6); % Immature Granulocytes 0.7 % (0-0.5); % Lymphocytes 12.2 % (20.5-51.1); % Monocytes 8.3 % (1.7-9.3); % Neutrophils 71.3 % (42.2-75.2); Absolute Basophils 0.1 10^3/uL (0-0.2); Absolute Eosinophils 0.4 10^3/uL (0-0.7); Absolute Immature Granulocytes 0.1 10^3/uL (0-0.05); Absolute Lymphocytes 0.8 10^3/uL (1.2-3.4); Absolute Monocytes 0.6 10^3/uL (0.1-0.6); Absolute Neutrophils 4.8 10^3/uL (1.4-6.5); Hematocrit 24.8 % (39.0-52.0); Hemoglobin 7.9 g/dL (13.0-18.0); Mean Corp Hgb Conc. 31.9 g/dL (33.0-37.0); Mean Corpuscular Hgb 30.9 pg (27.0-31.0); Mean Corpuscular Volume 96.9 fL (80.0-94.0); Mean Platelet Volume 9.8 fL (7.4-10.4); Nucleated Red Blood Cells % 0 % (-); Platelet Count 179 10^3/uL (130-400); Red Blood Cell Count 2.56 10^6/uL (4.70-6.10); White Blood Cell Count 6.7 10^3/uL (4.8-10.8)
[2024-02-26 05:54] LABS: Blood Urea Nitrogen 47 mg/dl (9-20); Calcium 8.2 mg/dl (8.4-10.2); Carbon Dioxide 21 mmol/L (22-30); Chloride 111 mmol/L (98-107); Estimated Creatinine Clearance 23 ml/min; Glucose 83 mg/dl (70-99); Potassium 4.7 mmol/L (3.5-5.1); Sodium 137 mmol/L (135-145); eGFR 22.81
[2024-02-26] MEDS: SYNTHROID 75 MCG PO (06:08)
[2024-02-26] MEDS: CRESTOR 5 MG PO (09:09)
[2024-02-26] MEDS: FLOMAX 0.400000000000000022 MG PO (09:09)
[2024-02-26] MEDS: COLACE 100 MG PO ×2 (09:09→20:06)
[2024-02-26] MEDS: APRESOLINE 10 MG PO ×2 (09:09→21:40)
[2024-02-26] MEDS: ASPIR LOW (ENTERIC COATED) 81 MG PO (09:09)
[2024-02-26] MEDS: STERILE WATER FOR INJECTION 10 ML IV ×2 (09:10→20:07)
[2024-02-26] MEDS: TYLENOL 1000 MG PO ×3 (09:10→21:40)
[2024-02-26] MEDS: COREG 12.5 MG PO ×2 (09:10→20:06)
[2024-02-26] MEDS: ELIQUIS 5 MG PO ×2 (09:10→20:07)
[2024-02-26] MEDS: SODIUM BICARBONATE 1300 MG PO ×3 (09:10→21:40)
[2024-02-26] MEDS: TIMOPTIC 0.5% OPHTHALMIC SOLUTION 1 DROP BOTH EYES (09:11)
[2024-02-26] MEDS: SANTYL OINTMENT 1 APPLIC TOPICAL (09:11)
[2024-02-26] MEDS: MAXIPIME 1000 MG IV ×2 (09:11→20:07)
[2024-02-26] MEDS: PROCARDIA XL (EXTENDED RELEASE) 30 MG PO (09:17)
[2024-02-26] MEDS: HYDROPHOR 1 APPLIC TOPICAL (09:23)
--- NOTE | 2024-02-26 10:10 | W.PN.ID1 ---
Date of Service
Date of Service: February 26, 2024
Today's Communication
Continue cefepime 1g IV q12 (renally dosed) x 6 weeks through 03/10/24.
Assessment / Plan
# Acute left foot cellulitis resolved
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
- Prior wound cx Pseudomonas
- 02/14/24 s/p excisional debridement ulcer/1st met resection/debridement prox phalange, tophi noted
OR Tissue cultures no growth (on abx at the time)
Bone biopsies: + osteo of prox phalanx and metatarsal bone; unable to define margin
-Continue cefepime 1g IV q12 (renally dosed) x 6 weeks through 03/10/24.
Monitor for mental status change while on cefepime.
- Placed midline
# Tophaceous gout
-s/p prednisone 40mg po qd x 5 days
- Continue gout prophylaxis allopurinol 50mg qMo,, Sun.
Renal dosing adjustment prn.
# EMERSON improving
# PAD s/p left femoral endarterectomy with patch angioplasty, left SFA to ant tibial artery bypass (01/22/24)
# s/p Norovirus infection
#Additional Past Medical History:
HTN
dyslipidemia
CAD s/p CABG x 3
Ischemic cardiomyopathy s/p ICD (2019)
PE
PAD s/p hx BLE stents; s/p left femoral endarterectomy with patch angioplasty, left SFA to ant tibial artery bypass (01/22/24)
Chief Complaint
-: Other (osteo)
Vital Signs / Physical Exam
Vital Signs
Vital Signs
Temp Pulse Resp BP Pulse Ox
98.2 F 68 16 157/78 94
02/26/24 07:00 02/26/24 09:44 02/26/24 09:44 02/26/24 09:17 02/26/24 09:44
Physical Exam
Constitutional: No Acute Distress
Gastrointestinal: Soft, Non Tender and Non Distended
Wound: Other (left foot wound vac in place)
Objective Data
Lab Data
Lab Results
02/26/24 04:55
02/26/24 04:55
Estimated Creat Clear 23 ml/min 02/26/24 04:55
Lactic Acid 0.9 mmol/L (0.7-2.0) 02/15/24 04:19
Total Bilirubin 0.7 mg/dl (0.2-1.3) 02/20/24 04:10
AST 40 U/L (17-59) 02/20/24 04:10
ALT 29 U/L (0-50) 02/20/24 04:10
Alkaline Phosphatase 85 U/L (38-126) 02/20/24 04:10
Most recent labs reviewed.
Micro Results:
02/17/24 11:40 Blood Culture - Final
Blood/Venous No Growth - Final Report
02/17/24 11:34 Blood Culture - Final
Blood/Venous No Growth - Final Report
02/14/24 16:50 Wound Culture - Final
Foot - Left No growth
Gram Stain - Final
02/14/24 16:50 Anaerobic Culture - Final
Foot - Left NO ANAEROBES ISOLATED
02/16/24 11:43 Salmonella/Shigella Culture - Final
Feces/Stool No Salmonella, Shigella, Aeromonas or Plesiomonas species
isolated.
Campylobacter Culture - Final
No Campylobacter species isolated.
Shiga Toxin Test - Final
No E. coli Shiga Toxin 1 or 2 detected.
02/14/24 16:50 Tissue Culture - Final
Toe No Growth After 72 Hours
Gram Stain - Final
02/14/24 16:50 Tissue Culture - Final
Foot - Left No Growth After 72 Hours
Gram Stain - Final
02/12/24 11:20 Blood Culture - Final
Blood/Venous No Growth - Final Report
02/12/24 10:24 Blood Culture - Final
Blood/Venous No Growth - Final Report
02/16/24 11:43 C. difficile GDH Antigen & Toxins - Final
Feces/Stool Negative for toxigenic C.difficile
- Final
Positive for Norovirus GII
02/16/24 11:43 Stool Leukocytes - Final
Feces/Stool
02/12/24 12:40 MRSA Screen - Final
Nose No Methicillin Resistant Staphylococcus aureus isolated.
02/12/24 Foot XRAY: Healing versus old healed fracture of the left second metatarsal again seen, stable in comparison to recent prior study. Cannot exclude some mild lucency of the medial aspect of the head of the left first metatarsal as noted on
single view, cannot exclude infectious process such as osteomyelitis.
02/14/24 MRI LLE w w/o: There is enhancing intermediate T1-weighted signal involving the distal medial aspect of the first metatarsal head, and the proximal aspect of the proximal phalanx of the left great toe. There is also enhancing intermediate
T1-weighted signal involving the medial sesamoid, inferior to the first metatarsal head, and this is also considered suspicious for osteomyelitis. These findings are highly suggestive of osteomyelitis. Of note, inflammatory arthropathy/gout can
result in similar MR findings.
--- NOTE | 2024-02-26 10:56 | W.PN.HOSP.TC ---
Today's Communication/Plan
-
Monitor vital signs see plan
Creatinine slowly improving, if continues to improve then likely we can do DC planning
cw abx
Monitor renal function
Monitor hemoglobin
Pain control
Assessment / Plan
Assessment / Plan
Physical exam:
General: No Apparent Distress and Comfortable
HEENT: Anicteric and Moist mucous membranes
Respiratory: + wheezes and poor air entry
Cardiac: S1/S2
GI: Soft, Non Tender, Non Distended and Normal Bowel Sounds
Genito-urinary: + Warner
Musculoskeletal: Edema, Left Lower Extremity, erythema; LLE foot wound with wound vac
Neuro: Awake, confused at times. moving all 4 extremity
Psych: anxious
# Left lower extremity swelling and pain suspect secondary to osteomyelitis and ongoing PAD
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
TME likely secondary to above; improving
cw abx
ID following
Wound care
Patient was seen by vascular surgery and does not appear this related to his bypass; SALIMA drain dc'ed 02/12
Does have left first MTP wound which could likely be the source. podiatry following, ulceration left foot first monitor tarsal head, podiatry discussed with patient and son regarding possible resection or bone biopsy. MRI noted; possible osteo but
gout shows similar presentation; s/p 1st met resection/debridement left foot on 02/14; bone biopsy RESULTS WITH ACUTE OM
PAD status post left lower extremity bypass 01/22/2024
Path resulted with Osteomyelitis -will require ad terminal makeup operator abx
Monitor mentation closely as on Cefepime ; cefepime 1g IV q12 (renally dosed) x 6 weeks through 03/10/24.
added PO dilaudid PRN; he seems to be more comfortable with dilaudid. has all the reason to be in pain with wound vac. hold for sedation
#suspect mild acute delirium, possible hospital-acquired
Continue to monitor
Monitor with opioids
Patient also have progressing cognitive impairment, instructed on last admission to follow-up outpatient
Acute kidney injury with hyperkalemia and metabolic acidosis
Creatinine 2.8
nephrology discussing with family for potential biopsy. Serologies pending
Check UA neg, urine eos neg, ANCA negative. C3 complement low. C4 normal. DESIRE negative. Antistreptolysin antibody positive. Antistreptolysin titer elevated blood cultures negative x 3 days.
suspect 2/2 retention and hypotension/hypovolemia
had Warner catheter,
Hold nephrotoxic agents
on PO bicarb
renal ultrasound 02/13 showed small bilateral renal cyst, otherwise normal
Acidosis resolved
Lokelma
Primary hypertension elevated to some extent due to pain
And continue carvedilol
As needed hydralazine added
Hyponatremia
resolved.
History of pulmonary embolism
Restarted Eliquis per podiatry
CAD status post CABG
Continue aspirin
Ischemic cardiomyopathy
EF 30 to 35%
Follows up with Dr. Graves outpatient
Hold Entresto given EMERSON
History of ID
Acute hypoxic respiratory insufficiency secondary to atelectasis
He continues to have wheezes and limited air entry
CXR with atelectasis
Continue with nebulizer therapy
Discussed with respiratory nurse. Minimize use of narcotic
stage 2 distal to eschar
PAD status post stent earlier and now recent left lower extremity arterial bypass with vein graft for chronic wound and PAD
Follows up with Dr. Warner outpatient
Vascular following
SALIMA drain dc'ed 02/12
Suspect cognitive impairment
This was discussed on previous admission and son was instructed to follow-up outpatient
CT 10/11 was consistent with diffuse cortical atrophy
Anemia, suspect anemia of chronic disease
Monitor
Iron panel suggest good iron stores
History of hypertension
Hyperlipidemia
Hypothyroidism
History of hep C, treated
History of GERD
History of insomnia
Hold trazodone
DVTppx
eliquis
CODE STATUS
Full code
Total time spent to see the patient, examine the patient on the floor, review data and lab results, discuss treatment plan with patient, nursing staff around 52 minutes.
Anticipated Discharge: 24 - 48 hours
Subjective/Interval History
-
Date of Service: February 26, 2024
denies pain
Objective Data
-
Labs:
Laboratory Results
02/26/24
04:55
WBC 6.7
Hgb 7.9 L
Hct 24.8 L
Plt Count 179
Sodium 137
Potassium 4.7
Chloride 111 H
Carbon Dioxide 21 L
BUN 47 H
Creatinine 2.8 H
Glucose 83
Calcium 8.2 L
Vital Signs:
Vital Signs
Temp Pulse Resp BP Pulse Ox
98.2 F 68 16 157/78 94
02/26/24 07:00 02/26/24 09:44 02/26/24 09:44 02/26/24 09:17 02/26/24 09:44
I&O
02/25/24 02/26/24 02/27/24
06:59 06:59 06:59
Intake Total 1920 / 1920 360 / 360
Output Total 1540 / 1540 300 / 300
Balance 380 / 380 60 / 60
[2024-02-26 12:36] LABS: Transferrin 203 mg/dL (200-360)
[2024-02-26] MEDS: ZYLOPRIM 50 MG PO (12:39)
--- NOTE | 2024-02-26 12:59 | W.PN.NEPH.PH ---
Today's Communication / Plan
-
- add nifedipine
Assessment/Plan
-
Assessment:
Left lower extremity swelling and pain secondary to cellulitis
Mental status change
acute kidney injury
Hyponatremia
Metabolic acidosis
Hypotension
Coronary artery disease with bypass
Heart failure reduced ejection fraction
Left lower extremity bypass and endarterectomy
History of hep C, treated
History of PE
Plan:
EMERSON-cr seem to improve slowly, non oliguric , creatinine 2.8
monitor bladder scan , patient with Wilson issues when placed
DESIRE, ANCA neg but c3 is mildly low-clinical sig unknown, U eosinophils neg , UA bland
antistreptolysin ab +, titer elevated
stable met acidosis-continue PO bicarb
BP increasing, add hydralazine and cont BB, added nifedipine on 02/25. continue to hold entresto
abx per ID
no HD needs
previously d/w Son Ender (there are two other sons) regarding renal function. We could consider biopsy, but he is on eliquis, which would have to be held risks outweighs benefit, especially with a falling Cr
-
-
Date of Service: February 26, 2024
CC / HPI / ROS
-
Chief Complaint:
Acute kidney injury
History of Present Illness:
EMERSON/Cr better at 2.8
K normal
Metabolic acidosis better on sodium bicarb
BP increasing trend , pain related?
urine incontinence, concern of pulling things, wilson was out
Review of Systems:
No reported chest pain or shortness of breath
No fevers
confused sometimes-improving every day
Labs
-
Labs:
WBC 6.7 10^3/uL (4.8-10.8) 02/26/24 04:55
RBC 2.56 10^6/uL (4.70-6.10) L 04/09/24 04:55
Hgb 7.9 g/dL (13.0-18.0) L 02/26/24 04:55
Hct 24.8 % (39.0-52.0) L 02/26/24 04:55
Plt Count 179 10^3/uL (130-400) 02/26/24 04:55
Sodium 137 mmol/L (135-145) 02/26/24 04:55
Potassium 4.7 mmol/L (3.5-5.1) 02/26/24 04:55
Chloride 111 mmol/L (98-107) H 02/26/24 04:55
Carbon Dioxide 21 mmol/L (22-30) L 02/26/24 04:55
BUN 47 mg/dl (9-20) H 02/26/24 04:55
Creatinine 2.8 mg/dL (0.7-1.3) H 02/26/24 04:55
eGFR 22.81 02/26/24 04:55
Glucose 83 mg/dl (70-99) 02/26/24 04:55
Calcium 8.2 mg/dl (8.4-10.2) L 02/26/24 04:55
Albumin 2.6 g/dl (3.5-5.0) L 02/20/24 04:10
Physical Exam
-
Vital Signs:
Vital Signs
Temp Pulse Resp BP Pulse Ox
98.1 F 63 18 107/59 93
02/26/24 11:30 02/26/24 11:30 02/26/24 11:30 02/26/24 11:30 02/26/24 11:30
Cardiovascular:: Regular rate and rhythm
Respiratory:: Bilateral: Coarse
Lung Excursion:: Normal
Abdomen:: Nontender and Soft
Bowel Sounds:: Normal
Extremity Edema:: None: Bilateral: (both lower extremities in boots)
Wilson Catheter: No
[2024-02-26] MEDS: APRESOLINE PO (16:18)
[2024-02-26] MEDS: NEURONTIN 300 MG PO (17:25)
[2024-02-27] MEDS: DILAUDID 2 MG PO ×4 (01:36→18:32)
[2024-02-27 03:34] VITALS: BP 150/74
[2024-02-27 05:54] VITALS: BMI 26.3
[2024-02-27 06:00] VITALS: BMI 26.3
[2024-02-27] MEDS: SYNTHROID 75 MCG PO (06:12)
[2024-02-27 06:36] LABS: % Basophils 0.7 % (0-2); % Eosinophils 6.4 % (0-6); % Immature Granulocytes 0.6 % (0-0.5); % Lymphocytes 10.6 % (20.5-51.1); % Neutrophils 73.7 % (42.2-75.2); Absolute Basophils 0.1 10^3/uL (0-0.2); Absolute Eosinophils 0.4 10^3/uL (0-0.7); Absolute Lymphocytes 0.7 10^3/uL (1.2-3.4); Absolute Monocytes 0.5 10^3/uL (0.1-0.6); Hematocrit 24.7 % (39.0-52.0); Hemoglobin 7.8 g/dL (13.0-18.0); Mean Corp Hgb Conc. 31.6 g/dL (33.0-37.0); Mean Corpuscular Hgb 30.7 pg (27.0-31.0); Mean Corpuscular Volume 97.2 fL (80.0-94.0); Mean Platelet Volume 9.8 fL (7.4-10.4); Nucleated Red Blood Cells % 0 % (-); Platelet Count 173 10^3/uL (130-400); Red Blood Cell Count 2.54 10^6/uL (4.70-6.10); Red Cell Dist. Width 14.1 % (11.5-14.5); White Blood Cell Count 6.7 10^3/uL (4.8-10.8)
[2024-02-27 07:00] VITALS: BP 171/75
[2024-02-27 07:00] LABS: Blood Urea Nitrogen 41 mg/dl (9-20); Calcium 8.1 mg/dl (8.4-10.2); Carbon Dioxide 20 mmol/L (22-30); Chloride 113 mmol/L (98-107); Estimated Creatinine Clearance 27 ml/min; Glucose 78 mg/dl (70-99); Potassium 4.2 mmol/L (3.5-5.1); Sodium 138 mmol/L (135-145); eGFR 27.45
[2024-02-27 07:45] VITALS: BP 125/69
[2024-02-27] MEDS: STERILE WATER FOR INJECTION 10 ML IV ×2 (09:11→20:27)
[2024-02-27] MEDS: SANTYL OINTMENT 1 APPLIC TOPICAL (09:11)
[2024-02-27] MEDS: MAXIPIME 1000 MG IV ×2 (09:11→20:25)
[2024-02-27] MEDS: APRESOLINE 10 MG PO ×3 (09:12→22:32)
[2024-02-27] MEDS: PROCARDIA XL (EXTENDED RELEASE) 30 MG PO (09:12)
[2024-02-27] MEDS: SODIUM BICARBONATE 1300 MG PO ×3 (09:13→22:32)
[2024-02-27] MEDS: FLOMAX 0.400000000000000022 MG PO (09:13)
[2024-02-27] MEDS: CRESTOR 5 MG PO (09:13)
[2024-02-27] MEDS: ELIQUIS 5 MG PO ×2 (09:13→20:27)
[2024-02-27] MEDS: ASPIR LOW (ENTERIC COATED) 81 MG PO (09:13)
[2024-02-27] MEDS: COLACE 100 MG PO ×2 (09:14→20:27)
[2024-02-27] MEDS: HYDROPHOR 1 APPLIC TOPICAL (09:14)
[2024-02-27] MEDS: COREG 12.5 MG PO ×2 (09:14→20:27)
[2024-02-27] MEDS: TIMOPTIC 0.5% OPHTHALMIC SOLUTION 1 DROP BOTH EYES (09:15)
[2024-02-27] MEDS: TYLENOL 1000 MG PO ×3 (09:21→22:32)
[2024-02-27 11:00] VITALS: BP 99/58
--- NOTE | 2024-02-27 11:22 | W.PN.HOSP.TC ---
Today's Communication/Plan
-
Monitor vital signs see plan
Creatinine slowly continues to improve
Continue with BP meds
Pain control
Wound VAC
If renal function continues to improve then will start discharge planning
Assessment / Plan
Assessment / Plan
Physical exam:
General: No Apparent Distress and Comfortable
HEENT: Anicteric and Moist mucous membranes
Respiratory: + wheezes and poor air entry
Cardiac: S1/S2
GI: Soft, Non Tender, Non Distended and Normal Bowel Sounds
Genito-urinary: + Warner
Musculoskeletal: Edema, Left Lower Extremity, erythema; LLE foot wound with wound vac
Neuro: Awake, confused at times. moving all 4 extremity
Psych: anxious
# Left lower extremity swelling and pain suspect secondary to osteomyelitis and ongoing PAD
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
TME likely secondary to above; improving
cw abx
ID following
Wound care
Patient was seen by vascular surgery and does not appear this related to his bypass; SALIMA drain dc'ed 02/12
Does have left first MTP wound which could likely be the source. podiatry following, ulceration left foot first monitor tarsal head, podiatry discussed with patient and son regarding possible resection or bone biopsy. MRI noted; possible osteo but
gout shows similar presentation; s/p 1st met resection/debridement left foot on 02/14; bone biopsy RESULTS WITH ACUTE OM
PAD status post left lower extremity bypass 01/22/2024
Path resulted with Osteomyelitis -will require fci abx
Monitor mentation closely as on Cefepime ; cefepime 1g IV q12 (renally dosed) x 6 weeks through 03/10/24.
added PO dilaudid PRN; he seems to be more comfortable with dilaudid. has all the reason to be in pain with wound vac. hold for sedation
#suspect mild acute delirium, possible hospital-acquired
Continue to monitor
Monitor with opioids
Patient also have progressing cognitive impairment, instructed on last admission to follow-up outpatient
Acute kidney injury with hyperkalemia and metabolic acidosis
Creatinine 2.4; if continues to improve then will plan on discharge to SNF
nephrology discussing with family for potential biopsy. Serologies pending
Check UA neg, urine eos neg, ANCA negative. C3 complement low. C4 normal. DESIRE negative. Antistreptolysin antibody positive. Antistreptolysin titer elevated blood cultures negative x 3 days.
suspect 2/2 retention and hypotension/hypovolemia
had Warner catheter,
Hold nephrotoxic agents
on PO bicarb
renal ultrasound 02/13 showed small bilateral renal cyst, otherwise normal
Acidosis resolved
Lokelma
Primary hypertension elevated to some extent due to pain
And continue carvedilol
added nifedipine
As needed hydralazine added
Hyponatremia
resolved.
History of pulmonary embolism
Restarted Eliquis per podiatry
CAD status post CABG
Continue aspirin
Ischemic cardiomyopathy
EF 30 to 35%
Follows up with Dr. Graves outpatient
Hold Entresto given EMERSON
History of [place]
Acute hypoxic respiratory insufficiency secondary to atelectasis
He continues to have wheezes and limited air entry
CXR with atelectasis
Continue with nebulizer therapy
Discussed with respiratory nurse. Minimize use of narcotic
stage 2 distal to eschar
PAD status post stent earlier and now recent left lower extremity arterial bypass with vein graft for chronic wound and PAD
Follows up with Dr. Warner outpatient
Vascular following
SALIMA drain dc'ed 02/12
Suspect cognitive impairment
This was discussed on previous admission and son was instructed to follow-up outpatient
CT 10/11 was consistent with diffuse cortical atrophy
Anemia, suspect anemia of chronic disease
Monitor
Iron panel suggest good iron stores
History of hypertension
Hyperlipidemia
Hypothyroidism
History of hep C, treated
History of GERD
History of insomnia
Hold trazodone
DVTppx
eliquis
CODE STATUS
Full code
Total time spent to see the patient, examine the patient on the floor, review data and lab results, discuss treatment plan with patient, nursing staff around 53 minutes.
Anticipated Discharge: 24 - 48 hours
Subjective/Interval History
-
Date of Service: February 27, 2024
denies nausea
Objective Data
-
Labs:
Laboratory Results
02/27/24
05:41
WBC 6.7
Hgb 7.8 L
Hct 24.7 L
Plt Count 173
Sodium 138
Potassium 4.2
Chloride 113 H
Carbon Dioxide 20 L
BUN 41 H
Creatinine 2.4 H
Glucose 78
Calcium 8.1 L
Vital Signs:
Vital Signs
Temp Pulse Resp BP Pulse Ox
97.6 F 63 22 99/58 91
02/27/24 11:00 02/27/24 11:00 02/27/24 11:00 02/27/24 11:00 02/27/24 11:00
I&O
02/26/24 02/27/24 02/28/24
06:59 06:59 06:59
Intake Total 360 / 360 820 / 820
Output Total 300 / 300 1750 / 1750 250 / 250
Balance 60 / 60 -930 / -930 -250 / -250
[2024-02-27] MEDS: PEPCID 20 MG PO (12:20)
--- NOTE | 2024-02-27 14:17 | WOUNDNOTE ---
L FOREFOOT (MEDIAL)(Alejo seal around wound)
--- NOTE | 2024-02-27 14:20 | WOUNDNOTE ---
WOC RN note: Patient's L foot wound vac dressing changed as ordered. Wound with scant ss drainage and scattered gout material in depth of wound. Wound about 1.6cm deep. Patient tolerated vac change well. BILLY Slater assisted. L heel dressing
changed, appears healed/almost healed. BILLY Slater changed R heel ulcer dressing. Heels off bed with TruVue lite boots. Patient on a [employer] air bed. Appetite fair. Next vac dressing change due Sunday. Updated BILLY Beckham who will assess patient's
sacrum.
--- NOTE | 2024-02-27 15:05 | W.PN.ID1 ---
Date of Service
Date of Service: February 27, 2024
Today's Communication
Continue cefepime 1g IV q12 (renally dosed) x 6 weeks through 03/10/24.
Assessment / Plan
# Acute left foot cellulitis resolved
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
- Prior wound cx Pseudomonas
- 02/14/24 s/p excisional debridement ulcer/1st met resection/debridement prox phalange, tophi noted
OR Tissue cultures no growth (on abx at the time)
Bone biopsies: + osteo of prox phalanx and metatarsal bone; unable to define margin
-Continue cefepime 1g IV q12 (renally dosed) x 6 weeks through 03/10/24. Adjust dosing base on renal function.
Monitor for mental status change while on cefepime.
- Placed midline
# Tophaceous gout
-s/p prednisone 40mg po qd x 5 days
- Continue gout prophylaxis allopurinol 50mg qMo,, Sun.
Renal dosing adjustment prn.
# EMERSON improving
# PAD s/p left femoral endarterectomy with patch angioplasty, left SFA to ant tibial artery bypass (01/22/24)
# s/p Norovirus infection
#Additional Past Medical History:
HTN
dyslipidemia
CAD s/p CABG x 3
Ischemic cardiomyopathy s/p ICD (2019)
PE
PAD s/p hx BLE stents; s/p left femoral endarterectomy with patch angioplasty, left SFA to ant tibial artery bypass (01/22/24)
Chief Complaint
-: Other (osteo)
Vital Signs / Physical Exam
Vital Signs
Vital Signs
Temp Pulse Resp BP Pulse Ox
97.6 F 63 22 99/58 91
02/27/24 11:00 02/27/24 11:00 02/27/24 11:00 02/27/24 11:00 02/27/24 11:00
Physical Exam
Constitutional: No Acute Distress
Gastrointestinal: Soft, Non Tender and Non Distended
Extremities: Negative Edema
Objective Data
Lab Data
Lab Results
02/27/24 05:41
02/27/24 05:41
Estimated Creat Clear 27 ml/min 02/27/24 05:41
Lactic Acid 0.9 mmol/L (0.7-2.0) 02/15/24 04:19
Total Bilirubin 0.7 mg/dl (0.2-1.3) 02/20/24 04:10
AST 40 U/L (17-59) 02/20/24 04:10
ALT 29 U/L (0-50) 02/20/24 04:10
Alkaline Phosphatase 85 U/L (38-126) 02/20/24 04:10
Most recent labs reviewed.
Micro Results:
02/17/24 11:40 Blood Culture - Final
Blood/Venous No Growth - Final Report
02/17/24 11:34 Blood Culture - Final
Blood/Venous No Growth - Final Report
02/14/24 16:50 Wound Culture - Final
Foot - Left No growth
Gram Stain - Final
02/14/24 16:50 Anaerobic Culture - Final
Foot - Left NO ANAEROBES ISOLATED
02/16/24 11:43 Salmonella/Shigella Culture - Final
Feces/Stool No Salmonella, Shigella, Aeromonas or Plesiomonas species
isolated.
Campylobacter Culture - Final
No Campylobacter species isolated.
Shiga Toxin Test - Final
No E. coli Shiga Toxin 1 or 2 detected.
02/14/24 16:50 Tissue Culture - Final
Toe No Growth After 72 Hours
Gram Stain - Final
02/14/24 16:50 Tissue Culture - Final
Foot - Left No Growth After 72 Hours
Gram Stain - Final
02/12/24 11:20 Blood Culture - Final
Blood/Venous No Growth - Final Report
02/12/24 10:24 Blood Culture - Final
Blood/Venous No Growth - Final Report
02/16/24 11:43 C. difficile GDH Antigen & Toxins - Final
Feces/Stool Negative for toxigenic C.difficile
- Final
Positive for Norovirus GII
02/16/24 11:43 Stool Leukocytes - Final
Feces/Stool
02/12/24 12:40 MRSA Screen - Final
Nose No Methicillin Resistant Staphylococcus aureus isolated.
02/12/24 Foot XRAY: Healing versus old healed fracture of the left second metatarsal again seen, stable in comparison to recent prior study. Cannot exclude some mild lucency of the medial aspect of the head of the left first metatarsal as noted on
single view, cannot exclude infectious process such as osteomyelitis.
02/14/24 MRI LLE w w/o: There is enhancing intermediate T1-weighted signal involving the distal medial aspect of the first metatarsal head, and the proximal aspect of the proximal phalanx of the left great toe. There is also enhancing intermediate
T1-weighted signal involving the medial sesamoid, inferior to the first metatarsal head, and this is also considered suspicious for osteomyelitis. These findings are highly suggestive of osteomyelitis. Of note, inflammatory arthropathy/gout can
result in similar MR findings.
[2024-02-27 15:08] VITALS: BP 129/67
[2024-02-27] MEDS: DILAUDID 0.25 MG IV ×2 (15:12→20:43)
--- NOTE | 2024-02-27 16:54 | W.PN.NEPH.PH ---
Today's Communication / Plan
-
ok to d/c per renal
f/u BMP in 1week
nephro f/u
Assessment/Plan
-
Assessment:
Left lower extremity swelling and pain secondary to cellulitis
Mental status change
acute kidney injury
Hyponatremia
Metabolic acidosis
Hypotension
Coronary artery disease with bypass
Heart failure reduced ejection fraction
Left lower extremity bypass and endarterectomy
History of hep C, treated
History of PE
Plan:
EMERSON-cr seem to improve slowly, non oliguric , creatinine 2.4
monitor bladder scan , patient with Wilson issues when placed
DESIRE, ANCA neg but c3 is mildly low-clinical sig unknown ?ICGN, U eosinophils neg , UA bland
antistreptolysin ab +, titer elevated
over all with improving cr no further w/u needed
stable met acidosis-continue PO bicarb
BP stable on hydralazine, BB, added nifedipine on 02/25. continue to hold entresto
will do IV fe course for anemia, fe sat 20%
d/c plan
-
-
Date of Service: February 27, 2024
CC / HPI / ROS
-
Chief Complaint:
Acute kidney injury
History of Present Illness:
EMERSON/Cr better at 2.4
K normal
Metabolic acidosis better on sodium bicarb
BP stbale
non oliguric with out wilson
hb low 7.8 but stable
Review of Systems:
No reported chest pain or shortness of breath
No fevers
confused sometimes-improving every day
Labs
-
Labs:
WBC 6.7 10^3/uL (4.8-10.8) 02/27/24 05:41
RBC 2.54 10^6/uL (4.70-6.10) L 02/27/24 05:41
Hgb 7.8 g/dL (13.0-18.0) L 02/27/24 05:41
Hct 24.7 % (39.0-52.0) L 02/27/24 05:41
Plt Count 173 10^3/uL (130-400) 02/27/24 05:41
Sodium 138 mmol/L (135-145) 02/27/24 05:41
Potassium 4.2 mmol/L (3.5-5.1) 02/27/24 05:41
Chloride 113 mmol/L (98-107) H 02/27/24 05:41
Carbon Dioxide 20 mmol/L (22-30) L 02/27/24 05:41
BUN 41 mg/dl (9-20) H 02/27/24 05:41
Creatinine 2.4 mg/dL (0.7-1.3) H 02/27/24 05:41
eGFR 27.45 02/27/24 05:41
Glucose 78 mg/dl (70-99) 02/27/24 05:41
Calcium 8.1 mg/dl (8.4-10.2) L 02/27/24 05:41
Albumin 2.6 g/dl (3.5-5.0) L 02/20/24 04:10
Physical Exam
-
Vital Signs:
Vital Signs
Temp Pulse Resp BP Pulse Ox
97.5 F 63 20 129/67 92
02/27/24 15:08 02/27/24 15:08 02/27/24 15:08 02/27/24 15:08 02/27/24 15:08
Cardiovascular:: Regular rate and rhythm
Respiratory:: Bilateral: CTA
Lung Excursion:: Normal
Abdomen:: Nontender and Soft
Extremity Edema:: None: Bilateral: (trace)
Wilson Catheter: No
[2024-02-27] MEDS: NEURONTIN 300 MG PO (17:25)
[2024-02-27] MEDS: FERRLECIT 110 MG IV (18:32)
[2024-02-27 19:45] VITALS: BP 125/69
[2024-02-28] VITALS (7 sets, daily range): BP systolic 108–166; BP diastolic 55–90; BMI 25.6
[2024-02-28] MEDS: DILAUDID 2 MG PO ×3 (04:38→20:26)
[2024-02-28] MEDS: SYNTHROID 75 MCG PO (05:50)
[2024-02-28 05:51] LABS: % Eosinophils 6.2 % (0-6); % Immature Granulocytes 0.6 % (0-0.5); % Lymphocytes 10.7 % (20.5-51.1); % Monocytes 8.9 % (1.7-9.3); % Neutrophils 72.6 % (42.2-75.2); Absolute Basophils 0.1 10^3/uL (0-0.2); Absolute Eosinophils 0.4 10^3/uL (0-0.7); Absolute Lymphocytes 0.7 10^3/uL (1.2-3.4); Absolute Monocytes 0.6 10^3/uL (0.1-0.6); Absolute Neutrophils 4.6 10^3/uL (1.4-6.5); Hematocrit 25.4 % (39.0-52.0); Mean Corp Hgb Conc. 31.5 g/dL (33.0-37.0); Mean Corpuscular Hgb 30.7 pg (27.0-31.0); Mean Corpuscular Volume 97.3 fL (80.0-94.0); Mean Platelet Volume 9.4 fL (7.4-10.4); Nucleated Red Blood Cells % 0 % (-); Platelet Count 161 10^3/uL (130-400); Red Blood Cell Count 2.61 10^6/uL (4.70-6.10); Red Cell Dist. Width 14.4 % (11.5-14.5); White Blood Cell Count 6.3 10^3/uL (4.8-10.8)
[2024-02-28 06:24] LABS: Blood Urea Nitrogen 35 mg/dl (9-20); Carbon Dioxide 21 mmol/L (22-30); Chloride 113 mmol/L (98-107); Estimated Creatinine Clearance 30 ml/min; Glucose 77 mg/dl (70-99); Sodium 138 mmol/L (135-145); eGFR 32.22
[2024-02-28] MEDS: MAXIPIME IV (08:53)
[2024-02-28] MEDS: STERILE WATER FOR INJECTION IV (08:53)
--- NOTE | 2024-02-28 09:10 | WOUNDNOTE ---
[facility] RN Note: Updated Dr. Head re: L foot wound appearance, narrow opening and about 1.6cm depth. Dr. Head stated to discontinue vac either today if discharged otherwise tomorrow and start daily Mesalt packing. Updated CM Malka Zamora and RN Katie
via tiger text.
[2024-02-28] MEDS: MAXIPIME 2000 MG IV ×2 (09:26→20:11)
[2024-02-28] MEDS: STERILE WATER FOR INJECTION 10 ML IV ×2 (09:26→20:11)
[2024-02-28] MEDS: SANTYL OINTMENT 1 APPLIC TOPICAL (09:26)
[2024-02-28] MEDS: TIMOPTIC 0.5% OPHTHALMIC SOLUTION 1 DROP BOTH EYES (09:26)
[2024-02-28] MEDS: ELIQUIS 5 MG PO ×2 (09:29→20:12)
[2024-02-28] MEDS: TYLENOL 1000 MG PO ×3 (09:29→21:36)
[2024-02-28] MEDS: PROCARDIA XL (EXTENDED RELEASE) 30 MG PO (09:29)
[2024-02-28] MEDS: ASPIR LOW (ENTERIC COATED) 81 MG PO (09:29)
[2024-02-28] MEDS: COLACE 100 MG PO ×2 (09:29→20:12)
[2024-02-28] MEDS: FLOMAX 0.400000000000000022 MG PO (09:29)
[2024-02-28] MEDS: SODIUM BICARBONATE 1300 MG PO ×3 (09:29→21:36)
[2024-02-28] MEDS: CRESTOR 5 MG PO (09:29)
[2024-02-28] MEDS: APRESOLINE 10 MG PO ×3 (09:33→21:39)
[2024-02-28] MEDS: COREG 12.5 MG PO ×2 (09:34→20:12)
[2024-02-28] MEDS: HYDROPHOR 1 APPLIC TOPICAL (09:35)
--- NOTE | 2024-02-28 11:05 | W.PN.ID1 ---
Date of Service
Date of Service: February 28, 2024
Today's Communication
See below.
Assessment / Plan
# Acute left foot cellulitis resolved
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
- Prior wound cx Pseudomonas
- 02/14/24 s/p excisional debridement ulcer/1st met resection/debridement prox phalange, tophi noted
OR Tissue cultures no growth (on abx at the time)
Bone biopsies: + osteo of prox phalanx and metatarsal bone; unable to define margin
- Renally adjusted cefepime to 2g IV q12 through 03/10/24 (6 weeks).
Weekly CBC, CMP while on cefepime.
Monitor for mental status change while on cefepime.
- midline in place
# Tophaceous gout
-s/p prednisone 40mg po qd x 5 days
- Continue gout prophylaxis allopurinol renally adjusted to 50mg po daily.
# EMERSON continues to improve
Adjusted cefepime and allopurinol dosing.
# PAD s/p left femoral endarterectomy with patch angioplasty, left SFA to ant tibial artery bypass (01/22/24)
# s/p Norovirus infection
#Additional Past Medical History:
HTN
dyslipidemia
CAD s/p CABG x 3
Ischemic cardiomyopathy s/p ICD (2019)
PE
PAD s/p hx BLE stents; s/p left femoral endarterectomy with patch angioplasty, left SFA to ant tibial artery bypass (01/22/24)
Chief Complaint
-: Other (osteo)
Subjective / Review of Systems
No complaints.
Vital Signs / Physical Exam
Vital Signs
Vital Signs
Temp Pulse Resp BP Pulse Ox
97.5 F 67 17 178/76 93
02/28/24 08:00 02/28/24 08:00 02/28/24 08:00 02/28/24 09:34 02/28/24 08:00
Physical Exam
Constitutional: No Acute Distress
Extremities: Negative Edema
Wound: Other (left foot wound vac in place)
Neurological: Awake and Alert
Objective Data
Lab Data
Lab Results
02/28/24 05:42
02/28/24 05:42
Estimated Creat Clear 30 ml/min 02/28/24 05:42
Lactic Acid 0.9 mmol/L (0.7-2.0) 02/15/24 04:19
Total Bilirubin 0.7 mg/dl (0.2-1.3) 02/20/24 04:10
AST 40 U/L (17-59) 02/20/24 04:10
ALT 29 U/L (0-50) 02/20/24 04:10
Alkaline Phosphatase 85 U/L (38-126) 02/20/24 04:10
Most recent labs reviewed.
Micro Results:
02/17/24 11:40 Blood Culture - Final
Blood/Venous No Growth - Final Report
02/17/24 11:34 Blood Culture - Final
Blood/Venous No Growth - Final Report
02/14/24 16:50 Wound Culture - Final
Foot - Left No growth
Gram Stain - Final
02/14/24 16:50 Anaerobic Culture - Final
Foot - Left NO ANAEROBES ISOLATED
02/16/24 11:43 Salmonella/Shigella Culture - Final
Feces/Stool No Salmonella, Shigella, Aeromonas or Plesiomonas species
isolated.
Campylobacter Culture - Final
No Campylobacter species isolated.
Shiga Toxin Test - Final
No E. coli Shiga Toxin 1 or 2 detected.
02/14/24 16:50 Tissue Culture - Final
Toe No Growth After 72 Hours
Gram Stain - Final
02/14/24 16:50 Tissue Culture - Final
Foot - Left No Growth After 72 Hours
Gram Stain - Final
02/12/24 11:20 Blood Culture - Final
Blood/Venous No Growth - Final Report
02/12/24 10:24 Blood Culture - Final
Blood/Venous No Growth - Final Report
02/16/24 11:43 C. difficile GDH Antigen & Toxins - Final
Feces/Stool Negative for toxigenic C.difficile
- Final
Positive for Norovirus GII
02/16/24 11:43 Stool Leukocytes - Final
Feces/Stool
02/12/24 12:40 MRSA Screen - Final
Nose No Methicillin Resistant Staphylococcus aureus isolated.
02/12/24 Foot XRAY: Healing versus old healed fracture of the left second metatarsal again seen, stable in comparison to recent prior study. Cannot exclude some mild lucency of the medial aspect of the head of the left first metatarsal as noted on
single view, cannot exclude infectious process such as osteomyelitis.
02/14/24 MRI LLE w w/o: There is enhancing intermediate T1-weighted signal involving the distal medial aspect of the first metatarsal head, and the proximal aspect of the proximal phalanx of the left great toe. There is also enhancing intermediate
T1-weighted signal involving the medial sesamoid, inferior to the first metatarsal head, and this is also considered suspicious for osteomyelitis. These findings are highly suggestive of osteomyelitis. Of note, inflammatory arthropathy/gout can
result in similar MR findings.
--- NOTE | 2024-02-28 11:21 | PTCARENOTE ---
Addendum entered by Katie Rocha RN 02/29/24 11:54:
It was not 11:20 PM when the patient was taken off of remote video monitoring, it was 11:20 AM.
The patient was taken off remote video monitoring at 11:20 AM on 02/28/2024.
Original Note:
Pt has been ringing appropriately, and has been calm. Pt taken off remote video monitoring at 1120pm.
--- NOTE | 2024-02-28 11:35 | W.PN.HOSP.TC ---
Today's Communication/Plan
-
Monitor vital signs see plan
Creatinine continues to improve and now is 2.1
Continue with wound VAC
Discharge planning
Continue with antibiotic
Assessment / Plan
Assessment / Plan
Physical exam:
General: No Apparent Distress and Comfortable
HEENT: Anicteric and Moist mucous membranes
Respiratory: + wheezes and poor air entry
Cardiac: S1/S2
GI: Soft, Non Tender, Non Distended and Normal Bowel Sounds
Genito-urinary: + Warner
Musculoskeletal: Edema, Left Lower Extremity, erythema; LLE foot wound with wound vac
Neuro: Awake, confused at times. moving all 4 extremity
Psych: Calm
# Left lower extremity swelling and pain suspect secondary to osteomyelitis and ongoing PAD
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
TME likely secondary to above; improving
cw abx
ID following
Wound care
Patient was seen by vascular surgery and does not appear this related to his bypass; SALIMA drain dc'ed 02/12
Does have left first MTP wound which could likely be the source. podiatry following, ulceration left foot first monitor tarsal head, podiatry discussed with patient and son regarding possible resection or bone biopsy. MRI noted; possible osteo but
gout shows similar presentation; s/p 1st met resection/debridement left foot on 02/14; bone biopsy RESULTS WITH ACUTE OM
PAD status post left lower extremity bypass 01/22/2024
Path resulted with Osteomyelitis -will require machine ii coremaker abx
Monitor mentation closely as on Cefepime ; cefepime 1g IV q12 (renally dosed) x 6 weeks through 03/10/24.
added PO dilaudid PRN; he seems to be more comfortable with dilaudid. has all the reason to be in pain with wound vac. hold for sedation
#suspect mild acute delirium, possible hospital-acquired
Continue to monitor; now improved
DC tele sitter
Monitor with opioids
Patient also have progressing cognitive impairment, instructed on last admission to follow-up outpatient
Acute kidney injury with hyperkalemia and metabolic acidosis
Creatinine 2.1; if continues to improve then will plan on discharge to SNF
nephrology discussing with family for potential biopsy.
Check UA neg, urine eos neg, ANCA negative. C3 complement low. C4 normal. DESIRE negative. Antistreptolysin antibody positive. Antistreptolysin titer elevated blood cultures negative x 3 days.
antistreptolysin ab +, titer elevated
suspect 2/2 retention and hypotension/hypovolemia
had Warner catheter,
Hold nephrotoxic agents
on PO bicarb
renal ultrasound 02/13 showed small bilateral renal cyst, otherwise normal
Acidosis resolved
Lokelma
Primary hypertension elevated to some extent due to pain
And continue carvedilol
added nifedipine
As needed hydralazine added
Hyponatremia
resolved.
History of pulmonary embolism
Restarted Eliquis per podiatry
CAD status post CABG
Continue aspirin
Ischemic cardiomyopathy
EF 30 to 35%
Follows up with Dr. Graves outpatient
Hold Entresto given EMERSON
History of [place]
Acute hypoxic respiratory insufficiency secondary to atelectasis
He continues to have wheezes and limited air entry
CXR with atelectasis
Continue with nebulizer therapy
Discussed with respiratory nurse. Minimize use of narcotic
stage 2 distal to eschar
PAD status post stent earlier and now recent left lower extremity arterial bypass with vein graft for chronic wound and PAD
Follows up with Dr. Warner outpatient
Vascular following
SALIMA drain dc'ed 02/12
Suspect cognitive impairment
This was discussed on previous admission and son was instructed to follow-up outpatient
CT 10/11 was consistent with diffuse cortical atrophy
Anemia, suspect anemia of chronic disease
Monitor
Iron panel suggest good iron stores
History of hypertension
Hyperlipidemia
Hypothyroidism
History of hep C, treated
History of GERD
History of insomnia
Hold trazodone
DVTppx
eliquis
CODE STATUS
Full code
Total time spent to see the patient, examine the patient on the floor, review data and lab results, discuss treatment plan with patient, nursing staff around 52 minutes.
Anticipated Discharge: Within 24 hours
Subjective/Interval History
-
Date of Service: February 28, 2024
has some pain
Objective Data
-
Labs:
Laboratory Results
02/28/24
05:42
WBC 6.3
Hgb 8.0 L
Hct 25.4 L
Plt Count 161
Sodium 138
Potassium 4.0
Chloride 113 H
Carbon Dioxide 21 L
BUN 35 H
Creatinine 2.1 H
Glucose 77
Calcium 8.0 L
Vital Signs:
Vital Signs
Temp Pulse Resp BP Pulse Ox
97.5 F 67 17 178/76 93
02/28/24 08:00 02/28/24 08:00 02/28/24 08:00 02/28/24 09:34 02/28/24 08:00
I&O
02/27/24 02/28/24 02/29/24
06:59 06:59 06:59
Intake Total 820 / 820 600 / 600
Output Total 1750 / 1750 1974 / 1974
Balance -930 / -930 -1375 / -1375
[2024-02-28] MEDS: DULCOLAX 10 MG RECTAL (13:20)
[2024-02-28] MEDS: FERRLECIT 110 MG IV (13:55)
--- NOTE | 2024-02-28 14:36 | W.PN.NEPH.PH ---
Today's Communication / Plan
-
ok to d/c
Assessment/Plan
-
Assessment:
Left lower extremity swelling and pain secondary to cellulitis
Mental status change
acute kidney injury
Hyponatremia
Metabolic acidosis
Hypotension
Coronary artery disease with bypass
Heart failure reduced ejection fraction
Left lower extremity bypass and endarterectomy
History of hep C, treated
History of PE
Plan:
EMERSON-cr seem to improve slowly, non oliguric ,better creatinine 2.1
monitor bladder scan , patient with Wilson issues when placed
DESIRE, ANCA neg but c3 is mildly low-could it be ?ICGN, U eosinophils neg, UA bland
antistreptolysin ab +, titer elevated
over all with improving cr no further w/u needed
stable met acidosis-continue PO bicarb
BP stable on hydralazine, BB, added nifedipine on 02/25. continue to hold entresto
will do IV fe course for anemia, fe sat 20%
d/c plan
-
-
Date of Service: February 28, 2024
CC / HPI / ROS
-
Chief Complaint:
Acute kidney injury
History of Present Illness:
EMERSON/Cr better at 2.1
K normal
Metabolic acidosis better on sodium bicarb
BP stbale
non oliguric with out wilson
hb low 8 but stable
Review of Systems:
No reported chest pain or shortness of breath
No fevers
confused sometimes
Labs
-
Labs:
WBC 6.3 10^3/uL (4.8-10.8) 02/28/24 05:42
RBC 2.61 10^6/uL (4.70-6.10) L 02/28/24 05:42
Hgb 8.0 g/dL (13.0-18.0) L 02/28/24 05:42
Hct 25.4 % (39.0-52.0) L 02/28/24 05:42
Plt Count 161 10^3/uL (130-400) 02/28/24 05:42
Sodium 138 mmol/L (135-145) 02/28/24 05:42
Potassium 4.0 mmol/L (3.5-5.1) 02/28/24 05:42
Chloride 113 mmol/L (98-107) H 02/28/24 05:42
Carbon Dioxide 21 mmol/L (22-30) L 02/28/24 05:42
BUN 35 mg/dl (9-20) H 02/28/24 05:42
Creatinine 2.1 mg/dL (0.7-1.3) H 02/28/24 05:42
eGFR 32.22 02/28/24 05:42
Glucose 77 mg/dl (70-99) 02/28/24 05:42
Calcium 8.0 mg/dl (8.4-10.2) L 02/28/24 05:42
Albumin 2.6 g/dl (3.5-5.0) L 02/20/24 04:10
Physical Exam
-
Vital Signs:
Vital Signs
Temp Pulse Resp BP Pulse Ox
97.5 F 67 17 108/62 93
02/28/24 08:00 02/28/24 08:00 02/28/24 08:00 02/28/24 12:05 02/28/24 08:00
Cardiovascular:: Regular rate and rhythm
Respiratory:: Bilateral: CTA
Lung Excursion:: Normal
Abdomen:: Nontender and Soft
Extremity Edema:: None: Bilateral:
Wilson Catheter: No
--- NOTE | 2024-02-28 16:00 | CM ---
Reviewed the chart notes and spoke with the patient's son via telephone. Wound vac d/c'd, as well as, the Med Sitter. IMM discussed, no questions. [facility] unable to accept the patient due to needing to be off Med Sitter for at least 72 hours
and with the weekend, unable to accept until Sunday. [facility] is able to accept the patient tomorrow after the 24hrs off Med Sitter (after 11:30a.m.). The patient's son Ender in agreement with discharge to [facility]
Center. Admissions liaison Miladis ([phone]). CM continues to be available to patient/family and is monitoring medical plan for needs at discharge.
Plan: Discharge to [facility] tomorrow afternoon.
[2024-02-28] MEDS: NEURONTIN 300 MG PO (17:02)
[2024-02-29] MEDS: DILAUDID 2 MG PO ×2 (03:39→10:37)
[2024-02-29 04:00] VITALS: BP 156/67
[2024-02-29 05:15] VITALS: BMI 25.3
[2024-02-29] MEDS: SYNTHROID 75 MCG PO (06:18)
[2024-02-29 07:53] VITALS: BP 163/72
[2024-02-29] MEDS: SODIUM BICARBONATE 1300 MG PO ×2 (08:54→15:53)
[2024-02-29] MEDS: TIMOPTIC 0.5% OPHTHALMIC SOLUTION 1 DROP BOTH EYES (08:54)
[2024-02-29] MEDS: SANTYL OINTMENT 1 APPLIC TOPICAL (08:54)
[2024-02-29] MEDS: STERILE WATER FOR INJECTION 10 ML IV (08:54)
[2024-02-29] MEDS: MAXIPIME 2000 MG IV (08:54)
[2024-02-29] MEDS: APRESOLINE 10 MG PO ×2 (08:55→15:53)
[2024-02-29] MEDS: ASPIR LOW (ENTERIC COATED) 81 MG PO (08:55)
[2024-02-29] MEDS: COREG 12.5 MG PO (08:55)
[2024-02-29] MEDS: CRESTOR 5 MG PO (08:55)
[2024-02-29] MEDS: PROCARDIA XL (EXTENDED RELEASE) 30 MG PO (08:55)
[2024-02-29] MEDS: COLACE 100 MG PO (08:55)
[2024-02-29] MEDS: ELIQUIS 5 MG PO (08:55)
[2024-02-29] MEDS: TYLENOL 1000 MG PO ×2 (08:56→15:53)
[2024-02-29] MEDS: FLOMAX 0.400000000000000022 MG PO (08:56)
[2024-02-29] MEDS: ZYLOPRIM 50 MG PO (08:58)
[2024-02-29] MEDS: HYDROPHOR 1 APPLIC TOPICAL (08:59)
[2024-02-29] MEDS: PEPCID 20 MG PO (10:37)
[2024-02-29 11:51] VITALS: BP 111/52
[2024-02-29 12:29] LABS: % Basophils 0.7 % (0-2); % Eosinophils 4.8 % (0-6); % Immature Granulocytes 0.3 % (0-0.5); % Lymphocytes 11.1 % (20.5-51.1); % Monocytes 8.9 % (1.7-9.3); % Neutrophils 74.2 % (42.2-75.2); Absolute Eosinophils 0.3 10^3/uL (0-0.7); Absolute Lymphocytes 0.7 10^3/uL (1.2-3.4); Absolute Monocytes 0.5 10^3/uL (0.1-0.6); Absolute Neutrophils 4.5 10^3/uL (1.4-6.5); Hematocrit 23.4 % (39.0-52.0); Hemoglobin 7.6 g/dL (13.0-18.0); Mean Corp Hgb Conc. 32.5 g/dL (33.0-37.0); Mean Corpuscular Hgb 31.5 pg (27.0-31.0); Mean Corpuscular Volume 97.1 fL (80.0-94.0); Mean Platelet Volume 9.7 fL (7.4-10.4); Nucleated Red Blood Cells % 0 % (-); Platelet Count 148 10^3/uL (130-400); Red Blood Cell Count 2.41 10^6/uL (4.70-6.10); Red Cell Dist. Width 14.6 % (11.5-14.5)
[2024-02-29 12:39] LABS: Blood Urea Nitrogen 29 mg/dl (9-20); Calcium 8.1 mg/dl (8.4-10.2); Carbon Dioxide 22 mmol/L (22-30); Chloride 112 mmol/L (98-107); Estimated Creatinine Clearance 35 ml/min; Glucose 92 mg/dl (70-99); Potassium 3.8 mmol/L (3.5-5.1); Sodium 137 mmol/L (135-145); eGFR 38.77
--- NOTE | 2024-02-29 12:39 | W.PN.HOSP.TC ---
Addendum entered and electronically signed by Joe Monterroso MD 02/29/24 12:46:
Son updated over the phone
Addendum entered and electronically signed by Joe Monterroso MD 02/29/24 12:43:
Time of discharge 39 minutes
Original Note:
Today's Communication/Plan
-
Monitor vital signs and see plan
Awaiting BMP
Possible discharge today
Continue with Eliquis
Pain control
Continued antibiotics
Assessment / Plan
Assessment / Plan
Physical exam:
General: No Apparent Distress and Comfortable
HEENT: Anicteric and Moist mucous membranes
Respiratory: + wheezes and poor air entry
Cardiac: S1/S2
GI: Soft, Non Tender, Non Distended and Normal Bowel Sounds
Genito-urinary: + Warner
Musculoskeletal: Edema, Left Lower Extremity, erythema; LLE foot wound with wound vac
Neuro: Awake, confused at times. moving all 4 extremity
Psych: Calm
# Left lower extremity swelling and pain suspect secondary to osteomyelitis and ongoing PAD
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
TME likely secondary to above; improving
cw abx
ID following
Wound care
Patient was seen by vascular surgery and does not appear this related to his bypass; SALIMA drain dc'ed 02/12
Does have left first MTP wound which could likely be the source. podiatry following, ulceration left foot first monitor tarsal head, podiatry discussed with patient and son regarding possible resection or bone biopsy. MRI noted; possible osteo but
gout shows similar presentation; s/p 1st met resection/debridement left foot on 02/14; bone biopsy RESULTS WITH ACUTE OM
PAD status post left lower extremity bypass 01/22/2024
Path resulted with Osteomyelitis -will require packaging clerk abx
Monitor mentation closely as on Cefepime ; cefepime 1g IV q12 (renally dosed) x 6 weeks through 03/10/24.
added PO dilaudid PRN; he seems to be more comfortable with dilaudid. has all the reason to be in pain with wound vac. hold for sedation
#suspect mild acute delirium, possible hospital-acquired
Continue to monitor; now improved
DC tele sitter; has been calm
Monitor with opioids
Patient also have progressing cognitive impairment, instructed on last admission to follow-up outpatient
Acute kidney injury with hyperkalemia and metabolic acidosis
Creatinine 2.1; if continues to improve then will plan on discharge to SNF
nephrology discussing with family for potential biopsy.
Check UA neg, urine eos neg, ANCA negative. C3 complement low. C4 normal. DESIRE negative. Antistreptolysin antibody positive. Antistreptolysin titer elevated blood cultures negative x 3 days.
antistreptolysin ab +, titer elevated
suspect 2/2 retention and hypotension/hypovolemia
had Warner catheter,
Hold nephrotoxic agents
on PO bicarb
renal ultrasound 02/13 showed small bilateral renal cyst, otherwise normal
Acidosis resolved
Lokelma
Primary hypertension elevated to some extent due to pain
And continue carvedilol
added nifedipine
As needed hydralazine added
Hyponatremia
resolved.
History of pulmonary embolism
Restarted Eliquis per podiatry
CAD status post CABG
Continue aspirin
Ischemic cardiomyopathy
EF 30 to 35%
Follows up with Dr. Graves outpatient
Hold Entresto given EMERSON
History of PR
Acute hypoxic respiratory insufficiency secondary to atelectasis
He continues to have wheezes and limited air entry
CXR with atelectasis
Continue with nebulizer therapy
Discussed with respiratory nurse. Minimize use of narcotic
stage 2 distal to eschar
PAD status post stent earlier and now recent left lower extremity arterial bypass with vein graft for chronic wound and PAD
Follows up with Dr. Warner outpatient
Vascular following
SALIMA drain dc'ed 02/12
Suspect cognitive impairment
This was discussed on previous admission and son was instructed to follow-up outpatient
CT 10/11 was consistent with diffuse cortical atrophy
Anemia, suspect anemia of chronic disease
Monitor
Iron panel suggest good iron stores
History of hypertension
Hyperlipidemia
Hypothyroidism
History of hep C, treated
History of GERD
History of insomnia
Hold trazodone
DVTppx
eliquis
CODE STATUS
Full code
Anticipated Discharge: Today
Subjective/Interval History
-
Date of Service: February 29, 2024
denies pain,calm
Objective Data
-
Labs:
Laboratory Results
02/29/24
12:15
WBC 6.0
Hgb 7.6 L
Hct 23.4 L
Plt Count 148
Sodium Pending
Potassium Pending
Chloride Pending
Carbon Dioxide Pending
BUN Pending
Creatinine Pending
Glucose Pending
Calcium Pending
Vital Signs:
Vital Signs
Temp Pulse Resp BP Pulse Ox
98.2 F 62 19 111/52 96
02/29/24 11:51 02/29/24 11:51 02/29/24 11:51 02/29/24 11:51 02/29/24 11:51
I&O
02/28/24 02/29/24 03/01/24
06:59 06:59 06:59
Intake Total 600 / 600 950 / 950
Output Total 1974 / 1974 2355 / 2355
Balance -1375 / -1375 -1405 / -1405
--- NOTE | 2024-02-29 12:47 | W.DCSUMMARY ---
Discharge Summary
Discharge Data
Date of Admission: 02/12/24
Date of Discharge: 02/29/24
-
Pending Results: No
Hospital Course
73-year-old male with past medical history of pulmonary embolism, CAD status post CABG, ischemic cardiomyopathy, PAD with recent left lower extremity arterial bypass with vein graft, suspected cognitive impairment, anemia, hypertension,
hyperlipidemia, hypothyroidism, history of hep C, GERD, insomnia came to the hospital as a transfer from [place] with left lower extremity pain and swelling. Initially was thought that patient likely has infection of his left lower extremity
given recent arterial bypass with vein graft by Dr. Warner. Vascular surgery evaluated the patient and they did not thought the patient symptoms are likely related to infection given recent arterial bypass. He initially had a SALIMA drain which was
removed by vascular surgery. It was thought that patient likely has left lower extremity cellulitis with possible osteomyelitis of left first metatarsal. Patient was seen by podiatry throughout hospitalization. He was also thought that patient
likely has tophaceous gout so he was treated with course of prednisone. MRI was consistent with possible osteomyelitis. Patient was taken to the OR for first metatarsal resection/debridement. Bone biopsy results were consistent with
osteomyelitis. Patient was kept on IV antibiotics throughout hospitalization and per infectious disease recommendation was discharged on cefepime. While patient was hospitalized he also had mild acute delirium which was thought was
hospital-acquired which over time improved. On admission he also had acute kidney injury with hyperkalemia and metabolic acidosis for which he was seen by nephrology throughout hospitalization. Over time patient kidney function continue to
improve. Initially plan was to get kidney biopsy however given patient improvement in creatinine kidney biopsy was held. Patient was also evaluated by physical therapy who recommended SNF placement. Once patient symptoms were improving and
creatinine was improving, he was then discharged to SNF with instructions to follow-up with all his physicians outpatient.
Discharge Plan
-
Patient Disposition: Prison/SNF
Discharge Diagnosis/Procedures: Left lower extremity swelling and pain suspect secondary to osteomyelitis and ongoing PAD
Acute delirium
Acute kidney injury with hyperkalemia metabolic acidosis
Essential hypertension
Acute hypoxic respiratory insufficiency secondary to atelectasis
PAD status post recent left lower extremity arterial bypass with vein graft
Suspect cognitive impairment
Anemia
Diet: As tolerated and 2 Gram Sodium
Activity: With assistance and As tolerated
Driving Restrictions: Not until seen by your Dr
Bathing Restrictions: None
Activity Restrictions/Additional Instructions:
Continue cefepime 2g IV q12 through 03/10/24.
Check weekly CBC and CMP while on cefepime.
Adjust cefepime dose as needed based on renal function.
Wound Care Instructions
R heel: clean with saline, skin prep to periwound, Santyl to benson eschar followed by adaptic, alginate and abd pad with matilde change daily.
L heel: clean with saline, skin prep periwound, adaptic and dry dressing change same time as wound vac dressing.
Left Medial Foot, 1st Met- clean with saline, pack wound with Mesalt ribbon, cover wound and incision with dry gauze pad, secure with Kerlix (not tight), change daily and prn drainage.
offload heels when in bed with TruVue lite boots, can take upon discharge
Evaluate for air mattress.
air chair cushion can take upon discharge
Follow up with Dr. Head.
Follow up at wound care center call for an appointment.
Referrals:
Claudy Head DPM [Specified Professional Personl] - in one to two weeks
Asa Warner III, MD [Active] - in less than 1 week
Claudy Rivas MD [Active] -
UNKNOWN - PT DOES,NOT KNOW [Family Provider] - in less than 1 week
Sindy Yanes MD [Active] -
Prescriptions:
New
ipratropium-albuterol 0.5 mg-3 mg(2.5 mg base)/3 mL Solution For Nebulization
3 ml inhalation R Q4HPRN PRN (Reason: Shortness of breath, Wheezing) Qty: 0 0RF
cefepime 2 gram Recon Soln
2,000 mg IV Q12H Qty: 0 0RF
hydromorphone 2 mg Tablet
2 mg PO Q4HPRN PRN (Reason: moderate to severe pain) Qty: 20 0RF
nifedipine 30 mg Tablet Extended Release
30 mg PO DAILY Qty: 0 0RF
famotidine 20 mg Tablet
20 mg PO Q48H Qty: 0 0RF
gabapentin 300 mg Capsule
300 mg PO QPM Qty: 0 0RF
Santyl 250 unit/gram Ointment
1 applic topical DAILY Qty: 0 0RF
sodium bicarbonate 650 mg Tablet
1,300 mg PO TID Qty: 0 0RF
hydralazine 10 mg Tablet
10 mg PO TID Qty: 0 0RF
miconazole nitrate [Miconazorb AF] 2 % Powder
1 applic topical BIDPRN PRN (Reason: MASD) Qty: 0 0RF
allopurinol 100 mg Tablet
50 mg PO DAILY Qty: 0 0RF
Continued
aspirin 81 MG tablet,delayed release (DR/EC)
81 mg PO DAILY
acetaminophen 325 MG tablet
650 mg PO Q4HPRN PRN (Reason: mild pain,headache,temp >101F ) 0RF
rosuvastatin 5 MG tablet
5 mg PO DAILY
carvedilol 12.5 MG tablet
12.5 mg PO BID
levothyroxine 75 mcg tablet
75 mcg PO DAILY
pantoprazole 40 mg tablet,delayed release (DR/EC)
40 mg PO DAILY
timolol maleate 0.5 % drops
1 drp BOTH EYES DAILY
docusate sodium 100 MG capsule
100 mg PO BID
Eliquis 5 mg tablet
5 mg PO BID
bisacodyl 10 mg Suppository
10 mg VA DAILYPRN PRN (Reason: constipation) Qty: 5 0RF
tamsulosin 0.4 mg Capsule
0.4 mg PO DAILY Qty: 30 0RF
white petrolatum [Hydrophor] 42 % Ointment
1 applic topical DAILY Qty: 1 0RF
silver sulfadiazine 1 % Cream
1 applic topical BIDPRN PRN (Reason: if dressing soiled or removed) Qty: 1 0RF
Held
Entresto 49-51 mg tablet
1 tab PO BID
Hold Instructions: Until renal function normalizes and instructed to take again by cardiology
Discontinued
trazodone 50 mg tablet
50 mg PO HS PRN (Reason: sleep )
hydromorphone 2 mg Tablet
2 mg PO Q4HPRN PRN (Reason: moderate pain) Qty: 10 0RF
hydromorphone 4 mg Tablet
4 mg PO Q4HPRN PRN (Reason: severe pain) Qty: 10 0RF
gabapentin 100 mg Capsule
200 mg PO TID Qty: 90 0RF
Discharge Orders:
Discharge Patient (As Directed); Ordered 02/29/24
Ordered By: Joe Monterroso
Discharge Date and Time
Discharge Date/Time: 02/29/24 18:58
Print Language: SINHALA
--- NOTE | 2024-02-29 13:07 | CM ---
Reviewed the chart notes. Patient to be discharged to [facility].
Plan: Discharge to [facility]
Call report to: [phone]
Fax report to: [phone]
Medical necessity and transport forms on chart.
[2024-02-29] MEDS: FERRLECIT 110 MG IV (14:31)
--- NOTE | 2024-02-29 14:40 | WOUNDNOTE ---
WOC RN note: BILLY Salazar notified this clinical writer that patient's rental vac pump was discontinued and was placed in 2S soiled utility room. Notified [employer] via [employer] express stop rental vac date of 02/29/24 and for shrimp picker (work order #[id number]).
--- NOTE | 2024-02-29 15:14 | W.PN.ID1 ---
Date of Service
Date of Service: February 29, 2024
Today's Communication
Continue abx.
Assessment / Plan
# Acute left foot cellulitis resolved
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
- Prior wound cx Pseudomonas
- 02/14/24 s/p excisional debridement ulcer/1st met resection/debridement prox phalange, tophi noted
OR Tissue cultures no growth (on abx at the time)
Bone biopsies: + osteo of prox phalanx and metatarsal bone; unable to define margin
- Renally adjusted cefepime to 2g IV q12 through 03/10/24 (6 weeks).
Weekly CBC, CMP while on cefepime.
Monitor for mental status change while on cefepime.
- midline in place
# Tophaceous gout
-s/p prednisone 40mg po qd x 5 days
- Continue gout prophylaxis allopurinol renally adjusted to 50mg po daily.
# EMERSON continues to improve
Adjusted cefepime and allopurinol dosing.
# PAD s/p left femoral endarterectomy with patch angioplasty, left SFA to ant tibial artery bypass (01/22/24)
# s/p Norovirus infection
#Additional Past Medical History:
HTN
dyslipidemia
CAD s/p CABG x 3
Ischemic cardiomyopathy s/p ICD (2019)
PE
PAD s/p hx BLE stents; s/p left femoral endarterectomy with patch angioplasty, left SFA to ant tibial artery bypass (01/22/24)
Chief Complaint
-: Other (osteomyelitis foot)
Subjective / Review of Systems
Review of Systems: No Fever and No Chills
Vital Signs / Physical Exam
Vital Signs
Vital Signs
Temp Pulse Resp BP Pulse Ox
98.2 F 62 19 111/52 96
02/29/24 11:51 02/29/24 11:51 02/29/24 11:51 02/29/24 11:51 02/29/24 11:51
Physical Exam
Constitutional: No Acute Distress, Comfortable and Non-toxic
Eyes: Sclera Anicteric
Pulmonary: Non Labored
Wound: Other (foot dressed. No erythema up leg.)
Neurological: Awake
Psychological: Calm
Objective Data
Lab Data
Lab Results
02/29/24 12:15
02/29/24 12:15
Estimated Creat Clear 35 ml/min 02/29/24 12:15
Lactic Acid 0.9 mmol/L (0.7-2.0) 02/15/24 04:19
Total Bilirubin 0.7 mg/dl (0.2-1.3) 02/20/24 04:10
AST 40 U/L (17-59) 02/20/24 04:10
ALT 29 U/L (0-50) 02/20/24 04:10
Alkaline Phosphatase 85 U/L (38-126) 02/20/24 04:10
Most recent labs reviewed.
Micro Results:
02/17/24 11:40 Blood Culture - Final
Blood/Venous No Growth - Final Report
02/17/24 11:34 Blood Culture - Final
Blood/Venous No Growth - Final Report
02/14/24 16:50 Wound Culture - Final
Foot - Left No growth
Gram Stain - Final
02/14/24 16:50 Anaerobic Culture - Final
Foot - Left NO ANAEROBES ISOLATED
02/16/24 11:43 Salmonella/Shigella Culture - Final
Feces/Stool No Salmonella, Shigella, Aeromonas or Plesiomonas species
isolated.
Campylobacter Culture - Final
No Campylobacter species isolated.
Shiga Toxin Test - Final
No E. coli Shiga Toxin 1 or 2 detected.
02/14/24 16:50 Tissue Culture - Final
Toe No Growth After 72 Hours
Gram Stain - Final
02/14/24 16:50 Tissue Culture - Final
Foot - Left No Growth After 72 Hours
Gram Stain - Final
02/12/24 11:20 Blood Culture - Final
Blood/Venous No Growth - Final Report
02/12/24 10:24 Blood Culture - Final
Blood/Venous No Growth - Final Report
02/16/24 11:43 C. difficile GDH Antigen & Toxins - Final
Feces/Stool Negative for toxigenic C.difficile
- Final
Positive for Norovirus GII
02/16/24 11:43 Stool Leukocytes - Final
Feces/Stool
02/12/24 12:40 MRSA Screen - Final
Nose No Methicillin Resistant Staphylococcus aureus isolated.
02/12/24 Foot XRAY: Healing versus old healed fracture of the left second metatarsal again seen, stable in comparison to recent prior study. Cannot exclude some mild lucency of the medial aspect of the head of the left first metatarsal as noted on
single view, cannot exclude infectious process such as osteomyelitis.
02/14/24 MRI LLE w w/o: There is enhancing intermediate T1-weighted signal involving the distal medial aspect of the first metatarsal head, and the proximal aspect of the proximal phalanx of the left great toe. There is also enhancing intermediate
T1-weighted signal involving the medial sesamoid, inferior to the first metatarsal head, and this is also considered suspicious for osteomyelitis. These findings are highly suggestive of osteomyelitis. Of note, inflammatory arthropathy/gout can
result in similar MR findings.
[2024-02-29 15:41] VITALS: BP 129/66
[2024-02-29] MEDS: NEURONTIN 300 MG PO (17:04)
== END 2024-02-29 18:58 | DRG 503 ==
LOC: 2 SOUTH 07:46
PROVIDERS: Hospitalist; Internal Medicine; Nurse Practitioner Gerontology; Registered Nurse; Specialist; ADMITTING PHYSICIAN Hospitalist; ATTENDING PHYSICIAN Internal Medicine; CONSULT PHYSICIAN Internal Medicine Infectious Disease; CONSULT PHYSICIAN Podiatrist Foot Surgery; CONSULT PHYSICIAN Specialist; CONSULT PHYSICIAN Surgery Vascular Surgery
PROC: 0QBP0ZZ Excision of Left Metatarsal, Open Approach (ICD-10-PCS; 2024-02-14)
PROC: 0QBR0ZZ Excision of Left Toe Phalanx, Open Approach (ICD-10-PCS; 2024-02-14)
DX: M86.172 Other acute osteomyelitis, left ankle and foot (principal); G92.8 Other toxic encephalopathy; A08.11 Acute gastroenteropathy due to Norwalk agent; L03.116 Cellulitis of left lower limb; I50.22 Chronic systolic (congestive) heart failure; N17.9 Acute kidney failure, unspecified; E87.1 Hypo-osmolality and hyponatremia; E87.20 Acidosis, unspecified; J98.11 Atelectasis; I70.245 Atherosclerosis of native arteries of left leg with ulceration of other part of foot; M1A.9XX1 Chronic gout, unspecified, with tophus (tophi); I11.0 Hypertensive heart disease with heart failure; I25.10 Atherosclerotic heart disease of native coronary artery without angina pectoris; D63.8 Anemia in other chronic diseases classified elsewhere; E87.5 Hyperkalemia; L89.619 Pressure ulcer of right heel, unspecified stage; L89.629 Pressure ulcer of left heel, unspecified stage; L97.524 Non-pressure chronic ulcer of other part of left foot with necrosis of bone; R33.9 Retention of urine, unspecified; E03.9 Hypothyroidism, unspecified; K21.9 Gastro-esophageal reflux disease without esophagitis; E78.00 Pure hypercholesterolemia, unspecified; I08.0 Rheumatic disorders of both mitral and aortic valves; T40.2X5A Adverse effect of other opioids, initial encounter; Y92.239 Unspecified place in hospital as the place of occurrence of the external cause; M19.90 Unspecified osteoarthritis, unspecified site; G31.84 Mild cognitive impairment of uncertain or unknown etiology; I95.9 Hypotension, unspecified; R32 Unspecified urinary incontinence; R06.89 Other abnormalities of breathing; R09.02 Hypoxemia; I25.5 Ischemic cardiomyopathy; G47.00 Insomnia, unspecified; Z95.1 Presence of aortocoronary bypass graft; Z11.52 Encounter for screening for COVID-19; Z79.01 Long term (current) use of anticoagulants; Z86.711 Personal history of pulmonary embolism; Z95.810 Presence of automatic (implantable) cardiac defibrillator; Z87.891 Personal history of nicotine dependence; Z88.8 Allergy status to other drugs, medicaments and biological substances; Z79.82 Long term (current) use of aspirin; Z79.890 Hormone replacement therapy; Z79.891 Long term (current) use of opiate analgesic; I25.2 Old myocardial infarction; Z86.19 Personal history of other infectious and parasitic diseases
CPT/HCPCS: 88304; 88311; 36600; 71045; 71046; 73630; 73723; 76770; 80048; 80053; 81003; 81099; 82570; 82607; 82728; 82746; 82805; 82962; 83516; 83540; 83550; 83605; 83735; 84145; 84300; 84466; 85025; 85027; 86038; 86060; 86063; 86160; 87040; 87045; 87046; 87070; 87075; 87176; 87205; 87324; 87427; 87449; 87798; 87811; 89055; 93005; 93922; 93925; 94640; 97110; 97163; 97166; 97530; 97535; A9575; J2916